=== PATIENT | female | born 1940 | race Caucasian/White ===

== ENCOUNTER 2024-03-30 14:34 | Outpatient (CLI) | payer MEDICARE, SELFPAY ==
--- NOTE | 2024-03-30 14:38 | CT_ITS ---
PROCEDURE INFORMATION: Exam: CT Maxillofacial Without Contrast, Sinus Exam date and time: 03/30/2024 2:43 PM Age: 84 years old Clinical indication: Sinusitis; Chronic; Prior surgery; Surgery date: 6+ months; Surgery type: Sinus surgery; Additional info: Chronic sinusitis TECHNIQUE: Imaging protocol: CT Maxillofacial without contrast. Focus on the sinuses. Radiation optimization: All CT scans at this facility use at least one of these dose optimization techniques: automated exposure control; mA and/or kV adjustment per patient size (includes targeted exams where dose is matched to clinical indication); or iterative reconstruction. COMPARISON: No relevant prior studies available. FINDINGS: Frontal sinuses: No air-fluid levels. Ethmoid sinuses: No air-fluid levels. Sphenoid sinuses: A small volume of fluid in both sphenoid sinuses. No significant mucosal thickening. The sphenoid ostia appear patent. Pneumatization of the left sphenoid sinus extends into the anterior clinoid. Maxillary sinuses: Trace fluid in the left maxillary sinus. The right maxillary sinus is clear. The ostiomeatal units are patent. Nasal cavity: No nasal cavity masses. Orbital cavities: There are glaucoma shunt reservoirs in the orbits. Prior left lens surgery. Bones: Degenerative changes of the temporomandibular joints. Soft tissues: Unremarkable. IMPRESSION: A small volume of fluid in the left maxillary and bilateral sphenoid sinuses, nonspecific, can be seen in the setting of acute sinusitis.
== END 2024-03-30 23:59 | disposition home or self-care (01) ==
LOC: RAD 14:35
PROVIDERS: PCP Family Medicine; Visit Provider Nurse Practitioner
DX: J01.91 Acute recurrent sinusitis, unspecified (principal); Z98.890 Other specified postprocedural states
CPT/HCPCS: 70486

== ENCOUNTER 2025-02-18 11:13 | Emergency (ER) | payer MEDICARE, SELFPAY ==
--- OUTSIDE RECORDS SUMMARY | 2025-01-03 10:45 | XMS_ITS | Encounter Summary ---
Author Organization Healthcare Address [address] 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 Hx of primary open angle glaucoma severe right eye, secondary open angle glaucoma left eye. Hx of multiple PKP OD and multiple DSAEK OS for Fuch's. Using Combigan BID OU, Prednisolone BID OU, Pilocarpine 1% BID OU, Pazeo PRN OU, Travatan QHS OU. Added Maxitrol ointment nightly prn after the procedure. try ARx OU, CH, pachy, dilate OU She reports: no interim changes or concerns, vision about the same. No problems after the laser Next appt with Andre is 02/06/25 At last visit: she has been having a lot of allergies and has had burning and itching and blurred vision. Patient is taking over the counter rewetting systane and allergy drops pataday. Patient states she occasionally sees pink and blue balloons and stain glass window above television and [employer] grocery carts pushed together on the floor. Patient states she has a lot of pressure in sinus. Using Combigan BID OU, Prednisolone BID OU, Pilocarpine 1% BID OU, and Lumigan OU. Also using Pataday. Last saw Dr. Powell May 2023. IOPs were 7 T 12. Glaucoma History Summary: Diagnosis: Fuch's dystrophy, PKP x 3 OD, PKP , DSAEK OS - secondary open angle / steroid induced glaucoma OU Maximum IOP OD: mid 30's OS: mid 30's. Goal IOP OD: 12 mmHg or less OS: 12 mmHg or less. Pachymetry OD: 419 (october 2014), 530- Feb 2021 OS: 615 (october 2014). 556- Feb 2021 Current Meds: Bimatoprost OU, Pataday, Pazeo, PF 1/2, jeannine 1% BID OD, Combigan BID OD Drop Failure: combigan irritating?, Latanoprost a therapeutic failure in the past Surgery/Procedures OD tube shunt with patch graft , PKP 11/26 OS: previous ExPress shunt, TSCPCmicropulse 09/26 SLT 07/27 and 11/25 - previous ExPress shunt. SLT 07/27 and 11/25 - previous ExPress shunt. previous ExPress shunt. OS:. 07/27, 11/25, 07/31. Last HVF: Mar 2024 OD: Diffuse suppression, no pattern changes (MD -33.04 dB), reliability good, no previous test for comparison OS: Superior>inferior changes, fovea 28, + split fixation. (MD -20.61 dB), reliability, no previous test for comparison. 10-2 OU Jul 2013 OD - central island remains, total loss of SN quad (-25.18) OS- Inf nasal step with generalized constriction (-14.36) Last RNFL: October 2024 OD: diffuse thinning, avg 27 um. Unable to compared to previous due to poor quality OS: diffuse thinning, avg 52 um. stable compared to previous. Image quality good OU. March OD: Unable OS: polar thinning, avg 59 um. stable compared to previous. Mild seg error temporal/inferotemporal artificial thinning January 28, 2022 OS: polar and temporal thinning, avg 47 um. stable compared to previous. Image quality fair. Jun 2020 58 um OD/ Jan 2022 47 um OS comparing to 07/28/2017 - severe diffuse thinning OS > OD, likely some artifact OU but appears similar to 2018 Family History: no known family history Steriod Use or Medications of Interest: likely a steroid responder Medical History of Significance: psoriasis - on MTX, sleep apnea. Sulfa allergy. Chronic severe sinus problems, several surgeries Comments: had sinus surgery Apr 29 2015 with some improvement history of tarsorrhaphy OD Assessment/Plan There are no diagnoses linked to this encounter. 1) OAG / Steroid induced advanced glaucoma OU s/p tube OD and old trab / ExPress OS. Had DSAEK OS Mar 2018. Had tube flush OD at time of her most recent PKP in 2015. - goal IOP is 12 or less. At goal OU today. 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 Current regimen is bimatoprost OU (switched last year), pilocarpine 1% BID OU, Combigan BID OU. Option of Rhopressa trial but hesitant to challenge the eye surfaces. Refills done today - warned against using either Fluticasone spray or Qvar inhaler for more than 2 weeks at a time, asprolonged use could significantly elevate her eye pressures. She has done remarkably well since weaning off steroids and using Pilocarpine. - today's RNFL stability (OS only) is reassuring, although likely with artifacts. Recommend cont this regimen. 09/10/22: IOP stable today at 8 OU, RLL trichiatic lash epilated at slit lamp. Minor allergy symptoms. CPM. 03/15/23 - RNFL today stable left eye (unable right eye ) - Currently on combigan, pilocarpine, travatan both eyes and pred forte BID both eyes - intraocular pressure today 03/25 on above regimen - CPM 09/13/23 IOP today stable at 6 T 14 on combigan, pilocarpine, Lumigan both eyes and pred forte BID both eyes. Epilated lashes from the right lower lid with forceps, at the slit lamp, well tolerated. IOP at goal. Will cont this regimen. 03/27/24: 10-2 today OD with diffuse loss (do not repeat OD). OS with sup>inf changes. IOP 12 T 15 on combigan, pilocarpine, lumigan OU as well as PF BID. Will continue this regimen. 10/2024: IOP today 12/27 on PF BID, now on timolol, pilocarpine, and lumigan due to combigan HS reaction. Saw Dr. Neal 09/25 with IOP 15/19, Saw DGK 07/2024 with IOP 14/17 at that time. Has had worsened blurred vision with worsened allergic symptoms as well (is on allergy shots). Having some early julius bonnet symptoms out of right eye. Will add back combigan in interim. Has had multiple steroid shots recently so may be contributing. 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 IOPs today are excellent 10 12 on tonopen and 20 12 on applanation (OD less accurate). Currently on Lumigan qhs, Timolol BID, Pilocarpine BID, Prednisolone BID OU. Vision OS fluctuating. Sees Andre again in January. Unable to Rx today. Will continue c urrent drops and reassess in 4 months. 2) Hx of Fuchs dystrophy s/p multiple PKP OD, and DSEAK OS - most recently had PKP #3 OD in November 2015 and DSAEK OS in March 2018. - chronic corneal defect OD Improved after tarsorrhaphy. Corneas stable OU again today. - doing well in these glasses - Follows with Dr. Powell who is considering regraft right eye if visual acuity worsens 3) chronic blepharitis, good recent stability - using Pataday and soaks as needed. No recent ointment use. Her symptoms are chronic and never completely resolve, but we seem to be in reasonable control today. 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 Epilated 2 lashes today. RTC IOP check 4 months Electronically Signed by: Candy Freedman MD - 01/03/2025 - 12:54 PM I saw and evaluated the patient with the resident/fellow. I discussed the case with the resident/fellow and agree with the findings and plan as documented. Nelda Butcher MD documented in this encounter Plan of Treatment Upcoming Encounters Date Type Department Care Team (Late st Contact Info) Description 05/07/2025 9:15 AM EST Office Visit [facility] [address] [place] [address] Nelda Butcher MD 110 [facility] [address] [place] [address] 08/12/2025 1:45 PM EST Office Visit [facility] [address], [address] [place] [address] Ramón Powell MD 110 [facility] [address] [place] [address] 01/21/2026 1:30 PM EDT Ovarian Cancer Screening [facility] [address] [facility] [place] [address] documented as of this encounter Visit Diagnoses Diagnosis Steroid-induced open-angle glaucoma, left, moderate stage- Primary 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, severe stage Corneal edema, secondary, bilateral Fuchs' corneal 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
--- OUTSIDE RECORDS SUMMARY | 2025-02-06 15:00 | XMS_ITS | Encounter Summary ---
Author Organization [facility] Address [address] [place] [address] Care Team Providers Care Market Intelligence Consultant Name Role Phone Camilla Rosado MD Primary Care Provider [phone] Encounter Details Date Type Department Care Team (Latest Contact Info) Description 02/06/2025 3:00 PM EDT Office Visit [facility] [place] [address], [address] [place] [address] Ramón Powell MD 110 [facility] [address] [place] [address] 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, severe stage (Primary Dx); Corneal edema, secondary, bilateral; Fuchs' corneal dystrophy of both eyes; 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; Steroid-induced open-angle glaucoma, left, moderate stage; Allergic conjunctivitis of both eyes; Trichiasis of right lower eyelid; History of glaucoma tube shunt procedure; History of Descemet's stripping endothelial keratoplasty (DSEK); Ophthalmic migraine; Subjective visual disturbance Social History Tobacco Use Types Packs/Day Years [...] as of this encounter Miscellaneous Notes * Assessment & Plan Note - Ramón Powell MD - 02/06/2025 3:00 PM EDT Associated Problem(s): 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, severe stage * Assessment & Plan Note - Ramón Powell MD - 02/06/2025 3:00 PM EDT Associated Problem(s): Corneal edema, secondary, bilateral * Assessment & Plan Note - Ramón Powell MD - 02/06/2025 3:00 PM EDT Associated Problem(s): Fuchs' corneal dystrophy of both eyes * Assessment & Plan Note - Ramón Powell MD - 02/06/2025 3:00 PM EDT Associated Problem(s): 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 * Assessment & Plan Note - Ramón Powell MD - 02/06/2025 3:00 PM EDT Associated Problem(s): Steroid-induced open-angle glaucoma, left, moderate stage * Assessment & Plan Note - Ramón Powell MD - 02/06/2025 3:00 PM EDT Associated Problem(s): Allergic conjunctivitis of both eyes * Assessment & Plan Note - Ramón Powell MD - 02/06/2025 3:00 PM EDT Associated Problem(s): Trichiasis of right lower eyelid Orders: Epilation of Lashes by Forceps - OD - Right Eye * Assessment & Plan Note - Ramón Powell MD - 02/06/2025 3:00 PM EDT Associated Problem(s): History of glaucoma tube shunt procedure * Assessment & Plan Note - Ramón Powell MD - 02/06/2025 3:00 PM EDT Associated Problem(s): History of Descemet's stripping endothelial keratoplasty (DSEK) * Progress Notes - Ramón Powell MD - 02/06/2025 3:00 PM EDT Subjective HPI 85 year old woman, former patient of Dr Hali Comer ([facility]), Status Post Descemet's Stripping Automated Endothelial Keratoplasty (DSAEK) #3 Left Eye (OS) 11/23/2017 Dr Hali Comer ([facility]) Status Post Descemet's Stripping Automated Endothelial Keratoplasty (DSAEK) #2 Left Eye (OS) 04/29/2010 Dr Hali Comer ([facility]) for failed graft 2 weeks after Descemet's Stripping Automated Endothelial Keratoplasty (DSAEK) #1 04/2010 Dr Hali Comer ([facility]). She is Status Post Cataract Extraction (CE)/Intraocular Lens (IOL) Left Eye (OS) 04/20/2010. She is Status Post Penetrating Keratoplasty (PK) #3 Right Eye (OD) 11/24/2015 Dr Hali Comer ([facility]) , Status Post Penetrating Keratoplasty (PK) #2 Right Eye (OD) 05/20/2014 Dr Hali Comer ([facility]) and Status Post Penetrating Keratoplasty (PK) #1/Extracapsular Cataract Extraction (ECCE)/Intraocular Lens (IOL) Right Eye (OD) 10/21/2003 Dr Hali Comer ([facility]) . She has primary open angle glaucoma (POAG) Status Post SLT Left Eye (OS) 08/06/2013 and tube shunt right eye (OD) 08/02/2012. Status Post Yag Capsulotomy Right Eye (OD) 12/27/2005. Status Post TS central posterior curve (SHEET ROCKER) Left Eye (OS) 12/03/2024 Dr. Nelda Butcher She reports she is using Pataday once per day (QD) and Systane balance as needed , Pilocarpine 2x/ day (BID) Both Eyes (OU) , Prednisolone Acetate (PF) 2x/ day (BID) both eyes (OU) and Bimatoprost (Lumigan) Both Eyes (OU) at bedtime (qhs). Timolol 2x/ day (BID) Both Eyes (OU) Saw optometry 12/29/2022 due to irritation, had 3 lashes epilated and increased Artificial Tears (AT) Saw Dr. Nelda Butcher 12/2024 for glaucoma management, TS SHEET ROCKER OS on 12/03/24. IOPs today are excellent 10 12 on tonopen and 20 12 on applanation (OD less accurate). Currently on Lumigan at bedtime (qhs) both eyes (OU), Timolol BID OU, Pilocarpine BID OU, Prednisolone BID OU. Saw Dr. Berry Quintana O.D. 10/2023 with ocular migraine Patient states that she has severe allergy and is doing shots for allergy. Has had issues with her facility giving her drops correctly Patient fell 01/09/2025 with broken nose and concussion. Last edited by Ramón Powell MD on 02/06/2025 4:18 PM. ROS Positive for: Gastrointestinal (acid reflux), Musculoskeletal (arthritis), Endocrine (thyroid disorder), Cardiovascular (HTN), Eyes Negative for: Constitutional, Neurological, Skin, Genitourinary, HENT, Respiratory, Psychiatric, Allergic/Imm, Heme/Lymph Last edited by Berenice Kwong on 02/06/2025 3:34 PM. Objective Base Eye Exam Visual Acuity (Snellen - Linear) Right Left Dist cc 20/125-1 20/100 Near cc J16-2 J6-2 Tonometry (Tonopen, 4:06 PM) Right Left Pressure 8 9 Target and Max Pressure Right Left Target 12 12 Max 30 (07/03/2020) 30 (07/03/2020) Pachymetry (02/06/2025) Right Left Thickness 351 553 Neuro/Psych Oriented x3: Yes Mood/Affect: Normal Slit Lamp and Fundus Exam External Exam Right Left External 30% permanent lateral tarsorrhaphy, trichiasis upper lid Normal Slit Lamp Exam Right Left Lids/Lashes 40% lateral permanent tarsorrhaphy, 3trichiasis lower lid laterally, lower plug in place, blepharitis insp gland Normal for Age, lower punctal plug in place, blepharitis Conjunctiva/Sclera Bleb superonasally, 1+ injection 1-2+ injection Cornea Penetrating keratoplasty graft stable, 2+ microcystic edema superonasally, 0.5 x 1 mm subepithelual scar paracentrally toward 8:00, few tiny filaments. Continuous and interrupted sutures OK, Wound OK. epithelium intact, no fluorescein staining. EK (DSAEK) thin and clear, 100% attached. Epithelium intact, few tiny filaments, extensive PEE Anterior Chamber deep and quiet, tube shunt at 11:00 deep and quiet Iris normal pupil, miotic pupil size and shape Superotemporal PI, 2 inferior PI small Lens PC IOL YAG PC IOL YAG Vitreous Normal Normal Fundus Exam Right Left Disc mild diffuse pallor, no heme trace diffuse pallor, no heme C/D Ratio 0.95 0.85 Refraction Wearing Rx Sphere Cylinder [place] Add Right -2.25 Sphere +2.50 Left -3.25 +1.75 055 +2.50 Manifest Refraction Sphere Cylinder [place] Dist [place] Add Right -2.25 Sphere 20/125-1 +3.00 Left -2.75 +1.75 065 20/100 +3.00 Assessment/Plan Assessment & Plan 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, severe stage Corneal edema, secondary, bilateral Fuchs' corneal dystrophy of both eyes 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 Steroid-induced open-angle glaucoma, left, moderate stage Allergic conjunctivitis of both eyes Trichiasis of right lower eyelid Orders: Epilation of Lashes by Forceps - OD - Right Eye History of glaucoma tube shunt procedure History of Descemet's stripping endothelial keratoplasty (DSEK) Ophthalmic migraine Subjective visual disturbance Status Post Descemet's Stripping Automated Endothelial Keratoplasty (DSAEK) #3 Left Eye (OS) 11/23/2017 Dr Hali Comer ([facility]) Pachymetry [phone]) Vision 20/40-60 for several years Stable Prednisolone Acetate (PF) 2x/ day (BID) Status Post Descemet's Stripping Automated Endothelial Keratoplasty (DSAEK) #2 Left Eye (OS) 04/29/2010 Dr Hali Comer ([facility]) for failed graft 2 weeks after #1 Status Post Descemet's Stripping Automated Endothelial Keratoplasty (DSAEK) #1 /Cataract Extraction(CE)/Intraocular Lens (IOL) Left Eye (OS) 04/20/2010 Dr Hali Comer ([facility]). Fuchs' Dystrophy Status Post Penetrating Keratoplasty (PK) #3 Right Eye (OD) 11/24/2015 Dr Hali Comer ([facility]) Pachymetry 351([phone]) Decreased vision Right Eye (OD) from end stage glaucoma. Tarsorrhaphy in place, some peripheral Band Keratopathy Prednisolone Acetate (PF) 2x/ day (BID) Status Post Penetrating Keratoplasty (PK) #2 Right Eye (OD) 05/20/2014 Dr Hali Comer ([facility]) Status Post Penetrating Keratoplasty (PK) #1/Extracapsular Cataract Extraction (ECCE)/Intraocular Lens (IOL) Right Eye (OD) 10/21/2003 Dr Hali Comer ([facility]) Fuchs' Dystrophy Status Post Yag Capsulotomy Both Eyes (OU) Glaucoma Both Eyes (OU) Chronic open angle glaucoma, right severe, left moderate. Status Post SLT left eye (OS) 08/06/2013 Status Post tube shunt Right Eye (OD) 08/02/2012. Status Post TS central posterior curve (SHEET ROCKER) Left Eye (OS) 12/03/2024 Dr. Nelda Butcher Intraocular Pressure 8/9 Follows with Glaucoma service [place] qhs both eyes Pilocarpine 2x/ day (BID) Both Eyes (OU) Combigan 2x/ day (BID) Both Eyes (OU) Dry Eye Syndrome Reviewed in depth. Recommend that patient use Artificial tears on a set schedule either Refresh, Systane, Genteal or Theratears or similar, generics not preferred. No get the red out drops (Visine/Clear eyes) or allergy drops (unless specifically recommended) Preservitive Free artificial tears should be used several times per day if tears are needed four or more times per day also on a set schedule, as well as Genteal Gel or Refresh PM or Systane ointment at bedtime if patient notices symptoms upon awakening or during the night. Severe dry eyes, both eyes. Allergic conjunctivitis. Lower punctal plugs in place, both eyes (OU) Trichiasis None today Has needed epilation almost every 2-3 months - discussed oculoplastics eval but patient prefers just removing in clinic when seen. MEIBOMIAN GLAND DYSFUNCTION The nature of blepharitis was discussed with the patient Warm compresses as well as lid hygeine wasdiscussed with the patient. [place] 3 fatty acid supplements were discussed. Artificial tears four times per day on a set schedule, such as Refresh Advance, Systane balance or Retaine to help replace the oily layer of tears. Use preservative free tears if severe or tears needed more than four times per day. Possible need for oral doxycycline or similar discussed. Can use Tea tree oil foam (Oust) orCliradex wipes as well. Continue Pred acetate both eyes (OU) 2x/ day (BID) Doxycycline 50 once per day (QD) not using No longer using Brimonidine/Timolol (Combigan) Switched to timolol 2x/ day (BID) Both Eyes (OU) Continue pilocarpine 1% drops both eyes twice a day. Continue lumigan drops both eyes daily at bedtime. Could consider trial of protopic ointment (dandy) See primary care regarding visual Hallucinations no ocular cause, going on for several months may be Parth Trujillo OTC drops for allergy Seeing Dr. Nelda Butcher in [address] Powell in 6 months refract distance and near as scheduled for Va, Ta pachymetry, dilate if not done with Dr. Nelda Butcher Watch pachymetry right eye (OD), she may need regraft then if worse. See sooner if problems or questions. Tobacco Use: Low Risk (02/06/2025) Patient History Smoking Tobacco Use: Never Smokeless Tobacco Use: Never Passive Exposure: Never The patient has been counseled on tobacco cessation: Not Applicable documented in this encounter Plan of Treatment Upcoming Encounters Date Type Department Care Team (Late st Contact Info) Description 05/07/2025 9:15 AM EST Office Visit [facility] [address] [place] [address] Nelda Butcher MD [address] [place] [address] 08/12/2025 1:45 PM EST Office Visit [facility] [address], [address] [place] [address] Ramón Powell MD [address] [place] [address] 01/21/2026 1:30 PM EDT Ovarian Cancer Screening [facility] [address] [place] [address] documented as of this encounter Procedures Procedure Name Priority Date/Time Associated Diagnosis Comments CORRECTION OF TRICHIASIS EPILATION BY FORCEPS ONLY - OD - RIGHT EYE Routine 02/06/2025 4:22 PM EDT Trichiasis of right lower eyelid documented in this encounter Results * Epilation of Lashes by Forceps - OD - Right Eye (02/06/2025 4:22 PM EDT) Anatomical Region Laterality Modality Head Other Narrative 02/06/2025 4:22 PM EDT Procedure note Pre and Post Diagnosis: Trichiasis lash(s )of right lower eyelid (RLL) Procedure: Epilation with forceps x3 RLL Details:Jewelers forceps were used to remove the lashes noted above Surgeon: Ramón Powell MD Complications: None Ramón Powell MD OPHTH CLINIC PROCEDURES Final Result documented in this encounter Visit Diagnoses Diagnosis 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, severe stage- Primary Corneal edema, secondary, bilateral Fuchs' corneal dystrophy of both eyes 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 Steroid-induced open-angle glaucoma, left, moderate stage Allergic conjunctivitis of both eyes Other chronic allergic conjunctivitis Trichiasis of right lower eyelid History of glaucoma tube shunt procedure History of Descemet's stripping endothelial keratoplasty (DSEK) Ophthalmic migraine Subjective visual disturbance Unspecified subjective visual disturbance documented in this encounter Additional Health Concerns Assessment Noted Time A fall risk assessment has been complete d for the patient 10/17/2024 10:18 AM EDT A Body Mass Index follow-up plan has been documented for the patient 02/06/2025 4:27 PM EDT documented as of this encounter Care Teams Market Intelligence Consultant Relationship Specialty Start Date End Date Camilla Rosado MD [address] [place] [address] [address] [place] [address] PCP - General 10/24/20 documented as of this encounter
[2025-02-18] VITALS (8 sets, daily range): BP systolic 123–142; BP diastolic 56–72; PULSE 67–78; RESP 18; TEMP 36.9–37.1; O2SAT 93–95; BMI 26.1
--- NOTE | 2025-02-18 11:07 | XR_ITS ---
FINAL REPORT CLINICAL HISTORY: SOB, hypoxia, body aches FINDINGS: A single view of the chest was obtained. There is no prior exam for comparison. The cardiac and mediastinal silhouettes are within normal limits. There is underlying emphysema. There is no focal infiltrate, pleural effusion, or pneumothorax. IMPRESSION: No acute process. Underlying emphysema. Reviewed, Interpreted and Dictated by Krista Gonzalez MD Transcribed by Cheryl Bone Authenticated and [facility]
--- NOTE | 2025-02-18 11:10 | HMH.EDGENADL ---
Discharge Plan Disposition Patient Disposition: Home, Self-Care Prescriptions Prescriptions: No Action famotidine 20 mg tablet 20 mg PO BID Patient Comments: Take 1 tablet(s) twice a day. amlodipine 5 mg tablet 5 mg PO DAILY Patient Comments: Take 1 tablet by mouth Daily. metoprolol succinate 25 mg tablet extended release 24 hr 25 mg PO DAILY Patient Comments: Take 1 tablet by mouth Daily. meclizine 12.5 mg tablet 12.5 mg PO .prn Patient Comments: Take 1 tablet by mouth twice a day as needed. pravastatin 80 mg tablet 80 mg PO HS Patient Comments: TAKE 1 TABLET EVERY EVENING. losartan 100 mg tablet 100 mg PO DAILY Patient Comments: TAKE 1 TABLET ONCE A DAY. allopurinol 100 mg tablet 100 mg PO DAILY Patient Comments: TAKE 1 TABLET ONCE A DAY. montelukast 10 mg tablet 10 mg PO DAILY Patient Comments: take 1 tablet once a day prednisolone acetate 1 % drops,suspension 1 drp Eye-Both BID Patient Comments: Administer 1 drop into both eyes 4 (four) times a day. pilocarpine HCl 1 % drops 1 drp Eye-Both BID Patient Comments: Administer 1 drop into both eyes 2 (two) times a day. brimonidine-timolol 0.2-0.5 % drops 1 drp Eye-Both BID Patient Comments: Administer 1 drop into both eyes 2 (two) times a day. azelastine 137 mcg (0.1 %) spray,non-aerosol intranasal Patient Comments: [place] 1 spray twice a day by intranasal route. Lumigan 0.01 % drops 1 drp Eye-Both HS Patient Comments: Administer 1 drop into both eyes every night. albuterol sulfate 90 mcg/actuation HFA aerosol inhaler 2 inh inhalation Patient Comments: INHALE 2 PUFFS BY MOUTH EVERY 4 HOURS NEEDED levothyroxine 100 MCG tablet 100 mg PO DAILY levocetirizine [24HR Allergy Relief] 5 MG tablet 5 mg PO DAILY Referrals Follow up/Referrals: Westley Whelan MD [Physician, Pulmonology] - See instructions Activity Restrictions/Add. Instructions Additional Instructions/Restrictions: You are found to have COVID-19, which is likely the source of your symptoms. If you develop any new or worsening symptoms, such as worsening shortness of breath, difficulty breathing, chest pain, or if you become concerned for your health for any reason you were found to have an pulmonary nodule in your left lower lobe and left upper lobe. You are being referred to our autographer, Dr. Whelan, for follow up. Clinical Impressions Clinical Impression: COVID-19, Incidental pulmonary nodule, FAUSTINO (acute kidney injury) Print Language Print Language: [place] Discharge ED Provider: Jake Kee General Adult HPI General Chief complaint: Weakness Stated complaint: GENERALIZED WEAKNESS Time Seen by Provider: 02/18/25 11:14 Mode of Arrival: EMS Source of Information: Patient and EMS Limitations: No Limitations History of Present Illness HPI narrative: Kristen Vela is an 85-year-old female with a history of hypertension, appendectomy who presents to the emergency department via EMS from senior living for complaints of full body aches, cough, nasal congestion over the past 3 days. Patient symptoms started at 3 AM on Tuesday. She does report some vomiting with these symptoms as well. Patient reportedly had a negative COVID test 2 days ago. Patient does not normally wear oxygen but had oxygen saturations in the upper 80s with EMS that improved on 2 L nasal cannula. Patient does report that occasionally she will get clear phlegm with her cough. She states that the aches that she feels are full body. She denies abdominal pain or chest pain. Related Data Home Medications ?Medication ?Instructions ?Recorded ?Confirmed levocetirizine 5 mg tablet (24HR 5 mg PO DAILY . 09/13/18 04/03/24 Allergy Relief) levothyroxine 100 mcg tablet 100 mg PO DAILY thyroid 09/13/18 04/03/24 albuterol sulfate 90 mcg/actuation 2 inh inhalation 02/29/24 04/03/24 aerosol inhaler allopurinol 100 mg tablet 100 mg PO DAILY 02/29/24 04/03/24 amlodipine 5 mg tablet 5 mg PO DAILY 02/29/24 04/03/24 azelastine 137 mcg (0.1 %) nasal intranasal 02/29/24 04/03/24 spray bimatoprost 0.01 % eye drops 1 drp Eye-Both HS 02/29/24 04/03/24 ([place]umigan) brimonidine 0.2 %-timolol 0.5 % 1 drp Eye-Both BID 02/29/24 04/03/24 eye drops famotidine 20 mg tablet 20 mg PO BID 02/29/24 04/03/24 losartan 100 mg tablet 100 mg PO DAILY 02/29/24 04/03/24 meclizine 12.5 mg tablet 12.5 mg PO .prn 02/29/24 04/03/24 metoprolol succinate 25 mg 25 mg PO DAILY 02/29/24 04/03/24 tablet,extended release 24 hr montelukast 10 mg tablet 10 mg PO DAILY 02/29/24 04/03/24 pilocarpine HCl 1 % eye drops 1 drp Eye-Both BID 02/29/24 04/03/24 pravastatin 80 mg tablet 80 mg PO HS 02/29/24 04/03/24 prednisolone acetate 1 % eye 1 drp Eye-Both BID 02/29/24 04/03/24 drops,suspension Allergies Allergy/AdvReac Type Severity Reaction Status Date / Time cefixime (From Suprax) Allergy Verified 04/03/24 10:15 clarithromycin (From Biaxin) Allergy Verified 04/03/24 10:15 Penicillins Allergy Verified 04/03/24 10:15 Sulfa (Sulfonamide Allergy Verified 04/03/24 10:15 Antibiotics) steriods Allergy Mild Uncoded 04/03/24 10:15 PFSH PFSH Disclaimer: The information contained in this section may have been updated after the patient was seen, as this information can be updated by other users. Medical History (Updated 02/18/25 @ 14:34 by Jake Kee MD) Acute sinusitis Glaucoma (increased eye pressure) Sinusitis Surgical History History of appendectomy H/O carpal tunnel repair H/O breast surgery H/O sinus surgery History of cornea transplant Social History Smoking Status: Never smoker alcohol intake: never current occupational status: retired Travel in the last 8 weeks?: None Have you lived/traveled outside US in past 30 days?: No Contact w/someone who lives/traveled outside US past 30 days?: No Exposure to someone with infectious disease in past 14 days?: No Do you have a fever (greater than 100.4 F or 38 C)?: No Have you tested positive for COVID-19?: No Exposed to someone with COVID-19 in past 14 days?: No Do you have a sore throat?: No Do you have a cough?: No Do you have any weakness?: Yes Do you have any diarrhea?: No Are you experiencing any unusual bleeding?: No Do you have any muscle aches/pain?: No Do you have any abdominal pain?: No Are you experiencing loss of taste or smell?: No Other Medical History Have you received the Pneumonia Vaccine: Yes ROS Obtained: Yes Systems reviewed as appropriate & no additional complaints except as documented Physical Exam General General appearance: alert and in no apparent distress Head Head exam: atraumatic Eye Eye exam: Present normal appearance ENT ENT exam: Present normal external ear exam Neck Neck exam: Present full ROM Chest Chest inspection: Present symmetric chest wall rise Respiratory Respiratory exam: Present normal lung sounds bilaterally and other (speaking in full sentences); Absent respiratory distress, wheezes or stridor Cardiovascular Cardiovascular exam: Present regular rate and normal rhythm Abdominal Exam Abdominal exam: Present soft; Absent tenderness or guarding Extremities Exam Extremities exam: Present normal inspection Back Exam Back exam: Present normal inspection Neurological Exam Neurological exam: Present alert and oriented X3 Psychiatric Psychiatric exam: Present normal affect Skin Skin exam: Present warm and dry Medical Decision Making Medical Records Screening: Per USPSTF and CDC recommendations, given the prevalence of disease in our region, it is our hospital?s policy to screen for HIV and viral Hepatitis for all patients aged 18 and over and those with ongoing risk factors. Sudheer Inquiry Pt receiving controlled substance: No Vital Signs: 02/18/25 11:15 02/18/25 11:30 02/18/25 12:00 Temperature 98.8 F Temperature Source Oral Pulse Rate 72 67 Pulse Rate [Radial] 76 Respiratory Rate 18 Blood Pressure 123/63 123/72 Blood Pressure [Right Arm] 129/67 Blood Pressure Mean [Right Arm] 87 Blood Pressure Source [Right Arm] Automatic Cuff Blood Pressure Position [Right Arm] Sitting 02 Sat by Pulse Oximetry 93 L 95 95 Oxygen Delivery Method Nasal Cannula Oxygen Flow Rate (LPM) 2 02/18/25 13:01 02/18/25 13:30 02/18/25 14:00 Temperature Temperature Source Pulse Rate 78 69 69 Pulse Rate [Radial] Respiratory Rate Blood Pressure 134/70 128/63 141/56 H Blood Pressure [Right Arm] Blood Pressure Mean [Right Arm] Blood Pressure Source [Right Arm] Blood Pressure Position [Right Arm] 02 Sat by Pulse Oximetry 95 95 93 L Oxygen Delivery Method Oxygen Flow Rate (LPM) Lab Data Lab Results 02/18/25 11:07: Chlamy pneumoniae PCR Not detected, Adenovirus (PCR) Not detected, B. pertussis DNA (PCR) Not detected, Coronavirus OC43 (PCR) Not detected, Coronavirus HKU1 (PCR) Not detected, Coronavirus 229E (PCR) Not detected, SARS-CoV-2 (PCR) Detected A, Coronavirus NL63 (PCR) Not detected, Human Metapneumovir PCR Not detected, Influenza A (H1) PCR Not detected, Influ A (H1N1/09) PCR Not detected, Influenza A (H3) PCR Not detected, Influenza Type A (PCR) Not detected, Influenza Type B (PCR) Not detected, M. pneumoniae (PCR) Not detected, Parainfluenza 1 (PCR) Not detected, Parainfluenza 2 (PCR) Not detected, Parainfluenza 3 (PCR) Not detected, Parainfluenza 4 (PCR) Not detected, RSV (PCR) Not detected, Entero/Rhino (PCR) Not detected 02/18/25 11:10: WBC 7.3, RBC 4.53, Hgb 13.5, Hct 39.7, MCV 87.6, MCH 29.8, MCHC 34.0, RDW 12.2, Plt Count 163, MPV 11.3 H, Neut % (Auto) 76.1, Lymph % (Auto) 9.8 L, [place] % (Auto) 12.3 H, Eos % (Auto) 1.1, Baso % (Auto) 0.3, Neut # (Auto) 5.5, Lymph # (Auto) 0.7, [place] # (Auto) 0.9, Eos # (Auto) 0.1, Baso # (Auto) 0.0, D-Dimer 1.64 H, Sodium 136, Potassium 3.8, Chloride 104, Carbon Dioxide 27, Anion Gap 8.8, BUN 22 H, Creatinine 1.10 H, Estimated Creat Clear 46, Estimated GFR 47 L, Est GFR ( Amer) 57 L, Glucose 114 H, Calcium 8.7, Total Bilirubin 0.7, AST 25, ALT 21, Alkaline Phosphatase 88, Troponin I < 0.01, C-Reactive Protein 38.1 H, NT-Pro-B Natriuret Pep 197, Total Protein 6.7, Albumin 3.7, Globulin 3.0, Albumin/Globulin Ratio 1.2, HCV Ab KYLAH w/Rflx PCR Qn Negative, HIV Ag/Ab Combo Qual Negative 02/18/25 11:10 02/18/25 11:10 Orders (Tests/Meds): ED MEDICATIONS Discontinued Medications Generic Name Dose Route Start Last Admin Trade Name Freq PRN Reason Stop Dose Admin Lactated Ringer's 1,000 mls @ 999 mls/hr 02/18/25 12:38 02/18/25 14:33 Lactated Ringer's 1000 Ml Bag IV 02/18/25 13:38 Infused .Q1H1M ONE Infusion Iopamidol 80 ml 02/18/25 12:37 02/18/25 12:39 Iopamidol-370 (76%);100ml Bottle IV 02/18/25 12:38 80 ml ONCE ONE Administration Ondansetron HCl 4 mg 02/18/25 11:11 02/18/25 11:23 Ondansetron 4mg/2ml Vial IV 02/18/25 11:12 4 mg ONCE ONE Administration Sodium Chloride 10 ml 02/18/25 12:37 02/18/25 12:39 Sodium Chloride 0.9% 10ml Syr (Rad Only) IV 02/18/25 12:38 10 ml ONCE ONE Administration Sodium Chloride 50 ml 02/18/25 12:37 02/18/25 12:39 0.9 % Sodium Chloride 50 Ml Vial IV 02/18/25 12:38 50 ml ONCE ONE Administration ORDERS Category Date Time Status CT angio chest PE protocol Stat Cat Scan 02/18/25 11:45 Completed CXR --portable [XR chest portable] Stat Exams 02/18/25 11:07 Completed BNP [NT Pro Brain Natriuretic Pep.] Stat Lab 02/18/25 11:10 Completed CBC w/Auto Diff [Complete Blood Count Auto Diff] Stat Lab 02/18/25 11:10 Completed CMP [Comprehensive Metabolic Panel] Stat Lab 02/18/25 11:10 Completed CRP [C-Reactive Protein] Stat Lab 02/18/25 11:10 Completed D-Dimer Stat Lab 02/18/25 11:10 Completed Full Resp Panel w/COVID ([facility]) Routine Lab 02/18/25 11:07 Completed HIV Combo Stat Lab 02/18/25 11:10 Completed Hepatitis C Ab Qual. W/ RFX Stat Lab 02/18/25 11:10 Completed Troponin I Q3H Lab 02/18/25 14:18 Received Troponin I Q3H Lab 02/18/25 17:15 Ordered Troponin I Stat Lab 02/18/25 11:10 Completed UA [Urinalysis and Microscopic] Stat Lab 02/18/25 11:09 Ordered Blood Culture Stat Micro 02/18/25 11:50 Received ECG Data Tracing #1: I reviewed this ECG and interpreted as documented below: Normal sinus rhythm. No ST elevation or depression. QTc normal at 395 Medical Decision Narrative: Kristen Vela is an 85-year-old female with a history of hypertension, appendectomy who presents to the emergency department via EMS from senior living for complaints of full body aches, cough, nasal congestion over the past 3 days. Patient symptoms started at 3 AM on Tuesday. She does report some vomiting with these symptoms as well. Patient reportedly had a negative COVID test 2 days ago. Patient does not normally wear oxygen but had oxygen saturations in the upper 80s with EMS that improved on 2 L nasal cannula. Patient does report that occasionally she will get clear phlegm with her cough. She states that the aches that she feels are full body. She denies abdominal pain or chest pain. On arrival, patient oxygen saturation around 94% on 2 L nasal cannula and dropped to 88% when not on 2 L O2. She does not appear to be in any respiratory distress, breathing comfortably, speaking in full sentences. Breath sounds are clear bilaterally. She is GCS 15. Abdomen is soft, nontender nondistended. Differential diagnosis includes, but is not limited to: Viral respiratory illness, pneumonia, ACS, pulmonary embolism, electrolyte derangement, metabolic derangement, among others. The most morbid conditions were considered and workup was based on these. Workup in the emergency department included: EKG, chest x-ray, full respiratory panel,, troponin, urinalysis, BNP, CBC with differential, CMP, CRP, D-dimer. Patient was treated initially with 4 mg of IV Zofran. EKG without evidence of ischemia. See interpretation above. No leukocytosis, CBC unremarkable nonactionable. D-dimer is elevated 1.64, will obtain CT pulmonary embolism to rule out PE. Patient has mild FAUSTINO with creatinine of 1.10 and BUN of 22, will give 1 L lactated Ringer's this is likely prerenal in nature. Initial troponin less than 0.01. CRP is elevated at 38.1. Chest x-ray interpreted by me personally. No focal consolidation, no pneumothorax, no widened mediastinum, no enlargement of the cardiac silhouette. Unremarkable chest x-ray. See radiology report for details. CT pulmonary embolism interpreted by me personally. There are 2 incidentally found pulmonary nodules in the left lung but no evidence of pulmonary embolism or focal consolidation to suggest pneumonia. See radiology report for details. Patient's viral panel came back positive for SARS-CoV-2. On reassessment, patient was able to be weaned off nasal cannula. She does state that she sleeps with the CPAP at night. She was noted to have desaturations of oxygen only when sleeping. It is felt that she does not need oxygen therapy to go home with given this fact. This for the she is appropriate for discharge at this time. Return precautions were given. All questions were answered. She was then discharged from the emergency department in stable condition. Critical Care Critical Care Time Critical Care Time: No
[2025-02-18 11:13] LABS: Adenovirus,PCR Not Detected (NotDetected); Chlamydophila Pneumoniae, PCR Not Detected (NotDetected); Coronovirus HKU1,PCR Not Detected (NotDetected); Influenza A, PCR Not Detected (NotDetected); Influenza AH1, 2009 Not Detected (NotDetected); Influenza AH1, PCR Not Detected (NotDetected); Influenza AH3,PCR Not Detected (NotDetected); Influenza B, PCR Not Detected (NotDetected); Mycoplasma Pneumoniae, PCR Not Detected (NotDetected); Parainfluenza 1, PCR Not Detected (NotDetected); Parainfluenza 2, PCR Not Detected (NotDetected); Parainfluenza 3, PCR Not Detected (NotDetected); Parainfluenza 4, PCR Not Detected (NotDetected)
--- NOTE | 2025-02-18 11:13 | ECG_ITS ---
APPROVED REPORT Exam: Resting ECG HR:73 bpm ECG Measurements Heart Rate 73 AXES MA 195 P 63 QRSd 92 QRS 62 QT 369 T 71 QTc 395 Conclusion SINUS RHYTHM MODERATE ST DEPRESSION [0.05+ mV ST DEPRESSION] ABNORMAL ECG UNCONFIRMED REPORT Normal sinus rhythm. No ST elevation or depression. Electronically signed by : FELICIA KNIGHT, 02/18/2025 13:45:05
[2025-02-18 11:18] LABS: Hematocrit 39.7 % (37.0-47.0); Hemoglobin 13.5 g/dL (12.2-16.2); Immature Granulocytes % 0.4 %; Mean Corpuscular HGB Conc 34.0 g/dL (31.8-35.4); Mean Corpuscular Hemoglobin 29.8 pg (27.0-31.2); Mean Corpuscular Volume 87.6 fl (81-99); Nucleated Red Blood Cells % 0 %; Platelet Count 163 K/mm3 (142-424); Red Blood Count 4.53 M/mm3 (4.20-5.40); Red Cell Distribution Width-SD 39.3 fL; White Blood Count 7.3 K/mm3 (4.8-10.8)
[2025-02-18] MEDS: ONDANSETRON 4MG/2ML VIAL 4 MG IV (11:23)
[2025-02-18 11:27] LABS: Albumin Level 3.7 g/dl (3.5-5.0); Albumin/Globulin Ratio 1.2 (1.1-1.8); Blood Urea Nitrogen 22 mg/dl (7-17); Calcium 8.7 mg/dl (8.4-10.2); Carbon Dioxide 27 mmol/L (22.0-30.0); Chloride 104 mmol/L (98-107); Creatinine Clearance Estimated 46 mL/min (50-200); Creatinine,Serum 1.10 mg/dl (0.52-1.04); Estimated Glomerular Filt Rate 47 ml/min (>60); GFR (African American) 57 ML/MIN (>60); Globulin 3.0 g/dL (1.3-3.2); Glucose 114 mg/dl (74-100); Potassium 3.8 mmoL/L (3.5-5.1); Total Protein,Serum 6.7 g/dl (6.3-8.2)
[2025-02-18 11:31] LABS: D-Dimer 1.64 ug/mL (0.0-0.5)
[2025-02-18 11:32] LABS: Alanine Aminotransferase 21 U/L (12-78); Alkaline Phosphatase 88 U/L (38-126); Anion Gap 8.8 mEq/L (5-15); Aspartate Amino Transferase 25 U/L (14-36); Bilirubin,Total 0.7 mg/dl (0.2-1.3); C-Reactive Protein 38.1 mg/L (0-4); Sodium 136 mmol/L (136-145)
--- OUTSIDE RECORDS SUMMARY | 2025-02-18 11:34 | XMS_ITS | Encounter Summary ---
Author Organization Healthcare Address [address] [place] [address] Care Team Providers Care Senior Service Technician Name Role Phone Camilla Rosado MD Primary Care Provider [phone] Encounter Details Date Type Department Care Team (Late Contact Info) Description 02/13/2025 Telephone [facility] [address] [place] [address] Ramón Powell MD [address] [address] Social History Tobacco Use Types Packs/Day Years [...] on file documented as of this encounter Plan of Treatment Upcoming Encounters Date Type Department Care Team (Late Contact Info) Description 05/07/2025 9:15 AM EST Office Visit [facility] [address] [place] [address] Nelda Butcher MD [address] [address] 08/12/2025 1:45 PM EST Office Visit [facility] [address] [place] [address], [address] [place] [address] Ramón Powell MD 110 [facility] [address] [place] [address] 01/21/2026 1:30 PM EDT Ovarian Cancer Screening [facility] Gynecology [address] [place] [address] documented as of this encounter Visit Diagnoses Not on filedocumented in this encounter Additional Health Concerns Assessment Noted Time A fall risk assessment has been complete d for the patient 10/17/2024 10:18 AM EDT A Body Mass Index follow-up plan has been documented for the patient 02/06/2025 4:27 PM EDT documented as of this encounter Care Teams Senior Service Technician Relationship Specialty Start Date End Date Camilla Rosado MD [address] [place] [address] [address] [place] [address] PCP - General 10/24/20 documented as of this encounter
--- OUTSIDE RECORDS SUMMARY | 2025-02-18 11:34 | XMS_ITS | Encounter Summary ---
Author Organization [facility] Address [address] [place] [address] Care Team Providers Care Pharmacist Manager Name Role Phone Camilla Rosado MD Primary Care Provider [phone] Encounter Details Date Type Department Care Team (Late Contact Info) Description 01/09/2025 Orders Only External Location [address] [place] [address] Provider, External Social History Tobacco Use Types Packs/Day Years [...] Description 05/07/2025 9:15 AM EST Office Visit [facility] [address] [place] [address] Nelda Butcher MD 110 [facility] [address] [place] [address] 08/12/2025 1:45 PM EST Office Visit [facility] [address] [place] [address], [address] [place] [address] Ramón Powell MD 110 [facility] [address] [place] [address] 01/21/2026 1:30 PM EDT Ovarian Cancer Screening [facility] Gynecology [address] [place] [address] documented as of this encounter Procedures Procedure Name Priority Date/Time Associated Diagnosis Comments XR MSK OUTSIDE IMAGES 01/09/2025 12:21 PM EDT documented in this encounter Results * XR MSK OUTSIDE IMAGES (01/09/2025 12:21 PM EDT) Anatomical Region Laterality Modality Radiographic Mirtha ging 01/09/2025 12:2 1 PM EDT us External Provider IMG XR PROCEDURES Final Result documented in this encounter Visit Diagnoses Not on filedocumented in this encounter Additional Health Concerns Assessment Noted Time A fall risk assessment has been complete d for the patient 10/17/2024 10:18 AM EDT A Body Mass Index follow-up plan has been documented for the patient 01/03/2025 1:18 PM EDT documented as of this encounter Care Teams Pharmacist Manager Relationship Specialty Start Date End Date Camilla Rosado MD [address] [place] [address] [address] [place] [id number] PCP - General 10/24/20 documented as of this encounter
--- OUTSIDE RECORDS SUMMARY | 2025-02-18 11:34 | XMS_ITS | Encounter Summary ---
Author Organization Healthcare Address [address] [place] [address] Care Team Providers Care Budget Engineer Name Role Phone Camilla Rosado MD Primary Care Provider [phone] Encounter Details Date Type Department Care Team (Latest Contact Info) Description 01/03/2025 Travel Social History Tobacco Use Types Packs/Day Years [...] Description 05/07/2025 9:15 AM EST Office Visit [facility] [address] [place] [address] Nelda Butcher MD [address] [address] 08/12/2025 1:45 PM EST Office Visit [facility] [address], [address] [place] [address] Ramón Powell MD [address] [address] 01/21/2026 1:30 PM EDT Ovarian Cancer Screening [facility] [address] [place] [address] documented as of this encounter Visit Diagnoses Not on filedocumented in this encounter Additional Health Concerns Assessment Noted Time A fall risk assessment has been complete d for the patient 10/17/2024 10:18 AM EDT A Body Mass Index follow-up plan has been documented for the patient 01/03/2025 1:18 PM EDT documented as of this encounter Care Teams Budget Engineer Relationship Specialty Start Date End Date Camilla Rosado MD [address] [place] [address] [address] [place] [address] PCP - General 10/24/20 documented as of this encounter
--- OUTSIDE RECORDS SUMMARY | 2025-02-18 11:34 | XMS_ITS | Encounter Summary ---
Author Organization Healthcare Address [address] [place] [address] Care Team Providers Care Branch Operation Evaluation Manager Name Role Phone Camilla Rosado MD Primary Care Provider [phone] Reason for Visit * Reason Onset Date Comments HCN Clinical Concern/Question 02/12/2025 Encounter Details Date Type Department Care Team (Late st Contact Info) Description 02/12/2025 Telephone [facility] [address] [place] [address] Ramón Powell MD [address] [address] HCN Clinical Concern/Question Social History Tobacco Use Types Packs/Day Years [...] as of this encounter Miscellaneous Notes * Telephone Encounter - Elizabeth Fuentes - 02/14/2025 1:56 PM EDT Status Update Call #1 1st call regarding the status of the initial request. Best contact number: [phone] Optimal time of day to reach caller: ANYTIME Additional comments/information from caller: [facility] called re: the Doxycycline Monohydrate is a less expensive form of the med ordered. Caller wants to know if that could be filled instead. A verbal would be fine or please send an order. Note: Please do not reply to this message. Follow-up communication and further actions as a result of this message need to be communicated with the patient directly, if the patient is not active onMyChart. If the patient is active on MyChart, they will receive notification of the communication/outcome via MyChart. * Telephone Encounter - Meche Foster - 02/13/2025 10:08 AM EDT Triage Note 02/13/2025 10:08 AM Faxed patient's Doxy orders to * Telephone Encounter - Astrid Lucero - 02/12/2025 2:52 PM EDT Clinical Concern/Question Reason for Call: Calling for clarification on patient's medication orders. Best contact number: Other: [phone] Optimal time of day to reach caller: ANYTIME Additional comments/information from caller: None Note: Please do not reply to this message. Follow-up communication and further actions as a result of this message need to be communicated with the patient directly, if the patient is not active onMyChart. If the patient is active on MyChart, they will receive notification of the communication/outcome via MyChart. documented in this encounter Plan of Treatment Upcoming Encounters Date Type Department Care Team (Late st Contact Info) Description 05/07/2025 9:15 AM EST Office Visit [facility] [address] [place] [address] Nelda Butcher MD [address] [address] 08/12/2025 1:45 PM EST Office Visit [facility] [address], [address] [place] [address] Ramón Powell MD 110 [facility] [address] [place] [address] 01/21/2026 1:30 PM EDT Ovarian Cancer Screening [facility] Gynecology [address] [place] [address] documented as of this encounter Visit Diagnoses Diagnosis Meibomian gland dysfunction (MGD) of both eyes, unspecified eyelid- Primary documented in this encounter Additional Health Concerns Assessment Noted Time A fall risk assessment has been complete d for the patient 10/17/2024 10:18 AM EDT A Body Mass Index follow-up plan has been documented for the patient 02/06/2025 4:27 PM EDT documented as of this encounter Care Teams Branch Operation Evaluation Manager Relationship Specialty Start Date End Date Camilla Rosado MD [address] [place] [address] [address] [place] [address] PCP - General 10/24/20 documented as of this encounter
--- OUTSIDE RECORDS SUMMARY | 2025-02-18 11:34 | XMS_ITS | Encounter Summary ---
Author Organization Healthcare Address [address] [place] [address] Care Team Providers Care Crane Helper Name Role Phone Camilla Rosado MD Primary Care Provider [phone] Encounter Details Date Type Department Care Team (Latest Contact Info) Description 02/06/2025 Travel Social History Tobacco Use Types Packs/Day [...] Description 05/07/2025 9:15 AM EST Office Visit [facility] [address] [place] [address] Nelda Butcher MD [address] [address] 08/12/2025 1:45 PM EST Office Visit [facility] [address], [address] [place] [address] Ramón Powell MD [address] [address] 01/21/2026 1:30 PM EDT Ovarian Cancer Screening [facility] [address] [place] [address] documented as of this encounter Visit Diagnoses Not on filedocumented in this encounter Additional Health Concerns Assessment Noted Time A fall risk assessment has been complete d for the patient 10/17/2024 10:18 AM EDT A Body Mass Index follow-up plan has been documented for the patient 02/06/2025 4:27 PM EDT documented as of this encounter Care Teams Crane Helper Relationship Specialty Start Date End Date Camilla Rosado MD [address] [place] [address] [address] [place] [address] PCP - General 10/24/20 documented as of this encounter
--- OUTSIDE RECORDS SUMMARY | 2025-02-18 11:34 | XMS_ITS | Encounter Summary ---
Author Organization Healthcare Address [address] [place] [address] Care Team Providers Care Stock Or Delivery Clerk Name Role Phone Camilla Rosado MD Primary Care Provider [phone] Reason for Visit * Reason Onset Date Comments Med Refill 12/21/2024 Encounter Details Date Type Department Care Team (Late st Contact Info) Description 12/21/2024 Telephone [facility] [address] [place] [address] Ramón Powell MD [address] [address] Med Refill Social History Tobacco Use Types Packs/Day Years [...] encounter Miscellaneous Notes * Telephone Encounter - Meche Foster - 12/21/2024 11:41 AM EDT Triage Note 12/21/2024 11:44 AM Refill sent to preferred pharmacy on file. documented in this encounter Plan of Treatment Upcoming Encounters Date Type Department Care Team (Late st Contact Info) Description 05/07/2025 9:15 AM EST Office Visit [facility] [address] [place] [address] Nelda Butcher MD 110 [facility] [address] [place] [address] 08/12/2025 1:45 PM EST Office Visit [facility] [address] [place] [address] Ramón Powell MD 110 [facility] [address] [place] [address] 01/21/2026 1:30 PM EDT Ovarian Cancer Screening [facility] Gynecology [address] [facility], [address]rd [place] [address] documented as of this encounter Visit Diagnoses Not on filedocumented in this encounter Additional Health Concerns Assessment Noted Time A fall risk assessment has been complete d for the patient 10/17/2024 10:18 AM EDT A Body Mass Index follow-up plan has been documented for the patient 10/17/2024 11:18 AM EDT documented as of this encounter Care Teams Stock Or Delivery Clerk Relationship Specialty Start Date End Date Camilla Rosado MD [address] [place] [address] [address] [place] [address] PCP - General 10/24/20 documented as of this encounter
--- OUTSIDE RECORDS SUMMARY | 2025-02-18 11:34 | XMS_ITS | Encounter Summary ---
Author Organization [facility] Address [address] [place] [address] Care Team Providers Care Inset Cutter Name Role Phone Camilla Rosado MD Primary Care Provider + Reason for Visit * Reason Onset Date Comments AIDA SERNA- LUCERO 01/17/2025 Encounter Details Date Type Department Care Team (Late st Contact Info) Description 01/17/[address] [facility] CARDI[facility] [address] [place] [address] Aida Tellez APRN [address] [place] [address] [place] [address] AIDA SERNA- LUCERO Social History Tobacco Use Types Packs/Day Years Used Date Smoking Tobacco: Never Passive Smoke Exposure: Never Smokeless Tobacco: Never Alcohol Use Standard Drinks/Week Comments Never 0 (1 standard drink = 0.6 oz pur e alcohol) Comments No Sex and Gender Information Value Date Recorded Sex Assigned at Not on file Legal Sex Female 12:11 PM EDT Gender Identity Not on file Sexual Orientation Not on file documented as of this encounter Miscellaneous Notes * Telephone Encounter - Mustapha Burnett CMA - 01/17/2025 3:04 PM EDT SPOKE WITH KARYNA AT [facility]. INFORMED HER OF MESSAGE. KARYNA VERBALIZED UNDERSTANDING. REMINDED KARYNA ABOUT PATIENT'S UPCOMING APPOINTMENT IN . * Telephone Encounter - Mustapha Burnett CMA - 01/17/2025 12:01 PM EDT ATTEMPTED TO CALL [facility]. MAITE CURRENTLY AT LUNCH. WILL TRY AGAIN LATER * Telephone Encounter - La Nena Irvin APRN - 01/17/2025 10:[address] reviewed and noted nasal septal fractures. In agreement with not restarting CPAP at this time. She has a scheduled follow-up with us in about 6 weeks and we will reevaluate starting her CPAP at that appointment. * Telephone Encounter - Mustapha Burnett CMA - 01/17/2025 10:21 AM EDT SPOKE WITH MAITE FROM [facility]. PATIENT WAS TAKEN TO THE ER FOR A FALL AND HAS BEEN DISCHARGEDTO [facility] IN [place] FOR REHAB. PATIENT IS NOT CURRENTLY USING HER PAP THERAPY DUE TO THE SWELLING AND BRUISING. MAITE STATED THAT SHE DOES NOT CURRENTLY HAVE ORDERS FOR PAP THERAPY, SO IF PATIENT NEEDS TO RESTART WHILE IN REHAB, THEY WILL NEED ORDERS STATING THAT PATIENT IS TO RESTART. CURRENTLY, THERE IS NO PLAN OF DISCHARGE FROM [facility]. INFORMED MAITE OF PATIENT'S UPCOMING APPT ON 02/28 OBTAINING MEDICAL RECORDS FROM [facility] ER VISIT. * Telephone Encounter - Yoav Recinos RegSched Rep - 01/17/2025 9:41 AM EDT Caller: Kristen Vela Relationship: Self Best call back number: [phone] What is the best time to reach you: [facility] Who are you requesting to speak with (clinical staff, provider, specific staff member): CLINICAL What was the call regarding: PATIENT HAD AN INJURY RECENTLY TO THEIR FACE, AND SO THEY WANTED TO INFORM THAT THEY ARE NOT USING THE CPAP MACHINE DUE TO SWELLING. Is it okay if the provider responds through MyChart: NO.?? documented in this encounter Plan of Treatment Upcoming Encounters Date Type Department Care Team (Late st Contact Info) Description 02/28/2025 2:00 PM EDT Office Visit [facility] C[facility] [address] [place] [address] Aida Tellez APRN [address] [place] [address] [place] [address] documented as of this encounter Visit Diagnoses Not on filedocumented in this encounter Care Teams Inset Cutter Relationship Specialty Start Date End Date Camilla Rosado MD [address] [place] [address] PCP - General Family Medicine 07/10/22 documented as of this encounter
--- OUTSIDE RECORDS SUMMARY | 2025-02-18 11:34 | XMS_ITS | Encounter Summary ---
Author Organization [facility] Address [address] [place] [address] Care Team Providers Care Hollow Ware Maker Name Role Phone Camilla Rosado MD Primary Care Provider [phone] Reason for Visit * Reason Comments Med Refill Encounter Details Date Type Department Care Team (Late st Contact Info) Description 10/24/2024 Refill [facility] [address] [place] [address] Nelda Butcher MD [address] [address] Social History Tobacco Use Types Packs/Day Years Used Date Smoking Tobacco: Never Passive Smoke Exposure: Never Smokeless Tobacco: Never Alcohol Use Standard Drinks/Week Comments No 0 (1 standard drink = 0.6 oz pur e alcohol) Comments Unknown Sex and Gender Information Value Date Recorded Sex Assigned at Female 06/14/2024 2:41 PM EST Legal Sex Female 7:36 PM EDT Gender Identity Not on file Sexual Orientation Not on file documented as of this encounter Miscellaneous Notes * Telephone Encounter - Nelda Butcher MD - 10/24/2024 12:06 PM EDT redundant documented in this encounter Plan of Treatment Upcoming Encounters Date Type Department Care Team (Late Contact Info) Description 05/07/2025 9:15 AM EST Office Visit [facility] [address] [place] [address] Nelda Butcher MD [address] [place] [address] 08/12/2025 1:45 PM EST Office Visit [facility] [address] [place] [address] Ramón Powell MD [address] [place] [address] 01/21/2026 1:30 PM EDT Ovarian Cancer Screening [facility] [address] [place] [address] documented as of this encounter Visit Diagnoses Not on filedocumented in this encounter Additional Health Concerns Assessment Noted Time A fall risk assessment has been complete d for the patient 10/17/2024 10:18 AM EDT A Body Mass Index follow-up plan has been documented for the patient 10/17/2024 11:18 AM EDT documented as of this encounter Care Teams Hollow Ware Maker Relationship Specialty Start Date End Date Camilla Rosado MD [address] [place] [address] [address] [place] [address] PCP - General 10/24/20 documented as of this encounter
--- OUTSIDE RECORDS SUMMARY | 2025-02-18 11:34 | XMS_ITS | Encounter Summary ---
Author Organization [facility] Address [address] [place] [address] Care Team Providers Care Automotive Refinisher Name Role Phone Camilla Rosado MD Primary Care Provider [phone] Encounter Details Date Type Department Care Team (Late Contact Info) Description 01/09/2025 Orders Only External Location [address] [place] [address] Provider, External Social History Tobacco Use Types [...] Description 05/07/2025 9:15 AM EST Office Visit [facility] [address] [place] [address] Nelda Butcher MD 110 [facility] [address] [place] [address] 08/12/2025 1:45 PM EST Office Visit [facility] [address] [place] [address], [address] [place] [address] Ramón Powell MD 110 [facility] [address] [place] [address] 01/21/2026 1:30 PM EDT Ovarian Cancer Screening [facility] [address] [place] [address] documented as of this encounter Procedures Procedure Name Priority Date/Time Associated Diagnosis Comments CT NEURO OUTSIDE IMAGES 01/09/2025 12:08 PM EDT documented in this encounter Results * CT NEURO OUTSIDE IMAGES (01/09/2025 12:08 PM EDT) Anatomical Region Laterality Modality Computed Tomogra phy 01/09/2025 12:0 8 PM EDT us External Provider IMG CT PROCEDURES Final Result documented in this encounter Visit Diagnoses Not on filedocumented in this encounter Additional Health Concerns Assessment Noted Time A fall risk assessment has been complete d for the patient 10/17/2024 10:18 AM EDT A Body Mass Index follow-up plan has been documented for the patient 01/03/2025 1:18 PM EDT documented as of this encounter Care Teams Automotive Refinisher Relationship Specialty Start Date End Date Camilla Rosado MD [address] [place] [address] [address] [place] [address] PCP - General 10/24/20 documented as of this encounter
--- OUTSIDE RECORDS SUMMARY | 2025-02-18 11:34 | XMS_ITS | Clinical Summary ---
Author Organization [facility] Address [address] [place] [address] Care Team Providers Care Drill Press Operator Name Role Phone Camilla Rosado MD Primary Care Provider + Allergies Active Allergy Reactions Criticality Noted Date Comments Atorvastatin Other (See Comments),Unknown (See Comments) Low 04/29/2015 Muscle cramping leg weakness Cefixime Unknown - Low Severity,Rash,Unknown (See Comments) Low 04/29/2015 Clarithromycin Unknown - Low Severity,Rash,Unknown (See Comments) Low 04/29/2015 Rosuvastatin Unknown - Low Severity Low 07/15/2022 Diltiazem Palpitations Low 07/15/2022 Lisinopril Cough Low 07/15/2022 Nitrofurantoin Unknown - Low Severity Low 3 Methylprednisolone Unknown - Low Severity Low 07/19 Penicillins Hives,Rash,Unknown ( See Comments) Low 04/29/2015 Sulfa Antibiotics Rash,Other (See Comments),Unknown (See Comments) Low 04/29/2015 Medications losartan (COZAAR) 100 MG tablet 06/24/19 23 Active levocetirizine (XYZAL) 5 MG tablet 06/21/19 23 Active allopurinol (ZYLOPRIM) 100 MG tablet 06/24/19 23 Active pilocarpine (PILOCAR) 1 % ophthalmic solution 07/12/19 23 Active pravastatin (PRAVACHOL) 80 MG tablet 06/24/19 23 Active Lumigan 0.01 % ophthalmic drops 07/10/19 23 Active famotidine (PEPCID) 20 MG tablet 06/10/20 22 Active levothyroxine (SYNTHROID, LEVOTHROID) 100 MCG tablet levothyroxine 100 mcg tablet TAKE 1 TABLET ONCE A DAY IN THE MORNING 30 MINUTES BEFORE YOUR FIRST MEAL Active vitamin D3 125 MCG (5000 UT) capsule capsule Take 2,000 Units by mouth Daily. Active aspirin 81 MG EC tablet Take 1 tablet by mouth Daily. Active meclizine (ANTIVERT) 12.5 MG tablet 11/25/19 Active albuterol sulfate HFA 108 (90 Base) MCG/ACT inhaler Inhale 2 puffs As Needed. Active Azelastine HCl 137 MCG/SPRAY solution 2 sprays 2 (Two) Times a Day. 01/26/20 Active prednisoLONE acetate (PRED FORTE) 1 % ophthalmic suspension Apply 1 drop to eye(s) as directed by provider. 03/31/20 Active montelukast (SINGULAIR) 10 MG tablet Take 1 tablet by mouth Every Night. 04/26/20 24 Active hydroCHLOROthiaz zaynab 12.5 MG tablet Take 1 tablet by mouth Daily. 08/28/19 Active timolol (TIMOPTIC) 0.5 % ophthalmic solution Administer 1 drop to both eyes 2 (Two) Times a Day. 07/16/19 25 Active Doxycycline Hyclate 50 MG tablet Take 1 tablet by mouth. 07/16/19 25 Active amLODIPine (NORVASC) 2.5 MG tablet Take 1 tablet by mouth Daily. 08/28/19 25 Active metoprolol succinate XL (TOPROL-XL) 25 MG 24 hr tabletIndication s:Primary hypertension Take 1 tablet by mouth Daily. 90 tablet 1 10/09/19 Active Active Problems Problem Noted Date Diagnosed Date Paroxysmal SVT (supraventricular tachycardia) Assessment & Plan (05/17/2024 6:33 PM EST): She reports that her symptoms are stable. She denies any episodes of tachycardia or palpitations. She is rate controlled on metoprolol succinate 25 mg daily. Plan: Continue metoprolol succinate 25 mg daily Assessment & Plan (12/01/2023 4:57 PM EDT): Symptoms are stable. No episodes of tachycardia and no reports of palpitations. She is rate controlled on metoprolol succinate 25 mg daily. Plan to continue current medication. Bilateral carotid artery stenosis 12/16/2022 LEX (obstructive sleep apnea) 12/16/2022 Assessment & Plan (08/30/2024 6:49 PM EDT): She has a history of mild sleep apnea. She is on new CPAP more than 1 month but less than 3 months. Download reviewed with good control and good compliance. She is benefiting from PAP therapy. We plan to continue PAP therapy. She has a current prescription to the DME of her choice for her PAP supplies Assessment & Plan (05/17/2024 6:35 PM EST): She has a history of mild sleep apnea. She has used CPAP therapy in the past. But unfortunately she became very dissatisfied with replacement DreamStation #2 from the [employer] recall. She reports that she is dozing while watching TV in the evenings She reports that she is having vivid dreams at night. She denies any nightmares. She reports that she wishes to restart her CPAP therapy. Plan: Prescription for new auto CPAP 6 to 16 cm and CPAP supplies Follow-up on new CPAP when she has had the device more than 1 month but less than 3 months we will plan to review a download for control and compliance Assessment & Plan (12/01/2023 4:59 PM EDT): Baseline AHI is 5. This is mild sleep apnea. She reports that she is dissatisfied with replacement DreamStation #2 from [employer] and she is not using it. We discussed today that she appears to be due for replacement per her insurance in December 2023. We discussed this again today. She reports that she is moving to an apartment next month. So she would prefer not to restart PAP therapy in the midst of moving. She was concerned that the device may get lost or damaged in the move. Plan: Patient will call when she is moved to her new apartment and ready to restart CPAP therapy. She is encouraged to sleep in lateral sleep position Head of bed elevated And continue working on her weight loss. Patient agrees with plan. Assessment & Plan (06/16/2023 5:23 PM EST): Baseline AHI is 5. This is mild sleep apnea. She reports she is dissatisfied with the replacement DreamStation #2 from [employer] and she is not using it. It appears that she should be due for a replacement per her insurance in December 2023. We discussed this again today and she would prefer to just wait. We will plan follow-up in about 6 months and at that time we will see if she wants to reorder a new PAP device. Assessment & Plan (12/16/2022 5:42 PM EDT): Baseline AHI is mild. She reports that she is very dissatisfied with the replacement DreamStation #2 from [employer]. She is not using her CPAP and does not plan to use the DreamStation #2. Per her DME she is not due for a insurance paid new CPAP until after December 2023. We discussed this and she prefers to just wait. She is advised of risk of sleep apnea and she verbalized understanding. Primary hypertension 12/16/2022 Assessment & Plan (05/17/2024 6:32 PM EST): Pressure today 132/68. This is well-controlled. She is currently on: -Amlodipine 5 mg -Losartan 100 mg -Metoprolol succinate 25 mg daily Plan to continue current medications Assessment & Plan (12/01/2023 4:56 PM EDT): Blood pressure 138/84. This is well-controlled. She is currently on: -Amlodipine 5 mg -Losartan 100 mg -Metoprolol succinate 25 mg daily Plan to continue current medications. Assessment & Plan (06/16/2023 5:24 PM EST): Blood pressure today 134/60. This is well-controlled. She is currently on: -Amlodipine 5 mg -Losartan 100 mg -Metoprolol succinate 25 mg Plan to continue current medications. Assessment & Plan (12/16/2022 5:40 PM EDT): Blood pressure today 132/74. This is well controlled. She is currently on amlodipine 5 mg, losartan 100 mg, metoprolol succinate XL 25 mg. We plan to continue medications. Near syncope 07/19/2022 Assessment & Plan (07/19/2022 3:46 PM EST): No further episodes. Work-up is complete. Sounds like palpitations. Doing well on beta-joe. We will continue. 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 Plan repeat echo at her next follow-up office visit in about 6 months. Assessment & Plan (07/19/2022 3:45 PM EST): Possible myxoma. Seen on echo in May 2022. Will repeat an echo in May. Sick sinus syndrome 07/19/2022 Assessment & Plan (06/16/2023 5:22 PM EST): She has a history of pauses seen on heart monitor. In the past she has had dizziness but she reports nothing new or increasing. Palpitations are described only occasionally and not worsening or increasing. Plan to continue beta-joe for now. Continue close monitoring but no indication for pacemaker at this time. Assessment & Plan (12/16/2022 5:43 PM EDT): She has a history of pauses seen on heart monitor. She has had episodes of dizziness since her last visit but that has now been resolved for a few weeks. Palpitations are described as only occasionally and no worse. We will continue her beta-joe for now. She has no indications for a pacemaker at this time and we will continue to follow closely. Assessment & Plan (07/19/2022 3:45 PM EST): No pacemaker indication at this time. Dizziness is chronic related to her eyes. 1 pause during daytime hours. We will watch. Palpitations are rare. Could stop beta-blockers if absolutely needed. Coronary artery disease invo lving [place]ct[place] coronary artery of choctaw heart without angina pectoris 12/27/2020 Assessment & Plan (05/17/2024 6:36 PM EST): Known history of mild LAD CAD on heart cath in 2014. Her symptoms are stable. She continues on medical management of: -Aspirin 81 mg daily -Metoprolol succinate 25 mg daily -Losartan 100 mg daily -Pravastatin 80 mg daily Plan: Continue medical management Assessment & Plan (12/01/2023 5:01 PM EDT): Known history of mild LAD CAD on heart cath in 2014. Symptoms are stable. She denies any chest pain or shortness of breath. She is on medical management of: -Aspirin 81 mg -Metoprolol succinate 25 mg daily -Losartan 100 mg daily -Pravastatin 80 mg daily Plan: Continue medical management Assessment & Plan (06/16/2023 5:21 PM EST): Known history of mild coronary artery disease. Symptoms are stable. She denies chest pain. She is on medical management. Plan to continue: -Aspirin -Beta-joe -ARB -Statin Assessment & Plan (12/16/2022 5:44 PM EDT): Known history of mild coronary artery disease. Her symptoms are stable. She is on medical management of aspirin, ARB, beta-joe, and statin. We plan to continue medical management of CAD. Assessment & Plan (07/19/2022 3:46 PM EST): Coronary artery disease is mild. Continue current treatment regimen. Cardiac status will be reassessed in 6 months. Encounters Date Type Department Care Team Description 01/17/2025 Telephone [facility] CARDIOLOG[facility] [address] [place], [place] [address] Geoff, Aida Monson, CHRIS SERNA- INFO from Last 3 Months Family History Medical History Relation Name Comments Aortic aneurysm Brother 1 Hypertension Brother 2 X2 Sleep apnea Brother 2 X2 Other Brother 3 CABG AND KIDNEY TRANSPLANT Stroke Brother 3 Suicide Attempts Father CAUSE OF DE ATH SUICIDE Leukemia Mother Relation Name Status Comments Brother 1 Alive Brother 2 X2 Alive Brother 3 (Age 56) Father (Age 54) Mother (Age 82) Social History Tobacco Use Types Packs/Day Years Used Date Smoking Tobacco: Never Passive Smoke Exposure: Never Smokeless Tobacco: Never Tobacco Cessation:Counseling Given: Not Answered Alcohol Use Standard Drinks/Week Comments Never 0 (1 standard drink = 0.6 oz pur e alcohol) Comments No Sex and Gender Information Value Date Recorded Sex Assigned at Not on file Legal Sex Female 12:11 PM EDT Gender Identity Not on file Sexual Orientation Not on file Last Filed Vital Signs Vital Sign Reading Time Taken Comments Blood Pressure 136/74 08/30/2024 3:00 PM EDT Pulse 74 08/30/2024 3:00 PM EDT Temperature - - Respiratory Rate - - Oxygen Saturation 97% 08/30/2024 3:00 PM EDT Inhaled Oxygen Concentration - - Weight 74.7 kg (164 lb 11.2 oz) 08/30/2024 3:00 PM EDT Height 170.2 cm (5' 7 ) 08/30/2024 3:00 PM EDT Body Mass Index 25.8 08/30/2024 3:00 PM EDT Plan of Treatment Upcoming Encounters Date Type Department Care Team (Late st Contact Info) Description 02/28/2025 2:00 PM EDT Office Visit [facility] C[facility] [address] [place] [address] Aida Tellez, CHRIS [address] [place] [address] Health Maintenance Due Date Last Done Comments DXA SCAN 1940 RSV Vaccine - Adults (1 - 1- dose 75+ series) 01/09/2015 ZOSTER VACCINE (2 of 3) 10/06/2015 08/11/2015 ANNUAL WELLNESS VISIT 07/14/2022 COVID-19 Vaccine (6 - 2023-2 5 season) 2025 03/30/2024, 04/01/2023, 05/26/2021, Additional history exists INFLUENZA VACCINE 03/13/2025 03/23/2024, , 03/29/2022, Additional history exists TDAP/TD VACCINES (3 - Td or Tdap) 01/29/2034 024, 12/19/2012 Pneumococcal Vaccine 50+ Completed 025, 04/20/2016, 07/11/2014 Insurance [facility] [employer] PPO Care Teams Drill Press Operator Relationship Specialty Start Date End Date Camilla Rosado MD [address] [place] [address] [address] [place] [address] PCP - General Family Medicine 07/10/22
--- OUTSIDE RECORDS SUMMARY | 2025-02-18 11:34 | XMS_ITS | Encounter Summary ---
Author Organization [facility] Address [address] [place] [address] Care Team Providers Care Restaurant Attendant Name Role Phone Camilla Rosado MD Primary Care Provider [phone] Encounter Details Date Type Department Care Team (Late Contact Info) Description 01/09/2025 Orders Only External Location [address] [place] [address] Provider, External Social History Tobacco Use Types [...] Description 05/07/2025 9:15 AM EST Office Visit [facility] [address] [place] [address] Nelda Butcher MD 110 [facility] [address] [place] [address] 08/12/2025 1:45 PM EST Office Visit [facility] [address] [place] [address], [address] [place] [address] Ramón Powell MD 110 [facility] [address] [place] [address] 01/21/2026 1:30 PM EDT Ovarian Cancer Screening [facility] [address] , [address] [place] [address] documented as of this encounter Procedures Procedure Name Priority Date/Time Associated Diagnosis Comments CT NEURO OUTSIDE IMAGES 01/09/2025 12:10 PM EDT documented in this encounter Results * CT NEURO OUTSIDE IMAGES (01/09/2025 12:10 PM EDT) Anatomical Region Laterality Modality Computed Tomogra phy 01/09/2025 12:1 0 PM EDT us External Provider IMG CT [...] documented as of this encounter Care Teams Restaurant Attendant Relationship Specialty Start Date End Date Camilla Rosado MD [address] [place] [address] [address] [place] [address] PCP - General 10/24/20 documented as of this encounter
--- OUTSIDE RECORDS SUMMARY | 2025-02-18 11:34 | XMS_ITS | Encounter Summary ---
Author Organization [facility] Address [address] [place] [address] Care Team Providers Care Top Distribution Executive Name Role Phone Camilla Rosado MD Primary Care Provider [phone] Reason for Visit * Reason Comments Med Refill Encounter Details Date Type Department Care Team (Late Contact Info) Description 02/24/2022 Refill [facility] [address] [place] [address] Nelda Butcher MD [address] [employer] [address] [place] [address] Social History Tobacco Use Types Packs/Day Years Used Date Smoking Tobacco: Never Alcohol Use Standard Drinks/Week Comments No 0 (1 standard drink = 0.6 oz pur e alcohol) Comments Unknown Sex and Gender Information Value Date Recorded Sex Assigned at Female 06/14/2024 2:41 PM EST Legal Sex Female 7:36 PM EDT Gender Identity Not on file Sexual Orientation Not on file COVID-19 Exposure Response Date Recorded In the last 10 days, have yo u been in contact with someone who was confirmed or suspected to have Coronavirus/COVID-19? No / Unsure 01/28/2022 9:32 AM EDT documented as of this encounter Plan of Treatment Upcoming Encounters Date Type Department Care Team (Late Contact Info) Description 05/07/2025 9:15 AM EST Office Visit [facility] [address] [place] [address] Nelda Butcher MD [address] [place] [address] 08/12/2025 1:45 PM EST Office Visit [facility] [place] [address], [address] [place] [address] Ramón Powell MD [address] [place] [address] 01/21/2026 1:30 PM EDT Ovarian Cancer Screening [facility] Gy[facility] [address] [facility], 3rd [place] [address] documented as of this encounter Visit Diagnoses Not on filedocumented in this encounter Additional Health Concerns Assessment Noted Time A fall risk assessment has been complete d for the patient 01/28/2022 10:16 AM EDT documented as of this encounter Care Teams Top Distribution Executive Relationship Specialty Start Date End Date Camilla Rosado MD [address] [place] [address] [address] [place] [address] PCP - General 10/24/20 documented as of this encounter
--- OUTSIDE RECORDS SUMMARY | 2025-02-18 11:34 | XMS_ITS | Encounter Summary ---
Author Organization [facility] Address [address] [place] [address] Care Team Providers Care Dock Pumper Name Role Phone Camilla Rosado MD Primary Care Provider [phone] Encounter Details Date Type Department Care Team (Late Contact Info) Description 01/09/2025 Orders Only External Location [address] [place] [address] Provider, External Social History Tobacco Use Types [...] Description 05/07/2025 9:15 AM EST Office Visit [facility] [address] [place] [address] Nelda Butcher MD 110 [facility] [address] [place] [address] 08/12/2025 1:45 PM EST Office Visit [facility] [address] [place] [address], [address] [place] [address] Ramón Powell MD 110 [facility] [address] [place] [address] 01/21/2026 1:30 PM EDT Ovarian Cancer Screening [facility] [address] [place] [address] documented as of this encounter Procedures Procedure Name Priority Date/Time Associated Diagnosis Comments XR MSK OUTSIDE IMAGES 01/09/2025 12:17 PM EDT documented in this encounter Results * XR MSK OUTSIDE IMAGES (01/09/2025 12:17 PM EDT) Anatomical Region Laterality Modality Radiographic Mirtha ging 01/09/2025 12:1 7 PM EDT us External Provider IMG XR [...] documented as of this encounter Care Teams Dock Pumper Relationship Specialty Start Date End Date Camilla Rosado MD [address] [place] [address] [address] [place] [phone] PCP - General 10/24/20 documented as of this encounter
--- OUTSIDE RECORDS SUMMARY | 2025-02-18 11:34 | XMS_ITS | Encounter Summary ---
Author Organization [facility] Address [address] [place] [address] Care Team Providers Care State Patrol Officer Name Role Phone Camilla Rosado MD Primary Care Provider [phone] Encounter Details Date Type Department Care Team (Latest Contact Info) Description 01/08/2025 Travel Social History Tobacco Use Types Packs/Day [...] Description 05/07/2025 9:15 AM EST Office Visit [facility] [address] [place] [address] Nelda Butcher MD [address] [address] 08/12/2025 1:45 PM EST Office Visit [facility] [address], [address] [place] [address] Ramón Powell MD [address] [address] 01/21/2026 1:30 PM EDT Ovarian Cancer Screening [facility] [address] [place] [address] documented as of this encounter Visit Diagnoses Not on filedocumented in this encounter Additional Health Concerns Assessment Noted Time A fall risk assessment has been complete d for the patient 10/17/2024 10:18 AM EDT A Body Mass Index follow-up plan has been documented for the patient 01/03/2025 1:18 PM EDT documented as of this encounter Care Teams State Patrol Officer Relationship Specialty Start Date End Date Camilla Rosado MD [address] [place] [address] [address] [place] [address] PCP - General 10/24/20 documented as of this encounter
--- OUTSIDE RECORDS SUMMARY | 2025-02-18 11:34 | XMS_ITS | Encounter Summary ---
Author Organization [facility] Address [address] [place] [address] Care Team Providers Care Metal Mold Dresser Name Role Phone Camilla Rosado MD Primary Care Provider [phone] Encounter Details Date Type Department Care Team (Late st Contact Info) Description 01/22/2025 Telephone [facility] [place] [address] [facility], [address] [place] [address] Ramón Powell MD [address] [place] [address] [address] [place] [address] Social History Tobacco Use Types [...] encounter Miscellaneous Notes * Telephone Encounter - Marianela Shine - 01/22/2025 9:43 AM EDT Patient lives at [facility] in [place], [place] and they are only administering her prednisolone acetate in her left eye twice daily. She should be using drops in both eyes. I called [facility] and explained the situation. I faxed most recent chart notes and requested that they begin administering drops to right eye today. Called patient back with an update per patient request. documented in this encounter Plan of Treatment Upcoming Encounters Date Type Department Care Team (Late st Contact Info) Description 05/07/2025 9:15 AM EST Office Visit [facility] [address] [place] [address] Nelda Butcher MD [address] [facility] [address] [place] [address] 08/12/2025 1:45 PM EST Office Visit [facility] [place] [address], [address] [place] [address] Ramnó Powell MD 110 [facility] [address] [place] [address] 01/21/2026 1:30 PM EDT Ovarian Cancer Screening [facility] Gy[facility] 800 [facility], [address]rd [place] [address] documented as of this encounter Visit Diagnoses Not on filedocumented in this encounter Additional Health Concerns Assessment Noted Time A fall risk assessment has been complete d for the patient 10/17/2024 10:18 AM EDT A Body Mass Index follow-up plan has been documented for the patient 01/03/2025 1:18 PM EDT documented as of this encounter Care Teams Metal Mold Dresser Relationship Specialty Start Date End Date Camilla Rosado MD [address] [place] [address] [address] [place] [address] PCP - General 10/24/20 documented as of this encounter
--- OUTSIDE RECORDS SUMMARY | 2025-02-18 11:34 | XMS_ITS | Clinical Summary ---
Author Organization [facility] Address [address] [place] [address] Care Team Providers Care Message Clerk Name Role Phone Camilla Rosado MD Primary Care Provider [phone] Allergies Active Allergy Reactions Criticality Noted Date Comments Atorvastatin Other - please docum ent in the comment field,Unknown - Patient states they do not know rxn details Low 04/29/2015 leg weakness Cefixime Rash,Unknown - Patie nt states they do not know rxn details Low 04/29/2015 Cephalosporins Unknown - Patient st ates they do not know rxn details Low 12/30/2015 Clarithromycin Rash,Unknown - Patie nt states they do not know rxn details Low 04/29/2015 Diltiazem Palpitations Low 07/15/2022 Latex Rash Low 04/29/2015 Lisinopril Cough Low 07/15/2022 Methylprednisolone Unknown - Patient st ates they do not know rxn details Low 12/30/2015 Nitrofurantoin Rash,Unknown - Patie nt states they do not know rxn details Low 04/29/2015 Other Other - please docum ent in the comment field,Unknown - Patient states they do not know rxn details Low 04/29/2015 tachy Penicillins Rash,Unknown - Patie nt states they do not know rxn details Low 04/29/2015 Prednisolone Other - please docum ent in the comment field Low 04/29/2015 shake Rosuvastatin Unknown - Patient st ates they do not know rxn details Low 07/15/2022 Sulfa Drugs Other - please docum ent in the comment field Low 09/13/2018 Sulfacetamide Rash,Unknown - Patie nt states they do not know rxn details Low 04/29/2015 Terfenadine Other - please docum ent in the comment field Low 02/16/2021 Medications allopurinol (Zyloprim) 100 MG tablet Take 1 tablet by mouth nightly. 8 Active amLODIPine (Norvasc) 5 MG tablet Take 0.5 tablets by mouth daily. 9 Active aspirin 81 MG EC tablet Take 1 tablet by mouth nightly. 6 Active famotidine (Pepcid) 20 MG tablet Take by mouth daily. 1 Active levocetirizine (Xyzal) 5 MG tablet Take by mouth every evening. 8 Active levothyroxine (Synthroid, Levoxyl) 100 MCG tablet Take 1 tablet by mouth daily before breakfast. 6 Active losartan (Cozaar) 100 MG tablet Take 1 tablet by mouth nightly. 6 Active metoprolol succinate XL (Toprol-XL) 25 MG 24 hr tablet Take 1 tablet by mouth daily. 1 Active montelukast (Singulair) 10 MG tablet Take 1 tablet by mouth nightly. 6 Active diclofenac (Voltaren) 75 MG EC tablet Active meclizine (Antivert) 12.5 MG tablet Take 1 tablet by mouth 3 times a day as needed. Active pravastatin (Pravachol) 40 MG tablet Take 2 tablets by mouth nightly. Active prednisoLONE acetate (Pred-Forte) 1 % ophthalmic suspension Administer 1 drop into both eyes 2 (two) times a day. 15 mL 3 4 Active pilocarpine (Pilocar) 1 % ophthalmic solution Administer 1 drop into both eyes 2 (two) times a day. 15 mL 4 5 Active Lumigan 0.01 % ophthalmic solution Administer 1 drop into both eyes every night. 7.5 mL 3 5 Active hydroCHLOROthiaz zaynab (HYDRODiuril) 25 MG tablet Take 0.5 tablets by mouth daily. Active timolol (Timoptic) 0.5 % ophthalmic solution Administer 1 drop into both eyes 2 times a day. 5 mL 3 5 Active Doxycycline Hyclate 50 MG tabletIndication s:Meibomian gland dysfunction (MGD) of both eyes, unspecified eyelid Take 50 mg by mouth daily. 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 12/05/2023 Headache 05/16/2023 05/16/2023 Meibomian gland dysfunction 10/08/2022 Fuchs' corneal dystrophy of both eyes 10/07/2022 Assessment & Plan (02/06/2025 4:25 PM EDT): Trichiasis of right lower eyelid 04/27/2022 Assessment & Plan (02/06/2025 4:25 PM EDT): Orders: Epilation of Lashes by Forceps - OD - Right Eye History of Descemet's stripp ing endothelial keratoplasty (DSEK) 06/29/2021 Assessment & Plan (02/06/2025 4:25 PM EDT): Pseudophakia, both eyes 02/24/2021 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 This is well controlled. She is currently on amlodipine 5 mg, losartan 100 mg, metoprolol succinate XL 25 mg. We plan to continue medications. Coronary arteriosclerosis 12/27/2020 Overview (05/16/2023): Last Assessment & Plan: Known history of mild coronary artery disease. Her symptoms are stable. She is on medical management of aspirin, ARB, beta-joe, and statin. We plan to continue medical management of CAD. 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 She reports that she is very dissatisfied with the replacement DreamStation #2 from [employer]. She is not using her CPAP and does not plan to use the DreamStation #2. Per her DME she is not due for a insurance paid new CPAP until after December 2023. We discussed this and she prefers to just wait. She is advised of risk of sleep apnea and she verbalized understanding. 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 08/04/19 17 Assessment & Plan (02/06/2025 4:25 PM EDT): History of glaucoma tube shunt procedure 017 Assessment & Plan (02/06/2025 4:25 PM EDT): Steroid-induced open-angle glaucoma, left, moder ate stage 06/30/2015 Assessment & Plan (02/06/2025 4:25 PM EDT): Corneal edema, secondary, bilateral 06/30/2015 Assessment & Plan (02/06/2025 4:25 PM EDT): Open-angle glaucoma of right eye 06/30/2015 Encounters Date Type Department Care Team Description 02/13/2025 Telephone [facility] [address] [place] [address] Ramón Powell MD 02/12/2025 Telephone [facility] [address] [place] [address] Ramón Powell MD [facility] Clinical Concern/Question 02/06/2025 3:00 PM EDT Office Visit [facility] [address] , [address] [place] [address] Ramón Powell MD 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, severe stage (Primary Dx); Corneal edema, secondary, bilateral; Fuchs' corneal dystrophy of both eyes; 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; Steroid-induced open-angle glaucoma, left, moderate stage; Allergic conjunctivitis of both eyes; Trichiasis of right lower eyelid; History of glaucoma tube shunt procedure; History of Descemet's stripping endothelial keratoplasty (DSEK); Ophthalmic migraine; Subjective visual disturbance 02/06/2025 Travel 01/22/2025 Telephone [facility] [address], [address] [place] [address] Ramón Powell MD 2025 Telephone [facility] [address] [place] [address] Nelda Butcher MD Blurred Vision 01/09/2025 Orders Only External Location [address] [place] [address] Provider, External 01/09/2025 Orders Only External Location [address] [place] [address] Provider, External 01/09/2025 Orders Only External Location [address] [place] [address] Provider, External 01/09/2025 Orders Only External Location [address] [place] [address] Provider, External 01/09/2025 Orders Only External Location [address] [place] [address] Provider, External 01/09/2025 Orders Only External Location [address] [place] [address] Provider, External 01/08/2025 Travel 01/03/2025 10:45 AM EDT Office Visit [facility] [address] [place] [address] Nelda Butcher MD Steroid-induced open-angle glaucoma, left, moderate stage (Primary Dx); 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, severe stage; Corneal edema, secondary, bilateral; Fuchs' corneal dystrophy of both eyes; 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 01/03/2025 Travel 12/21/2024 Telephone [facility] [address] [place] [address] Ramón Powell MD Med Refill 12/04/2024 Telephone [facility] [address] [place] [address] None, None [facility] Clinical Concern/Question 12/03/2024 3:28 PM EDT Anesthesia Event [facility] Surgery [address] [place] [address] Erika Field MD Myers, Rebecca C, MD 12/03/2024 3:11 PM EDT - 12/03/2024 3:36 PM EDT Surgery [address] [address] Nelda Butcher MD CYCLOPHOTOCOAGULATION , TRANSSCLERAL APPROACH [93966 (CPT )] 12/03/2024 11:59 AM EDT - 12/03/2024 4:35 PM EDT Hospital Encounter [address] [address] Nelda Butcher MD Steroid induced glaucoma, left eye (Primary Dx) Discharge Disposition: Home or Self Care 12/03/2024 Travel 11/26/2024 10:00 AM EDT Pre-[facility] Testing [facility] [address], [address] [place] [address] 11/26/2024 Travel from Last 3 Months Family History Medical History Relation Name Comments Cataracts Mother Other cancer Mother Stroke Other 1 Hypertension Other 2 Kidney disease Other 3 Heart Problem Other 4 Anesthesia problems Neg Hx Malig Hyperthermia Neg Hx Relation Name Status Comments Mother Other 1 Other 2 Other 3 Other 4 Social History Tobacco Use Types Packs/Day Years Used Date Smoking Tobacco: Never Passive Smoke Exposure: Never Smokeless Tobacco: Never Tobacco Cessation:Counseling Given: Not Answered Alcohol Use Standard Drinks/Week Comments No 0 (1 standard drink = 0.6 oz pur e alcohol) Comments No Sex and Gender Information Value Date Recorded Sex Assigned at Female 06/14/2024 2:41 PM EST Legal Sex Female 7:36 PM EDT Gender Identity Not on file Sexual Orientation Not on file Last Filed Vital Signs Vital Sign Reading Time Taken Comments Blood Pressure 148/75 12/03/2024 3:55 PM EDT Pulse 65 12/03/2024 3:53 PM EDT Temperature 36.2 C (97.2 F) 12/03/2024 3:48 PM EDT Respiratory Rate 16 12/03/2024 3:53 PM EDT Oxygen Saturation 96% 12/03/2024 3:55 PM EDT Inhaled Oxygen Concentration - - Weight 76.8 kg (169 lb 5 oz) 12/03/2024 1:03 PM EDT Height 172.7 cm (5' 8 ) 12/03/2024 1:03 PM EDT Body Mass Index 25.74 12/03/2024 1:03 PM EDT Plan of Treatment Upcoming Encounters Date Type Department Care Team (Late st Contact Info) Description 05/07/2025 9:15 AM EST Office Visit [facility] [address] [place] [address] Nelda Butcher MD [address] [address] 08/12/2025 1:45 PM EST Office Visit [facility] [address], [address] [place] [address] Ramón Powell MD 110 [facility] [address] [place] [address] 01/21/2026 1:30 PM EDT Ovarian Cancer Screening [facility] [address] [facility], 3rd [place] [address] Health Maintenance Due Date Last Done Comments [facility]-Depression Screening 1940 [facility]-Medicare Annual Wellness (AWV) 1940 [facility]-/Child/Adol SDOH Screenings 1940 [facility]- SDOH Screenings 01/09/1958 [facility]-Adult SDOH Screenings 01/09/1958 [facility]-Zoster Vaccines (2 of 3) 10/06/2015 08/11/2015 [facility]-Bone Density Scan 12/27/2024 12/27/2022 , 06/01/2019, 04/03/2017 [id number] Vaccine (6 - Moderna risk season) 2025 03/30/2024, 04/01/2023, 05/26/2021, Additional history exists [facility]-Influenza Vaccine (#1) 02/11/202503/23, 03/24/2023, 03/29/2022, Additional history exists [facility]-DTaP,Tdap,and Td Vaccines (2 - Td or Tdap) 01/29/2034 01/30/2024, 12/19/2012 [facility]-Hepatitis A Vaccines Aged Out 02/02/2019, 07/14 No longer eligible based on patient's age to complete this topic [facility]-RSV Vaccine: 60+ Years or Completed 06/27/2024 [facility]-Pneumococcal Vaccine: 50+ Years Completed 10/26/2024, 04/20/2016, 07/11/2014 [facility]-Obesity Intervention Completed 025, 01/03/2025, 10/17/2024, Additional history exists HPV Vaccines Aged Out No longer eligi ble based on patient's age to complete this topic [facility]-HIB Vaccines Aged Out No longer e ligible based on patient's age to complete this topic [facility]-IPV Vaccines Aged Out No longer e ligible based on patient's age to complete this topic [facility]-Rotavirus Vaccines Aged Out No lo nger eligible based on patient's age to complete this topic Procedures Procedure Name Priority Date/Time Associated Diagnosis Comments CORRECTION OF TRICHIASIS EPILATION BY FORCEPS ONLY - OD - RIGHT EYE Routine 02/06/2025 4:22 PM EDT Trichiasis of right lower eyelid XR MSK OUTSIDE IMAGES 01/09/2025 12:21 PM EDT XR MSK OUTSIDE IMAGES 01/09/2025 12:18 PM EDT XR MSK OUTSIDE IMAGES 01/09/2025 12:[address] NEURO OUTSIDE IMAGES 01/09/2025 12:[address] NEURO OUTSIDE IMAGES 01/09/2025 12:[address] NEURO OUTSIDE IMAGES 01/09/2025 12:08 PM EDT NM DESTRUC,CILIARY BODY,CYCLOPHOTOCOAG 12/03/2024 3:23 PM EDT Steroid induced glaucoma, left eye from Last 3 Months Results * Epilation of Lashes by Forceps [...] Powell MD OPHTH CLINIC PROCEDURES Final Result * XR MSK OUTSIDE IMAGES (01/09/2025 12:21 PM EDT) Only the most recent of3 resultswithin the time period is included. Anatomical Region Laterality Modality Radiographic Mirtha ging 01/09/2025 12:2 1 PM EDT us External Provider IMG XR PROCEDURES Final Result * CT NEURO OUTSIDE IMAGES (01/09/2025 12:12 PM EDT) Only the most recent of3 resultswithin the time period is included. Anatomical Region Laterality Modality Computed Tomogra phy 01/09/2025 12:1 2 PM EDT us External Provider IMG CT PROCEDURES Final Result from Last 3 Months Insurance Care Teams Message Clerk Relationship Specialty Start Date End Date Camilla Rosado MD [address] [place] [address] [address] [place] [phone] PCP - General 10/24/20
--- OUTSIDE RECORDS SUMMARY | 2025-02-18 11:34 | XMS_ITS | Encounter Summary ---
Author Organization Healthcare Address [address] [place] [address] Care Team Providers Care Parent Coach Name Role Phone Camilla Rosado MD Primary Care Provider [phone] Reason for Visit * Reason Onset Date Comments HCN Clinical Concern/Question 12/04/2024 Encounter Details Date Type Department Care Team (Late st Contact Info) Description 12/04/2024 Telephone [facility] [address] [place] [address] None, None [address] [place], [place] [id number] HCN Clinical Concern/Question Social History Tobacco Use [...] encounter Miscellaneous Notes * Telephone Encounter - Erick Dove MD - 12/05/2024 10:26 AM EDT Triage Note 12/05/2024 10:26 AM Shared recs with patient. * Telephone Encounter - Erick Dove MD - 12/05/2024 9:57 AM EDT Triage Note 12/05/2024 9:57 AM Patient inquiring about post-op drop regimen and shield use. No instructions documented in AVS from procedure. Advised that I will need to reach out to providers for further instructions. Pre-op regimen: Timolol BID OU Prednisolone BID OU Pilocarpine 1% BID OU Lumigan QHS OU * Telephone Encounter - Christa Ruvalcaba - 12/04/2024 11:05 AM EDT Clinical Concern/Question Reason for Call: Patient calling to see when she need to start using drops again in eye that was operated on. Best contact number: [phone] Optimal time of day to reach caller: ANYTIME Additional comments/information from caller: None Note: Please do not reply to this message. Follow-up communication and further actions as a result of this message need to be communicated with the patient directly, if the patient is not active onMyChart. If the patient is active on MyChart, they will receive notification of the communication/outcome via [employer]. documented in this encounter Plan of Treatment Upcoming Encounters Date Type Department Care Team ([facility] st Contact Info) Description 05/07/2025 9:15 AM EST Office Visit [facility] [address] [place] [address] Nelda Butcher MD [address] [address] 08/12/2025 1:45 PM EST Office Visit [facility] [address], [address] [place] [address] Ramón Powell MD [address] [address] 01/21/2026 1:30 PM EDT Ovarian Cancer Screening [facility] [address] [facility], [address]rd [place] [address] documented as of this encounter Visit Diagnoses Not on filedocumented in this encounter Additional Health Concerns Assessment Noted Time A fall risk assessment has been complete d for the patient 10/17/2024 10:18 AM EDT A Body Mass Index follow-up plan has been documented for the patient 10/17/2024 11:18 AM EDT documented as of this encounter Care Teams Parent Coach Relationship Specialty Start Date End Date Camilla Rosado MD [address] [place] [address] [address] [place] [id number] PCP - General 10/24/20 documented as of this encounter
--- OUTSIDE RECORDS SUMMARY | 2025-02-18 11:34 | XMS_ITS | Encounter Summary ---
Author Organization [facility] Address [address] [place] [address] Care Team Providers Care Towel Folder Name Role Phone Camilla Rosado MD Primary Care Provider [phone] Encounter Details Date Type Department Care Team (Late Contact Info) Description 01/09/2025 Orders Only External Location [address] [place] [address] Provider, External Social History Tobacco Use Types [...] Description 05/07/2025 9:15 AM EST Office Visit [facility] [address] [place] [address] Nelda Butcher MD 110 [facility] [address] [place] [address] 08/12/2025 1:45 PM EST Office Visit [facility] [address] [place] [address], [address] [place] [address] Ramón Powell MD 110 [facility] [address] [place] [address] 01/21/2026 1:30 PM EDT Ovarian Cancer Screening [facility] [address] [place] [address] documented as of this encounter Procedures Procedure Name Priority Date/Time Associated Diagnosis Comments XR MSK OUTSIDE IMAGES 01/09/2025 12:18 PM EDT documented in this encounter Results * XR MSK OUTSIDE IMAGES (01/09/2025 12:18 PM EDT) Anatomical Region Laterality Modality Radiographic Mirtha ging 01/09/2025 12:1 8 PM EDT us External Provider IMG XR [...] documented as of this encounter Care Teams Towel Folder Relationship Specialty Start Date End Date Camilla Rosado MD [address] [place] [address] [address] [place] [address] PCP - General 10/24/20 documented as of this encounter
--- OUTSIDE RECORDS SUMMARY | 2025-02-18 11:34 | XMS_ITS | Encounter Summary ---
Author Organization [facility] Address [address] [place] [address] Care Team Providers Care Personnel Officer Name Role Phone Camilla Rosado MD Primary Care Provider [phone] Encounter Details Date Type Department Care Team (Late Contact Info) Description 01/09/2025 Orders Only External Location [address] [place] [address] Provider, External Social History Tobacco Use Types [...] Description 05/07/2025 9:15 AM EST Office Visit [facility] [address] [place] [address] Nelda Butcher MD 110 [facility] [address] [place] [address] 08/12/2025 1:45 PM EST Office Visit [facility] [address] [place] [address], [address] [place] [address] Ramón Powell MD 110 [facility] [address] [place] [address] 01/21/2026 1:30 PM EDT Ovarian Cancer Screening [facility] [address] , [address] [place] [address] documented as of this encounter Procedures Procedure Name Priority Date/Time Associated Diagnosis Comments CT NEURO OUTSIDE IMAGES 01/09/2025 12:12 PM EDT documented in this encounter Results * CT NEURO OUTSIDE IMAGES (01/09/2025 12:12 PM EDT) Anatomical Region Laterality Modality Computed [...] documented as of this encounter Care Teams Personnel Officer Relationship Specialty Start Date End Date Camilla Rosado MD [address] [place] [address] [address] [place] [address] PCP - General 10/24/20 documented as of this encounter
--- OUTSIDE RECORDS SUMMARY | 2025-02-18 11:34 | XMS_ITS | Encounter Summary ---
Author Organization [facility] Address [address] [place] [address] Care Team Providers Care Chip Mixing Machine Operator Name Role Phone Camilla Rosado MD Primary Care Provider [phone] Reason for Visit * Reason Onset Date Comments Blurred Vision 2025 Encounter Details Date Type Department Care Team (Late st Contact Info) Description 2025 Telephone [facility] [address] [place] [address] Nelda Butcher MD [address] [address] Blurred Vision Social History Tobacco Use Types Packs/Day Years [...] * Telephone Encounter - Meche Foster - 01/16/2025 8:04 AM EDT Triage Note 01/16/2025 8:04 AM Called patient. No answer. Left voice mail requesting a call back. * Telephone Encounter - Meche Foster - 01/11/2025 9:46 AM EDT Triage Note 01/11/2025 9:46 AM Called patient. No answer. Left voice mail requesting a call back. * Telephone Encounter - Monie Mitchell - 2025 1:10 PM EDT Clinical Concern/Question Reason for Call: Blurry vision in both eyes since a fall Best contact number: [phone] Optimal time of day to reach caller: ANYTIME Additional comments/information from caller: Not Applicable Note: Please do not reply to this message. Follow-up communication and further actions as a result of this message need to be communicated with the patient directly, if the patient is not active onMyChart. If the patient is active on MyChart, they will receive notification of the communication/outcome via [employer]. documented in this encounter Plan of Treatment Upcoming Encounters Date Type Department Care Team (Late st Contact Info) Description 05/07/2025 9:15 AM EST Office Visit [facility] [address] [place] [address] Nelda Butcher MD [address] [address] 08/12/2025 1:45 PM EST Office Visit [facility] [address], [address] [place] [address] Ramón Pwoell MD [address] [address] 01/21/2026 1:30 PM EDT Ovarian Cancer Screening [facility] Gynecology [address] [facility], [address] [place] [address] documented as of this encounter Visit Diagnoses Not on filedocumented in this encounter Additional Health Concerns Assessment Noted Time A fall risk assessment has been complete d for the patient 10/17/2024 10:18 AM EDT A Body Mass Index follow-up plan has been documented for the patient 01/03/2025 1:18 PM EDT documented as of this encounter Care Teams Chip Mixing Machine Operator Relationship Specialty Start Date End Date Camilla Rosado MD [address] [place] [address] [address] [place] [address] PCP - General 10/24/20 documented as of this encounter
--- NOTE | 2025-02-18 11:45 | CT_ITS ---
FINAL REPORT TECHNIQUE: Axial imaging of the chest is obtained after the administration of contrast. 3-D MIP reformatted images were also obtained and reviewed per PE protocol. This study was performed with techniques to keep radiation doses as low as reasonably achievable (ALARA). Individualized dose reduction techniques using automated exposure control or adjustment of mA and/or kV according to the patient's size were employed. CLINICAL HISTORY: SOB, hypoxia, elevated d-dimer COMPARISON: None FINDINGS: The pulmonary arteries are well filled. There is no evidence of pulmonary embolus. There is no aortic dissection. The ascending aorta is ectatic, measuring 35 mm in diameter. Heart size is normal. There is no mediastinal, hilar, or axillary lymphadenopathy. There is a 5 mm subpleural nodule in the superior segment to the left lower lobe best seen on image #45 of series 5. There is a 3 mm subpleural nodule in the left upper lobe, best seen on image #47. The lungs are otherwise clear. There is a tiny right pleural effusion, without a left pleural effusion visualized. There is a hypodense lesion in the left kidney, which is incompletely evaluated on this examination but may represent a cyst.. No acute osseous abnormality. IMPRESSION: No evidence of pulmonary embolism or aortic dissection. Ectatic ascending aorta, 35 mm in diameter, without a definite aneurysm seen. Pulmonary nodules as described. Recommend 6-month follow-up chest CT to evaluate stability. Reviewed, Interpreted and Dictated by Krista Gonzalez MD Transcribed by Ingrid Stone Authenticated and . [facility]
[2025-02-18 12:20] LABS: NT Pro Brain Natriuretic Pep. 197 pg/mL (0-450); Troponin I < 0.01 ng/ml (0.00-0.034)
[2025-02-18] MEDS: SODIUM CHLORIDE 0.9% 10ML SYR (RAD ONLY) 10 ML IV (12:39)
[2025-02-18] MEDS: 0.9 % SODIUM CHLORIDE 50 ML VIAL IV (12:39)
[2025-02-18] MEDS: IOPAMIDOL-370 (76%);100ML BOTTLE 80 ML IV (12:39)
[2025-02-18 12:47] LABS: Hepatitis C Ab Qual. W/ RFX NEGATIVE (Negative)
[2025-02-18] MEDS: LACTATED RINGERS 1000ML 1,000 ML 999 ML IV (12:50)
[2025-02-18 14:14] LABS: Coronavirus 19, PCR Detected (NotDetected)
--- NOTE | 2025-02-18 14:45 | PC.NURSE ---
REPORT CALLED TO PEYMAN BHATIA.
--- NOTE | 2025-02-18 14:47 | PC.NURSE ---
[facility] NOTIFIED OF TRANSFER
[2025-02-18 15:23] LABS: Troponin I < 0.01 ng/ml (0.00-0.034)
== END 2025-02-18 15:13 | disposition home or self-care (01) ==
PROVIDERS: Emergency Provider Student in an Organized Health Care Education/Training Program
DX: R53.1 Weakness (principal); U07.1 COVID-19; R09.02 Hypoxemia; R79.1 Abnormal coagulation profile; N17.9 Acute kidney failure, unspecified; R91.1 Solitary pulmonary nodule
CPT/HCPCS: 0223U; 71045; 71275; 80053; 83880; 84484; 85025; 85378; 86140; 86803; 87040; 87389; 93005; 96361; 96374; 99285; J2405; J7120; Q9967

== ENCOUNTER 2025-02-27 03:37 | Emergency (ER) | payer MEDICARE, SELFPAY ==
--- OUTSIDE RECORDS SUMMARY | 2025-01-03 10:45 | XMS_ITS | Encounter Summary ---
Author Organization Healthcare Address [address] [place] [address] Care Team Providers Care Balance Bridge Assembler Name Role Phone Camilla Rosado MD Primary Care Provider [phone] Encounter Details Date Type Department Care Team (Late st Contact Info) Description 01/03/2025 10:45 AM EDT Office Visit 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 Hx of primary open angle glaucoma [...] and stain glass window above television and [email or web address] grocery carts pushed together on the floor. 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 Current regimen is bimatoprost OU (switched [...] contributing. 01/03/25: post low and slow TS FINAL INSPECTION SUPERVISOR OS on 12/03/24. IOPs today are excellent [...] Description 05/07/2025 9:15 AM EST Office Visit [facility] [address] [place] [address] Nelda Butcher MD 110 [facility] [address] [place] [address] 08/12/2025 1:45 PM EST Office Visit [facility] [address], [address] [place] [address] Ramón Powell MD 110 [facility] [address] [place] [address] 01/21/2026 1:30 PM EDT Ovarian Cancer Screening [facility] [address] [facility], [address] [place] [address] documented as of this encounter Visit Diagnoses [...] documented as of this encounter Care Teams Balance Bridge Assembler Relationship Specialty Start Date End Date Camilla Rosado MD [address] [place] [address] [address] [place] [address] PCP - General 10/24/20 documented as of this encounter
--- OUTSIDE RECORDS SUMMARY | 2025-02-06 15:00 | XMS_ITS | Encounter Summary ---
Author Organization [facility] Address [address] [place] [address] Care Team Providers Care Trackman Name Role Phone Camilla Rosado MD Primary Care Provider [phone] Encounter Details Date Type Department Care Team (Latest Contact Info) Description 02/06/2025 3:00 PM EDT Office Visit [facility] [address], [address] [place] [address] Ramón Powell MD 110 [facility] [address] [place] [address] Chronic open angle glaucoma of [...] woman, former patient of Dr Hali Comer ([facility]), Status Post Descemet's Stripping Automated Endothelial Keratoplasty (DSAEK) #3 Left Eye (OS) 11/23/2017 Dr Hali Comer ([facility]) Status Post Descemet's Stripping Automated Endothelial Keratoplasty (DSAEK) #2 Left Eye (OS) 04/29/2010 Dr Hali Comer ([facility]) for failed graft 2 weeks after Descemet's Stripping Automated Endothelial Keratoplasty (DSAEK) #1 04/2010 Dr Hali Comer ([facility]). She is Status Post Cataract Extraction (CE)/Intraocular Lens (IOL) Left Eye (OS) 04/20/2010. She is Status Post Penetrating Keratoplasty (PK) #3 Right Eye (OD) 11/24/2015 Dr Hali Comer ([facility]) , Status Post Penetrating Keratoplasty (PK) #2 Right Eye (OD) 05/20/2014 Dr Hali Comer ([facility]) and Status Post Penetrating Keratoplasty (PK) #1/Extracapsular Cataract Extraction (ECCE)/Intraocular Lens (IOL) Right Eye (OD) 10/21/2003 Dr Hali Comer ([facility]) . She has primary open angle glaucoma (POAG) Status Post SLT Left Eye (OS) 08/06/2013 and tube shunt right eye (OD) 08/02/2012. Status Post Yag Capsulotomy Right Eye (OD) 12/27/2005. Status Post TS central posterior curve (ROLLER MACHINE OPERATOR) Left Eye (OS) 12/03/2024 Dr. Nelda Butcher [...] Nelda Butcher 12/2024 for glaucoma management, TS ROLLER MACHINE OPERATOR OS on 12/03/24. IOPs today are excellent [...] 0.95 0.85 Refraction Wearing Rx Sphere Cylinder [place] Add Right -2.25 Sphere +2.50 Left -3.25 +1.75 055 +2.50 Manifest Refraction Sphere Cylinder [place] Dist [place] Add Right -2.25 Sphere 20/125-1 [...] Left Eye (OS) 11/23/2017 Dr Hali Comer ([facility]) Pachymetry 553([phone]) Vision 20/40-60 for several years Stable Prednisolone Acetate (PF) 2x/ day (BID) Status Post Descemet's Stripping Automated Endothelial Keratoplasty (DSAEK) #2 Left Eye (OS) 04/29/2010 Dr Hali Comer ([facility]) for failed graft 2 weeks after #1 Status Post Descemet's Stripping Automated Endothelial Keratoplasty (DSAEK) #1 /Cataract Extraction(CE)/Intraocular Lens (IOL) Left Eye (OS) 04/20/2010 Dr Hali Comer ([facility]). Fuchs' Dystrophy Status Post Penetrating Keratoplasty (PK) #3 Right Eye (OD) 11/24/2015 Dr Hali Comer ([facility]) Pachymetry [phone]) Decreased vision Right Eye (OD) from end stage glaucoma. Tarsorrhaphy in place, some peripheral Band Keratopathy Prednisolone Acetate (PF) 2x/ day (BID) Status Post Penetrating Keratoplasty (PK) #2 Right Eye (OD) 05/20/2014 Dr Hali Comer ([facility]) Status Post Penetrating Keratoplasty (PK) #1/Extracapsular Cataract Extraction (ECCE)/Intraocular Lens (IOL) Right Eye (OD) 10/21/2003 Dr Hali Comer ([facility]) Fuchs' Dystrophy Status Post Yag Capsulotomy Both Eyes (OU) Glaucoma Both Eyes (OU) Chronic open angle glaucoma, right severe, left moderate. Status Post SLT left eye (OS) 08/06/2013 Status Post tube shunt Right Eye (OD) 08/02/2012. Status Post TS central posterior curve (ROLLER MACHINE OPERATOR) Left Eye (OS) 12/03/2024 Dr. Nelda Butcher [...] as lid hygeine wasdiscussed with the patient. [place] 3 fatty acid supplements were discussed. Artificial [...] Description 05/07/2025 9:15 AM EST Office Visit [facility] [address] [place] [address] Nelda Butcher MD [address] [place] [address] 08/12/2025 1:45 PM EST Office Visit [facility] [address] [place] [address] Ramón Powell MD [address] [place] [address] 01/21/2026 1:30 PM EDT Ovarian Cancer Screening [facility] [address] [place] [address] documented as of this encounter Procedures Procedure [...] documented as of this encounter Care Teams Trackman Relationship Specialty Start Date End Date Camilla Rosado MD [address] [place] [address] [address] [place] [address] PCP - General 10/24/20 documented as of this encounter
--- NOTE | 2025-02-27 03:27 | CT_ITS ---
PROCEDURE INFORMATION: Exam: CT Abdomen And Pelvis With Contrast Exam date and time: 02/27/2025 4:16 AM Age: 85 years old Clinical indication: Abdominal pain; Additional info: Midline abd pain TECHNIQUE: Imaging protocol: Computed tomography of the abdomen and pelvis with contrast. Radiation optimization: All CT scans at this facility use at least one of these dose optimization techniques: automated exposure control; mA and/or kV adjustment per patient size (includes targeted exams where dose is matched to clinical indication); or iterative reconstruction. Contrast material: ISOVUE; Contrast volume: 75 ml; Contrast route: IV; COMPARISON: CT ANGIO CHEST PE PROTOCOL 02/18/2025 12:31 PM FINDINGS: Liver: Unremarkable. Gallbladder and biliary ducts: No calcified stones. No ductal dilation. Pancreas: Normal. No ductal dilation. Spleen: Unremarkable. Adrenal glands: Unremarkable. Kidneys and ureters: Bilateral upper and lower pole cortical renal scarring. Bilateral simple cortical renal cysts. No hydronephrosis. Stomach and bowel: Colonic diverticulosis without diverticulitis. Mucosal thickening of the pylorus may represent an acute gastritis. No mechanical bowel obstruction. Thickening of the sigmoid colon may be secondary to myochosis coli. Appendix: Appendix not definitely seen. No findings suggestive of appendicitis. Intraperitoneal space: No free air. No fluid collection. Vasculature: Mild-moderate atherosclerotic changes of the aorta and its major branches. Lymph nodes: No enlarged lymph nodes. Urinary bladder: Unremarkable as visualized. Reproductive: Unremarkable as visualized. Bones/joints: No acute fracture. Moderate multilevel spondylosis. Grade 1 anterolisthesis of L4 on L5. Moderate degenerative changes of the bilateral hips. Soft tissues: Nonspecific right perianal soft tissue nodularity measuring 2.2 x 1.8 cm with internal calcifications, likely benign. IMPRESSION: 1. Mucosal thickening of the pylorus may represent an acute gastritis. 2. Nonspecific right perianal soft tissue nodularity with internal calcifications, likely benign. COMMENTS: Consistent with the [employer]'s Incidental Findings Committee white paper (J Am Hayde Radiol 2018): Any incidental renal lesion less than 1 cm or classified as too small to characterize, or any incidental cystic renal lesion characterized as simple-appearing, is likely benign. No follow-up imaging is recommended for these lesions per consensus recommendations based on imaging criteria.
--- NOTE | 2025-02-27 03:30 | HMH.EDGENADL ---
Discharge Plan Disposition Patient Disposition: er [facility] Hospital Prescriptions Prescriptions: No Action famotidine 20 mg tablet 20 mg PO BID Patient Comments: Take 1 tablet(s) twice a day. amlodipine 5 mg tablet 5 mg PO DAILY Patient Comments: Take 1 tablet by mouth Daily. metoprolol succinate 25 mg tablet extended release 24 hr 25 mg PO DAILY Patient Comments: Take 1 tablet by mouth Daily. meclizine 12.5 mg tablet 12.5 mg PO .prn Patient Comments: Take 1 tablet by mouth twice a day as needed. pravastatin 80 mg tablet 80 mg PO HS Patient Comments: TAKE 1 TABLET EVERY EVENING. losartan 100 mg tablet 100 mg PO DAILY Patient Comments: TAKE 1 TABLET ONCE A DAY. allopurinol 100 mg tablet 100 mg PO DAILY Patient Comments: TAKE 1 TABLET ONCE A DAY. montelukast 10 mg tablet 10 mg PO DAILY Patient Comments: take 1 tablet once a day prednisolone acetate 1 % drops,suspension 1 drp Eye-Both BID Patient Comments: Administer 1 drop into both eyes 4 (four) times a day. pilocarpine HCl 1 % drops 1 drp Eye-Both BID Patient Comments: Administer 1 drop into both eyes 2 (two) times a day. brimonidine-timolol 0.2-0.5 % drops 1 drp Eye-Both BID Patient Comments: Administer 1 drop into both eyes 2 (two) times a day. azelastine 137 mcg (0.1 %) spray,non-aerosol intranasal Patient Comments: [place] 1 spray twice a day by intranasal route. [place] 0.01 % drops 1 drp Eye-Both HS Patient Comments: Administer 1 drop into both eyes every night. albuterol sulfate 90 mcg/actuation HFA aerosol inhaler 2 inh inhalation Patient Comments: INHALE 2 PUFFS BY MOUTH EVERY 4 HOURS NEEDED levothyroxine 100 MCG tablet 100 mg PO DAILY levocetirizine [24HR Allergy Relief] 5 MG tablet 5 mg PO DAILY Referrals Follow up/Referrals: Provider,Referral, MD [Primary Care Provider, Medical] - See instructions Activity Restrictions/Add. Instructions Additional Instructions/Restrictions: Please follow-up with your primary care provider. Please return to the emergency department if you develop any new or worsening symptoms or become concerned for your health. Clinical Impressions Clinical Impression: Abdominal pain Qualifiers: Abdominal location: epigastric Qualified Code(s): R10.13 - Epigastric pain Print Language Print Language: Faroese Discharge ED Provider: Loco Allison General Adult HPI General Chief complaint: Chest Pain Stated complaint: Chest Pain Time Seen by Provider: 02/27/25 03:38 History of Present Illness HPI narrative: 85-year-old female with history of glaucoma, GERD presents for abdominal pain. She reports epigastric/midline abdominal pain starting a couple of hours prior to arrival. She took some Maalox without improvement. Denies significant nausea or vomiting. Denies chest pain or shortness of breath. Related Data Home Medications ?Medication ?Instructions ?Recorded ?Confirmed levocetirizine 5 mg tablet (24HR 5 mg PO DAILY . 09/13/18 04/03/24 Allergy Relief) levothyroxine 100 mcg tablet 100 mg PO DAILY thyroid 09/13/18 04/03/24 albuterol sulfate 90 mcg/actuation 2 inh inhalation 02/29/24 04/03/24 aerosol inhaler allopurinol 100 mg tablet 100 mg PO DAILY 02/29/24 04/03/24 amlodipine 5 mg tablet 5 mg PO DAILY 02/29/24 04/03/24 azelastine 137 mcg (0.1 %) nasal intranasal 02/29/24 04/03/24 spray bimatoprost 0.01 % eye drops 1 drp Eye-Both HS 02/29/24 04/03/24 ([place]) brimonidine 0.2 %-timolol 0.5 % 1 drp Eye-Both BID 02/29/24 04/03/24 eye drops famotidine 20 mg tablet 20 mg PO BID 02/29/24 04/03/24 losartan 100 mg tablet 100 mg PO DAILY 02/29/24 04/03/24 meclizine 12.5 mg tablet 12.5 mg PO .prn 02/29/24 04/03/24 metoprolol succinate 25 mg 25 mg PO DAILY 02/29/24 04/03/24 tablet,extended release 24 hr montelukast 10 mg tablet 10 mg PO DAILY 02/29/24 04/03/24 pilocarpine HCl 1 % eye drops 1 drp Eye-Both BID 02/29/24 04/03/24 pravastatin 80 mg tablet 80 mg PO HS 02/29/24 04/03/24 prednisolone acetate 1 % eye 1 drp Eye-Both BID 02/29/24 04/03/24 drops,suspension Allergies Allergy/AdvReac Type Severity Reaction Status Date / Time cefixime (From Suprax) Allergy Verified 04/03/24 10:15 clarithromycin (From Biaxin) Allergy Verified 04/03/24 10:15 Penicillins Allergy Verified 04/03/24 10:15 Sulfa (Sulfonamide Allergy Verified 04/03/24 10:15 Antibiotics) steriods Allergy Mild Uncoded 04/03/24 10:15 PFSH PFS Disclaimer: The information contained in this section may have been updated after the patient was seen, as this information can be updated by other users. Medical History (Updated 02/27/25 @ 04:44 by Loco Allison MD) Acute sinusitis Glaucoma (increased eye pressure) Sinusitis Surgical History History of appendectomy H/O carpal tunnel repair H/O breast surgery H/O sinus surgery History of cornea transplant Social History Smoking Status: Unknown if ever smoked alcohol intake: never current occupational status: retired Travel in the last 8 weeks?: None Other Medical History Have you received the Pneumonia Vaccine: Yes ROS Obtained: Yes All systems reviewed & no additional complaints except as documented Physical Exam General General appearance: alert and in no apparent distress Head Head exam: atraumatic and normocephalic Eye Eye exam: Present normal appearance, PERRL and EOMI ENT ENT exam: Present normal oropharynx and normal external ear exam Neck Neck exam: Present normal inspection and full ROM Chest Chest inspection: Present normal inspection and symmetric chest wall rise; Absent tenderness Respiratory Respiratory exam: Present normal lung sounds bilaterally; Absent respiratory distress Cardiovascular Cardiovascular exam: Present regular rate and normal rhythm Abdominal Exam Abdominal exam: Present soft and tenderness (Mild diffuse tenderness); Absent distention or guarding Extremities Exam Extremities exam: Present normal inspection; Absent edema or joint swelling Back Exam Back exam: Present normal inspection; Absent tenderness Neurological Exam Neurological exam: Present alert and oriented X3; Absent motor sensory deficit Psychiatric Psychiatric exam: Present normal affect and normal mood Skin Skin exam: Present warm, dry and normal color Lymphatic Lymphatic Findings: no adenopathy Medical Decision Making Medical Records Medical records reviewed: Yes I reviewed the patient's medical records. Screening: Per USPSTF and CDC recommendations, given the prevalence of disease in our region, it is our hospital?s policy to screen for HIV and viral Hepatitis for all patients aged 18 and over and those with ongoing risk factors. Sudheer Inquiry Pt receiving controlled substance: No Sudheer was queried for this patient: No Vital Signs: 02/27/25 03:35 02/27/25 03:35 02/27/25 04:01 Temperature 97.9 F Temperature Source Oral Pulse Rate 61 63 Pulse Rate [Left] 61 Respiratory Rate 14 12 Blood Pressure 157/69 H Blood Pressure [Right Arm] 162/73 H Blood Pressure Mean [Right Arm] 102 02 Sat by Pulse Oximetry 94 L 97 Oxygen Delivery Method Room Air 02/27/25 04:31 02/27/25 07:25 Temperature 98.1 F Temperature Source Pulse Rate 60 69 Pulse Rate [Left] Respiratory Rate 13 16 Blood Pressure 136/54 L 111/63 Blood Pressure [Right Arm] Blood Pressure Mean [Right Arm] 02 Sat by Pulse Oximetry 92 L Oxygen Delivery Method Lab Data Lab results reviewed: Yes I reviewed the patient's lab results. Lab Results 02/27/25 03:35: WBC 9.5, RBC 4.91, Hgb 14.5, Hct 42.6, MCV 86.8, MCH 29.5, MCHC 34.0, RDW 11.9, Plt Count 264, MPV 11.5 H, Neut % (Auto) 79.0, Lymph % (Auto) 11.9, [place] % (Auto) 5.7, Eos % (Auto) 2.7, Baso % (Auto) 0.3, Neut # (Auto) 7.5, Lymph # (Auto) 1.1, [place] # (Auto) 0.5, Eos # (Auto) 0.3, Baso # (Auto) 0.0, Sodium 137, Potassium 4.1, Chloride 102, Carbon Dioxide 28, Anion Gap 11.1, BUN 25 H, Creatinine 0.90, Estimated Creat Clear 59, Estimated GFR 60, Est GFR ( Amer) 72, Glucose 131 H, Calcium 9.3, Total Bilirubin 0.6, AST 35, ALT 25, Alkaline Phosphatase 99, Troponin I < 0.01, Total Protein 7.3, Albumin 4.0, Globulin 3.3 H, Albumin/Globulin Ratio 1.2, Lipase 35 02/27/25 03:57: Urine Color Yellow, Urine Appearance Clear, Urine pH 6.0, Ur Specific [place] 1.020, Urine Protein Negative, Urine Glucose (UA) Negative, Urine Ketones Negative, Urine Blood Negative, Urine Nitrate Negative, Urine Bilirubin Negative, Urine Urobilinogen 0.2, Ur Leukocyte Esterase Negative, Urine RBC None, Urine WBC Occasional, Ur Squamous Epith Cells 3-5, Urine Bacteria Trace 02/27/25 03:35 02/27/25 03:35 Orders (Tests/Meds): ED MEDICATIONS Discontinued Medications Generic Name Dose Route Start Last Admin Trade Name Freq PRN Reason Stop Dose Admin Acetaminophen 1,000 mg 02/27/25 03:27 02/27/25 03:43 Acetaminophen 500mg Tab PO 02/27/25 03:28 1,000 mg ONCE ONE Administration Belladonna Alkaloids 60 ml 02/27/25 03:27 02/27/25 03:43 Belladonna Alkaloids 60 Ml Ml PO 02/27/25 03:28 60 ml ONCE ONE Administration Iopamidol 75 ml 02/27/25 04:23 02/27/25 04:24 Iopamidol-370 (76%);100ml Bottle IV 02/27/25 04:24 75 ml ONCE ONE Administration Morphine Sulfate 2 mg 02/27/25 03:45 02/27/25 03:43 Morphine 2mg/Ml Syringe IV 02/27/25 03:46 2 mg ONCE ONE Administration Sodium Chloride 10 ml 02/27/25 04:23 02/27/25 04:24 Sodium Chloride 0.9% 10ml Syr (Rad Only) IV 03/29/25 04:22 10 ml NEEDED PRN Administration Maintain IV Site ORDERS Category Date Time Status CT abdomen pelvis w con Stat Cat Scan 02/27/25 03:27 Completed CBC w/Auto Diff [Complete Blood Count Auto Diff] Stat Lab 02/27/25 03:35 Completed CMP [Comprehensive Metabolic Panel] Stat Lab 02/27/25 03:35 Completed Lipase Stat Lab 02/27/25 03:35 Completed Troponin I Q3H Lab 02/27/25 03:35 Completed UA [Urinalysis and Microscopic] Stat Lab 02/27/25 03:57 Completed ECG Data Tracing #1: I reviewed this ECG and interpreted as documented below: Sinus bradycardia with first-degree AV block, no ischemic changes noted ECG initial impression date: 02/27/25 ECG initial impression time: 03:31 HEART Score History (anamnesis): Slightly suspicious ECG: Normal Age: >65 years Risk factors: 1-2 risk factors Troponin: </= normal limit HEART Score: 3 Medical Decision Narrative: 85-year-old female with history of GERD presents for epigastric abdominal pain. History was obtained via interactive discussion with patient. On arrival, patient is [afebrile, hemodynamically stable, satting appropriately, alert, oriented x4, GCS 15], moving all extremities spontaneously. Full physical exam performed and significant for mild abdominal tenderness Differential includes but is not limited to GERD, cholecystitis, pancreatitis, colitis, bowel obstruction, ACS. Patient was given Tylenol, morphine, GI cocktail for symptomatic management and correction of underlying abnormalities. Workup initiated including CBC CMP lipase troponin EKG CT abdomen pelvis with IV contrast. On re-evaluation, patient reports symptomatic resolution. Laboratory workup independently interpreted by me and significant for negative lipase, negative troponin, normal renal function. Imaging independently interpreted by me and significant for diverticulosis without obvious diverticulitis, no evidence of pancreatic inflammation, gallbladder unremarkable. See radiology read for full review of final results. Repeat troponin was considered, but deemed unnecessary due to no chest pain, resolution in abdominal pain, no ischemic changes on EKG, negative initial troponin. Given patient history, exam and workup, patient's presentation most likely represents GERD/gastritis. Patient was discharged in stable condition. Return precautions given.. Procedures Risk/Benefits of Procedure(s) Were Explained: Yes Critical Care Critical Care Time Critical Care Time: No
--- NOTE | 2025-02-27 03:31 | ECG_ITS ---
APPROVED REPORT Exam: Resting ECG HR:59 bpm ECG Measurements Heart Rate 59 AXES MN 220 P 51 QRSd 94 QRS 54 QT 401 T 51 QTc 399 Conclusion SINUS BRADYCARDIA WITH FIRST DEGREE AV BLOCK ABNORMAL ECG UNCONFIRMED REPORT Electronically signed by : ALEX ARRINGTON, 02/27/2025 07:42:48
[2025-02-27 03:35] VITALS: BP 162/73; PULSE 61; RESP 14; TEMP 36.6; O2SAT 94; BMI 30.4
[2025-02-27] MEDS: MORPHINE 2MG/ML SYRINGE 2 MG IV (03:43)
[2025-02-27] MEDS: ACETAMINOPHEN 500MG TAB 1000 MG PO (03:43)
[2025-02-27] MEDS: BELLADONNA ALKALOIDS 60 ML ML PO (03:43)
[2025-02-27 03:53] LABS: Hematocrit 42.6 % (37.0-47.0); Hemoglobin 14.5 g/dL (12.2-16.2); Immature Granulocytes % 0.4 %; Mean Corpuscular HGB Conc 34.0 g/dL (31.8-35.4); Mean Corpuscular Hemoglobin 29.5 pg (27.0-31.2); Mean Corpuscular Volume 86.8 fl (81-99); Nucleated Red Blood Cells % 0 %; Platelet Count 264 K/mm3 (142-424); Red Blood Count 4.91 M/mm3 (4.20-5.40); Red Cell Distribution Width-SD 37.7 fL; White Blood Count 9.5 K/mm3 (4.8-10.8)
[2025-02-27 03:59] LABS: Albumin Level 4.0 g/dl (3.5-5.0); Chloride 102 mmol/L (98-107); Potassium 4.1 mmoL/L (3.5-5.1); Sodium 137 mmol/L (136-145)
[2025-02-27 04:01] VITALS: BP 157/69; PULSE 63; RESP 12; O2SAT 97
[2025-02-27 04:01] LABS: Microscopic, Urine URINE MICROSCOPIC (MICROSCOPIC)
[2025-02-27 04:02] LABS: Bilirubin,Urine Negative (Negative); Color,Urine YELLOW (Yellow); Glucose,Urine (UA) Negative (Negative); Ketones,Urine Negative (Negative); Leukocyte Esterase,Urine Negative (Negative); PH,Urine 6.0 (5.0-8.5); Protein,Urine Negative (Negative); Specific Gravity, Urine 1.020 (1.005-1.030); Urobilinogen,Urine 0.2 EU/dl (0.2)
[2025-02-27 04:02] LABS: Alanine Aminotransferase 25 U/L (12-78); Albumin/Globulin Ratio 1.2 (1.1-1.8); Alkaline Phosphatase 99 U/L (38-126); Anion Gap 11.1 mEq/L (5-15); Aspartate Amino Transferase 35 U/L (14-36); Bilirubin,Total 0.6 mg/dl (0.2-1.3); Blood Urea Nitrogen 25 mg/dl (7-17); Carbon Dioxide 28 mmol/L (22.0-30.0); Creatinine Clearance Estimated 59 mL/min (50-200); Creatinine,Serum 0.90 mg/dl (0.52-1.04); Estimated Glomerular Filt Rate 60 ml/min (>60); GFR (African American) 72 ML/MIN (>60); Globulin 3.3 g/dL (1.3-3.2); Lipase 35 U/L (23-300); Total Protein,Serum 7.3 g/dl (6.3-8.2)
[2025-02-27 04:03] LABS: Calcium 9.3 mg/dl (8.4-10.2); Glucose 131 mg/dl (74-100)
[2025-02-27 04:09] LABS: Bacteria,Urine Trace /lpf; WBC,Urine Occasional #/hpf (0-3)
[2025-02-27 04:15] LABS: Troponin I < 0.01 ng/ml (0.00-0.034)
--- OUTSIDE RECORDS SUMMARY | 2025-02-27 04:19 | XMS_ITS | Clinical Summary ---
Author Organization [facility] Address [address] [place] [address] Care Team Providers Care Quality Control Clerk Name Role Phone Camilla Rosado MD Primary Care Provider [phone] Allergies Active Allergy Reactions Criticality Noted Date [...] dissatisfied with the replacement DreamStation #2 from [employer]. She is not using her CPAP and [...] Encounters Date Type Department Care Team Description 02/26/2025 Telephone [facility] [address] [place] [address] Ramón Powell MD 02/26/2025 Telephone [facility] [address] [place] [address] Ramón Powell MD 02/13/2025 Telephone [facility] [address] [place] [address] Ramón Powell MD 02/12/2025 Telephone [facility] [address] [place] [address] Ramón Powell MD HCN Clinical Concern/Question 02/06/2025 3:00 PM EDT Office Visit [facility] [place] [address], [address] [place] [address] Ramón Powell MD Chronic open [...] Subjective visual disturbance 02/06/2025 Travel 01/22/2025 Telephone [facility] [place] [address], [address] [place] [address] Ramón Powell MD 2025 Telephone [facility] [address] [place] [address] Nelad Butcher MD Blurred Vision 01/09/2025 Orders Only External Location [address] [place] [address] Provider, External 01/09/2025 Orders Only External Location [address] [place] [address] Provider, External 01/09/2025 Orders Only External Location [address] [place] [address] Provider, External 01/09/2025 Orders Only External Location [address] [place] [address] Provider, External 01/09/2025 Orders Only External Location [address] [place] [id number] Provider, External 01/09/2025 Orders Only External Location [address] [place] [address] Provider, External 01/08/2025 Travel 01/03/2025 10:45 AM EDT Office Visit [facility] [address] [place] [address] Nelda Butcher MD Steroid-induced open-angle glaucoma, left, moderate stage (Primary Dx); 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, severe stage; Corneal edema, secondary, bilateral; Fuchs' corneal dystrophy of both eyes; 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 01/03/2025 Travel 12/21/2024 Telephone [facility] [address] [place] [address] Ramón Powell MD Med Refill 12/04/2024 Telephone [facility] [address] [place] [address] None, None HCN Clinical Concern/Question 12/03/2024 3:28 PM EDT Anesthesia Event [facility] [address] [place] [address] Erika Field MD Myers, Rebecca C, MD 12/03/2024 3:11 PM EDT - 12/03/2024 3:36 PM EDT Surgery [facility] [address] [place] [address] Nelda Butcher MD CYCLOPHOTOCOAGULATION , TRANSSCLERAL APPROACH [43975 (CPT )] 12/03/2024 11:59 AM EDT - 12/03/2024 4:35 PM EDT Hospital Encounter [facility] [address] [place] [address] Nelda Butcher MD Steroid induced glaucoma, left eye (Primary Dx) Discharge Disposition: Home or Self Care 12/03/2024 Travel from Last 3 Months Family History [...] Description 05/07/2025 9:15 AM EST Office Visit [facility] [address] [place] [address] Nelda Butcher MD [address] [address] 08/12/2025 1:45 PM EST Office Visit [facility] [address], [address] [place] [address] Ramón Powell MD 110 [facility] [address] [place] [address] 01/21/2026 1:30 PM EDT Ovarian Cancer Screening [facility] [address] [facility], 3rd [place] [address] Health Maintenance Due Date Last Done Comments [facility]-Depression Screening 1940 [facility]-Medicare Annual Wellness (AWV) 1940 [facility]-/Child/Adol SDOH Screenings 1940 [facility]- SDOH Screenings 01/09/1958 [facility]-Adult SDOH Screenings 01/09/1958 [facility]-Zoster Vaccines (2 of 3) 10/06/2015 08/11/2015 [facility]-Bone Density Scan 12/27/2024 12/27/2022 , 06/01/2019, 04/03/2017 UFS-[id number]-78 Vaccine (6 - Moderna risk 2023- season) 2025 03/30/2024, 04/01/2023, 05/26/2021, Additional history [...] NEURO OUTSIDE IMAGES 01/09/2025 12:08 PM EDT AR DESTRUC,CILIARY BODY,CYCLOPHOTOCOAG 12/03/2024 3:23 PM EDT Steroid [...] Final Result from Last 3 Months Insurance [facility] MEDICARE Care Teams Quality Control Clerk Relationship Specialty Start Date End Date Camilla Rosado MD [address] [place] [address] [address] [place] [address] PCP - General 10/24/20
--- OUTSIDE RECORDS SUMMARY | 2025-02-27 04:19 | XMS_ITS | Encounter Summary ---
Author Organization [facility] Address [address] [place] [address] Care Team Providers Care Customer Solutions Supervisor Name Role Phone Camilla Rosado MD Primary Care Provider [phone] Encounter Details Date Type Department Care Team (Late st Contact Info) Description 01/22/2025 Telephone [facility] [address] [facility], [address] [place] [address] Ramón Powell MD [address] [place] [address] [address] [place] [address] Social History Tobacco Use Types [...] 01/22/2025 9:43 AM EDT Patient lives at [facility] in [place], [place] and they are only administering her prednisolone acetate in her left eye twice daily. She should be using drops in both eyes. I called [facility] and explained the situation. I faxed most recent chart notes and requested that they begin administering drops to right eye today. Called patient back with an update per patient request. documented in this encounter Plan of Treatment Upcoming Encounters Date Type Department Care Team (Late st Contact Info) Description 05/07/2025 9:15 AM EST Office Visit [facility] [address] [place] [address] Nelda Butcher MD 110 [facility] [address] [place] [address] 08/12/2025 1:45 PM EST Office Visit [facility] [address], [address] [place] [address] Ramón Poewll MD 110 [facility] [address] [place] [address] 01/21/2026 1:30 PM EDT Ovarian Cancer Screening [facility] [address] [facility], [address]rd [place] [address] documented as of this encounter Visit Diagnoses Not on filedocumented in this encounter Additional Health Concerns Assessment Noted Time A fall risk assessment has been complete d for the patient 10/17/2024 10:18 AM EDT A Body Mass Index follow-up plan has been documented for the patient 01/03/2025 1:18 PM EDT documented as of this encounter Care Teams Customer Solutions Supervisor Relationship Specialty Start Date End Date Camilla Rosado MD [address] [place] [address] [address] [place] [address] PCP - General 10/24/20 documented as of this encounter
--- OUTSIDE RECORDS SUMMARY | 2025-02-27 04:19 | XMS_ITS | Encounter Summary ---
Author Organization Healthcare Address [address] [place] [address] Care Team Providers Care Draftsperson Name Role Phone Camilla Rosado MD Primary Care Provider [phone] Encounter Details Date Type Department Care Team [...] Description 05/07/2025 9:15 AM EST Office Visit [facility] [address] [place] [address] Nelda Butcher MD [address] [address] 08/12/2025 1:45 PM EST Office Visit [facility] [address] [place] [address] Ramón Powell MD [address] [address] 01/21/2026 1:30 PM EDT Ovarian Cancer Screening [facility] [address] [place] [address] documented as of this encounter Visit Diagnoses Not on filedocumented in this encounter Additional Health Concerns Assessment Noted Time A fall risk assessment has been complete d for the patient 10/17/2024 10:18 AM EDT A Body Mass Index follow-up plan has been documented for the patient 02/06/2025 4:27 PM EDT documented as of this encounter Care Teams Draftsperson Relationship Specialty Start Date End Date Camilla Rosado MD [address] [place] [address] [address] [place] [address] PCP - General 10/24/20 documented as of this encounter
--- OUTSIDE RECORDS SUMMARY | 2025-02-27 04:19 | XMS_ITS | Encounter Summary ---
Author Organization [facility] Address [address] [place] [address] Care Team Providers Care Material Handler Floorperson Name Role Phone Camilla Rosado MD Primary Care Provider [phone] Encounter Details Date Type Department Care Team [...] Description 05/07/2025 9:15 AM EST Office Visit [facility] [address] [place] [address] Nelda Butcher MD [address] [address] 08/12/2025 1:45 PM EST Office Visit [facility] [address], [address] [place] [address] Ramón Powell MD [address] [address] 01/21/2026 1:30 PM EDT Ovarian Cancer Screening [facility] [address] [place] [address] documented as of this encounter Visit Diagnoses Not on filedocumented in this encounter Additional Health Concerns Assessment Noted Time A fall risk assessment has been complete d for the patient 10/17/2024 10:18 AM EDT A Body Mass Index follow-up plan has been documented for the patient 01/03/2025 1:18 PM EDT documented as of this encounter Care Teams Material Handler Floorperson Relationship Specialty Start Date End Date Camilla Rosado MD [address] [place] [address] [address] [place] [address] PCP - General 10/24/20 documented as of this encounter
--- OUTSIDE RECORDS SUMMARY | 2025-02-27 04:19 | XMS_ITS | Encounter Summary ---
Author Organization [facility] Address [address] [place] [address] Care Team Providers Care Adult Nurse Practitioner Name Role Phone Camilla Rosado MD Primary Care Provider [phone] Encounter Details Date Type Department Care Team (Late Contact Info) Description 01/09/2025 Orders Only External Location [address] [place] [address] Provider, External Social History Tobacco Use Types [...] Description 05/07/2025 9:15 AM EST Office Visit [facility] [address] [place] [address] Nelda Butcher MD 110 [facility] [address] [place] [address] 08/12/2025 1:45 PM EST Office Visit [facility] [address] [place] [address], [address] [place] [address] Ramón Powell MD 110 [facility] [address] [place] [address] 01/21/2026 1:30 PM EDT Ovarian Cancer Screening [facility] [address] [place] [address] documented as of this encounter Procedures Procedure [...] documented as of this encounter Care Teams Adult Nurse Practitioner Relationship Specialty Start Date End Date Camilla Rosado MD [address] [place] [address] [address] [place] [id number] PCP - General 10/24/20 documented as of this encounter
--- OUTSIDE RECORDS SUMMARY | 2025-02-27 04:19 | XMS_ITS | Encounter Summary ---
Author Organization [facility] Address [address] [place] [address] Care Team Providers Care Filer Finish Name Role Phone Camilla Rosado MD Primary Care Provider + Reason for Visit * Reason Onset Date Comments AIDA SERNA- LUCERO 01/17/2025 Encounter Details Date Type Department Care Team (Late st Contact Info) Description 01/17/2025 Telephone [facility] CARDIOLOGY [address] [place] [address] Aida Tellez APRN [address] [place] [address] [place] [address] AIDA SERNA- LUCERO Social History [...] 3:04 PM EDT SPOKE WITH KARYNA AT [facility]. INFORMED HER OF MESSAGE. KARYNA VERBALIZED UNDERSTANDING. REMINDED KARYNA ABOUT PATIENT'S UPCOMING APPOINTMENT IN . * Telephone Encounter - Mustapha Burnett CMA - 01/17/2025 12:01 PM EDT ATTEMPTED TO CALL [facility]. MAITE CURRENTLY AT [place]UN[place]. WILL TRY AGAIN [...] 10:21 AM EDT SPOKE WITH MAITE FROM [facility]. PATIENT WAS TAKEN TO THE ER FOR A FALL AND HAS BEEN DISCHARGEDTO [facility] IN [place] FOR REHAB. PATIENT IS NOT CURRENTLY USING HER PAP THERAPY DUE TO THE SWELLING AND BRUISING. MAITE STATED THAT SHE DOES NOT CURRENTLY HAVE ORDERS FOR PAP THERAPY, SO IF PATIENT NEEDS TO RESTART WHILE IN REHAB, THEY WILL NEED ORDERS STATING THAT PATIENT IS TO RESTART. CURRENTLY, THERE IS NO PLAN OF DISCHARGE FROM [facility]. INFORMED MAITE OF PATIENT'S UPCOMING APPT ON 02/28 OBTAINING MEDICAL RECORDS FROM [facility] ER VISIT. * Telephone Encounter - Yoav Recinos RegSched Rep - 01/17/2025 9:41 AM EDT Caller: Kristen Vela Relationship: Self Best call back number: [phone] What is the best time to reach you: REACH OUT TO [facility] Who are you requesting to speak with [...] Care Team (Late st Contact Info) Description 04/01/2025 1:30 PM EDT Office Visit [facility] CARDIOLOGY [address] [place] [address] Denise May APRN [address] [place] [address] documented as of this encounter Visit Diagnoses Not on filedocumented in this encounter Care Teams Filer Finish Relationship Specialty Start Date End Date Camilla Rosado MD [address] [address] PCP - General Family Medicine 07/10/22 documented as of this encounter
--- OUTSIDE RECORDS SUMMARY | 2025-02-27 04:19 | XMS_ITS | Encounter Summary ---
Author Organization Healthcare Address [address] [place] [address] Care Team Providers Care Housekeeping Supervisor Name Role Phone Camilla Rosado MD Primary Care Provider [phone] Encounter Details Date Type Department Care Team (Late st Contact Info) Description 02/26/2025 Telephone [facility] [address] [place] [address] Ramón Powell MD [address] [address] Social History Tobacco Use Types [...] * Telephone Encounter - Elizabeth Fuentes - 02/26/2025 2:19 PM EDT Clinical Concern/Question Reason for Call: Pt said Dr Powell prescribed Doxycycline 50 mg capsules and pt wants to know why it was prescribed. Pt said she is now living at [facility] in [facility] they had asked her why she is taking the med, but she didn't know. Best contact number: [phone] (mobile) Optimal time of day to reach caller: [...] Description 05/07/2025 9:15 AM EST Office Visit [facility] [address] [place] [address] Nelda Butcher MD 110 [facility] [address] [place] [address] 08/12/2025 1:45 PM EST Office Visit [facility] [address], [address] [place] [address] Ramón Powell MD 110 [facility] [address] [place] [address] 01/21/2026 1:30 PM EDT Ovarian Cancer Screening [facility] Gynecology [address] [facility], 3rd [place] [address] documented as of this encounter Visit Diagnoses Not on filedocumented in this encounter Additional Health Concerns Assessment Noted Time A fall risk assessment has been complete d for the patient 10/17/2024 10:18 AM EDT A Body Mass Index follow-up plan has been documented for the patient 02/06/2025 4:27 PM EDT documented as of this encounter Care Teams Housekeeping Supervisor Relationship Specialty Start Date End Date Camilla Rosado MD [address] [place] [address] [address] [place] [address] PCP - General 10/24/20 documented as of this encounter
--- OUTSIDE RECORDS SUMMARY | 2025-02-27 04:19 | XMS_ITS | Encounter Summary ---
Author Organization [facility] Address [address] [place] [address] Care Team Providers Care Network Support Administrator Name Role Phone Camilla Rosado MD Primary Care Provider [phone] Encounter Details Date Type Department Care Team (Late Contact Info) Description 01/09/2025 Orders Only External Location [address] [place] [address] Provider, External Social History Tobacco Use Types [...] Description 05/07/2025 9:15 AM EST Office Visit [facility] 110 [place] [address] Nelda Butcher MD 110 [facility] 550 [place] [address] 08/12/2025 1:45 PM EST Office Visit [facility] [address] [place] [address], [address] [place] [address] Ramón Powell MD 110 [facility] 550 [place] [address] 01/21/2026 1:30 PM EDT Ovarian Cancer Screening [facility] Gynecology [address] , [address] [place] [address] documented as of this encounter Procedures Procedure [...] documented as of this encounter Care Teams Network Support Administrator Relationship Specialty Start Date End Date Camilla Rosado MD [address] [place] [address] [address] [place] [address] PCP - General 10/24/20 documented as of this encounter
--- OUTSIDE RECORDS SUMMARY | 2025-02-27 04:19 | XMS_ITS | Encounter Summary ---
Author Organization Healthcare Address [address] [place] [address] Care Team Providers Care Defect Cutter Name Role Phone Camilla Rosado MD Primary Care Provider [phone] Encounter Details Date Type Department Care Team (Late Contact Info) Description 02/26/2025 Telephone [facility] 110 [place] [address] Ramón Powell MD [address] [address] Social History Tobacco Use Types [...] Description 05/07/2025 9:15 AM EST Office Visit [facility] 110 [place] [address] Nelda Butcher MD [address] [address] 08/12/2025 1:45 PM EST Office Visit [facility] [address] [place] [address], [address] [place] [address] Ramón Powell MD 110 [facility] 550 [place] [address] 01/21/2026 1:30 PM EDT Ovarian Cancer Screening [facility] Gynecology 800 [facility], 3rd [place] [address] documented as of this encounter Visit Diagnoses Not on filedocumented in this encounter Additional Health Concerns Assessment Noted Time A fall risk assessment has been complete d for the patient 10/17/2024 10:18 AM EDT A Body Mass Index follow-up plan has been documented for the patient 02/06/2025 4:27 PM EDT documented as of this encounter Care Teams Defect Cutter Relationship Specialty Start Date End Date Camilla Rosado MD [address] [place] [address] [address] [place] [address] PCP - General 10/24/20 documented as of this encounter
--- OUTSIDE RECORDS SUMMARY | 2025-02-27 04:19 | XMS_ITS | Clinical Summary ---
Author Organization [facility] Address [address] [place] [address] Care Team Providers Care On Air Announcer Name Role Phone Camilla Rosado MD Primary [...] dissatisfied with replacement DreamStation #2 from the [employer] recall. She reports that she is dozing [...] is dissatisfied with replacement DreamStation #2 from [employer] and she is not using it. We [...] dissatisfied with the replacement DreamStation #2 from [employer] and she is not using it. It [...] absolutely needed. 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 CARDIOLOGY [address] [place], [place] [address] [...] Description 04/01/2025 1:30 PM EDT Office Visit [facility] CARDIOLOGY [address] [place] [address] Denise May APRN [address] [place] [address] Health Maintenance Due Date Last [...] Pneumococcal Vaccine 50+ Completed 025, 04/20/2016, 07/11/2014 Procedures Procedure Name Priority Date/Time Associated Diagnosis Comments SCANNED - LABS 01/09/2025 SCANNED - LABS 12/06/2024 from Last 3 Months Results * LABS SCANNED (01/09/2025) Only the most recent of2 resultswithin the time period is included. Silvia Gao MD LAB BLOOD ORDERABLES Final R esult from Last 3 Months Insurance [facility] [employer] PPO Care Teams On Air Announcer Relationship Specialty Start Date End Date Camilla Rosado MD [address] [address] PCP - General Family Medicine 07/10/22
--- OUTSIDE RECORDS SUMMARY | 2025-02-27 04:19 | XMS_ITS | Encounter Summary ---
Author Organization [facility] Address [address] [place] [address] Care Team Providers Care Cost Estimating Engineer Name Role Phone Camilla Rosado MD Primary Care Provider [phone] Encounter Details Date Type Department Care Team (Late Contact Info) Description 01/09/2025 Orders Only External Location 800 [place] [address] Provider, External Social History Tobacco Use Types [...] Description 05/07/2025 9:15 AM EST Office Visit [facility] 110 [place] [address] Nelda Butcher MD 110 [facility] 550 [place] [address] 08/12/2025 1:45 PM EST Office Visit [facility] Center [address] [place] [address], [address] [place] [address] Ramón Powell MD 110 [facility] 550 [place] [address] 01/21/2026 1:30 PM EDT Ovarian Cancer Screening [facility] [address] , [address] [place] [address] documented as of this encounter Procedures Procedure [...] documented as of this encounter Care Teams Cost Estimating Engineer Relationship Specialty Start Date End Date Camilla Rosado MD [address] [place] [address] [address] [place] [address] PCP - General 10/24/20 documented as of this encounter
--- OUTSIDE RECORDS SUMMARY | 2025-02-27 04:19 | XMS_ITS | Encounter Summary ---
Author Organization Healthcare Address [address] [place] [address] Care Team Providers Care Wardrobe Custodian Name Role Phone Camilla Rosado MD Primary Care Provider [phone] Encounter Details Date Type Department Care Team [...] Description 05/07/2025 9:15 AM EST Office Visit [facility] 110 [place] [address] Nelda Butcher MD [address] [address] 08/12/2025 1:45 PM EST Office Visit [facility] [address], [address] [place] [address] Ramón Powell MD [address] [address] 01/21/2026 1:30 PM EDT Ovarian Cancer Screening [facility] [address], 3[address] [place] [address] documented as of this encounter Visit Diagnoses Not on filedocumented in this encounter Additional Health Concerns Assessment Noted Time A fall risk assessment has been complete d for the patient 10/17/2024 10:18 AM EDT A Body Mass Index follow-up plan has been documented for the patient 01/03/2025 1:18 PM EDT documented as of this encounter Care Teams Wardrobe Custodian Relationship Specialty Start Date End Date Camilla Rosado MD [address] [place] [address] [address] [place] [address] PCP - General 10/24/20 documented as of this encounter
--- OUTSIDE RECORDS SUMMARY | 2025-02-27 04:19 | XMS_ITS | Encounter Summary ---
Author Organization Healthcare Address [address] [place] [address] Care Team Providers Care Railroad Hand Name Role Phone Camilla Rosado MD Primary Care Provider [phone] Reason for Visit * Reason Onset Date Comments HCN Clinical Concern/Question 02/12/2025 Encounter Details Date Type Department Care Team (Late st Contact Info) Description 02/12/2025 Telephone [facility] 110 [place] [address] Ramón Powell MD [address] [address] HCN Clinical Concern/Question Social History [...] of the initial request. Best contact number: [phone] Optimal time of day to reach caller: [...] patient's medication orders. Best contact number: Other: [phone] Optimal time of day to reach caller: [...] Description 05/07/2025 9:15 AM EST Office Visit [facility] [address] [place] [address] Nelda Butcher MD [address] [address] 08/12/2025 1:45 PM EST Office Visit [facility] [address], [address] [place] [address] Ramón Powell MD 110 [address] [employer] [facility] [address] [place] [address] 01/21/2026 1:30 PM EDT Ovarian Cancer Screening [facility] Gynecology [address] , [address] [place] [address] documented as of this encounter Visit Diagnoses [...] documented as of this encounter Care Teams Railroad Hand Relationship Specialty Start Date End Date Camilla Rosado MD [address] [place] [address] [address] [place] [address] PCP - General 10/24/20 documented as of this encounter
--- OUTSIDE RECORDS SUMMARY | 2025-02-27 04:19 | XMS_ITS | Encounter Summary ---
Author Organization [facility] Address [address] [place] [address] Care Team Providers Care Nutrition Helper Name Role Phone Camilla Rosado MD Primary Care Provider [phone] Encounter Details Date Type Department Care Team (Late Contact Info) Description 01/09/2025 Orders Only External Location 800 [place] [address] Provider, External Social History Tobacco Use Types [...] [facility] 110 [place] [address] Nelda Butcher MD 110 [facility] 550 [place] [address] 08/12/2025 1:45 PM EST Office Visit [facility] [address] [place] [address], [address] [place] [address] Ramón Powell MD 110 [facility] 550 [place] [address] 01/21/2026 1:30 PM EDT Ovarian Cancer Screening [facility] [address] , [address] [place] [address] documented as of this encounter Procedures Procedure [...] documented as of this encounter Care Teams Nutrition Helper Relationship Specialty Start Date End Date Camilla Rosado MD [address] [place] [address] [address] [place] [address] PCP - General 10/24/20 documented as of this encounter
--- OUTSIDE RECORDS SUMMARY | 2025-02-27 04:19 | XMS_ITS | Encounter Summary ---
Author Organization [facility] Address [address] [place] [address] Care Team Providers Care Tombstone Polisher Name Role Phone Camilla Rosado MD Primary Care Provider [phone] Encounter Details Date Type Department Care Team (Late Contact Info) Description 01/09/2025 Orders Only External Location 800 [place] [address] Provider, External Social History Tobacco Use Types [...] Description 05/07/2025 9:15 AM EST Office Visit [facility] 110 [place] [address] Nelda Butcher MD 110 [facility] 550 [place] [address] 08/12/2025 1:45 PM EST Office Visit [facility] [address] [place] [address], [address] [place] [address] Ramón Powell MD 110 [facility] 550 [place] [address] 01/21/2026 1:30 PM EDT Ovarian Cancer Screening [facility] [address] , [address] [place] [address] documented as of this encounter Procedures Procedure [...] documented as of this encounter Care Teams Tombstone Polisher Relationship Specialty Start Date End Date Camilla Rosado MD [address] [place] [address] [address] [place] [id number] PCP - General 10/24/20 documented as of this encounter
--- OUTSIDE RECORDS SUMMARY | 2025-02-27 04:19 | XMS_ITS | Encounter Summary ---
Author Organization [facility] Address [address] [place] [address] Care Team Providers Care Sewer Contractor Name Role Phone Camilla Rosado MD Primary Care Provider [phone] Reason for Visit * Reason Comments Med Refill Encounter Details Date Type Department Care Team (Late st Contact Info) Description 10/24/2024 Refill [facility] 110 [place] [address] Nelda Butcher MD [address] [address] Social History Tobacco Use Types [...] Description 05/07/2025 9:15 AM EST Office Visit [facility] 110 [place] [address] Nelda Butcher MD [address] [place] [address] 08/12/2025 1:45 PM EST Office [facility] [address], [address] [place] [address] Ramón Powell MD [address] [place] [address] 01/21/2026 1:30 PM EDT Ovarian Cancer Screening [facility] [address] , [address] [place] [address] documented as of this encounter Visit Diagnoses Not on filedocumented in this encounter Additional Health Concerns Assessment Noted Time A fall risk assessment has been complete d for the patient 10/17/2024 10:18 AM EDT A Body Mass Index follow-up plan has been documented for the patient 10/17/2024 11:18 AM EDT documented as of this encounter Care Teams Sewer Contractor Relationship Specialty Start Date End Date Camilla Rosado MD [address] [place] [address] [address] [place] [address] PCP - General 10/24/20 documented as of this encounter
--- OUTSIDE RECORDS SUMMARY | 2025-02-27 04:19 | XMS_ITS | Encounter Summary ---
Author Organization Healthcare Address [address] [place] [address] Care Team Providers Care A Operator Name Role Phone Camilla Rosado MD Primary Care Provider [phone] Reason for Visit * Reason Comments Med Refill Encounter Details Date Type Department Care Team (Late Contact Info) Description 02/24/2022 Refill [facility] 110 [place] [address] Nelda Butcher MD 110 [employer] [address] [place] [address] Social History Tobacco Use Types [...] Description 05/07/2025 9:15 AM EST Office Visit [facility] [address] [place] [address] Nelda Butcher MD [address] [place] [address] 08/12/2025 1:45 PM EST Office Visit [facility] [place] [address], [address] [place] [address] Ramón Powell MD [address] [place] [address] 01/21/2026 1:30 PM EDT Ovarian Cancer Screening [facility] 800 [facility], 3rd [place] [address] documented as of this encounter Visit Diagnoses Not on filedocumented in this encounter Additional Health Concerns Assessment Noted Time A fall risk assessment has been complete d for the patient 01/28/2022 10:16 AM EDT documented as of this encounter Care Teams A Operator Relationship Specialty Start Date End Date Camilla Rosado MD [address] [place] [address] [address] [place] [address] PCP - General 10/24/20 documented as of this encounter
--- OUTSIDE RECORDS SUMMARY | 2025-02-27 04:19 | XMS_ITS | Encounter Summary ---
Author Organization Healthcare Address [address] [place] [address] Care Team Providers Care Consular Officer Name Role Phone Camilla Rosado MD Primary Care Provider [phone] Reason for Visit * Reason Onset Date Comments HCN Clinical Concern/Question 12/04/2024 Encounter Details Date Type Department Care Team (Late st Contact Info) Description 12/04/2024 Telephone [facility] 110 [place] [address] None, None [address] [place], [place] [id number] HCN Clinical Concern/Question Social History Tobacco Use [...] that was operated on. Best contact number: [phone] Optimal time of day to reach caller: ANYTIME Additional comments/information from caller: None Note: Please do not reply to this message. Follow-up communication and further actions as a result of this message need to be communicated with the patient directly, if the patient is not active onMyChart. If the patient is active on MyChart, they will receive notification of the communication/outcome via Apttus. documented in this encounter Plan of Treatment Upcoming Encounters Date Type Department Care Team ([facility] st Contact Info) Description 05/07/2025 9:15 AM EST Office Visit [facility] 110 [place] [address] Nelda Butcher MD [address] [address] 08/12/2025 1:45 PM EST Office Visit [facility] [address], [address] [place] [address] Ramón Powell MD [address] [address] 01/21/2026 1:30 PM EDT Ovarian Cancer Screening [facility] 800 [facility], 3rd [place] [address] documented as of this encounter Visit Diagnoses Not on filedocumented in this encounter Additional Health Concerns Assessment Noted Time A fall risk assessment has been complete d for the patient 10/17/2024 10:18 AM EDT A Body Mass Index follow-up plan has been documented for the patient 10/17/2024 11:18 AM EDT documented as of this encounter Care Teams Consular Officer Relationship Specialty Start Date End Date Camilla Rosado MD [address] [place] [address] [address] [place] [id number] PCP - General 10/24/20 documented as of this encounter
--- OUTSIDE RECORDS SUMMARY | 2025-02-27 04:19 | XMS_ITS | Encounter Summary ---
Author Organization [facility] Address [address] [place] [address] Care Team Providers Care Group Controller Name Role Phone Camilla Rosado MD Primary Care Provider [phone] Reason for Visit * Reason Onset Date Comments Blurred Vision 2025 Encounter Details Date Type Department Care Team (Late st Contact Info) Description 2025 Telephone [facility] [address] [place] [address] Nelda Butcher MD [address] [address] Blurred Vision Social History Tobacco [...] eyes since a fall Best contact number: [phone] Optimal time of day to reach caller: ANYTIME Additional comments/information from caller: Not Applicable Note: Please do not reply to this message. Follow-up communication and further actions as a result of this message need to be communicated with the patient directly, if the patient is not active onMyChart. If the patient is active on MyChart, they will receive notification of the communication/outcome via AMS VariCodehart. documented in this encounter Plan of Treatment Upcoming Encounters Date Type Department Care Team (Late st Contact Info) Description 05/07/2025 9:15 AM EST Office Visit [facility] [address] [place] [address] Nelda Butcher MD [address] [address] 08/12/2025 1:45 PM EST Office Visit [facility] [address] [place] [address] Ramón Powell MD [address] [address] 01/21/2026 1:30 PM EDT Ovarian Cancer Screening [facility] Gynecology 800 [facility], 3rd [place] [address] documented as of this encounter Visit Diagnoses Not on filedocumented in this encounter Additional Health Concerns Assessment Noted Time A fall risk assessment has been complete d for the patient 10/17/2024 10:18 AM EDT A Body Mass Index follow-up plan has been documented for the patient 01/03/2025 1:18 PM EDT documented as of this encounter Care Teams Group Controller Relationship Specialty Start Date End Date Camilla Rosado MD [address] [place] [address] [address] [place] [address] PCP - General 10/24/20 documented as of this encounter
--- OUTSIDE RECORDS SUMMARY | 2025-02-27 04:19 | XMS_ITS | Encounter Summary ---
Author Organization [facility] Address [address] [place] [address] Care Team Providers Care Overhead Cleaner Maintainer Name Role Phone Camilla Rosado MD Primary Care Provider [phone] Encounter Details Date Type Department Care Team (Late Contact Info) Description 01/09/2025 Orders Only External Location [address] [place] [address] Provider, External Social History Tobacco Use Types [...] Description 05/07/2025 9:15 AM EST Office Visit [facility] [address] [place] [address] Nelda Butcher MD 110 [facility] [address] [place] [address] 08/12/2025 1:45 PM EST Office Visit [facility] [address] [place] [address], [address] [place] [address] Ramón Powell MD 110 [facility] [address] [place] [address] 01/21/2026 1:30 PM EDT Ovarian Cancer Screening [facility] [address] , [address] [place] [address] documented as of this encounter Procedures Procedure [...] documented as of this encounter Care Teams Overhead Cleaner Maintainer Relationship Specialty Start Date End Date Camilla Rosado MD [address] [place] [address] [address] [place] [address] PCP - General 10/24/20 documented as of this encounter
--- OUTSIDE RECORDS SUMMARY | 2025-02-27 04:19 | XMS_ITS | Encounter Summary ---
Author Organization Healthcare Address [address] [place] [address] Care Team Providers Care Coin Machine Assembler Name Role Phone Camilla Rosado MD Primary Care Provider [phone] Encounter Details Date Type Department Care Team (Late Contact Info) Description 02/13/2025 Telephone [facility] [address] [place] [address] Ramón Powell MD [address] [address] Social History Tobacco Use Types [...] Description 05/07/2025 9:15 AM EST Office Visit [facility] [address] [place] [address] Nelda Butcher MD [address] [address] 08/12/2025 1:45 PM EST Office Visit [facility] [address] [place] [address], [address] [place] [address] Ramón Powell MD 110 [facility] [address] [place] [address] 01/21/2026 1:30 PM EDT Ovarian Cancer Screening [facility] Gynecology [address] [facility], [address] [place] [address] documented as of this encounter Visit Diagnoses Not on filedocumented in this encounter Additional Health Concerns Assessment Noted Time A fall risk assessment has been complete d for the patient 10/17/2024 10:18 AM EDT A Body Mass Index follow-up plan has been documented for the patient 02/06/2025 4:27 PM EDT documented as of this encounter Care Teams Coin Machine Assembler Relationship Specialty Start Date End Date Camilla Rosado MD [address] [place] [address] [address] [place] [address] PCP - General 10/24/20 documented as of this encounter
[2025-02-27] MEDS: IOPAMIDOL-370 (76%);100ML BOTTLE 75 ML IV (04:24)
[2025-02-27] MEDS: SODIUM CHLORIDE 0.9% 10ML SYR (RAD ONLY) 10 ML IV (04:24)
[2025-02-27 04:31] VITALS: BP 136/54; PULSE 60; RESP 13; O2SAT 92
--- NOTE | 2025-02-27 06:13 | PC.NURSE ---
Brother will drive from [place] to pick pt up.
[2025-02-27 07:25] VITALS: BP 111/63; PULSE 69; RESP 16; TEMP 36.7; O2SAT 97
== END 2025-02-27 07:22 ==
PROVIDERS: Emergency Provider Emergency Medicine
DX: R10.13 Epigastric pain (principal); R00.1 Bradycardia, unspecified; I44.0 Atrioventricular block, first degree
CPT/HCPCS: 74177; 80053; 81001; 83690; 84484; 85025; 93005; 96374; 99285; J2270; Q9967

== ENCOUNTER 2025-04-13 10:30 | Observation (INO) | payer MEDICARE, SELFPAY ==
--- OUTSIDE RECORDS SUMMARY | 2025-04-01 15:15 | XMS_ITS | Encounter Summary ---
Author Organization [facility] Address [address] [place] [address] Care Team Providers Care Toy Assembly Supervisor Name Role Phone Camilla Rosado MD Primary Care Provider + Reason for Visit * Reason Comments Sleep Apnea Coronary Artery Disease Follow-up Encounter Details Date Type Department Care Team (Late st Contact Info) Description 04/01/2025 3:15 PM EDT Office Visit [facility] C[facility] [address] [place] [address] Denise May APRN [address] [place] [address] LEX (obstructive sleep apnea) (Primary Dx); Coronary artery disease involving levelock coronary artery of levelock heart without angina pectoris; Primary hypertension; Paroxysmal SVT (supraventricular tachycardia) Social History Tobacco Use Types Packs/Day Years [...] on file documented as of this encounter Last Filed Vital Signs Vital Sign Reading Time Taken Comments Blood Pressure 130/74 04/01/2025 3:08 PM EDT Pulse 87 04/01/2025 3:08 PM EDT Temperature - - Respiratory Rate - - Oxygen Saturation 98% 04/01/2025 3:08 PM EDT Inhaled Oxygen Concentration - - Weight 77.6 kg (171 lb) 04/01/2025 3:08 PM EDT Height 170.2 cm (5' 7 ) 04/01/2025 3:08 PM EDT Body Mass Index 26.78 04/01/2025 3:08 PM EDT documented in this encounter Progress Notes * Denise May APRN - 04/01/2025 3:15 PM EDTAssociated Problem(s): LEX (obstructive sleep apnea) * Denise May APRN - 04/01/2025 3:15 PM EDTAssociated Problem(s): Coronary artery disease involving levelock coronary artery of levelock heart with out angina pectoris {Coronary Artery Disease (OPTIONAL):12223} * Denise May APRN - 04/01/2025 3:15 PM EDTAssociated Problem(s): Primary hypertension {Hypertension is (optional):3447005699} Orders: amLODIPine (NORVASC) 5 MG tablet; Take 1 tablet by mouth Daily. * Denise May APRN - 04/01/2025 3:15 PM EDTAssociated Problem(s): Paroxysmal SVT (supraventricular tachycardia) 1. LEX - Pt has not been using PAP machine since she fell and broke nose on 01/08/2025. States nose is hydraulic press tender to touch and can't tolerate air blowing into nose - Sleep risks reviewed 2. Coronary Artery Disease - Denies any CP - Continue medical regimen (Aspirin, Metoprolol, and Pravastatin) 3. Hypertension - On review from [place] Bps have been running 132-173 systolic -Restart Amlodipine 5mg daily - RTC in 4 weeks to recheck blood pressure 4. SVT - Denies any palpitations. - Continue Metoprolol * Denise May APRN - 04/01/2025 3:15 PM EDT Images from the original note were not included. [facility] Provider Note Date: 04/01/2025 Name: Kristen Vela : 1940 PCP: Camilla Rosado MD Chief Complaint Patient presents with Sleep Apnea Coronary Artery Disease Follow-up Subjective History of Present Illness Kristen Vela is a 85 y.o. female who presents today for 6 month f/u of LEX, CAD, HTN, andSVT. Pt fell on 01/08/2025 and broke her nose. Since then she states she has been unable to wear PAP machine. States nose is very tender to touch and can not tolerate air blowing into nose. Denies any chest pain. States has occasional shortness of breath and dizziness, has not worsened since previous. Has some lower extremity edema, nursing staff wraps legs daily. Pt is currently at [place]. Denies any palpitations. States Bps having been running a little higher. On review BP have been running from 132 to 173 systolic. Since last visit, Amlodipine has been discontinued, she is unsure of why. Sleep and cardiac history: 1. Hypertension 2. EP: Paroxysmal tachycardia on beta-joe -Sick sinus syndrome-no indication for PM -Sinus rhythm with first-degree AV block 3. LEX mild AHI 5 - Titration 12/19/2018 Tit to CPAP 10 to 12 cm - Current LEX therapy 6-12cm 4. Carotid stenosis: mild 12/27/2021; plaque at the bifurcation. Less than 50% stenosis 5. CAD: 09/02/14 LHC - 20-30% ostial lesion LAD - 10/11/2018 stress echo low risk Echocardiogram 06/16/2022: Interpretation Summary ?? Left ventricular systolic function is normal. Left ventricular ejection fraction appears to be 61 - 65%. ?? Left ventricular wall thickness is consistent with mild basal asymmetric hypertrophy. ?? Left ventricular diastolic function was indeterminate. ?? The intra atrial septum has a dumbell shape. This most likely repesents a prominent lexi terminalis ridge. A myxoma cannot be excluded. ?? There is calcification of the aortic valve mainly affecting the non-coronary and left coronary cusp(s). Estimated right ventricular systolic pressure from tricuspid regurgitation is normal (<35 mmHg). Allergies[1] Current Medications[2] Past Medical History: Diagnosis Date Atrioventricular block, first degree CAD (coronary artery disease) HEART CATH- 08/2014; 20-30 % LAD, 20-30 % RCA; EF 60% Family history of aneurysm Fuchs' corneal dystrophy Glaucoma LEFT EYE - 09-22-2015 Gout Hypercholesterolemia Hypertension Hypothyroidism Lipoma ATRIAL SEPTAL LIPOMA Mitral regurgitation MVP (mitral valve prolapse) Occlusion and stenosis of bilateral carotid arteries LEX (obstructive sleep apnea) BASELINE AH5; AUTOCPAP Pneumonia due to COVID-19 virus 10/25/2021 Pulmonary hypertension Past Surgical History: Procedure Laterality Date APPENDECTOMY 04/17/2009 BREAST LUMPECTOMY BENIGN CARPAL TUNNEL RELEASE Bilateral CATARACT EXTRACTION 04/17/2009 CORNEAL TRANSPLANT Bilateral X4 CORNEAL TRANSPLANT Left DILATATION AND CURETTAGE SINUS SURGERY Family History Problem Relation Age of Onset Leukemia Mother Suicide Attempts Father CAUSE OF SUICIDE Aortic aneurysm Brother Hypertension Brother Sleep apnea Brother Stroke Brother Other Brother CABG AND KIDNEY TRANSPLANT Social History[3] Objective Vital Signs: BP 130/74 Pulse 87 Ht 170.2 cm (67 ) Wt 77.6 kg (171 lb) SpO2 98% BMI 26.78 kg/m?? Estimated body mass index is 26.78 kg/m?? as calculated from the following: Height as of this encounter: 170.2 cm (67 ). Weight as of this encounter: 77.6 kg (171 lb). Physical Exam Constitutional: Appearance: Normal appearance. She is well-developed. HENT: Head: Normocephalic and atraumatic. Cardiovascular: Rate and Rhythm: Normal rate and regular rhythm. Heart sounds: Normal heart sounds. No murmur heard. Pulmonary: Breath sounds: Normal breath sounds. No wheezing or rhonchi. Musculoskeletal: Right lower leg: No edema. Left lower leg: No edema. Comments: Walks with Walker Skin: Capillary Refill: Capillary refill takes less than 2 seconds. Coloration: Skin is not cyanotic. Nails: There is no clubbing. Neurological: Mental Status: She is alert and oriented to person, place, and time. Motor: No weakness. Gait: Gait normal. Psychiatric: Mood and Affect: Mood normal. Behavior: Behavior is cooperative. Thought Content: Thought content normal. Assessment and Plan Assessment & Plan LEX (obstructive sleep apnea) Coronary artery disease involving levelock coronary artery of levelock heart without angina pectoris Primary hypertension Orders: amLODIPine (NORVASC) 5 MG tablet; Take 1 tablet by mouth Daily. Paroxysmal SVT (supraventricular tachycardia) 1. LEX - Pt has not been using PAP machine since she fell and broke nose on 01/08/2025. States nose is hydraulic press tender to touch and can't tolerate air blowing into nose - Sleep risks reviewed 2. Coronary Artery Disease - Denies any CP - Continue medical regimen (Aspirin, Metoprolol, and Pravastatin) 3. Hypertension - On review from [place] Bps have been running 132-173 systolic -Restart Amlodipine 5mg daily - RTC in 4 weeks to recheck blood pressure 4. SVT - Denies any palpitations. - Continue Metoprolol Recommendations: Report if any new/changing symptoms immediately, Limit salt, Sleep risks reviewed (driving, medical, sleep , sedating agents), Sleep hygiene discussed, and Increase pap therapy usage Follow Up Return in about 4 weeks (around 04/29/2025) for Recheck blood pressure. Denise May APRN Cardiology [facility] 04/01/2025 Please note that this explicitly excludes time spent on other separate billable services such as performing procedures or test interpretation, when applicable. [1] Allergies Allergen Reactions Atorvastatin Other (See Comments) and Unknown (See Comments) Muscle cramping leg weakness Cefixime Unknown - Low Severity, Rash and Unknown (See Comments) Clarithromycin Unknown - Low Severity, Rash and Unknown (See Comments) Crestor [Rosuvastatin] Unknown - Low Severity Diltiazem Palpitations Lisinopril Cough Macrobid [Nitrofurantoin] Unknown - Low Severity Methylprednisolone Unknown - Low Severity Penicillins Hives, Rash and Unknown (See Comments) Sulfa Antibiotics Rash, Other (See Comments) and Unknown (See Comments) [2] Current Outpatient Medications: albuterol sulfate HFA 108 (90 Base) MCG/ACT inhaler, Inhale 2 puffs As Needed., Disp: , Rfl: allopurinol (ZYLOPRIM) 100 MG tablet, , Disp: , Rfl: aspirin 81 MG EC tablet, Take 1 tablet by mouth Daily., Disp: , Rfl: Azelastine HCl 137 MCG/SPRAY solution, 2 sprays 2 (Two) Times a Day., Disp: , Rfl: Doxycycline Hyclate 50 MG tablet, Take 1 tablet by mouth., Disp: , Rfl: famotidine (PEPCID) 20 MG tablet, , Disp: , Rfl: hydroCHLOROthiazide 25 MG tablet, Take 0.5 tablets by mouth Daily., Disp: , Rfl: ibuprofen (ADVIL,MOTRIN) 400 MG tablet, Take 1 tablet by mouth Every 6 (Six) Hours As Needed., Disp: , Rfl: levocetirizine (XYZAL) 5 MG tablet, , Disp: , Rfl: levothyroxine (SYNTHROID, LEVOTHROID) 100 MCG tablet, levothyroxine 100 mcg tablet TAKE 1 TABLET ONCE A DAY IN THE MORNING 30 MINUTES BEFORE YOUR FIRST MEAL, Disp: , Rfl: losartan (COZAAR) 100 MG tablet, , Disp: , Rfl: Lumigan 0.01 % ophthalmic drops, , Disp: , Rfl: metoprolol succinate XL (TOPROL-XL) 25 MG 24 hr tablet, Take 1 tablet by mouth Daily., Disp: 90 tablet, Rfl: 1 montelukast (SINGULAIR) 10 MG tablet, Take 1 tablet by mouth Every Night., Disp: , Rfl: omeprazole (priLOSEC) 20 MG capsule, Take 1 capsule by mouth Daily., Disp: , Rfl: oxyCODONE-acetaminophen (PERCOCET) 5-325 MG per tablet, Take 1 tablet by mouth Every 6 (Six) Hours As Needed., Disp: , Rfl: pilocarpine (PILOCAR) 1 % ophthalmic solution, , Disp: , Rfl: pravastatin (PRAVACHOL) 80 MG tablet, , Disp: , Rfl: prednisoLONE acetate (PRED FORTE) 1 % ophthalmic suspension, Apply 1 drop to eye(s) as directed by provider., Disp: , Rfl: timolol (TIMOPTIC) 0.5 % ophthalmic solution, Administer 1 drop to both eyes 2 (Two) Times a Day., Disp: , Rfl: vitamin D3 125 MCG (5000 UT) capsule capsule, Take 2,000 Units by mouth Daily., Disp: , Rfl: amLODIPine (NORVASC) 5 MG tablet, Take 1 tablet by mouth Daily., Disp: 30 tablet, Rfl: 11 [3] Social History Socioeconomic History Marital status: Single Tobacco Use Smoking status: Never Passive exposure: Never Smokeless tobacco: Never Vaping Use Vaping status: Never Used Substance and Sexual Activity Alcohol use: Never Drug use: Not Currently Sexual activity: Defer documented in this encounter Plan of Treatment Upcoming Encounters Date Type Department Care Team (Late st Contact Info) Description 04/30/2025 2:30 PM EST Office Visit [facility] [address] [place] [address] Denise May APRN [address] [place] [address] documented as of this encounter Visit Diagnoses Diagnosis LEX (obstructive sleep apnea)- Primary Obstructive sleep apnea (adult) (pediatric) Coronary artery disease involving levelock coronary artery of levelock heart without angina pectoris Primary hypertension Unspecified essential hypertension Paroxysmal SVT (supraventricular tachycardia) documented in this encounter Care Teams Toy Assembly Supervisor Relationship Specialty Start Date End Date Camilla Rosado MD [address] [place] [address] PCP - General Family Medicine 07/10/22 documented as of this encounter
[2025-04-13] VITALS (13 sets, daily range): BP systolic 143–188; BP diastolic 65–88; PULSE 65–87; RESP 14–26; TEMP 36.5–36.7; O2SAT 94–97; BMI 29.2; BMI 25.8
--- NOTE | 2025-04-13 10:36 | ECG_ITS ---
APPROVED REPORT Exam: Resting ECG HR:69 bpm ECG Measurements Heart Rate 69 AXES ND 170 P 24 QRSd 89 QRS 71 QT 366 T 74 QTc 385 Conclusion SINUS RHYTHM NORMAL ECG UNCONFIRMED REPORT Electronically signed by : Bull Villareal, 04/13/2025 15:24:19
--- OUTSIDE RECORDS SUMMARY | 2025-04-13 10:51 | XMS_ITS | Data Portability ---
Author Organization [place] - [place] - [facility] EMERY Maria ADMIN Address [address] [place] [id number] Assessment Encounter Date Assessment Date Assessment LastModified by Organization Details LastModified Time 04/11/2024 04/11/2024 Evaluation and examination. Discussed podiatric pathology including treatment options with the patient. Not available 04/11/2024 10:47:50 08/29/2024 08/29/2024 Evaluation and examination. Discussed podiatric pathology including treatment options with the patient. Not available 08/29/2024 10:55:40 11/12/2024 11/12/2024 Evaluation and examination. Discussed podiatric pathology including treatment options with the patient. Not available 11/12/2024 11:02:31 03/12/2025 03/12/2025 Evaluation and examination. Discussed podiatric pathology including treatment options with the patient. Not available 03/12/2025 10:20:29 Plan of Treatment Reminders Order Date Submit Date Provider Last Modified By Organization Details Last Modified Time Details Appointments OV PROC 30 2025 02:45P M Denise Marino DPM Not available Not available Not available Lab None recorded. Referral None recorded. Procedures None recorded. Surgeries None recorded. Imaging None recorded. Medication Orders mupirocin 2 % topical ointment 2024 025 [email or web address] Not available 03/12/2025 16:22:16 Patient TargetsNo targets recorded. Patient Instructions Encounter Date Encounter Id Patient Instructions Last Modified By Organization Details Last Modified Time 04/11/2024 [id number] Follow up 10 weeks Not availa ble 04/11/2024 10:47:53 Some of the information in this note was entered by the [facility] under the direction and training of the attending physician. I have reviewed the documentation of the encounter entered by the [employer] INST[employer]ER and attest that it is accurate. M*Modal accountant manager software was utilized to enter some information in this note and therefore may contain voice recognition errors. Intake and other documentation entered by Lilliana Griggs CMA. Not available 04/11/2024 10:48:45 08/29/2024 [id number] Follow up 10 weeks [email or web address] Not availa ble 08/29/2024 10:55:40 Some of the information in this note was entered by the [facility] under the direction and training of the attending physician. I have reviewed the documentation of the encounter entered by the SPRAY FO[employer] INSTALLER and attest that it is accurate. M*Modal accountant manager software was utilized to enter some information in this note and therefore may contain voice recognition errors. Intake and other documentation entered by Deborah Drake CMA. [email or web address] Not available 08/29/2024 10:56:18 11/12/2024 [id number] Follow up 10 weeks [email or web address] Not availa ble 11/12/2024 11:02:31 Some of the information in this note was entered by the [facility] under the direction and training of the attending physician. I have reviewed the documentation of the encounter entered by the [employer] INST[employer]ER and attest that it is accurate. M*Modal accountant manager software was utilized to enter some information in this note and therefore may contain voice recognition errors. Intake and other documentation entered by Gino Villareal CMA. [email or web address] Not available 11/12/2024 11:17:36 03/12/2025 [id number] Follow up as scheduled for [facility] Not available 03/12/2025 10:40:44 Some of the information in this note was entered by the [facility] under the direction and training of the attending physician. I have reviewed the documentation of the encounter entered by the [facility] and attest that it is accurate. M*Modal accountant manager software was utilized to enter some information in this note and therefore may contain voice recognition errors. Intake and other documentation entered by Lilliana Griggs CMA. Not available 03/12/2025 10:40:25 Reason for Referral None Reported. Results Created Date Observation Date Name Description Value Unit Range Abnormal Flag Note LastModifiedBy Organization Detail LastModifiedTime 01/18/20 25 01/09/2025 XR, chest , 2 view No observ ation record ed. [email or web address] Not Available 2024 09:36:05 01/18/2001/09/2025 CT, brain , w/o contr ast No observ ation record ed. [email or web address] Not Available 2024 09:37:19 01/18/20 25 01/09/2025 CT, face, w/wo contr ast No observ ation record ed. [email or web address] Not Available 2024 09:38:33 01/18/20 25 01/09/2025 CT, face, w/o contr ast No observ ation record ed. [email or web address] Not Available 2024 09:39:30 Result Notes None recorded. Procedures Surgical History Date Name Laterality Status Provider Name and Address Organization Details Recorded Time 11/13/19 25 Nail debridement (6-10) completed Tray Villareal [place] [facility] [place] & [place] 11/12/2024 11:02:31 08/30/19 25 Nail debridement (6-10) completed Deborah Drake [place] [facility] [place] 08/29/2024 10:55:40 04/11/20 24 Nail debridement (6-10) completed Ada Griggs [place] [facility] [place] 04/11/2024 10:48:03 01/30/20 24 Nail debridement (6-10) completed Mila Anthony [place] [facility] [place] 01/30/2024 10:13:50 11/21/19 24 Nail debridement (6-10) completed Deborah Drake [place] [facility] [place] 11/21/2023 10:52:40 08/31/19 24 Fiberoptic Laryngoscopy completed Wayne Lou [place] [facility] [place] 08/31/2023 15:11:11 08/29/19 24 Nail debridement (6-10) completed Ada VE[place] - [facility] - [place] 08/29/2023 11:07:05 06/20/19 24 Nail debridement (6-10) completed Deborah Drake [place] [facility] [place] 06/20/2023 11:01:47 04/04/20 23 Nail debridement (6-10) completed Ada Griggs [place] [facility] [place] 04/04/2023 09:29:59 01/27/20 23 Nail debridement (6-10) [place] [facility] Drake [place] [facility] [place] 01/26/2023 10:37:49 10/19/19 23 Nail debridement (6-10) completed Mila Anthony [place] [facility] [place] 10/18/2022 10:12:11 07/19/19 23 Nail debridement (6-10) completed Deborah Drake [place] [facility] [place] 07/19/2022 08:49:59 04/14/20 22 Nail debridement (6-10) completed Denise Marino DPM [address] [place] [address], [address], [place], [address] [place] [facility] [place] 04/15/2022 07:48:24 Imaging Results None recorded. Procedure Notes None recorded. Medical Equipment None Reported. Allergies Allergen ID Allergen Name Allergen Category Reaction Reaction Severity Criticality Documentation Date Start Date Code Code System Note Provider Name and Address Organization Details Recorded Time 83506 Substance with sulfonami de structure and antibacte rial mechanism of action (substanc e) medicatio n Not available Not available low 04/14/2022 32646 8003 SNOMED Ysabel Obrien null, [place] - [facility] & [place] 2 09:44:53 55230 Product containin g penicilli n (product) medicatio n Not available Not available low 04/14/2022 12887 8001 SNOMED Ysabel Obrien null, [place] - [facility] - [place] & [place] 2 09:45:04 98306 Biaxin medicatio n Not available Not available low 04/14/2022 80749 9 RxNorm Ysabel Obrien null, [place] [facility] [place] & [place] 2 09:45:13 95340 Lipitor medicatio n Not available Not available low 04/14/2022 69621 5 RxNorm Ysabel Baileyey null, [place] - [facility] [place] & [place] 2 09:45:20 72910 Macrobid medicatio n Not available Not available low 04/14/2022 62122 1 RxNorm SILVIA [place] - [place] & [place] 2 09:45:29 18870 methylpre dnisolone medicatio n Not available Not available low 04/14/2022 6902 RxNorm SILVIA [place] - [place] & [place] 2 09:45:42 23310 Seldane medicatio n Not available Not available low 04/14/2022 06615 0 RxNorm SILVIA [place] - [place] & [place] 2 09:45:50 13463 Suprax medicatio n Not available Not available low 04/14/2022 68174 9 RxNorm SILVIA [place] - [place] & [place] 2 09:46:00 Medications Name Sig Start Date Stop Date Status Note LastModified by Organization Details LastModified Time doxycycline hyclate 100 mg capsule 01/22 completed Not Available Not Available Not Available pilocarpine 1 % eye drops 01/22 completed Not Available Not Available Not Available ofloxacin 0.3 % eye drops 04/14 completed Not Available Not Available Not Available prednisone 20 mg tablet 01/22 completed Not Available Not Available Not Available doxycycline hyclate 50 mg capsule 01/22 completed Not Available Not Available Not Available travoprost 0.004 % eye drops 01/22 completed Not Available Not Available Not Available meclizine 12.5 mg tablet 01/22 completed Not Available Not Available Not Available amlodipine 2.5 mg tablet active Not Available Not Available Not Available ciprofloxac in 250 mg tablet 08/30 completed Not Available Not Available Not Available amlodipine 5 mg tablet 01/22 completed Not Available Not Available Not Available allopurinol 100 mg tablet active Not Available Not Available Not Available aspirin 81 mg tablet,joe yed release Take 1 tablet every day by oral route. active Not Available Not Available No t Available levothyroxi ne 100 mcg tablet 01/22 completed Not Available Not Available Not Available famotidine 20 mg tablet active Not Available Not Available Not Available pravastatin 80 mg tablet active Not Available Not Available Not Available prednisolon e acetate 1 % eye drops,suspe nsion 01/22 completed Not Available Not Available Not Available meclizine 25 mg tablet 12/01 completed Not Available Not Available Not Available doxycycline monohydrate 100 mg capsule 01/22 completed Not Available Not Available Not Available cephalexin 500 mg capsule 01/22 completed Not Available Not Available Not Available erythromyci n 5 mg/gram (0.5 %) eye ointment 04/14 completed Not Available Not Available Not Available olopatadine 0.1 % eye drops 04/14 completed Not Available Not Available Not Available hydrocortis one 2.5 % topical cream 12/01 completed Not Available Not Available Not Available montelukast 10 mg tablet active Not Available Not Available Not Available mupirocin 2 % topical ointment apply to wound site daily until healed 2024 active Not Available Not Available Not Avai lable metoprolol succinate ER 25 mg tablet,exte nded release 24 hr active Not Available Not Available Not Available azelastine 137 mcg (0.1 %) nasal spray [place] 2 sprays twice a day by intranasa l route. active Not Available Not Available No t Available ibuprofen 600 mg tablet 04/14 completed Not Available Not Available Not Available levofloxaci n 750 mg tablet 01/22 completed Not Available Not Available Not Available methylpredn isolone 4 mg tablets in a dose pack TAKE 6 TABLETS ON DAY 1 DIRECTED ON PACKAGE AND DECREASE BY 1 TAB EACH DAY FOR A TOTAL OF 6 DAYS 07/19 completed Not Available Not Available Not Available albuterol sulfate HFA 90 mcg/actuati on aerosol inhaler INHALE 2 PUFFS BY MOUTH EVERY 4 HOURS NEEDED active Not Available Not Available No t Available timolol maleate 0.5 % eye drops active Not Available Not Available Not Available celecoxib 100 mg capsule 12/01 completed Not Available Not Available Not Available cefdinir 300 mg capsule TAKE 1 CAPSULE BY MOUTH TWICE DAILY FOR 10 DAYS 01/22 completed Not Available Not Available Not Available losartan 100 mg tablet active Not Available Not Available Not Available doxycycline hyclate 100 mg tablet 01/22 completed Not Available Not Available Not Available Flovent HFA 110 mcg/actuati on aerosol inhaler 04/14 completed Not Available Not Available Not Available chlorhexidi ne gluconate 0.12 % mouthwash 12/01 completed Not Available Not Available Not Available hydrochloro thiazide 12.5 mg tablet 01/22 completed Not Available Not Available Not Available levocetiriz ine 5 mg tablet active Not Available Not Available Not Available brimonidine 0.2 %-timolol 0.5 % eye drops 01/22 completed Not Available Not Available Not Available Lumigan 0.01 % eye drops 01/22 completed Not Available Not Available Not Available Paxlovid 300 mg (150 mg x 2)-100 mg tablets in a dose pack 04/14 completed Not Available Not Available Not Available Vitals Date Recorded Body height Provider Name an d Address Organization Details Last Updated DateTime 08/29/2024 172.72 cm Deborah Drake [facility] & [place] 08/29/2024 10:55:19 Date Recorded Body height Body mass index (BMI) Body weight Provider Name and Address Organization Details Last Updated DateTime 01/23/2025 172.72 cm 26.3 kg/m2 45388.48 g Zoraida Castellon [facility] & [place] 01/23/2025 14:05:29 Social History None recorded. Functional Status None recorded. Mental Status None recorded. Family History Nothing Reported Notes:Mother- , HTN, Stroke, Cancer Father- , HTN Medical History Condition Response Allergies/Hayfever Y Hypertension Y Gynecological HistoryNo gynecological history recorded. 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 Foot pain 74137017 M79.6 71 M79.672 pain associated with toenails improved post debridemen t Ingrowing nail 683995678 L60.0 debrided to tolerance and without incident [id number] Denise Marino DPM [facility] [address] [place] [address] [address] [place] [address] 07/19/2022 08:44:54 07/19/2022 09:44:12 Hereditary sensory neuropathy 23310584 G60.8 Performed/ updated lower extremity neurovascu lar exams today. Discussed importance of at-risk foot care including routine monitoring of feet, applying moisturize r to feet but not between toes, appropriat e shoe gear, drying well between the toes after bath and risks associated with soaking feet. Onychogryphosis 92666860 L60.2 Debrided toenails in thickness and length. Foot pain 15524981 M79.6 71 M79.672 pain associated with toenails improved post debridemen t Ingrowing nail 220203283 L60.0 debrided to tolerance and without incident Bite of insect 868643168 W57.XXXA Unsure of etiology of small red area medial left ankle. Discussed potential etiologies . Monitor for worsening. Applied bacitracin . Sent Rx for mupirocin with instructio ns for use daily until resolved. Callosity 983244049 L84 Filed with pritesh augustin, monitor for worsening. Counseled regarding routine maintenanc e. Stressed importance of appropriat e shoe gear with ambulation , even in the home. [id number] Denise Marino DPM [facility] [address] [place] [address],[facility] [address] [place] [address] 10/18/2022 09:52:13 10/18/2022 11:21:14 Hereditary sensory neuropathy 15094282 G60.8 Counseled regarding at risk foot care. Onychogryphosis 51556321 L60.2 Debrided toenails in thickness and length. Foot pain 74800240 M79.6 71 M79.672 pain associated with toenails improved post debridemen t Ingrowing nail 967841397 L60.0 debrided to tolerance and without incident Callosity 228529151 L84 Filed with pritesh augustin, monitor for worsening. Counseled regarding routine maintenanc e. Stressed importance of appropriat e shoe gear with ambulation , even in the home. 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 Discussed importance of at-risk foot care including routine monitoring of feet, applying moisturize r to feet but not between toes, appropriat e shoe gear, drying well between the toes after bath and risks associated with soaking feet. Onychogryphosis 00248373 L60.2 Debrided toenails in thickness and length. Foot pain 05509234 M79.6 71 M79.672 pain associated with toenails improved post debridemen t Ingrowing nail 986329971 L60.0 Applied topical lidocaine to both great toenails. Debrided to tolerance and without incident Callosity 882034382 L84 Filed with pritesh board, monitor for worsening. Counseled regarding routine maintenanc e. Stressed importance of appropriat e shoe gear with ambulation , even in the home. Abnormal gait 91546477 R 26.89 using a cane [id number] Kaitlin Acuna MD [facility] 8 [facility] [place] [address] 02/22/2023 13:49:17 02/22/2023 14:26:25 Allergic rhinitis 70326970 J30.9 Continue with currently management on her allergy injections and Atrovent. Impairment of balance 38 8647160 R26.89 Symptoms do not appear consistent with BPPV and I have also instructed her that I would like for her to be off Meclizine as much as possible. Will ask her current PTs, Lynda and Jamel, at [facility] to initiate some vestibular rehab excerizes. [id number] Kaitlin Acuna MD [facility] [address]40 8 [facility], [place] [address] 03/30/2023 13:47:08 03/30/2023 14:35:34 Benign paroxysmal positional vertigo 407616236 H81.11 Dizziness 739738087 R42 [id number] Denise Marino DPM [facility] [address] [place] [address],[place] [address] [place] [address] 04/04/2023 08:56:14 04/04/2023 09:50:57 Hereditary sensory neuropathy 04222952 G60.8 Counseled regarding at risk foot care. Onychogryphosis 80260820 L60.2 Debrided toenails in thickness and length. Foot pain 48116006 M79.6 71 M79.672 pain associated with toenails improved post debridemen t Ingrowing nail 345999556 L60.0 Debrided to tolerance and without incident Callosity 918920190 L84 Filed with pritesh augustin, monitor for worsening. Counseled regarding routine maintenanc e. Stressed importance of appropriat e shoe gear with ambulation , even in the home. Abnormal gait 16782384 R 26.89 using a cane [id number] [facility],[place] [address] [place] [address] 05/13/2023 08:18:43 05/13/2023 09:28:01 Pain in left foot 7912259598 61442 M79.672 Evaluation and examinatio n. Discussed podiatric pathology including treatment options with the patient. Paronychia of toe of left foot 7898013118 2042467 L03.032 Counseled regarding local care. Monitor for worsening. Ingrowing nail 760811680 L60.0 Debrided bilateral borders of L1. Pt reports immediate reduction in symptoms. [id number] Denise Marino DPM [facility] [address] [place] [address],[place] [address] [place] [address] 06/20/2023 10:30:03 06/20/2023 11:26:21 Hereditary sensory neuropathy 32192729 G60.8 Counseled regarding at risk foot care. Onychogryphosis 24203724 L60.2 Debrided toenails in thickness and length. Foot pain 94219520 M79.6 71 M79.672 pain associated with toenails improved post debridemen t Ingrowing nail 819255607 L60.0 Applied topical lidocaine B1. Debrided to tolerance and without incident Callosity 089232130 L84 Filed with pritesh augustin, monitor for worsening. Counseled regarding routine maintenanc e. Stressed importance of appropriat e shoe gear with ambulation , even in the home. Abnormal gait 92523554 R 26.89 using a cane [id number] Kaitlin Acuna MD [facility] [facility] [place] [address] 08/31/2023 14:19:27 08/31/2023 15:11:12 Benign paroxysmal positional vertigo 340738663 H81.11 Pleased with patient's improvemen t. Should she notice an increase in the dizziness, she should start back with therapy. I will otherwise see her back as needed. Dizziness 453669307 R42 Change in voice 50176725 5 R49.9 Explained to the patient I saw nothing concerning on laryngosco py exam today. No mass/lesio n/polyp/pa ralysis seen. Explained as we age, our vocal cord tissue thins. Will see her back as needed. [id number] Denise Marino DPM [facility] [address] [place] [address],[facility] [address] [place] [address] 08/29/2023 10:37:23 08/29/2023 11:38:02 Hereditary sensory neuropathy 64610333 G60.8 Counseled regarding at risk foot care. Onychogryphosis 45557714 L60.2 Debrided toenails in thickness and length. Foot pain 08350941 M79.6 71 M79.672 pain associated with toenails improved post debridemen t Ingrowing nail 218994325 L60.0 debrided to tolerance and without incident, monitor for recurrence Callosity 073044408 L84 Filed with pritesh augustin, monitor for worsening. Counseled regarding routine maintenanc e. Stressed importance of appropriat e shoe gear with ambulation , even in the home. Abnormal gait 03528797 R 26.89 using a cane [id number] Denise Marino DPM [facility] [address] [place] [address] [address] [place] [address] 11/21/2023 10:16:28 11/21/2023 11:15:33 Hereditary sensory neuropathy 62771426 G60.8 Counseled regarding at risk foot care. Onychogryphosis 79286871 L60.2 Debrided toenails in thickness and length. Foot pain 43596099 M79.6 71 M79.672 pain associated with toenails improved post debridemen t Ingrowing nail 874599202 L60.0 Applied topical lidocaine to B1 prior to debridemen t. Debrided to tolerance and without incident, monitor for recurrence Callosity L84 Filed with pritesh augustin, monitor for worsening. Counseled regarding routine maintenanc e. Stressed importance of appropriat e shoe gear with ambulation , even in the home. Abnormal gait 25695147 R 26.89 using a cane [id number] Denise Marino DPM [facility] [address] [place] [address] [place] [address] 01/30/2024 09:59:38 01/30/2024 10:49:04 Hereditary sensory neuropathy 91869403 G60.8 Performed/ updated lower extremity neurovascu lar exams today. Discussed importance of at-risk foot care including routine monitoring of feet, applying moisturize r to feet but not between toes, appropriat e shoe gear, drying well between the toes after bath and risks associated with soaking feet. Onychogryphosis 80751617 L60.2 Debrided toenails in thickness and length. Foot pain 40505235 M79.6 71 M79.672 pain associated with toenails improved post debridemen t Ingrowing nail 352304280 L60.0 Applied topical lidocaine before debridemen t. Debrided without incident. Monitor for recurrence . Callosity 906204119 L84 Filed with pritesh augustin, monitor for worsening. Counseled regarding routine maintenanc e. Stressed importance of appropriat e shoe gear with ambulation , even in the home. Abnormal gait 00761029 R 26.89 using a cane [id number] Denise Marino DPM [facility] [address] [place] [address] [address] [place] [address] 04/11/2024 10:04:53 04/11/2024 11:23:15 Hereditary sensory neuropathy 32281588 G60.8 Counseled regarding at risk foot care. Onychogryphosis 55282450 L60.2 Debrided toenails in thickness and length. Foot pain 62504443 M79.6 71 M79.672 pain associated with toenails improved post debridemen t Ingrowing nail 178152634 L60.0 Debrided without incident. Monitor for recurrence . Callosity L Filed with pritesh augustin, monitor for worsening. Counseled regarding routine maintenanc e. Stressed importance of appropriat e shoe gear with ambulation , even in the home. Abnormal gait 91099246 R 26.89 using a cane [id number] GEORGE Schreiber [facility] [address] [place] [address] [address] [place] [address] 08/29/2024 10:20:55 08/29/2024 11:28:40 Hereditary sensory neuropathy 05513693 G60.8 Performed/ updated lower extremity neurovascu lar exams today. Discussed importance of at-risk foot care including routine monitoring of feet, applying moisturize r to feet but not between toes, appropriat e shoe gear, drying well between the toes after bath and risks associated with soaking feet. Onychogryphosis [id number] L60.2 Debrided toenails in thickness and length. Foot pain 24068469 M79.6 71 M79.672 pain associated with toenails improved post debridemen t Ingrowing nail [id number] L60.0 Debrided without incident. Monitor for recurrence . Callosity L84 Filed with pritesh augustin, monitor for worsening. Counseled regarding routine maintenanc e. Stressed importance of appropriat e shoe gear with ambulation , even in the home. Abnormal gait 79370644 R 26.89 using a cane [id number] Denise Marino DPM [facility] [address] [place] [address] [address] [facility] [place] [id number] 11/12/2024 10:26:11 11/13/2024 08:52:11 Hereditary sensory neuropathy [id number] G60.8 Counseled regarding at risk foot care. Onychogryphosis 57848191 L60.2 Debrided toenails in thickness and length. Foot pain 85593408 M79.6 71 M79.672 pain associated with toenails improved post debridemen t Ingrowing nail 455671857 L60.0 Debrided without incident. Monitor for recurrence . Callosity 986356392 L84 Filed with pritesh augustin, monitor for worsening. Counseled regarding routine maintenanc e. Stressed importance of appropriat e shoe gear with ambulation , even in the home. Abnormal gait 12026135 R 26.89 using a tall cane/ walking stick [id number] Kaitlin Acuna MD [facility] [id number] [facility] [place] [address] 01/23/2025 13:53:50 01/23/2025 14:34:58 Injury of face 608661212 S09.93XA [id number] Closed fra cture of nasal bones 26655873 S02.2XXA 7746561 Discussed possible closed reduction if she desires for cosmesis, which she does not. Seroma due to trauma 259 [id number] 31475 T79.2XXA 899805 Discussed that these can take weeks and sometimes even months to resolve. No evidence of infection. 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 Monitor for recurrence . Abnormal gait 18188334 R 26.89 using a walker Health Concerns Section Related Observation LastModified by Organization Detai ls LastModified Time None Recorded Concern Status LastModified by Organization Details LastModified Time None Recorded Advance Directives Directive None Recorded Payers Insurance Date Sequence Insurance Name Policy Number Policy Jade Covered Member ID Jade Member ID Guarantor Name 03/12/[address] [facility] (MEDICARE REPLACEMENT/ADVA NTAGE - PPO) [id number] [facility] [id number] [place] [facility] 03/12/[address] [facility] (PPO) [id number] [facility] [id number] [address]en A [facility] 03/12/2025 2 [place] Kristen A [facility] [id number] [address] [facility] 03/12/2025 2 [employer] [place] [employer] (MEDICARE SUPPLEMENT) Kristen A [facility] [id number] [place] [facility] 03/12/2025 [employer] - DMEPOS ASSIGNED (MEDICARE DME REGION B) Kristen A [facility] [id number] Kristen A [facility] 03/12/2025 [facility] (MEDICARE REPLACEMENT/ADVA NTAGE - PPO) [id number] [facility] [id number] [place] [facility] Notes Date Note Type Note Provider Name and Address Organization Details Recorded Time 04/11/2024 text/html Patient presents for at-risk foot care. She reports her toenails are long and in need of a trim. She requests assistance with this. Patient admits several of her nails grow in and cause pain.PCP: Camilla Hernandez PCP visit: 03/06 Denise Marino DPM [address] [place] [address], [address], [place], [address], [facility] [place] & [place] 04/11/2024 11:23:24 08/29/2024 text/html ROS as noted in the HPI Patient presents for at-risk foot care. She reports her toenails are long and in need of a trim. She requests assistance with this. Patient admits several of her nails grow in and cause pain.PCP: Camilla Hernandez PCP visit: 08/2024 Denise Marino DPM [address], [address], [place], [address], [facility] & [place] 08/29/2024 12:25:14 11/12/2024 text/html ROS as noted in the HPI Patient presents for at-risk foot care. She reports her toenails are long and in need of a trim. She requests assistance with this. Patient admits both her great toenails ingrow and cause pain.PCP: Camilla Hernandez PCP visit: 10/2024 Denise Marino DPM [address], [address], [place], [address], [facility] & [place] 11/12/2024 11:55:07 01/23/2025 text/html Ms. Vela is here for follow-up from a recent fall onto her face at her home. She was seen in the emergency department at [facility] and admitted for observation. She is currently in a rehab facility and [place]. She is making progress and improving daily. She had significant facial trauma with a CT performed. Her bruising is improving. Date of injury 01/09/25. CT scan of the face available for my review. Kaitlin Acuna MD [address] [facility], [place], [address], [facility] & [place] 01/23/2025 19:44:30 03/12/2025 text/html ROS as noted in the HPI Patient presents as a work in for a painful ingrowing left great toenail. She states she missed her last appointment due to a fall resulting in a broken nose and concussion. She is now at an assisted living facility in [place].PCP: Camilla Hernandez PCP visit: 12/17/24 Denise Marino DPM [address], [address], [place], [address], [facility] & [place] 03/12/2025 10:45:54 OBGyn Episode No OBEpisode recorded.
--- OUTSIDE RECORDS SUMMARY | 2025-04-13 10:51 | XMS_ITS | Data Portability ---
Author Organization [facility],, Main Office Address [address] [place] [address] Assessment Encounter Date Assessment Date Assessment LastModified by Organization Details LastModified Time 12/09/2022 12/09/2022 Annual gynecological exam performed. Patient will come back in a year unless there are new symptoms. [email or web address] Not available 12/09/2022 14:25:12 12/12/2023 12/12/2023 Annual gynecological exam performed. Patient will come back in a year unless there are new symptoms. [email or web address] Not available 12/12/2023 14:22:12 Plan of Treatment Reminders Order Date Submit Date Provider Last Modified By Organization Details Last Modified Time Details Appointments None recorded. Lab urinalysis , dipstick 2023 024 damari Main Office, [address], [place], [address], 4 12:39:24 urinalysis , dipstick 2022 023 damari Main Office, [address], [place], [address], 3 16:41:24 urinalysis , dipstick 2022 023 damari Main Office, [address], [place], [address], 3 16:20:27 Referral None recorded. Procedures None recorded. Surgeries None recorded. Imaging None recorded. Medication Orders None recorded. Patient TargetsNo targets recorded. Patient Instructions Encounter Date Encounter Id Patient Instructions Last Modified By Organization Details Last Modified Time 07/06/2021 [id number] frequent urination: care instructions [email or web address] Not available 08/07/2021 11:33:07 12/09/2022 [id number] Stress Incontinence: Care Instructions [email or web address] Not available 01/01/2023 17:56:54 frequent urination: care instructions [email or web address] Not available 01/01/2023 17:56:54 Urge Incontinence: Care Instructions [email or web address] Not available 12/09/2022 16:20:27 uroflow, discussed medication Distinct and separate issues addressed beyond annual gynecology exam. Added 35-45 minutes on to visit. Patient's questions answered, concerns addressed. [email or web address] Not available 01/01/2023 17:56:35 12/22/2022 [id number] frequent urination: care instructions [email or web address] Not available 01/11/2023 16:31:09 Stress Incontinence: Care Instructions [email or web address] Not available 01/11/2023 16:31:09 trial vaginal estrogen, pt of pelvic discussed [email or web address] Not available 01/11/2023 16:27:15 Reason for Referral None Reported. 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 Date Taken : 12/09 Speci men Type: ThinP rep Vial Date Repor letty: 023 Clini casimiro Data: Last Pap: wnl (118 2020) Cytot ech: Deo Esteves tt, CT( CP) Date Repor letty: 023 Revie wed By: Nishant Agee ison, CT( CP) Speci men Adequ acy: Unsat isfac tory for evalu ation Speci men is proce ssed and exami josé luis but unsat isfac tory for evalu ation of epith elial abnor malit y becau se of: Too few cells prese nt for adequ ate evalu ation Backg round conta minan t noted on slide Gener al Categ oriza tion: UNSAT ISFAC TORY FOR EVALU ATION The use of lubri cant durin g Pap colle ction may contr ibute to unsat isfac tory Pap resul ts. This speci men has been jeremias zed by the ThinP rep Imagi ng Syste m, an inter activ e compu ter syste m which cristian ts the lab in the scree catrachita of ThinP rep Pap Test slide s. Follo wing imagi ng, the slide was revie wed by a Cytot echno logis t and/o r Patho logis t. End of t Techn ical servi matthew provi ded by [facility] [employer] Patho logis [employer], [employer], d/[employer] Path rou, [facility] [place] [address] Ronaldo Soliman MD, Labor atory Direc tor. Case revie wed and diagn osis rende red at [facility] [employer] Patho logis [employer], d/b/a PathG rou, [address] [place] [address] Ronaldo Soliman MD, Labor atory Dire tor. CONFI DENTI AL Not Available [facility] ([facility]) [address], [place], [address], 12/13/2022 16:55:19 12/10/19 23 12/09/2022 urina lysis , dipst ick Leukocytes - Not Available Main Of fice [address], [place], [address], 12/09/2022 14:27:14 12/10/19 23 12/09/2022 urina lysis , dipst ick Nitrite negati ve Not Available Main Office [address], [place], [address], 12/09/2022 14:27:14 12/10/19 23 12/09/2022 urina lysis , dipst ick Urobilinogen - Not Available Main Office [address], [place], [address], 12/09/2022 14:27:14 12/10/19 23 12/09/2022 urina lysis , dipst ick Protein 0.3 Not Available Main Offic e [address], [place], [address], 12/09/2022 14:27:14 12/10/19 23 12/09/2022 urina lysis , dipst ick pH 6.0 Not Available Main Offic e [address], [place], [address], 12/09/2022 14:27:14 12/10/1912/09/2022 urina lysis , dipst ick Blood - Not Available Main Offic e [address], [place], [address], 12/09/2022 14:27:14 12/10/19 23 12/09/2022 urina lysis , dipst ick Specific [place] 1.010 Not Available Main O ffice [address], [place], [address], 12/09/2022 14:27:14 12/10/1912/09/2022 urina lysis , dipst ick Ketone - Not Available Main Offic e [address], [place], [address], 12/09/2022 14:27:14 12/10/1912/09/2022 urina lysis , dipst ick Bilirubin - Not Available Main Off ice [address], [place], [address], 12/09/2022 14:27:14 12/10/1912/09/2022 urina lysis , dipst ick Glucose - Not Available Main Offic e [address], [place], [address], 12/09/2022 14:27:14 03/23/2003/25/2023 PAP TEST THIN PREP Pap test thin prep Negati ve for Intrae pithel ial Lesion or Malign verónica normal ACCES TRE #: [id number] Sour e: Cervi casimiro/E ndoce 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 Follo wing imagi ng, the slide was revie wed by a Cytot echno logis t and/o r Patho logis t. End of Repor t Techn ical servi matthew [facility] [employer], d/b/a Path[facility] rou, [address] [place] [address] Ronaldo Soliman MD, Labor atory Direc tor. Case revie wed and diagn osis rende red at [employer] Patho logis [employer], [employer] PathG rou, [address] [place] [address] Ronaldo Soliman MD, Labor atory Dire tor. CONFI DENTI AL Not Available [facility] ([facility]) [address], [place], [address], 03/25/2023 10:24:48 03/23/2003/23/2023 urina lysis , dipst ick Leukocytes - Not Available Main Of fice [address], [place], [address], 03/23/2023 14:57:14 03/23/2003/23/2023 urina lysis , dipst ick Nitrite negati ve Not Available Main Office [address], [place], [address], 03/23/2023 14:57:14 03/23/2003/23/2023 urina lysis , dipst ick Urobilinogen -- Not Available Main Office [address], [place], [address], 03/23/2023 14:57:14 03/23/2003/23/2023 urina lysis , dipst ick pH 6.0 Not Available Main Offic e [address], [place], [address], 03/23/2023 14:57:14 03/23/2003/23/2023 urina lysis , dipst ick Blood - Not Available Main Offic e [address], [place], [address], 03/23/2023 14:57:14 03/23/2003/23/2023 urina lysis , dipst ick Specific [place] 1.010 Not Available Main O ffice [address], [place], [address], 03/23/2023 14:57:14 03/23/2003/23/2023 urina lysis , dipst ick Ketone - Not Available Main Offic e [address], [place], [address], 03/23/2023 14:57:14 03/23/2003/23/2023 urina lysis , dipst ick Bilirubin - Not Available Main Off ice [address], [place], [address], 03/23/2023 14:57:14 03/23/20 23 03/23/2023 urina lysis , dipst ick Glucose - Not Available Main Offic e [address], [place], [address], 03/23/2023 14:57:14 12/12/19 24 12/13/2023 CBC WITH PLATE LET AND DIFFE RENTI AL WBC 6.8 K/uL 3.8-11 .5 Not Available [facility] ([facility]) [address] [place] [address] [address], [place], [address], 12/13/2023 04:22:21 12/12/19 24 12/13/2023 CBC WITH PLATE LET AND DIFFE RENTI AL red blood cell count (RBC) 4.73 M/mm3 3.60-5 .30 Not Available [facility] ([facility]) [address] [place] [address] [address], [place], [address], 12/13/2023 04:22:21 12/12/19 24 12/13/2023 CBC WITH PLATE LET AND DIFFE RENTI AL hemoglobin (HGB) 14.5 gm/dL 11.5-1 5.5 Not Available [facility] ([facility]) [address] [place] [address] [address], [place], [address], 12/13/2023 04:22:21 12/12/19 24 12/13/2023 CBC WITH PLATE LET AND DIFFE RENTI AL hematocrit (HCT) 44.9 % 35.2-4 6.4 Not Available [facility] ([facility]) [address] [place] [address] [address], [place], [address], 12/13/2023 04:22:21 12/12/19 24 12/13/2023 CBC WITH PLATE LET AND DIFFE RENTI AL MCV 94.9 fL 79.0-9 9.0 Not Available [facility] ([facility]) [address] [place] [address] [address], [place], [address], 12/13/2023 04:22:21 12/12/19 24 12/13/2023 CBC WITH PLATE LET AND DIFFE RENTI AL MCH 30.7 pg 26.9-3 5.0 Not Available [facility] ([facility]) [address] [place] [address] [address], [place], [address], 12/13/2023 04:22:21 12/12/19 24 12/13/2023 CBC WITH PLATE LET AND DIFFE RENTI AL MCHC 32.3 g/dL 30.4-3 4.8 Not Available [facility] ([facility]) [address] [place] [address] [address], [place], [address], 12/13/2023 04:22:21 12/12/19 24 12/13/2023 CBC WITH PLATE LET AND DIFFE RENTI AL RDW 41.3 fL 38.6-5 3.8 Not Available [facility] ([facility]) [address] [place] [address] [address], [place], [address], 12/13/2023 04:22:21 12/12/19 24 12/13/2023 CBC WITH PLATE LET AND DIFFE RENTI AL platelet count 232 K/cum m 137-39 7 Not Available [facility] ([facility]) [address] [place] [address] [address], [place], [address], 12/13/2023 04:22:21 12/12/19 24 12/13/2023 CBC WITH PLATE LET AND DIFFE RENTI AL neutrophils automated 72.0 % 41.0-7 7.0 Not Available [facility] ([facility]) [address] [place] [address] [address], [place], [address], 12/13/2023 04:22:21 12/12/19 24 12/13/2023 CBC WITH PLATE LET AND DIFFE RENTI AL lymphocytes automated 16.1 % 14.0-4 8.0 Not Available [facility] ([facility]) [address] [place] [address] [address], [place], [address], 12/13/2023 04:22:21 12/12/19 24 12/13/2023 CBC WITH PLATE LET AND DIFFE RENTI AL monocytes automated 8.6 % 4.0-13 .0 Not Available [facility] ([facility]) [address] [place] [address] [address], [place], [address], 12/13/2023 04:22:21 12/12/19 24 12/13/2023 CBC WITH PLATE LET AND DIFFE RENTI AL eosinophils automated 2.6 % 0.0-8. 0 Not Available [facility] [address] [place] [address] [address], [place], [address], 12/13/2023 04:22:21 12/12/19 24 12/13/2023 CBC WITH PLATE LET AND DIFFE RENTI AL basophils automated 0.4 % 0.0-1. 5 Not Available [facility]) [address] [place] [address] [address], [place], [address], 12/13/2023 04:22:21 12/12/19 24 12/13/2023 CBC WITH PLATE LET AND DIFFE RENTI AL immature granulocyte automated 0.3 % 0.0-1. 0 Not Available [facility] [address] [place] [address] [address], [place], [address], 12/13/2023 04:22:21 12/12/19 24 12/12/2023 urina lysis , dipst ick Leukocytes - Not Available Main Of ficfe [address], [place], [address], 12/12/2023 14:24:21 12/12/19 24 12/12/2023 urina lysis , dipst ick Nitrite negati ve Not Available Main Office [address], [place], [address], 12/12/2023 14:24:21 12/12/19 24 12/12/2023 urina lysis , dipst ick Urobilinogen - Not Available Main Office [address], [place], [address], 12/12/2023 14:24:21 12/12/19 24 12/12/2023 urina lysis , dipst ick Protein 0.3 Not Available Main Offic e [address], [place], [address], 12/12/2023 14:24:21 12/12/19 24 12/12/2023 urina lysis , dipst ick pH 6.0 Not Available Main Offic e [address], [place], [address], 12/12/2023 14:24:21 12/12/19 24 12/12/2023 urina lysis , dipst ick Blood - Not Available Main Offic e [address], [place], [address], 12/12/2023 14:24:21 12/12/19 24 12/12/2023 urina lysis , dipst ick Specific [place] 1.005 Not Available Main O ffice [address], [place], [address], 12/12/2023 14:24:21 12/12/19 24 12/12/2023 urina lysis , dipst ick Ketone - Not Available Main Offic e [address], [place], [address], 12/12/2023 14:24:21 12/12/19 24 12/12/2023 urina lysis , dipst ick Bilirubin - Not Available Main Off ice [address], [place], [address], 12/12/2023 14:24:21 12/12/19 24 12/12/2023 urina lysis , dipst ick Glucose - Not Available Main Offic e [address], [place], [address], 12/12/2023 14:24:21 12/07/19 23 11/26/2022 imagi ng/di agnos tic resul t No observ ation record ed. [facility] (Radiology) [address] , [place], [address], 12/25/2022 16:12:26 12/28/19 23 12/27/2022 imagi ng/di agnos tic resul t No observ ation record ed. [facility] (Radiology) [address] , [place], [address], 01/01/2023 17:56:08 Result Notes None recorded. 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 Procedures Surgical History Date Name Laterality Status Provider Name and Address Organization Details Recorded Time 03/23/20 23 Date of Last Pap Smear completed KAYLI Lanza [address], [place], [address], [facility], 03/24/2023 16:40:01 12/23/19 23 Urodynamic Studies completed DO [address], [place], [address], [facility], 01/11/2023 16:26:19 11/27/19 23 Date of Last Mammogram completed KAYLI [address], [place], [address], [facility], 12/09/2022 14:50:56 11/27/19 23 Most Recent Mammogram completed KAYLI [address], [place], [address], [facility], 12/09/2022 14:50:44 06/01/20 19 Most Recent Bone Density completed Nisha Bass [facility], 07/03/2020 08:47:42 Corneal transplant completed Rocio [facility], 03/23/2017 14:42:01 Cataract Surgery completed Rocio [facility], 03/23/2017 14:42:06 Breast Surgery completed Rocio [facility], 03/23/2017 14:42:22 Appendectomy completed Rocio [facility], 03/23/2017 14:42:27 D&c of cervical stump completed Rocio [facility], 03/23/2017 14:42:40 Carpal tunnel surgery completed Rocio [facility], 03/23/2017 14:42:46 Imaging Results None recorded. Procedure Notes None recorded. Medical Equipment None Reported. Allergies Allergen ID Allergen Name Allergen Category Reaction Reaction Severity Criticality Documentation Date Start Date Code Code System Note Provider Name and Address Organization Details Recorded Time 500 Product containin g penicilli n (product) medicatio n Not available Not available Not available 03/23/2017 66182 8000 SNOMED Rocio Gilliland [facility], 7 14:30:38 501 Substance with sulfonami de structure and antibacte rial mechanism of action (substanc e) medicatio n Not available Not available Not available 03/23/2017 79755 8003 SNOMED Rocio Talat cuevas, [place] [facility] [place] [facility], 7 14:30:48 Medications Name Sig Start Date Stop Date Status Note LastModified by Organization Details LastModified Time allopurinol 100 mg tabs 07/01 completed Not Available Not Available Not Available pravastatin sodium 80 mg tabs 07/01 completed Not Available Not Available Not Available durezol 0.05 % emul 12/09 completed Not Available Not Available Not Available levofloxaci n 750 mg tabs 07/01 completed Not Available Not Available Not Available ciprofloxac in hydrochlori de 250 mgtabs 05/23 completed Not Available Not Available Not Available levocetiriz ine dihydrochlo ride 5 mg tabs 07/01 completed Not Available Not Available Not Available combigan 0.2-0.5 % soln active Not Available Not Available Not Available cartia xt 180 mg cp24 07/01 completed Not Available Not Available Not Available levofloxaci n 500 mg tabs 03/23 completed Not Available Not Available Not Available methylpredn isolone dose pack 4 mg tbpk 03/23 completed Not Available Not Available Not Available ranitidine hcl 150 mg tabs 12/11 completed Not Available Not Available Not Available pazeo 0.7 % soln 12/09 completed Not Available Not Available Not Available zetia 10 mg tabs 12/11 completed Not Available Not Available Not Available erythromyci n 5 mg/gm oint 12/09 completed Not Available Not Available Not Available levothyroxi ne sodium 100 mcg tabs 07/01 completed Not Available Not Available Not Available triamcinolo ne acetonide 0.1 % crea 12/09 completed Not Available Not Available Not Available amlodipine besylate 5 mg tabs active Not Available Not Available Not Available ventolin hfa 108 (90 base) mcg/actaers 12/09 completed Not Available Not Available Not Available azelastine hcl 0.15 % soln 07/01 completed Not Available Not Available Not Available travatan z 0.004 % soln 12/09 completed Not Available Not Available Not Available clotrimazol e/betametha sone dipropionat e 1-0.05 % crea 07/01 completed Not Available Not Available Not Available pilocarpine hcl 1 % soln 12/11 completed Not Available Not Available Not Available prednisolon e acetate 1 % susp 07/01 completed Not Available Not Available Not Available hydrochloro thiazide 25 mg tabs 05/23 completed Not Available Not Available Not Available diltiazem hydrochlori de er 240 mg cp24 05/23 completed Not Available Not Available Not Available atenolol 25 mg tabs 03/23 completed Not Available Not Available Not Available baclofen 5 mg tabs 05/23 completed Not Available Not Available Not Available clindamycin hcl 150 mg caps 05/23 completed Not Available Not Available Not Available vigamox 0.5 % soln 12/09 completed Not Available Not Available Not Available losartan potassium 100 mg tabs active Not Available Not Available Not Available ofloxacin 0.3 % soln 12/09 completed Not Available Not Available Not Available prednisone 20 mg tabs 12/11 completed Not Available Not Available Not Available flovent hfa 110 mcg/act aero 12/09 completed Not Available Not Available Not Available montelukast sodium 10 mg tabs 07/01 completed Not Available Not Available Not Available doxycycline hyclate 100 mg caps 05/23 completed Not Available Not Available Not Available amlodipine besylate 2.5 mg tabs 03/23 completed Not Available Not Available Not Available ranitidine hydrochlori de 150 mg tabs 12/11 completed Not Available Not Available Not Available ciprofloxac in hcl 250 mg tabs 03/23 completed Not Available Not Available Not Available azasite 1 % soln 07/01 completed Not Available Not Available Not Available sucralfate 1 gm tabs 03/23 completed Not Available Not Available Not Available meclizine hcl 12.5 mg tabs 12/09 completed Not Available Not Available Not Available ezetimibe 10 mg tabs 12/09 completed Not Available Not Available Not Available fluticasone propionate 50 mcg/act susp 07/01 completed Not Available Not Available Not Available proair hfa 108 (90 base) mcg/act aers 12/09 completed Not Available Not Available Not Available clindamycin hydrochlori de 150 mg caps 05/23 completed Not Available Not Available Not Available doxycycline hyclate 100 mg capsule active Not Available Not Available N ot Available pilocarpine 1 % eye drops active Not Available Not Available Not Available ofloxacin 0.3 % eye drops 12/09 completed Not Available Not Available Not Available diclofenac ER 100 mg tablet,exte nded release 24 hr 12/09 completed Not Available Not Available Not Available diltiazem CD 240 mg capsule,ext ended release 24 hr 07/01 completed Not Available Not Available Not Available famotidine 40 mg tablet 07/01 completed Not Available Not Available Not Available doxycycline hyclate 50 mg capsule 12/11 completed Not Available Not Available Not Available clindamycin HCl 150 mg capsule 12/09 completed Not Available Not Available Not Available travoprost 0.004 % eye drops 12/09 completed Not Available Not Available Not Available meclizine 12.5 mg tablet active Not Available Not Available Not Available acetaminoph en 300 mg-codeine 30 mg tablet 12/09 completed Not Available Not Available Not Available ciprofloxac in 250 mg tablet 12/11 completed Not Available Not Available Not Available amlodipine 5 mg tablet active Not Available Not Available Not Available allopurinol 100 mg tablet active Not Available Not Available Not Available ciprofloxac in 500 mg tablet 12/09 completed Not Available Not Available Not Available triamcinolo ne acetonide 0.1 % topical cream 12/09 completed Not Available Not Available Not Available levothyroxi ne 100 mcg tablet 12/11 completed Not Available Not Available Not Available famotidine 20 mg tablet TAKE 1 TABLET BY MOUTH TWICE DAILY active Not Available Not Available No t Available pravastatin 80 mg tablet active Not Available Not Available Not Available prednisolon e acetate 1 % eye drops,suspe nsion active Not Available Not Available Not Available meclizine 25 mg tablet 12/09 completed Not Available Not Available Not Available doxycycline monohydrate 100 mg capsule 12/09 completed Not Available Not Available Not Available cephalexin 500 mg capsule 12/11 completed Not Available Not Available Not Available erythromyci n 5 mg/gram (0.5 %) eye ointment 12/09 completed Not Available Not Available Not Available ranitidine 150 mg tablet active Not Available Not Available Not Available olopatadine 0.1 % eye drops 12/09 completed Not Available Not Available Not Available diclofenac sodium 75 mg tablet,joe yed release 12/09 completed Not Available Not Available Not Available hydrocortis one 2.5 % topical cream 12/09 completed Not Available Not Available Not Available montelukast 10 mg tablet 12/11 completed Not Available Not Available Not Available mupirocin 2 % topical ointment 12/09 completed Not Available Not Available Not Available metoprolol succinate ER 25 mg tablet,exte nded release 24 hr active Not Available Not Available Not Available azelastine 137 mcg (0.1 %) nasal spray active Not Available Not Available Not Available levofloxaci n 500 mg tablet 12/09 completed Not Available Not Available Not Available methylpredn isolone 4 mg tablets in a dose pack TAKE 6 TABLETS ON DAY 1 DIRECTED ON PACKAGE AND DECREASE BY 1 TAB EACH DAY FOR A TOTAL OF 6 DAYS 12/09 completed Not Available Not Available Not Available albuterol sulfate HFA 90 mcg/actuati on aerosol inhaler INHALE 2 PUFFS INTO THE LUNGS EVERY 4 HOURS NEEDED 12/09 completed Not Available Not Available Not Available losartan 100 mg tablet active Not Available Not Available Not Available fluticasone propionate 50 mcg/actuati on nasal spray,suspe nsion 07/01 completed Not Available Not Available Not Available doxycycline hyclate 100 mg tablet 12/11 completed Not Available Not Available Not Available Flovent HFA 110 mcg/actuati on aerosol inhaler 07/01 completed Not Available Not Available Not Available chlorhexidi ne gluconate 0.12 % mouthwash 12/09 completed Not Available Not Available Not Available levocetiriz ine 5 mg tablet active Not Available Not Available Not Available brimonidine 0.2 %-timolol 0.5 % eye drops 12/11 completed Not Available Not Available Not Available Durezol 0.05 % eye drops 12/09 completed Not Available Not Available Not Available azelastine 205.5 mcg (0.15 %) nasal spray 07/01 completed Not Available Not Available Not Available Lumigan 0.01 % eye drops active Not Available Not Available Not Available Pazeo 0.7 % eye drops 12/09 completed Not Available Not Available Not Available baclofen 5 mg tablet 05/23 completed Not Available Not Available Not Available Vitals Date Recorded Body weight Heart rate Body temperature Systolic And Diastolic Provider Name and Address Organization Details Last Updated DateTime 07/06/2021 43850.44 g 61 /min 97.4 [degF] 145/72 mm[Hg] Inocencia Gay [facility], 07/06/2021 13:24:04 Date Recorded Body weight Heart rate Body temperature Systolic And Diastolic Provider Name and Address Organization Details Last Updated DateTime 12/09/2022 21421.74 g 69 /min 96.9 [degF] 148/71 mm[Hg] [facility] 12/09/2022 14:25:37 Date Recorded Systolic And Diastolic Provider Name and Address Organization Details Last Updated DateTime 12/12/2023 138/66 mm[Hg] Pierre Lanza [address] [address], [place], [address], [facility], 12/21/2023 12:35:43 Date Recorded Body height Body mass index (BMI) Body weight Heart rate Body temperature Provider Name and Address Organization Details Last Updated DateTime 12/12/2023 172.72 cm 23.4 kg/m2 42479.22 g 83 /min 96.9 [degF] [facility], 14:23:05 Date Recorded Body weight Heart rate Body temperature Systolic And Diastolic Provider Name and Address Organization Details Last Updated DateTime 12/22/2022 80841.33 g 64 /min 97.6 [degF] 141/68 mm[Hg] [facility], 12/22/2022 14:16:41 Date Recorded Body weight Heart rate Body temperature Systolic And Diastolic Provider Name and Address Organization Details Last Updated DateTime 03/23/2023 06233.18 g 67 /min 94.3 [degF] 145/67 mm[Hg] Ysabel Elliott [facility], 03/23/2023 14:56:55 Social History Question Answer Notes LastModified by Organizat ion Details LastModified Time Tobacco Smoking Status Never Smoker Not Available [employer] 04/08/2020 03:20:23 Able To Swim? Yes [email or web address] Informatio n not available 03/23/2017 Do You Have An Advance Directive? No [id number] Information not available 04/08/2020 Animal Exposure? Yes [email or web address] Informa tion not available 03/23/2017 Are You Currently Sexually Active With Anyone Who Has Traveled (within The Last 12 Weeks) To A Zika-affected Area? No [id number] Information not available 04/08/2020 Do You Wear A Helmet When Biking? No [id number] Information not available 04/08/2020 Are You Blind Or Do You Have Difficulty Seeing? No [id number] Information not available 04/08/2020 What Is Your Level Of Caffeine Consumption? Moderate [id number] Information not available 04/08/2020 Concerns About Meeting Basic Needs (food, Housing, Heat, Etc)? No [email or web address] Information not available 03/23/2017 Are You Deaf Or Do You Have Serious Difficulty Hearing? No [id number] Information not available 04/08/2020 What Type Of Diet Are You Following? REGULAR [id number] Information not available 04/08/2020 Education 12 [email or web address] Information n ot available 03/23/2017 Family History Of Heart Disease? Yes [email or web address] Information not available 03/23/2017 Have There Been Any Changes To Your Family Or Social Situation? No [id number] Information not available 04/08/2020 Are There Any Guns Present In Your Home? No [id number] Information not available 04/08/2020 Hard Of Hearing Or Deaf In One Or Both Ears? No Information not available 03/23/2017 Legally Blind In One Or Both Eyes? No [email or web address] Information not available 03/23/2017 Live Alone Or With Others? Alone Information not available 03/23/2017 Do You Have A Medical Power Of Stores Assistant? No [id number] Information not available 04/08/2020 What Was The Date Of Your Most Recent Tobacco Screening? 05/18/2018 [id number] Information not available 04/08/2020 How Many Children Do You Have? 0 [id number] Information not available 04/08/2020 Performs Monthly Self-breast Exam? Yes Information not available 03/23/2017 Do You Have Any Pets? Yes [id number] Information not available 04/08/2020 Difficulty Reading? No [email or web address] Information not available 03/23/2017 Seat Belts Used Routinely Yes [email or web address] Information not available 03/23/2017 Smoke Alarm In Home Yes Information not available 03/23/2017 Do You Have Smoke And Carbon Monoxide Detectors In Your Home? No [id number] Information not available 04/08/2020 Are There Any Smokers In Your House? No [email or web address] Information not available 03/23/2017 General Stress Level Low [email or web address] Information not available 03/23/2017 Do You Use Sunscreen Routinely? Yes [id number] Information not available 04/08/2020 TB Risk Low [email or web address] Information n ot available 03/23/2017 Has Tobacco Cessation Counseling Been Provided? No [id number] Information not available 04/08/2020 Difficulty Watching TV? No [email or web address] Information not available 03/23/2017 Do You Have Difficulty Walking Or Climbing Stairs? No [id number] Information not available 04/08/2020 Sex: Unknown Functional Status Question Answer Note LastModified by Organizat ion Details LastModified Time What is your level of alcohol consumption? None [id number] Information not available 04/08/2020 Are you currently employed? No [id number] Information not available 04/08/2020 Do you have transportation difficulties? No [id number] Information not available 04/08/2020 Are you able to walk independently without assistance or assistive devices? YESWOREST [id number] Information not available 04/08/2020 Do you have difficulty doing errands alone? No [id number] Information not available 04/08/2020 Are you able to care for yourself independently? 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 No [id number] Information not available 04/08/2020 What is your exercise level? Occasional [id number] Information not available 04/08/2020 Mental Status Question Answer Note LastModified by Organization D etails LastModified Time Do you have difficulty concentrating, remembering or making decisions? No [id number] Information no t available 04/08/2020 Family History Relationship Description Onset Age of this Age Resolved Age Notes LastModified by Organization Details LastModified Time Mother Leukemia [email or web address] Not availa ble 03/23/2017 14:36:30 Father Depressive disorder Not available 03/13 14:36:40 Brother Cerebrovascu lar accident [email or web address] Not available 1 14:36:49 Brother Aneurysm [email or web address] Not avail able 03/23/2017 14:37:01 Brother Pulmonary embolism Not available 03/13 14:37:11 Brother Hypertensive disorder [email or web address] Not available 03/13 14:37:21 Medical History Condition Response Coronary Artery Disease N Other N Gout N Blood Diseases N Kidney Stones N Hyperthyroidism Y Enlarged Prostate N Blood Transfusion N COPD N Depression N Dermatologic Disorders N Gestational Diabetes N Anxiety Disorder N Muscle, Joint, or Bone Problems N Autoimmune disease N Obesity N Vision or Eye Problems N Arthritis N Polyps N Infertility N Mental Disorder N Cancer N Stroke N Varicosities N Neurologic/Epilepsy N Fibromyalgia N Headaches N Kidney Disease N Heart Problems N Ear or Hearing Problems N Hospitalizations N Acne N Eating Disorder N Skin Problems N MRSA exposure N Constipation N Heartburn N Art (IVF or FET) N Bladder Problems N Bleeding Disorder N Tuberculosis N AIDS/HIV N G.E.R.D N Asthma N Trauma/Violence N Hepatitis N Pulmonary Embolism N Chronic Ear Infections N Chicken Pox N Autism Spectrum Disorder (ASD) N Thrombophilias N Allergies (Food, seasonal, environmental ) N Colon Cancer N Drug/Latex Allergies/Reactions N Breast Cancer N Lung Disease N Hypothyroidism N Defects or Inherited Disease N Developmental or Behavioral Disorders N Breast Problem Y Difficulty Swallowing N Hematologic disorders N Anesthesia Complications N History of STI N Deep Vein Thrombosis N Polycystic ovary syndrome N Meniere's disease N History of abnormal pap N Endometriosis N High Cholesterol N Liver Disease N Allergies/Hayfever N Kidney Problems N Thyroid Problems N GI Problems N ADD/ADHD N Anemia N Mental Illness N Psychiatric Illness N Diabetes N Ovarian Cancer N Pulmonary (TB, Asthma) N Seizures/Epilepsy N Congestive Heart Failure (CHF) N Hyperlipidemia Y Eczema N Diverticulitis N Abuse/Domestic Violence N Depression/ depression N Heart Disease Y Hypertension Y Pre-Eclampsia N Osteoporosis N Gynecological History Statement/Question Response Abnormal Pap N Date of Last Mammogram 11/26/2022 STIs/STDs N HPV Vaccine N Current Control Method None Most Recent Mammogram 11/26/2022 Age at Menarche 13 If Post Menopausal, Age at Menopause 54 Most Recent Bone Density 06/01/2019 Sexually Active? N Menses Monthly N Date of Last Pap Smear 03/23/2023 Sexual Problems? N Obstetrics History GPAL:G 0 P 0 0 0 0 Past Encounters Encounter ID Performer Location Encounter Start Date Encounter Closed Date Diagnosis/Indication Diagnosis SNOMED-CT Code Diagnosis ICD10 Code Diagnosis IMO Codes Diagnosis Note [id number] Milan Ryan DO Main Office [address] [place] [address] 03/23/2017 13:50:07 03/23/2017 15:14:21 Urinary incontinence 837333420 R32 Cystocele 149479633 N81. 10 Screening for mental disorders 193596256 Z13.89 Menopausal syndrome 1237 78596 N95.9 Gynecologi c examination 33099551 Z01.411 Screening for malignant neoplasm of colon 036050593 Z12.11 [id number] Milan Ryan DO Main Office [address] [place] [address] 05/18/2018 14:01:31 05/18/2018 15:42:59 Gynecologic examination 10528007 Z01.411 Urinary incontinence 165 612515 R32 Menopausal syndrome 1237 62986 N95.9 Screening for malignant neoplasm of colon 552727422 Z12.11 [id number] Mlian Ryan DO Main Office [address] [place] [address] 05/23/2019 14:09:46 05/23/2019 15:23:40 Menopausal syndrome 313489665 N95.9 Gynecologi c examination 21468703 Z01.411 Urinary incontinence 165 814193 N39.3 Essential hypertension 91081787 I10 [id number] Milan Ryan DO Main Office [address] [place] [address] 07/01/2020 13:38:01 07/01/2020 14:58:37 Increased frequency of urination 980267640 R35.0 discussed Myrbetiq and botox injections Gynecologi c examination 11650035 Z01.411 History of glaucoma 1614 68648 Z86.69 Menopausal syndrome 1237 85615 N95.8 [id number] Milan Ryan DO Main Office [address] [place] [address] 07/06/2021 13:11:44 07/06/2021 13:53:02 Menopausal syndrome 591694320 N95.8 Increased frequency of urination 961173655 R35.0 Screening for mental disorders 239937256 Z13.89 History of glaucoma 1614 73250 Z86.69 Gynecologi c examination 72951450 Z01.411 [id number] Milan Ryan DO Main Office [address] [place] [address] 12/09/2022 14:02:17 12/09/2022 15:14:47 Gynecologic examination 34709315 Z01.411 Urge incon tinence of urine 24520540 N39.41 discussed PT vs procedure vs meds. will schedule uroflow Nocturia 550239714 R35.1 discussed PT vs procedure vs meds. will schedule uroflow Screening for mental disorders 312311058 Z13.89 Increased frequency of urination 596264659 R35.0 She has to wear pads and sometimes spills over, discussed PT vs procedure vs meds. will schedule uroflow Leukocytes in urine 2757 05103 R82.79 [id number] Milan Ryan DO Main Office [address] [place] [address] 12/22/2022 14:06:34 12/22/2022 15:29:11 Urinary incontinence 690894925 N39.3 Increased frequency of urination 780574289 R35.0 [id number] Milan Ryan DO Main Office [address] [place] [address] 03/23/2023 14:46:55 03/23/2023 15:17:35 Cervicovaginal cytology specimen unsatisfactory 224390875 R87.615 redo pap today Menopausal syndrome 1237 53202 N95.9 [id number] Milan Ryan DO Main Office [address] [place] [address] 12/12/2023 14:00:15 12/12/2023 15:27:56 Gynecologic examination 28945361 Z01.411 no pap today Screening for mental disorders 004562138 Z13.89 Easy bruising 467771919 Z78.9 cbc checked Health Concerns Section Related Observation LastModified by Organization Detai ls LastModified Time None Recorded Concern Status LastModified by Organization Details LastModified Time None Recorded Advance Directives Directive N: Payers Insurance Date Sequence Insurance Name Policy Number Policy Jade Covered Member ID Jade Member ID Guarantor Name 01/11/[address] [facility] (MEDICARE REPLACEMENT/AD VANTAGE - PPO) [id number] Kristen Escalante [facility] [id number] [facility] 12/12/2023 1 [place] Kristen Escalante [facility] [id number] Kristen Escalante [facility] 12/12/2023 2 [facility] [employer] [facility] (MEDICARE SUPPLEMENT) Kristne Escalante [facility] [id number] Kristen Ava [facility] 10/17/2023 2 [facility] (MEDICARE SUPPLEMENT) Kristen Escalante [facility] [id number] [facility] Notes Date Note Type Note Provider Name and Address Organization Details Recorded Time 2 text/html MenopauseReported by PatientMenopauseFor onset/timing, patient reports>10 years. For severity, patient reportsmild. For duration, patient reportsintermittent. For alleviating factors, patient reportsnone. For aggravating factors, patient reportspoor sleep. For associated symptoms, patient reportsno abdominal pain,no pelvic pain,no abnormal bleeding,no vaginal discharge,no dysuria,no dispareunia,no changes in bowel function,no fever,no vaginal dryness,no irritability,no depression,no anxiety,no skin changes,no loss of libido, andno changes in urination. DO [address], [place], [address], [facility], 08/07/2021 11:33:11 3 text/html Annual [employer] Post-MenopausalReported by PatientGenitourinary symptomsFor urinary symptoms, patient reportsincontinence,stres s incontinence,urge incontinence, andnocturiabut reportsno hematuriaandno urinary frequency. For menopausal symptoms, patient reportsno menopausal symptomsandnormal vaginal lubrication. For vaginal bleeding, patient reportshistory of menopause having occurredandno history of post menopausal bleeding. For vulva, patient reportsno genital lesionandno vulvar atrophy. For vagina, patient reportsnormal vaginal dischargeandno vaginal atrophy.Breast symptomsFor breast, patient reportsno breast lump,no nipple discharge, andno breast pain.Psychological symptomsFor sexual complaints, patient reportsno sexual complaints. For psychological symptoms, patient reportsno depressionandno anxiety.ROS as noted in the HPI DO [address], [place], [address], 01/01/2023 17:56:58 3 text/html MenopauseReported by PatientMenopauseFor onset/timing, patient reports>10 years. For severity, patient reportsmild. For duration, patient reportsintermittent. For context, patient reportsno menses for over 1 year. For alleviating factors, patient reportsnone. For associated symptoms, patient reportsno abdominal painandno pelvic pain. DO [address], [place], [address], 01/11/2023 16:31:13 3 text/html ROS as noted in the HPI redo pap, due to unsatisfactory collection. DO [address], [place], [address], [facility], 05/07/2023 08:23:27 4 text/html Annual [employer] Post-MenopausalReported by PatientGenitourinary symptomsFor menopausal symptoms, patient reportsno menopausal symptomsandnormal vaginal lubrication. For vaginal bleeding, patient reportshistory of menopause having occurredandno history of post menopausal bleeding. For urinary symptoms, patient reportsno hematuria,no incontinence,no nocturia, andno urinary frequency. For vulva, patient reportsno genital lesionandno vulvar atrophy. For vagina, patient reportsnormal vaginal dischargeandno vaginal atrophy.Breast symptomsFor breast, patient reportsno breast lump,no nipple discharge, andno breast pain.Psychological symptomsFor sexual complaints, patient reportsno sexual complaints. For psychological symptoms, patient reportsno depressionandno anxiety.Preventative measuresFor preventive measures, patient reportsneeds to schedule mammogramandneeds to schedule colonoscopy. c/o easy bruising, 2 bruises on left forearm Milan Ryan, DO [address], [place], [address], [facility], 01/11/2024 07:46:55 OBGyn Episode No OBEpisode recorded.
--- OUTSIDE RECORDS SUMMARY | 2025-04-13 10:51 | XMS_ITS | Clinical Summary ---
Author Organization [facility] Address [address] [place] [address] Care Team Providers Care Project Reservoir Engineer Name Role Phone Camilla Rosado MD [...] Take 1 tablet by mouth Daily. Active albuterol sulfate HFA 108 (90 Base) MCG/ACT inhaler Inhale 2 puffs As Needed. Active Azelastine HCl 137 MCG/SPRAY solution 2 sprays 2 (Two) Times a Day. 01/26/20 24 Active prednisoLONE acetate (PRED FORTE) 1 % ophthalmic suspension Apply 1 drop to eye(s) as directed by provider. 03/31/20 24 Active montelukast (SINGULAIR) 10 MG tablet Take 1 tablet by mouth Every Night. 04/26/20 24 Active timolol (TIMOPTIC) 0.5 % ophthalmic solution Administer 1 drop to both eyes 2 (Two) Times a Day. 07/16/19 25 Active Doxycycline Hyclate 50 MG tablet Take 1 tablet by mouth. 07/16/19 25 Active metoprolol succinate XL (TOPROL-XL) 25 MG 24 hr tabletIndication s:Primary hypertension Take 1 tablet by mouth Daily. 90 tablet 1 10/09/19 25 Active hydroCHLOROthiaz zaynab 25 MG tablet Take 0.5 tablets by mouth Daily. Active oxyCODONE-acetam inophen (PERCOCET) 5-325 MG per tablet Take 1 tablet by mouth Every 6 (Six) Hours As Needed. 01/28/20 25 Active omeprazole (priLOSEC) 20 MG capsule Take 1 capsule by mouth Daily. 03/04/20 25 Active ibuprofen (ADVIL,MOTRIN) 400 MG tablet Take 1 tablet by mouth Every 6 (Six) Hours As Needed. 03/17/20 25 Active amLODIPine (NORVASC) 5 MG tabletIndication s:Primary hypertension Take 1 tablet by mouth Daily. 30 tablet 11 04/01/20 25 026 Active meclizine (ANTIVERT) 12.5 MG tablet 11/25/19 24 025 Discontin ued(*Ther apy completed ) hydroCHLOROthiaz zaynab 12.5 MG tablet Take 1 tablet by mouth Daily. 08/28/19 25 025 Discontin ued(*Ther apy completed ) amLODIPine (NORVASC) 2.5 MG tablet Take 1 tablet by mouth Daily. 03/ 025 Discontin ued(*Ther apy completed ) Active Problems Problem Noted Date Diagnosed Date Paroxysmal SVT (supraventricular tachycardia) Assessment & Plan (04/01/2025 3:50 PM EDT): 1. LEX - Pt has not been using PAP machine since she fell and broke nose on 01/08/2025. States nose is vat tender to touch and can't tolerate air blowing into nose - Sleep risks reviewed 2. Coronary Artery Disease - Denies any CP - Continue medical regimen (Aspirin, Metoprolol, and Pravastatin) 3. Hypertension - On review from [facility] have been running 132-173 systolic -Restart Amlodipine 5mg daily - RTC in 4 weeks to recheck blood pressure 4. SVT - Denies any palpitations. - Continue Metoprolol Assessment & Plan (05/17/2024 6:33 PM EST): [...] (obstructive sleep apnea) 12/16/2022 Assessment & Plan (04/01/2025 3:50 PM EDT): Assessment & Plan (08/30/2024 6:49 PM EDT): [...] dissatisfied with replacement DreamStation #2 from the [employer] recall. She reports that she is dozing [...] is dissatisfied with replacement DreamStation #2 from [employer] and she is not using it. We [...] dissatisfied with the replacement DreamStation #2 from [employer] and she is not using it. It [...] understanding. Primary hypertension 12/16/2022 Assessment & Plan (04/01/2025 3:50 PM EDT): {Hypertension is (optional):5933222713} Orders: amLODIPine (NORVASC) 5 MG tablet; Take 1 tablet by mouth Daily. Assessment & Plan (05/17/2024 6:32 PM EST): [...] absolutely needed. Coronary artery disease invo lving [place] coronary artery of [place] heart without angina pectoris 12/27/2020 Assessment & Plan (04/01/2025 3:50 PM EDT): {Coronary Artery Disease (OPTIONAL):57179} Assessment & Plan (05/17/2024 6:36 PM EST): [...] Encounters Date Type Department Care Team Description 04/01/2025 3:15 PM EDT Office Visit [facility] [address] [phone] Denise May APRN LEX (obstructive sleep apnea) (Primary Dx); Coronary artery disease involving [place] coronary artery of [place] heart without angina pectoris; Primary hypertension; Paroxysmal SVT (supraventricular tachycardia) 04/01/2025 Travel 01/17/2025 Telephone [facility] [address] [phone] Aida Tellez APRN LORI SEIVER- INFO from Last 3 Months Family History [...] Mass Index 26.78 04/01/2025 3:08 PM EDT Plan of Treatment Upcoming Encounters Date Type Department Care Team (Late st Contact Info) Description 04/30/2025 2:30 PM EST Office Visit [facility] [address] [place] [address] Denise May APRN [address] [place] [address] Health Maintenance Due Date Last Done Comments DXA SCAN 1940 RSV Vaccine - Adults (1 - 1- dose 75+ series) 01/09/2015 ZOSTER VACCINE (2 of 3) 10/06/2015 08/11/2015 ANNUAL WELLNESS VISIT 07/14/2022 COVID-19 Vaccine (5 - Mixed Product risk season) 2025 03/30/2024, 04/01/2023, 05/26/2021, Additional history exists TDAP/TD VACCINES (3 - Td or Tdap) 01/29/2034 024, 12/19/2012 Pneumococcal Vaccine 50+ Completed 025, 04/20/2016, 07/11/2014 INFLUENZA VACCINE Completed 03/29/2025, , 03/24/2023, Additional history exists Insurance [facility] [employer] PPO Care Teams Project Reservoir Engineer Relationship Specialty Start Date End Date Camilla Rosado MD [address] [address] PCP - General Family Medicine 07/10/22
--- OUTSIDE RECORDS SUMMARY | 2025-04-13 10:51 | XMS_ITS | Encounter Summary ---
Author Organization [facility] Address [address] [place] [address] Care Team Providers Care Special Education Supervisor Name Role Phone Camilla Rosado MD Primary Care Provider + Encounter Details Date Type Department Care Team (Latest Contact Info) Description 04/01/2025 Travel Social History Tobacco Use Types Packs/Day [...] Description 04/30/2025 2:30 PM EST Office Visit [facility] [address] [phone] Denise May APRN [address] [place] [address] documented as of this encounter Visit Diagnoses Not on filedocumented in this encounter Care Teams Special Education Supervisor Relationship Specialty Start Date End Date Camilla Rosado MD [address] [address] PCP - General Family Medicine 07/10/22 documented as of this encounter
--- OUTSIDE RECORDS SUMMARY | 2025-04-13 10:52 | XMS_ITS | Encounter Summary ---
Author Organization [facility] Address [address] [place] [address] Care Team Providers Care Emblem Drawer In Name Role Phone Camilla Rosado MD Primary Care Provider + Reason for Visit * Reason Onset Date Comments AIDA SERNA- INFO 01/17/2025 Encounter Details Date Type Department Care Team (Late st Contact Info) Description 01/17/2025 Telephone [facility] [address] [place] [address] Aida Tellez, CHIRS [address] [place] [address] [place] [address] AIDA PALMAIVER- INFO Social History Tobacco Use Types Packs/Day Years [...] 3:04 PM EDT SPOKE WITH KARYNA AT [facility]. INFORMED HER OF MESSAGE. KARYNA VERBALIZED UNDERSTANDING. REMINDED KARYNA ABOUT PATIENT'S UPCOMING APPOINTMENT IN . * Telephone Encounter - Mustapha Burnett CMA - 01/17/2025 12:01 PM EDT ATTEMPTED TO CALL [facility]. MAITE CURRENTLY AT LUNCH. WILL TRY AGAIN [...] 10:21 AM EDT SPOKE WITH MAITE FROM [facility]. PATIENT WAS TAKEN TO THE ER FOR A FALL AND HAS BEEN DISCHARGEDTO [facility] IN [place] FOR REHAB. PATIENT IS NOT CURRENTLY USING HER PAP THERAPY DUE TO THE SWELLING AND BRUISING. MAITE STATED THAT SHE DOES NOT CURRENTLY HAVE ORDERS FOR PAP THERAPY, SO IF PATIENT NEEDS TO RESTART WHILE IN REHAB, THEY WILL NEED ORDERS STATING THAT PATIENT IS TO RESTART. CURRENTLY, THERE IS NO PLAN OF DISCHARGE FROM [facility]. INFORMED MAITE OF PATIENT'S UPCOMING APPT ON 02/28 OBTAINING MEDICAL RECORDS FROM [facility] ER VISIT. * Telephone Encounter - Yoav Recinos RegSched Rep - 01/17/2025 9:41 AM EDT Caller: Kristen Vela Relationship: Self Best call back number: [phone] What is the best time to reach you: RE[facility] OUT TO [facility] Who are you requesting to speak with (clinical staff, provider, specific staff member): CLINICAL What was the call regarding: PATIENT HAD AN INJURY RECENTLY TO THEIR FACE, AND SO THEY WANTED TO INFORM THAT THEY ARE NOT USING THE CPAP MACHINE DUE TO SWELLING. Is it okay if the provider responds through [employer]: NO.?? documented in this encounter Plan of Treatment Upcoming Encounters Date Type Department Care Team (Late st Contact Info) Description 04/30/2025 2:30 PM EST Office Visit [facility] [address] [place] [address] Denise May APRN [address] [place] [address] documented as of this encounter Visit Diagnoses Not on filedocumented in this encounter Care Teams Emblem Drawer In Relationship Specialty Start Date End Date Camilla Rosado MD [address] [place] [address] PCP - General Family Medicine 07/10/22 documented as of this encounter
--- OUTSIDE RECORDS SUMMARY | 2025-04-13 10:52 | XMS_ITS | Encounter Summary ---
Author Organization Healthcare Address [address] [place] [address] Care Team Providers Care Clinical Programmer Name Role Phone Camilla Rosado MD Primary Care Provider [phone] Reason for Visit * Reason Comments Med Refill Encounter Details Date Type Department Care Team (Late Contact Info) Description 02/24/2022 Refill [facility] [address] [place] [address] Nelda Butcher MD [address] [place] [address] Social History Tobacco Use Types [...] Description 05/07/2025 9:15 AM EST Office Visit [facility] [address] [place] [address] Nelda Butcher MD [address] [place] [address] 08/12/2025 1:45 PM EST Office Visit [facility] [place] [address] [place] [address] Ramón Powell MD [address] [place] [address] 01/21/2026 1:30 PM EDT Ovarian Cancer Screening [facility] [address] [facility] [place] [phone] documented as of this encounter Visit Diagnoses Not on filedocumented in this encounter Additional Health Concerns Assessment Noted Time A fall risk assessment has been complete d for the patient 01/28/2022 10:16 AM EDT documented as of this encounter Care Teams Clinical Programmer Relationship Specialty Start Date End Date Camilla Rosado MD [address] [place] [address] [address] [place] [address] PCP - General 10/24/20 documented as of this encounter
--- OUTSIDE RECORDS SUMMARY | 2025-04-13 10:52 | XMS_ITS | Data Portability ---
Author Organization [facility] Address [address] [place] [address] Care Team Providers Care Forensic Locksmith Name Role Phone MICKEY POOL Referring Provider [phone] RENE ARCHIBALD Referring Provider MEIR CARPENTER Referring Provider CAYLA BERNAL Referring Provider [phone] ALONDRA GUILLAUME Referring Provider ROSALINDA BAUMANN Referring Provider [phone] MARCELLUS BUI II Referring Provider [phone] CHRISTA SWARTZ Referring Provider Assessment Encounter Date Assessment Date Assessment LastModified by Organization Details LastModified Time 09/27/2024 09/27/2024 Mel has an a cute sinus infection to which she is prone. She will be treated accordingly. Not available 09/27/2024 16:45:17 10/12/2024 10/12/2024 Mel has an ongoing sinus infection that was partially treated and now has a left serous otitis media. She will need a longer course of antibiotics. She is limited with all of her allergies. Her last immunotherapy injection was on and will be due again the middle of this month. Not available 10/12/2024 16:44:49 10/26/2024 10/26/2024 Mel has recovered from her recent sinus and ear infection but has some cerumen in the left ear canal that is cleared. Yesterday she bumped the left arm on a car door and suffered a skin tear. We recommend dressing with Adaptic, gauze and Coban over the weekend to allow healing and we will recheck it Tuesday. She receives the Prevnar 20 vaccine today. Not available 10/26/2024 13:22:05 12/17/2024 12/17/2024 Mel has adriana re allergies and is already taking an antihistamine nasal spray twice a day and is not supposed to use steroid sprays. We recommend she try adding the Ipratropium nasal spray at least once a day...She has recently finished another antibiotic for her UTI that was diagnosed in the ER two weeks ago. We do not see that she needs any further antibiotics today. We recommend she be cautious against being outdoors with the seasonal allergies now. She is encouraged to use her air conditioning. Blood pressure is not at goal since decreasing the amlodipine to 2.5 mg. She had experienced some transient edema and that is why it had been reduced. She is having no swelling now so we recommend trying to increase it back to the 5 mg dose. Not available 12/18/2024 06:57:54 03/29/2025 03/29/2025 Mel presents for a check-up. She has moved from her smaller duplex apartment to an assisted living situation at the [facility]. She has had multiple falls and simply could not continue to take care of herself at home. Her last fall caused significant facial contusions the end of December and she required hospitalization followed by rehabilitation. She subsequently had a course of [facility] and was miserably quarantined for about ten days. Her sister in law has helped her and now drives her to appointments. Her sister in law has been very helpful to her. She has had medication changes that are reviewed. She has not had any gout flares. She is followed by cardiology who also manages her CPAP for sleep apnea. She started allergy injections over 5 years ago and they may be starting to help. She is followed for LEX and is compliant with CPAP. She has mild MR and a history of an atrial septal lipoma. She has mild CAD from a cardiac cath in 2014 and is asymptomatic. Colonoscopy was last in 2012 and she had one hyperplastic polyp. She was advised to repeat in 5 years but has seen her spinning frame fixer for upper endoscopy in 2016 and he has not contacted her for a follow up. With her multiple comorbidities and age of 80, we will not recommend a follow up colonoscopy unless she has significant GI symptoms. Vaccines are reviewed and are updated with the annual flu vaccine. We have given her a complete list of all of [facility]. Medications are reconciled. She follows regularly with her facilities operator for her cornea problems and she is s/p multiple corneal transplants. She is also treated for glaucoma and ocular allergies. Her brothers will be POA when the time comes and they already help her. We continue to encourage healthy lifestyle choices and caution against falls. She uses a walker or a cane and she is very happy in her new living situation as she actually has a social life starting again. Encounter time was 31 minutes. Not available 03/31/2025 15:41:55 Plan of Treatment Reminders Order Date Submit Date Provider Last Modified By Organization Details Last Modified Time Details Appointments None recorded. Lab None recorded. Referral None recorded. Procedures None recorded. Surgeries None recorded. Imaging None recorded. Medication Orders ipratropium bromide 42 mcg (0.06 %) nasal spray 2024 025 [facility], [address] [place] [address], [id number], 5 17:13:23 amlodipine 5 mg tablet 2024 025 [facility], [address] [place] [address], [id number], 5 11:22:45 dexamethaso ne sodium phosphate 4 mg/mL injection solution 2024 025 Not available 5 16:23:19 doxycycline monohydrate 100 mg capsule 2024 025 [facility], [address] [place] [address], [id number], 5 16:43:09 dexamethaso ne sodium phosphate 4 mg/mL injection solution 2024 025 [facility], [address] [place] [address], [id number], 5 16:23:19 doxycycline monohydrate 100 mg capsule 2024 025 [facility], [address] [facility] [place], [place], [id number], 16:26:52 Patient TargetsNo targets recorded. Patient Instructions Encounter Date Encounter Id Patient Instructions Last Modified By Organization Details Last Modified Time 03/29/[id number] dash diet: care instructions brandon Not available 03/31/2025 15:42:18 Reason for Referral None Reported. Results Created Date Observation Date Name Description Value Unit Range Abnormal Flag Note LastModifiedBy Organization Detail LastModifiedTime 08/31/1908/31/2024 LIPID PANEL , STAND ANAND cholesterol, total 208 mg/dL <200 high Not Available [facility] [place] [facility] [address] [facility] [place], [address], 08/31/2024 11:14:36 08/31/19 25 08/31/2024 LIPID PANEL , STAND ANAND HDL cholesterol 72 mg/dL > or = 50 normal Not Available [facility] [address] [facility] [address] [facility], [place], [address], 08/31/2024 11:14:36 08/31/19 25 08/31/2024 LIPID PANEL , STAND ANAND triglyceride s 111 mg/dL <150 normal Not Available [facility] [address] [facility] [place], [address], 08/31/2024 11:14:36 08/31/19 25 08/31/2024 LIPID PANEL , STAND ANAND LDL-choleste rol 114 mg/dL _(casimiro c) high Refer ence range : <100 Kadie able range <100 mg/dL for prima ry preve ntion ; <70 mg/dL for patie nts with CHD or diabe tic patie nts with > or = 2 CHD risk facto rs. LDL-C is now calcu lated using the Obdulia n-Hop kins calcu saige n, which is a valid ated novel eldao lei gray r accur acy than the Fried hugo equat ion in the estim ation of LDL-C . Obdulia payne SS et al. RAMYA. 2013; 310(1 9): 2061- 2068 (http ://ed mistyati on.Ever baADS[employer]. com/f aq/FA Q164) Not Available [facility] [place] [facility] [address] [facility] [place], [address], 08/31/2024 11:14:36 08/31/19 25 08/31/2024 LIPID PANEL , STAND ANAND chol/HDLC ratio 2.9 (calc ) <5.0 normal Not Available [facility] [address] [facility] [place], [address], 08/31/2024 11:14:36 08/31/19 25 08/31/2024 LIPID PANEL , STAND ANAND non HDL cholesterol 136 mg/dL _(casimiro c) <130 high For patie nts with diabe marjorie plus 1 major ASCVD risk facto r, treat ing to a non-H DL-C goal of <100 mg/dL (LDL- C of <70 mg/dL ) is consi dered a thera pesonia c audieo n. Not Available [facility] [address] [facility] [place], [address], 08/31/2024 11:14:36 08/31/19 25 08/31/2024 COMPR EHENS LOW METAB OLIC PANEL glucose 91 mg/dL 65-99 normal Fasti ng refer ence inter amber Not Available [facility] [address], [place], [address], 08/31/2024 11:14:37 08/31/19 25 08/31/2024 COMPR EHENS LOW METAB OLIC PANEL urea nitrogen (BUN) 18 mg/dL 7-25 normal Not Available [facility] [address] [facility] [place], [address], 08/31/2024 11:14:37 08/31/19 25 08/31/2024 COMPR EHENS LOW METAB OLIC PANEL creatinine 0.66 mg/dL 0.60-0 .95 normal Not Available [facility] [place] [facility] [address] [place], [address], 08/31/2024 11:14:37 08/31/19 25 08/31/2024 COMPR EHENS LOW METAB OLIC PANEL eGFR 86 mL/mi n/1.7 3m2 > or = 60 normal Not Available [facility] [address] [place], [address], 08/31/2024 11:14:37 08/31/19 25 08/31/2024 COMPR EHENS LOW METAB OLIC PANEL BUN/creatini ne ratio SEE NOTE: (calc ) 6-22 Not Repor letty: BUN and Creat inine are withi n refer ence range . Not Available [employer] [facility] [address] [place], [address], 08/31/2024 11:14:37 08/31/19 25 08/31/2024 COMPR EHENS LOW METAB OLIC PANEL sodium 140 mmol/ L 135-14 6 normal Not Available [facility] [address] [place], [address], 08/31/2024 11:14:37 08/31/19 25 08/31/2024 COMPR EHENS LOW METAB OLIC PANEL potassium 4.3 mmol/ L 3.5-5. 3 normal Not Available [facility] [address] [place], [address], 08/31/2024 11:14:37 08/31/19 25 08/31/2024 COMPR EHENS LOW METAB OLIC PANEL chloride 105 mmol/ L 98-110 normal Not Available [facility] [address] [place], [address], 08/31/2024 11:14:37 08/31/19 25 08/31/2024 COMPR EHENS LOW METAB OLIC PANEL carbon dioxide 29 mmol/ L 20-32 normal Not Available [facility] [address] [place], [address], 08/31/2024 11:14:37 08/31/19 25 08/31/2024 COMPR EHENS LOW METAB OLIC PANEL calcium 9.3 mg/dL 8.6-10 .4 normal Not Available [facility] [address] [place], [address], 08/31/2024 11:14:37 08/31/19 25 08/31/2024 COMPR EHENS LOW METAB OLIC PANEL protein, total 6.6 g/dL 6.1-8. 1 normal Not Available [facility] [address] [place], [address], 08/31/2024 11:14:37 08/31/19 25 08/31/2024 COMPR EHENS LOW METAB OLIC PANEL albumin 3.9 g/dL 3.6-5. 1 normal Not Available [facility] [place], [address], 08/31/2024 11:14:37 08/31/19 25 08/31/2024 COMPR EHENS LOW METAB OLIC PANEL globulin 2.7 g/dL_ (calc ) 1.9-3. 7 normal Not Available [facility] [address] [place], [address], 08/31/2024 11:14:37 08/31/19 25 08/31/2024 COMPR EHENS LOW METAB OLIC PANEL albumin/glob ulin ratio 1.4 (calc ) 1.0-2. 5 normal Not Available [facility] [address] [place], [address], 08/31/2024 11:14:37 08/31/19 25 08/31/2024 COMPR EHENS LOW METAB OLIC PANEL bilirubin, total 1.1 mg/dL 0.2-1. 2 normal Not Available [facility] [address] [facility], [place], [address], 08/31/2024 11:14:37 08/31/19 25 08/31/2024 COMPR EHENS LOW METAB OLIC PANEL alkaline phosphatase 80 U/L 37-153 normal Not Available [facility] [place] [facility] [address], [place], [address], 08/31/2024 11:14:37 08/31/19 25 08/31/2024 COMPR EHENS LOW METAB OLIC PANEL AST 22 U/L 10-35 normal Not Available [facility] [address] [facility], [place], [address], 08/31/2024 11:14:37 08/31/19 25 08/31/2024 COMPR EHENS LOW METAB OLIC PANEL ALT 23 U/L 6-29 normal Not Available [facility] [address] [facility] [place], [address], 08/31/2024 11:14:37 08/31/19 25 08/31/2024 HEMOG LOBIN A1C hemoglobin A1C 5.6 %_of_ total _HGB <5.7 normal For the purpo se of andreea domínguez for the prese nce of diabe marjorie: <5.7% Consi stent with the absen ce of diabe marjorie 5.7-6 .4% Consi stent with incre ased risk for diabe marjorie (pred iabet es) > or =6.5% Consi stent with diabe marjorie This assay resul t is consi stent with a decre ased risk of diabe marjorie. Curre ntly, no conse nsus exist s stacey gerard use of hemog lobin A1c for diagn osis of diabe marjorie in child daryl. Accor moustapha to Ameri can Diabe marjorie Assoc iatio n (ADA) guide lines , hemog lobin A1c <7.0% repre sents optim al contr ol in non-p regna nt diabe tic patie nts. Diffe darylt irish cs may apply to speci fic patie nt popul atkalpesh s. Stand ards of Medic al Care in Diabe marjorie(A DA). Not Available [facility] [address], [place], [address], 08/31/2024 11:14:38 08/31/19 25 08/31/2024 TSH TSH 1.89 mIU/L 0.40-4 .50 normal Not Available [facility] [address], [place], [address], 08/31/2024 11:14:38 08/31/19 25 08/31/2024 CBC (INCL UDES DIFF/ PLT) white blood cell count 8.3 thous and/u L 3.8-10 .8 normal Not Available [facility] [address], [place], [address], 08/31/2024 11:14:39 08/31/19 25 08/31/2024 CBC (INCL UDES DIFF/ PLT) red blood cell count 4.80 rose on/uL 3.80-5 .10 normal Not Available [facility] [address], [place], [address], 08/31/2024 11:14:39 08/31/19 25 08/31/2024 CBC (INCL UDES DIFF/ PLT) hemoglobin 14.7 g/dL 11.7-1 5.5 normal Not Available [facility] [address], [place], [address], 08/31/2024 11:14:39 08/31/19 25 08/31/2024 CBC (INCL UDES DIFF/ PLT) hematocrit 44.1 % 35.0-4 5.0 normal Not Available [facility] [address], [place], [address], 08/31/2024 11:14:39 08/31/19 25 08/31/2024 CBC (INCL UDES DIFF/ PLT) MCV 91.9 fL 80.0-1 00.0 normal Not Available [facility] [address] [place], [address], 08/31/2024 11:14:39 08/31/19 25 08/31/2024 CBC (INCL UDES DIFF/ PLT) MCH 30.6 pg 27.0-3 3.0 normal Not Available [facility] [address] [facility] [place], [address], 08/31/2024 11:14:39 08/31/19 25 08/31/2024 CBC (INCL UDES DIFF/ PLT) MCHC 33.3 g/dL 32.0-3 6.0 normal For adult s, a sligh t decre ase in the calcu lated MCHC value (in the range of 30 to 32 g/dL) is most likel y not clini ayse signi fican t; [facility], it shoul d be inter prete d with cauti on in [facility] n with other red cell george eters and the patie nt's clini casimiro condi tion. Not Available [facility] [address] [facility], [place], [address], 08/31/2024 11:14:39 08/31/19 25 08/31/2024 CBC (INCL UDES DIFF/ PLT) RDW 12.0 % 11.0-1 5.0 normal Not Available [facility] [address] [place], [address], 08/31/2024 11:14:39 08/31/19 25 08/31/2024 CBC (INCL UDES DIFF/ PLT) platelet count 191 thous and/u L 140-40 0 normal Not Available [facility] [address] [facility] [place], [address], 08/31/2024 11:14:39 08/31/19 25 08/31/2024 CBC (INCL UDES DIFF/ PLT) MPV 11.5 fL 7.5-12 .5 normal Not Available [facility] [address], [place], [address], 08/31/2024 11:14:39 08/31/19 25 08/31/2024 CBC (INCL UDES DIFF/ PLT) absolute neutrophils 6358 cells /uL 1500-7 800 normal Not Available [facility] [address] [facility], [place], [address], 08/31/2024 11:14:39 08/31/19 25 08/31/2024 CBC (INCL UDES DIFF/ PLT) absolute lymphocytes 1079 cells /uL 850-39 00 normal Not Available [facility] [address] [place], [place] [address]tel [facility], [place], [address], 08/31/2024 11:14:39 08/31/19 25 08/31/2024 CBC (INCL UDES DIFF/ PLT) absolute monocytes 540 cells /uL 200-95 0 normal Not Available [facility] [facility], [place], [address], 08/31/2024 11:14:39 08/31/19 25 08/31/2024 CBC (INCL UDES DIFF/ PLT) absolute eosinophils 291 cells /uL 15-500 normal Not Available [facility] [address], [place], [address], 08/31/2024 11:14:39 08/31/19 25 08/31/2024 CBC (INCL UDES DIFF/ PLT) absolute basophils 33 cells /uL 0-200 normal Not Available [facility] [address] [facility], [place], [address], 08/31/2024 11:14:39 08/31/19 25 08/31/2024 CBC (INCL UDES DIFF/ PLT) neutrophils 76.6 % normal Not Available [facility] [address] [facility], [place], [address], 08/31/2024 11:14:39 08/31/19 25 08/31/2024 CBC (INCL UDES DIFF/ PLT) lymphocytes 13.0 % normal Not Available [facility] [address] [facility], [place], [address], 08/31/2024 11:14:39 08/31/19 25 08/31/2024 CBC (INCL UDES DIFF/ PLT) monocytes 6.5 % normal Not Available [facility] [address] [facility], [place], [address], 08/31/2024 11:14:39 08/31/19 25 08/31/2024 CBC (INCL UDES DIFF/ PLT) eosinophils 3.5 % normal Not Available [facility] [address] [facility], [place], [address], 08/31/2024 11:14:39 08/31/19 25 08/31/2024 CBC (INCL UDES DIFF/ PLT) basophils 0.4 % normal Not Available [facility] [address] [facility] [place], [address], 08/31/2024 11:14:39 12/03/19 25 12/02/2024 CBC AUTO W DIFF WBC 6.2 10 4.5-11 .5 Not Available [facility] (Lab Registration) [address] [place], [address], 12/02/2024 10:35:32 12/03/19 25 12/02/2024 CBC AUTO W DIFF RBC 4.75 10 4.25-5 .57 Not Available [facility] (Lab Registration) [address] [place], [address], 12/02/2024 10:35:32 12/03/19 25 12/02/2024 CBC AUTO W DIFF HGB 14.4 g/dL 12.0-1 5.7 Not Available [facility] (Lab Registration) [address] [place], [address], 12/02/2024 10:35:32 12/03/19 25 12/02/2024 CBC AUTO W DIFF HCT 42.0 % 36.0-4 7.0 Not Available [facility] (Lab Registration) [address] [place], [address], 12/02/2024 10:35:32 12/03/19 25 12/02/2024 CBC AUTO W DIFF MCV 88.4 fL 80-95 Not Available [facility] (Lab Registration) [address] [place], [address], 12/02/2024 10:35:32 12/03/19 25 12/02/2024 CBC AUTO W DIFF MCH 30.3 pg 27.0-3 4.0 Not Available [facility] (Lab Registration) [address] [place], [address], 12/02/2024 10:35:32 12/03/19 25 12/02/2024 CBC AUTO W DIFF MCHC 34.3 g/dL 32.0-3 6.0 Not Available [facility] (Lab Registration) [address] [place], [address], 12/02/2024 10:35:32 12/03/19 25 12/02/2024 CBC AUTO W DIFF platelet count 211 10 150-45 0 Not Available [facility] (Lab Registration) [address] [place], [address], 12/02/2024 10:35:32 12/03/19 25 12/02/2024 CBC AUTO W DIFF RDW 11.9 % 12.3-1 5.1 low Not Available [facility] (Lab Registration) [address] [place], [address], 12/02/2024 10:35:32 12/03/19 25 12/02/2024 CBC AUTO W DIFF MPV 11.0 fL 7.4-10 .4 high Not Available [facility] (Lab Registration) [address] [place], [address], 12/02/2024 10:35:32 12/03/19 25 12/02/2024 CBC AUTO W DIFF granulocyte% 66.0 % 40-75 Not Available [facility] [address] [place], [address], 12/02/2024 10:35:32 12/03/19 25 12/02/2024 CBC AUTO W DIFF lymphocyte% 19.1 % 15-57 Not Available [facility] (Lab Registration) [address] [place], [address], 12/02/2024 10:35:32 12/03/19 25 12/02/2024 CBC AUTO W DIFF monocyte% 10.8 % 4.0-12 .0 Not Available [facility] (Lab Registration) [address] [place], [address], 12/02/2024 10:35:32 12/03/19 25 12/02/2024 CBC AUTO W DIFF eosinophil% 3.2 % 0.0-4. 0 Not Available [facility] (Lab Registration) [address] [place], [address], 12/02/2024 10:35:32 12/03/19 25 12/02/2024 CBC AUTO W DIFF basophil% 0.6 % 0.0-1. 0 Not Available [facility] (Lab Registration) [address] [place], [address], 12/02/2024 10:35:32 12/03/19 25 12/02/2024 CBC AUTO W DIFF immature granulocytes % 0.3 % 0.0-0. 8 Not Available [facility] (Lab Registration) [address] [place], [address], 12/02/2024 10:35:32 12/03/19 25 12/02/2024 CBC AUTO W DIFF granulocyte# 4.11 10 Not Available [facility] ([facility]) [address] [place], [address], 12/02/2024 10:35:32 12/03/19 25 12/02/2024 CBC AUTO W DIFF lymphocyte# 1.19 10 Not Available [facility] (Lab Registration) [address] [place], [address], 12/02/2024 10:35:32 12/03/19 25 12/02/2024 CBC AUTO W DIFF monocyte# 0.67 10 Not Available [facility] (Lab Registration) [address] [place], [address], 12/02/2024 10:35:32 12/03/19 25 12/02/2024 CBC AUTO W DIFF eosinophil# 0.20 10 Not Available [facility] (Lab Registration) [address] [place], [address], 12/02/2024 10:35:32 12/03/19 25 12/02/2024 CBC AUTO W DIFF basophil# 0.04 10 Not Available [facility] (Lab Registration) [address] [place], [address], 12/02/2024 10:35:32 12/03/19 25 12/02/2024 CBC AUTO W DIFF immature granulocytes # 0.02 10 Not Available [facility] (Lab Registration) [address] [place], [address], 12/02/2024 10:35:32 12/03/19 25 12/02/2024 CBC AUTO W DIFF manual differential NO Not Available [facility] (Lab Registration) [address] [place], [address], 12/02/2024 10:35:32 12/03/19 25 12/02/2024 CBC AUTO W DIFF note Unles s other baumann noted testi ng perfo rmed at: [facility] [address] [place] [address] [phone] Abiodun renee MD CLIA: [id number] Not Available [facility] (Lab Registration) [address] [place], [address], 12/02/2024 10:35:32 12/03/19 25 12/02/2024 UA AND MICRO /CULT IF INDIC ATED color YELLOW yellow Not Available [facility] (Lab Registration) [address] [place], [address], 12/02/2024 10:41:43 12/03/19 25 12/02/2024 UA AND MICRO /CULT IF INDIC ATED appearance CLEAR clear Not Available [facility] (Lab Registration) [address] [place], [address], 12/02/2024 10:41:43 12/03/19 25 12/02/2024 UA AND MICRO /CULT IF INDIC ATED glucose NORM normal Not Available [facility] (Lab Registration) [address] [place], [address], 12/02/2024 10:41:43 12/03/19 25 12/02/2024 UA AND MICRO /CULT IF INDIC ATED bilirubin NEGATI VE negati ve Not Available [facility] (Lab Registration) [address] [place], [address], 12/02/2024 10:41:43 12/03/19 25 12/02/2024 UA AND MICRO /CULT IF INDIC ATED ketone NEGATI VE mg/dL negati ve Not Available [facility] (Lab Registration) [address] [place], [address], 12/02/2024 10:41:43 12/03/19 25 12/02/2024 UA AND MICRO /CULT IF INDIC ATED specific gravity 1.015 1.005- 1.035 Not Available [facility] (Lab Registration) [address] [place], [address], 12/02/2024 10:41:43 12/03/19 25 12/02/2024 UA AND MICRO /CULT IF INDIC ATED blood 10 (TRACE ) /mcL negati ve Not Available [facility] (Lab Registration) [address] [place], [address], 12/02/2024 10:41:43 12/03/19 25 12/02/2024 UA AND MICRO /CULT IF INDIC ATED pH 6.00 5.0-7. 5 Not Available [facility] (Lab Registration) [address] [place], [address], 12/02/2024 10:41:43 12/03/19 25 12/02/2024 UA AND MICRO /CULT IF INDIC ATED protein 30 (1+) mg/dL negati ve Not Available [facility] (Lab Registration) [address] [place], [address], 12/02/2024 10:41:43 12/03/19 25 12/02/2024 UA AND MICRO /CULT IF INDIC ATED urobilnogen NORM mg/dL normal Not Available [facility] (Lab Registration) [address] [place], [address], 12/02/2024 10:41:43 12/03/19 25 12/02/2024 UA AND MICRO /CULT IF INDIC ATED nitrite NEGATI VE negati ve Not Available [facility] (Lab Registration) [address] [place], [address], 12/02/2024 10:41:43 12/03/19 25 12/02/2024 UA AND MICRO /CULT IF INDIC ATED leukocyte esterase 100 (1+) /mcL negati ve Not Available [facility] (Lab Registration) [address] [place], [address], 12/02/2024 10:41:43 12/03/19 25 12/02/2024 UA AND MICRO /CULT IF INDIC ATED culture? YES Not Available [facility] (Lab Registration) [address] [place], [address], 12/02/2024 10:41:43 12/03/19 25 12/02/2024 UA AND MICRO /CULT IF INDIC ATED urine microscopic NO Not Available [facility] (Lab Registration) [address] [place], [address], 12/02/2024 10:41:43 12/03/19 25 12/02/2024 UA AND MICRO /CULT IF INDIC ATED RBC 0-3 0-3 Not Available [facility] (Lab Registration) [address] [place], [address], 12/02/2024 10:41:43 12/03/19 25 12/02/2024 UA AND MICRO /CULT IF INDIC ATED WBC 10-20 none seen delta Not Available [facility] (Lab Registration) [address] [place], [address], 12/02/2024 10:41:43 12/03/19 25 12/02/2024 UA AND MICRO /CULT IF INDIC ATED epithelial cell 5-10 none seen Not Available [facility] (Lab Registration) [address] [place], [address], 12/02/2024 10:41:43 12/03/19 25 12/02/2024 UA AND MICRO /CULT IF INDIC ATED bacteria TRACE none seen Not Available [facility] (Lab Registration) [address] [place], [address], 12/02/2024 10:41:43 12/03/19 25 12/02/2024 UA AND MICRO /CULT IF INDIC ATED note Unles s other baumann noted testi ng perfo rmed at: [facility] [address] [place] [address] [phone] Abiodun renee MD CLIA: [id number] Not Available [facility] (Lab Registration) [address] [place], [address], 12/02/2024 10:41:43 12/03/19 25 12/02/2024 COMP METAB OLIC PANEL sodium 142 mmol/ L 136-14 5 Not Available [facility] (Lab Registration) [address] [place], [address], 12/02/2024 10:52:04 12/03/19 25 12/02/2024 COMP METAB OLIC PANEL potassium 4.6 mmol/ L 3.5-5. 1 Not Available [facility] (Lab Registration) [address] [place], [address], 12/02/2024 10:52:04 12/03/19 25 12/02/2024 COMP METAB OLIC PANEL chloride 106 mmol/ L 98-107 Not Available [facility] (Lab Registration) [address] [place], [address], 12/02/2024 10:52:04 12/03/19 25 12/02/2024 COMP METAB OLIC PANEL carbon dioxide 28 mmol/ L 21-32 Not Available [facility] (Lab Registration) [address] [place], [address], 12/02/2024 10:52:04 12/03/19 25 12/02/2024 COMP METAB OLIC PANEL anion gap 8.0 Not Available [facility] (Lab Registration) [address] [place], [address], 12/02/2024 10:52:04 12/03/19 25 12/02/2024 COMP METAB OLIC PANEL glucose 101 mg/dL 70-110 Not Available [facility] (Lab Registration) [address] [place], [address], 12/02/2024 10:52:04 12/03/19 25 12/02/2024 COMP METAB OLIC PANEL blood urea nitrogen 19 mg/dL 7-18 high Not Available [facility] (Lab Registration) [address], [place], [address], 12/02/2024 10:52:04 12/03/19 25 12/02/2024 COMP METAB OLIC PANEL creatinine 0.9 mg/dL 0.6-1. 0 Not Available [facility] (Lab Registration) [address] [place], [address], 12/02/2024 10:52:04 12/03/19 25 12/02/2024 COMP METAB OLIC PANEL BUN/creatini ne ratio 21.1 9-21 high Not Available [facility] (Lab Registration) [address], [place], [address], 12/02/2024 10:52:04 12/03/19 25 12/02/2024 COMP METAB OLIC PANEL estimated glom filtration rate 63 mL/mi n >60- GFR LIMIT ATION : The eGFR equat ion CKD-E PI 2020 is not appli cable for pedia tric patie nts or great er than 90 years of age. The follo wing condi tions may alter the GFR resul t: extre mes in body size, malnu triti on or obesi ty, skele jarred muscl e disea se, parap legia or quadr ipleg ia, veget anmol diet or rapid ly waters ing kiney funct ion. Not Available [facility] (Lab Registration) [address], [place], [address], 12/02/2024 10:52:04 12/03/19 25 12/02/2024 COMP METAB OLIC PANEL osmolality (calculated) 298 mOsm/ kg 275-30 1 OSMOL ALITY IS A CALCU LATIO N UTILI ZING THE SERUM /PLAS MA SODIU M, GLUCO SE AND UREA NITRO GEN (BUN) LEVEL S. FOR THE MOST ACCUR ATE RESUL T A MEASU RED SERUM OSMOL ALITY IS SUGGE STED. Not Available [facility] (Lab Registration) [address] [place], [address], 12/02/2024 10:52:04 12/03/19 25 12/02/2024 COMP METAB OLIC PANEL total protein 7.0 g/dL 6.4-8. 2 Not Available [facility] (Lab Registration) [address] [place], [address], 12/02/2024 10:52:04 12/03/19 25 12/02/2024 COMP METAB OLIC PANEL albumin 3.2 g/dL 3.4-5. 0 low Not Available [facility] (Lab Registration) [address] [place], [address], 12/02/2024 10:52:04 12/03/19 25 12/02/2024 COMP METAB OLIC PANEL calcium 9.8 mg/dL 8.5-10 .1 Not Available [facility] (Lab Registration) [address] [place], [address], 12/02/2024 10:52:04 12/03/19 25 12/02/2024 COMP METAB OLIC PANEL corrected calcium 10.4 mg/dL 8.5-10 .1 high Not Available [facility] (Lab Registration) [address] [place], [address], 12/02/2024 10:52:04 12/03/19 25 12/02/2024 COMP METAB OLIC PANEL bilirubin total 0.8 mg/dL 0.4-1. 5 Not Available [facility] (Lab Registration) [address] [place], [address], 12/02/2024 10:52:04 12/03/19 25 12/02/2024 COMP METAB OLIC PANEL AST (SGOT) 18 U/L 15-37 Not Available [facility] (Lab Registration) [address] [place], [address], 12/02/2024 10:52:04 12/03/19 25 12/02/2024 COMP METAB OLIC PANEL ALT (SGPT) 22 U/L 12-78 Not Available [facility] (Lab Registration) [address] [place], [address], 12/02/2024 10:52:04 12/03/19 25 12/02/2024 COMP METAB OLIC PANEL alk phosphatase 91 U/L 53-141 Not Available [facility] (Lab Registration) [address] [place], [address], 12/02/2024 10:52:04 12/03/19 25 12/02/2024 COMP METAB OLIC PANEL note Unles s other baumann noted testi ng perfo rmed at: [facility] [address] [place] [address] [phone] Abiodun renee MD CLIA: [id number] Not Available [facility] (Lab Registration) [address] [place], [address], 12/02/2024 10:52:04 12/03/19 25 12/02/2024 LIPAS E lipase 16 U/L 16-77 Not Available [facility] (Lab Registration) [address] [place], [address], 12/02/2024 10:52:06 12/03/19 25 12/02/2024 LIPAS E note Unles s other baumann noted testi ng perfo rmed at: [facility] [address] [place] [address] [phone] Abiodun renee MD CLIA: [id number] Not Available [facility] (Lab Registration) [address] [place], [address], 12/02/2024 10:52:06 12/03/19 25 12/02/2024 MAGNE SIUM magnesium 1.9 mg/dL 1.8-2. 4 Not Available [facility] (Lab Registration) [address] [place], [address], 12/02/2024 10:52:06 12/03/19 25 12/02/2024 MAGNE SIUM note Unles s other baumann noted testi ng perfo rmed at: [facility] [address] [place] [phone] Abiodun renee MD CLIA: [id number] Not Available [facility] (Lab Registration) [address], [place], [address], 12/02/2024 10:52:06 12/03/19 25 12/02/2024 TROPO MONICO QUANT troponin 9 NG/L 0-51 The refer ence range for male and femal e were estab lishe d using the 99th perce ntile upper refer ence limit for the Sieme ns Dimen eyal EXL LOCI High- Sensi tivit y Tropo monico I (TNIH ) assay . BIO TIN AND OTHER SUPPL EMENT S HAVE BEEN KNOWN TO FALSE LY DEPRE SS TROPO MONICO VALUE S IN SANCHEZ L INDIV IDUAL S Not Available [facility] (Lab Registration) [address], [place], [address], 12/02/2024 11:17:44 12/03/19 25 12/02/2024 TROPO MONICO QUANT note Unles s other baumann noted testi ng perfo rmed at: [facility] [address] [place] [address] [phone] Abiodun renee MD CLIA: [id number] Not Available [facility] (Lab Registration) [address], [place], [address], 12/02/2024 11:17:44 12/03/19 25 12/02/2024 CULTU RE URINE culccur ===== ===== ===== ===== ===== ===== ===== ===== ===== ===== ===== ===== ===== ===== ===== ===== ===== ===== ===== ===== ===== ===== ===== ===== Speci men NO.: [id number] Exam Statu s: Final Proce dure: CULTU RE URINE ===== ===== ===== ===== ===== ===== ===== ===== ===== ===== ===== ===== ===== ===== ===== ===== ===== ===== ===== ===== ===== ===== ===== ===== Iso/R esult : 01 Klebs iella oxyto ca Iso/R esult : 02 Esche phil a coli Antim icrob ic/Do se ASTON Syste aston Urine Antim icrob ic/Do se ASTON Syste aston Urine __ ___ ___ __ ___ ___ ESBL NEG N Aztre onam <=2 S Levof loxac in <=0.5 S ESBL NEG N Merop enem <=0.5 S Levof loxac in <=0.5 S Amika tom <=8 S Merop enem <=0.5 S Ampic illin 8 R Amika tom <=8 S Amp/S ulbac little 4/2 S Ampic illin <=4 S Aztre onam <=2 S Amp/S ulbac little 4/2 S Cefep esme <= 1 S Cefep seme <=1 S Cefta zidim e <=2 S Cefta zidim e <=2 S Ceftr iaxon e <=1 S Ceftr iaxon e <=1 S Cipro floxa tom <=0.2 5 S Cipro floxa tom <=0.2 5 S Ertap enem <=0.2 5 S Ertap enem <=0.2 5 S Genta micin <=2 S Genta micin <=2 S Nitro furan toin <=16 S Nitro furan toin 32 S Piper acill in/Ta zo <=2/4 S Piper acill in/Ta zo 4/4 S Tetra cycli ne <=2 S Tetra cycli ne <=2 S Tobra mycin <= 2 S Tobra mycin <=2 S Trime th/Villalobos lfa <=0.5 /9.5 S Trime th/Villalobos lfa <=0.5 /9.5 S [facility] 12-03 454 >100, 000 COL/M L Gram Negat low Rods [facility] 12-03 455 IDENT IFICA TION AND SUSCE PTIBI LITY TESTI NG PERFO RMED AT [facility] [address] [place] [address] 12-04 710 >100, 000 COL/M L Gram Negat low Rods 12-04 711 IDENT IFICA TION AND SUSCE PTIBI LITY TESTI NG PERFO RMED AT [facility] [address] [place] [address] Not Available [facility] (Lab Registration) [address] , [place], [address], 12/06/2024 08:27:40 12/03/1912/02/2024 CULTU RE URINE note Unles s other baumann noted testi ng perfo rmed at: [facility] [address] [place] [address] [phone] Abiodun renee MD CLIA: [id number] Not Available [facility] (Lab Registration) [address], [place], [address], 12/06/2024 08:27:40 01/10/20 25 01/09/2025 CBC AUTO W DIFF WBC 5.1 10 4.5-11 .5 Not Available [facility] (Lab Registration) [address] [place], [address], 01/09/2025 12:13:27 01/10/20 25 01/09/2025 CBC AUTO W DIFF RBC 4.89 10 4.25-5 .57 Not Available [facility] (Lab Registration) [address] [place], [address], 01/09/2025 12:13:27 01/10/20 25 01/09/2025 CBC AUTO W DIFF HGB 14.6 g/dL 12.0-1 5.7 Not Available [facility] (Lab Registration) [address] [place], [address], 01/09/2025 12:13:27 01/10/20 25 01/09/2025 CBC AUTO W DIFF HCT 42.5 % 36.0-4 7.0 Not Available [facility] (Lab Registration) [address] [place], [address], 01/09/2025 12:13:27 01/10/20 25 01/09/2025 CBC AUTO W DIFF MCV 86.9 fL 80-95 Not Available [facility] (Lab Registration) [address] [place], [address], 01/09/2025 12:13:27 01/10/20 25 01/09/2025 CBC AUTO W DIFF MCH 29.9 pg 27.0-3 4.0 Not Available [facility] (Lab Registration) [address] [place], [address], 01/09/2025 12:13:27 01/10/20 25 01/09/2025 CBC AUTO W DIFF MCHC 34.4 g/dL 32.0-3 6.0 Not Available [facility] (Lab Registration) [address] [place], [address], 01/09/2025 12:13:27 01/10/20 25 01/09/2025 CBC AUTO W DIFF platelet count 205 10 150-45 0 Not Available [facility] (Lab Registration) [address] [place], [address], 01/09/2025 12:13:27 01/10/20 25 01/09/2025 CBC AUTO W DIFF RDW 12.0 % 12.3-1 5.1 low Not Available [facility] (Lab Registration) [address] [place], [address], 01/09/2025 12:13:27 01/10/20 25 01/09/2025 CBC AUTO W DIFF MPV 11.2 fL 7.4-10 .4 high Not Available [facility] (Lab Registration) [address] [place], [address], 01/09/2025 12:13:27 01/10/20 25 01/09/2025 CBC AUTO W DIFF granulocyte% 68.6 % 40-75 Not Available [facility] [address] [place], [address], 01/09/2025 12:13:27 01/10/20 25 01/09/2025 CBC AUTO W DIFF lymphocyte% 17.4 % 15-57 Not Available [facility] (Lab Registration) [address] [place], [address], 01/09/2025 12:13:27 01/10/20 25 01/09/2025 CBC AUTO W DIFF monocyte% 9.1 % 4.0-12 .0 Not Available [facility] (Lab Registration) [address] [place], [address], 01/09/2025 12:13:27 01/10/20 25 01/09/2025 CBC AUTO W DIFF eosinophil% 4.1 % 0.0-4. 0 high Not Available [facility] (Lab Registration) [address] [place], [address], 01/09/2025 12:13:27 01/10/20 25 01/09/2025 CBC AUTO W DIFF basophil% 0.6 % 0.0-1. 0 Not Available [facility] (Lab Registration) [address] [place], [address], 01/09/2025 12:13:27 01/10/20 25 01/09/2025 CBC AUTO W DIFF immature granulocytes % 0.2 % 0.0-0. 8 Not Available [facility] (Lab Registration) [address] [place], [address], 01/09/2025 12:13:27 01/10/20 25 01/09/2025 CBC AUTO W DIFF granulocyte# 3.48 10 Not Available [facility] ([facility]) [address] [place], [address], 01/09/2025 12:13:27 01/10/20 25 01/09/2025 CBC AUTO W DIFF lymphocyte# 0.88 10 Not Available [facility] (Lab Registration) [address] [place], [address], 01/09/2025 12:13:27 01/10/20 25 01/09/2025 CBC AUTO W DIFF monocyte# 0.46 10 Not Available [facility] (Lab Registration) [address] [place], [address], 01/09/2025 12:13:27 01/10/20 25 01/09/2025 CBC AUTO W DIFF eosinophil# 0.21 10 Not Available [facility] (Lab Registration) [address] [place], [address], 01/09/2025 12:13:27 01/10/20 25 01/09/2025 CBC AUTO W DIFF basophil# 0.03 10 Not Available [facility] (Lab Registration) [address] [place], [address], 01/09/2025 12:13:27 01/10/20 25 01/09/2025 CBC AUTO W DIFF immature granulocytes # 0.01 10 Not Available [facility] (Lab Registration) [address] [place], [address], 01/09/2025 12:13:27 01/10/20 25 01/09/2025 CBC AUTO W DIFF manual differential NO Not Available [facility] (Lab Registration) [address], [place], [address], 01/09/2025 12:13:27 01/10/20 25 01/09/2025 CBC AUTO W DIFF note Unles s other baumann noted testi ng perfo rmed at: [facility] [address] [address] [phone] Abiodun renee MD CLIA: [id number] Not Available [facility] (Lab Registration) [address], [place], [address], 01/09/2025 12:13:27 01/10/20 25 01/09/2025 PT (PROT HROMB IN TIME) W INR PT (prothrombin time) 11.2 secon ds 9.1-12 .0 Not Available [facility] (Lab Registration) [address], [place], [address], 01/09/2025 12:26:46 01/10/20 25 01/09/2025 PT (PROT HROMB IN TIME) W INR INR 1.03 0.9-1. 1 INR is inten ded to be used only for patie nts on stabl e oral anti- coagu lant thera py. *Ther apeut ic Range s 2.0 - 3.0 Usual Thera peuti c Range 2.5 - 3.5 For patie nts with a histo ry of multi ple deep vein throm bus or mecha nical heart valve s. Not Available [facility] (Lab Registration) [address], [place], [address], 01/09/2025 12:26:46 01/10/20 25 01/09/2025 PT (PROT HROMB IN TIME) W INR note Unles s other baumann noted testi ng perfo rmed at: [facility] [address] [place] [phone] Abiodun renee MD CLIA: [id number] Not Available [facility] (Lab Registration) [address] [place], [address], 01/09/2025 12:26:46 01/10/20 25 01/09/2025 PTT (PART IAL THROM B TIME) PTT (partial thromb time) 23.2 secon ds 24.5-3 2.8 low Not Available [facility] (Lab Registration) [address] [place], [address], 01/09/2025 12:26:47 01/10/20 25 01/09/2025 PTT (PART IAL THROM B TIME) note Unllor s other baumann noted testi ng perfo rmed at: [facility] [address] [place] [address] [phone] Abiodun renee MD CLIA: [id number] Not Available [facility] (Lab Registration) [address] [place], [address], 01/09/2025 12:26:47 01/10/20 25 01/09/2025 TROPO MONICO QUANT troponin 7 NG/L 0-51 The refer ence range for male and femal e were estab lishe d using the 99th perce ntile upper refer ence limit for the Sieme ns Dimen eyal EXL LOCI High- Sensi tivit y Tropo monico I (TNIH ) assay . BIO TIN AND OTHER SUPPL EMENT S HAVE BEEN KNOWN TO FALSE LY DEPRE SS TROPO MONICO VALUE S IN SANCHEZ L INDIV IDUAL S Not Available [facility] (Lab Registration) [address] [place], [address], 01/09/2025 12:32:17 01/10/20 25 01/09/2025 TROPO MONICO QUANT note Unles s other baumann noted testi ng perfo rmed at: [facility] [address] [place] [address] [phone] Abiodun renee MD CLIA: [id number] Not Available [facility] (Lab Registration) [address] [place], [address], 01/09/2025 12:32:17 01/10/20 25 01/09/2025 COMP METAB OLIC PANEL sodium 141 mmol/ L 136-14 5 Not Available [facility] (Lab Registration) [address] [place], [address], 01/09/2025 12:33:23 01/10/20 25 01/09/2025 COMP METAB OLIC PANEL potassium 3.9 mmol/ L 3.5-5. 1 Not Available [facility] (Lab Registration) [address] [place], [address], 01/09/2025 12:33:23 01/10/20 25 01/09/2025 COMP METAB OLIC PANEL chloride 107 mmol/ L 98-107 Not Available [facility] (Lab Registration) [address] [place], [address], 01/09/2025 12:33:23 01/10/20 25 01/09/2025 COMP METAB OLIC PANEL carbon dioxide 28 mmol/ L 21-32 Not Available [facility] (Lab Registration) [address] [place], [address], 01/09/2025 12:33:23 01/10/20 25 01/09/2025 COMP METAB OLIC PANEL anion gap 6.0 Not Available [facility] (Lab Registration) [address] [place], [address], 01/09/2025 12:33:23 01/10/20 25 01/09/2025 COMP METAB OLIC PANEL glucose 113 mg/dL 70-110 high Not Available [facility] (Lab Registration) [address] [place], [address], 01/09/2025 12:33:23 01/10/20 25 01/09/2025 COMP METAB OLIC PANEL blood urea nitrogen 12 mg/dL 7-18 Not Available [facility] (Lab Registration) [address] [place], [address], 01/09/2025 12:33:23 01/10/20 25 01/09/2025 COMP METAB OLIC PANEL creatinine 0.8 mg/dL 0.6-1. 0 Not Available [facility] (Lab Registration) [address] [place], [address], 01/09/2025 12:33:23 01/10/20 25 01/09/2025 COMP METAB OLIC PANEL BUN/creatini ne ratio 15.0 9-21 Not Available [facility] (Lab Registration) [address] [place], [address], 01/09/2025 12:33:23 01/10/20 25 01/09/2025 COMP METAB OLIC PANEL estimated glom filtration rate 72 mL/mi n >60- GFR LIMIT ATION : The eGFR equat ion CKD-E PI 2020 is not appli cable for pedia tric patie nts or great er than 90 years of age. The follo wing condi tions may alter the GFR resul t: extre mes in body size, malnu triti on or obesi ty, skele jarred muscl e disea se, parap legia or quadr ipleg ia, veget anmol diet or rapid ly waters ing kiney funct ion. Not Available [facility] (Lab Registration) [address] [place], [address], 01/09/2025 12:33:23 01/10/20 25 01/09/2025 COMP METAB OLIC PANEL osmolality (calculated) 294 mOsm/ kg 275-30 1 OSMOL ALITY IS A CALCU LATIO N UTILI ZING THE SERUM /PLAS MA SODIU M, GLUCO SE AND UREA NITRO GEN (BUN) LEVEL S. FOR THE MOST ACCUR ATE RESUL T A MEASU RED SERUM OSMOL ALITY IS DANTE BLOCK. Not Available [facility] (Lab Registration) [address] [place], [address], 01/09/2025 12:33:23 01/10/20 25 01/09/2025 COMP METAB OLIC PANEL total protein 7.2 g/dL 6.4-8. 2 Not Available [facility] (Lab Registration) [address] [place], [address], 01/09/2025 12:33:23 01/10/20 25 01/09/2025 COMP METAB OLIC PANEL albumin 3.4 g/dL 3.4-5. 0 Not Available [facility] (Lab Registration) [address] [place], [address], 01/09/2025 12:33:23 01/10/20 25 01/09/2025 COMP METAB OLIC PANEL calcium 9.5 mg/dL 8.5-10 .1 Not Available [facility] (Lab Registration) [address] [place], [address], 01/09/2025 12:33:23 01/10/20 25 01/09/2025 COMP METAB OLIC PANEL corrected calcium 10.0 mg/dL 8.5-10 .1 Not Available [facility] (Lab Registration) [address] [place], [address], 01/09/2025 12:33:23 01/10/20 25 01/09/2025 COMP METAB OLIC PANEL bilirubin total 1.0 mg/dL 0.4-1. 5 Not Available [facility] (Lab Registration) [address] [place], [address], 01/09/2025 12:33:23 01/10/20 25 01/09/2025 COMP METAB OLIC PANEL AST (SGOT) 18 U/L 15-37 Not Available [facility] (Lab Registration) [address] [place], [address], 01/09/2025 12:33:23 01/10/20 25 01/09/2025 COMP METAB OLIC PANEL ALT (SGPT) 26 U/L 12-78 Not Available [facility] (Lab Registration) [address], [place], [address], 01/09/2025 12:33:23 01/10/20 25 01/09/2025 COMP METAB OLIC PANEL alk phosphatase 96 U/L 53-141 Not Available [facility] (Lab Registration) [address], [place], [address], 01/09/2025 12:33:23 01/10/20 25 01/09/2025 COMP METAB OLIC PANEL note Unles s other baumann noted testi ng perfo rmed at: [facility] [address] [place] [address] [phone] Abiodun renee MD CLIA: [id number] Not Available [facility] (Lab Registration) [address], [place], [address], 01/09/2025 12:33:23 01/11/20 25 2025 UA AND MICRO /CULT IF INDIC ATED color yellow yellow Not Available [facility] (Lab Registration) [address], [place], [address], 2025 12:31:39 01/11/20 25 2025 UA AND MICRO /CULT IF INDIC ATED appearance sl. hazy clear Not Available [facility] (Lab Registration) [address], [place], [address], 2025 12:31:39 01/11/20 25 2025 UA AND MICRO /CULT IF INDIC ATED glucose NORM normal Not Available [facility] (Lab Registration) [address], [place], [address], 2025 12:31:39 01/11/20 25 2025 UA AND MICRO /CULT IF INDIC ATED bilirubin NEGATI VE negati ve Not Available [facility] (Lab Registration) [address] [place], [address], 2025 12:31:39 01/11/20 25 2025 UA AND MICRO /CULT IF INDIC ATED ketone NEGATI VE mg/dL negati ve Not Available [facility] (Lab Registration) [address] [place], [address], 2025 12:31:39 01/11/20 25 2025 UA AND MICRO /CULT IF INDIC ATED specific gravity 1.010 1.005- 1.035 Not Available [facility] (Lab Registration) [address] [place], [address], 2025 12:31:39 01/11/20 25 2025 UA AND MICRO /CULT IF INDIC ATED blood 10 (TRACE ) /mcL negati ve Not Available [facility] (Lab Registration) [address] [place], [address], 2025 12:31:39 01/11/20 25 2025 UA AND MICRO /CULT IF INDIC ATED pH 6.00 5.0-7. 5 Not Available [facility] (Lab Registration) [address] [place], [address], 2025 12:31:39 01/11/20 25 2025 UA AND MICRO /CULT IF INDIC ATED protein 15 (TRACE ) mg/dL negati ve Not Available [facility] (Lab Registration) [address] [place], [address], 2025 12:31:39 01/11/20 25 2025 UA AND MICRO /CULT IF INDIC ATED urobilnogen NORM mg/dL normal Not Available [facility] (Lab Registration) [address] [place], [address], 2025 12:31:39 01/11/20 25 2025 UA AND MICRO /CULT IF INDIC ATED nitrite NEGATI VE negati ve Not Available [facility] (Lab Registration) [address] [place], [address], 2025 12:31:39 01/11/20 25 2025 UA AND MICRO /CULT IF INDIC ATED leukocyte esterase TRACE (25) /mcL negati ve Not Available [facility] (Lab Registration) [address] [place], [address], 2025 12:31:39 01/11/20 25 2025 UA AND MICRO /CULT IF INDIC ATED culture? NOT REQUIR ED Not Available [facility] (Lab Registration) [address] [place], [address], 2025 12:31:39 01/11/20 25 2025 UA AND MICRO /CULT IF INDIC ATED urine microscopic NO Not Available [facility] (Lab Registration) [address] [place], [address], 2025 12:31:39 01/11/20 25 2025 UA AND MICRO /CULT IF INDIC ATED note Unles s other baumann noted testi ng perfo rmed at: [facility] [address] [place], [place] [id number] [phone] Abiodun renee MD CLIA: [id number] Not Available [facility] (Lab Registration) [address] [place], [address], 2025 12:31:39 12/03/19 25 12/02/2024 CT, face, w/o contr ast [facility] [address] [place] [address] Phone: Fax: Name: BELLA BENZ ETH Exam Date: : 940 Age 84 years Gender : F Access ion: [id number] Physic hemanth: GABY AKERS Facili ty: [place] Facili ty HSV: Outpat ient Exam: CT FACIAL BONES W/O CT MAXILL OFACIA L WITHOU T IV CONTRA ST, 025 9:54 AM CDT CLINIC AL INDICA TION: Female , 84 years old. Facial Pain w/o Trauma /Injur y CT was perfor med, withou t IV contra st, as per depart ment protoc ol. Axial, sagitt al and garnica l recons tructi ons were obtain ed. One or more of the follow ing dose reduct ion techni ques were used: Automa letty exposu re contro l, adjust ment of the mA and/or kV accord ing to the patien t size, and/or iterat low recons tructi on. * Minima l fluid/ mucosa l thicke catrachita within the spheno id sinus. * Minima l mucosa l thicke catrachita left maxill adam sinus. * Mastoi d air cells and middle ears are unrema rkable . * No acute fractu re or disloc ation. * Curvil inear hyperd ense object within the right orbit, adjace nt to the superi or medial aspect of the globe, suspec t surgic ally placed object , clinic al assess ment as per prior interv ention requir ed for exclus ion of foreig n body. * Degene rative diseas e involv ing the upper aspect of the spine, anteri or osteop hytes at C4-C5. * Degene rative diseas e involv ing both tempor omandi bular joints . * IMPRES EYAL: * Minima l sinus diseas e. * High densit y curvil inear object adjace nt to the right globe, clinic al assess ment with prior surgic al interv ention requir ed. Electr onical ly signed by: Vlad liz MD 2024 11:31 AM EDT RP Workst ation: [id number] Dictat ed By: Vlad Teague Transc ribed By: Transc ribed On: 10:54 AM Electr onical ly signed by: Vlad Teague Thank you for referr maximino JONESJovani BELLA DUENAS to [facility]. Legall y authen ticate d by FADUMO OLIVARES MD 12-02 10:54: 50 CC'ed Logic: Orderi ng Provid er: LOEFFL ER GABY CC Provid er: ALLISO N BRIANNA A Attend ing Provid er: LOEFFL ER GABY Referr ing Provid er: LOEFFL ER GABY Admitt ing Provid er: LOEFIN ER GABY taylor [facility] (Radiology) [address] [place], [address], 12/03/2024 08:18:49 12/03/19 25 12/02/2024 XR, chest , 1 view [place] [address] [place] [address] Phone: Fax: Name: BELLA BENZ RICH Exam Date: : 940 Age 84 years Gender : F Access ion: [id number] Physic hemanth: GABY AKERS Facili ty: [facility] Facili ty HSV: Outpat ient Exam: CHEST SINGLE VIEW/P ORTABL E XR CHEST 1 VIEW PORTAB LE INDICA TION: Cough COMPAR HERMANN: Single view chest on 02/12/20 24 FINDIN GS: Heart size enlarg ed withou t overt failur e. Mild peribr onchia l thicke catrachita. There are mild athero sclero tic calcif icatio ns of the aortic knob. There is no focal infilt rate or lobar consol idatio n. There is no pneumo thorax or pleura l effusi on. IMPRES EYAL: 1. Mild peribr onchia l thicke catrachita. 2. Cardio megaly withou t overt failur e. Electr onical ly signed by: Juanita Lucero MD 2024 01:09 PM EDT RP Workst ation: [id number] Dictat ed By: JUANITA LUCERO Transc ribed By: Transc ribed On: 11:24 AM Electr onical ly signed by: JUANITA LUCERO Thank you for referr ing BELLA BENZ to [facility]. Legall y authen ticate d by LEONILA GRANT MD 12-02 11:24: 50 CC'ed Logic: Orderi ng Provid er: LOEFFL ER GABY CC Provid er: ALLISO N BRIANNA A Attend ing Provid er: LOEFFL ER GABY Referr ing Provid er: LOEFFL ER GABY Admitt ing Provid er: LOEFFL ER GABY barry1 [facility] (Radiology) [address] [place], [address], 12/03/2024 08:18:49 01/10/20 25 01/09/2025 CT cervi cl wo [facility] [address] [facility] [place] [address] Phone: Fax: Name: YASMANI DUENAS BELLA VILLANUEVA Exam Date: : 940 Age 85 years Gender : F Access ion: [id number] Physic hemanth: MERI BALL Facili ty: [place] Facili ty HSV: Outpat ient Exam: CT CERVIC L WO EXAM DESCRI PTION: CT FACIAL BONES W/O (acces eyal [id number] [id number] ), CT CERVIC L WO (acces eyal [id number] [id number] ) Date: 11:39 AM CDT CLINIC AL HISTOR Y: 85 years Female , Facial Pain with Trauma /Injur y COMPAR HERMANN: None availa ble. TECHNI QUE: Helica l CT of the facial bones withou t contra st. Helica l CT of the cervic al spine withou t contra st. One or more of the follow ing dose-o ptimiz ing techni ques was utiliz ed for this exam: automa letty exposu re contro l, adjust ment of the mA and/or kV accord ing to patien t size, and/or use of iterat low recons tructi on techni que. FINDIN GS: Facial bone CT: Mildly depres sed commin uted nasal bone fractu re is presen t. Timo ng of the dermatology physician assistant ior nasal septum is also consis tent with fractu re. There is a tiny volume of fluid in both depend ent maxill adam sinuse s and within the depend ent spheno id sinus. The parana david sinuse s are otherw ise well aerate d. Tempor omandi bular joint alignm ent is grossl y normal . There is bilate ral TMJ osteoa rthrit is. Anteri or fronta l scalp hemato ma is presen t. There are postop erativ e change s in the right orbit. Cervic al spine CT: Left C7-T1 facet ankylo sis is presen t. There is develo ping autofu eyal at additi onal facet articu lation s. There is autofu eyal of the C5-6 verteb ral bodies . Anteri or spondy lotic osteop hytes are presen t, larges t at C4-5, C6-C7, and T1-2. No cervic al spine fractu re is identi fied. Facet arthro gaetano and uncove rtebra l joint hypert rophy contri bute to bilate ral C2-C3 forami nal stenos is, bilate ral C3-4 forami nal stenos is, bilate ral C4-5 forami nal stenos is, bilate ral C5-6 forami nal stenos is, and left C6/7 forami nal stenos is. A right thyroi d nodule is too small to recomm end charac teriza tion with ultras ound. IMPRES EYAL: 1. Nasal bone and nasal septal fractu res. 2. Noneme rgent abnorm alitie s are includ ed above. Electr onical ly signed by: Su Villareal MD 2024 12:57 PM EDT RP Workst ation: [id number] Dictat ed By: Su Villareal as Transc ribed By: Transc ribed On: 12:39 PM Electr onical ly signed by: Su Villareal as Thank you for referr ing KARENJovani BELLA DUENAS to [facility]. Legall y authen ticate d by ARMANI LUGO MD 01-09 12:39: 26 CC'ed Logic: Orderi ng Provid er: QUINN Krishna CC Provid er: ALLISO N BRIANNA A Attend ing Provid er: QUINN Krishna Referr ing Provid er: QUINN Krishna Admitt ing Provid er: QUINN taylor [facility] (Radiology) [address] [place], [address], 01/28/2025 08:40:55 01/10/20 25 01/09/2025 CT[facility] [place] [address] Phone: Fax: Name: YASMANI DUENAS BELLA VILLANUEVA Exam Date: : 940 Age 85 years Gender : F Access ion: [id number] Physic hemanth: MERI BALL Facili ty: [place] Facili ty HSV: Outpat ient Exam: CT FACIAL BONES W/O EXAM DESCRI PTION: CT FACIAL BONES W/O (acces eyal [id number] [id number] ), CT CERVIC L WO (acces eyal [id number] [id number] ) Date: 11:39 AM CDT CLINIC AL HISTOR Y: 85 years Female , Facial Pain with Trauma /Injur y COMPAR HERMANN: None availa ble. TECHNI QUE: Helica l CT of the facial bones withou t contra st. Helica l CT of the cervic al spine withou t contra st. One or more of the follow ing dose-o ptimiz ing techni ques was utiliz ed for this exam: automa letty exposu re contro l, adjust ment of the mA and/or kV accord ing to patien t size, and/or use of iterat low recons tructi on techni que. FINDIN GS: Facial bone CT: Mildly depres sed commin uted nasal bone fractu re is presen t. Buckli ng of the dermatology physician assistant ior nasal septum is also consis tent with fractu re. There is a tiny volume of fluid in both depend ent maxill adam sinuse s and within the depend ent spheno id sinus. The parana david sinuse s are otherw ise well aerate d. Tempor omandi bular joint alignm ent is grossl y normal . There is bilate ral TMJ osteoa rthrit is. Anteri or fronta l scalp hemato ma is presen t. There are postop erativ e change s in the right orbit. Cervic al spine CT: Left C7-T1 facet ankylo sis is presen t. There is develo ping autofu eyal at additi onal facet articu lation s. There is autofu eyal of the C5-6 verteb ral bodies . Anteri or spondy lotic osteop hytes are presen t, larges t at C4-5, C6-C7, and T1-2. No cervic al spine fractu re is identi fied. Facet arthro gaetano and uncove rtebra l joint hypert rophy contri bute to bilate ral C2-C3 forami nal stenos is, bilate ral C3-4 forami nal stenos is, bilate ral C4-5 forami nal stenos is, bilate ral C5-6 forami nal stenos is, and left C6/7 forami nal stenos is. A right thyroi d nodule is too small to recomm end charac teriza tion with ultras ound. IMPRES EYAL: 1. Nasal bone and nasal septal fractu res. 2. Noneme rgent abnorm alitie s are includ ed above. Electr onical ly signed by: Su Villareal MD 2024 12:57 PM EDT RP Workst ation: [id number] Dictat ed By: Su Villareal Transc ribed By: Transc ribed On: 7/30/2 025 12:39 PM Electr onical ly signed by: Su Villareal Thank you for referr ing YASMANI DUENAS BELLA VILLANUEVA to [facility]. Legall y authen ticate d by ARMANI LUGO MD 2024-0 01-09 12:39: 19 CC'ed Logic: Orderi ng Provid er: QUINN Krishna CC Provid er: ALLISO N BRIANNA A Attend ing Provid er: QUINN Krishna Referr ing Provid er: QUINN Krishna Admitt ing Provid er: QUINN reddy1 [facility] (Radiology) [address] [place], [address], 01/28/2025 08:40:56 01/10/20 25 01/09/2025 XR, pelvi s, 1 or 2 view [facility] [address] [facility] [place] [address] Phone: Fax: Name: YASMANI DUENAS BELLA VILLANUEVA Exam Date: : 940 Age 85 years Gender : F Access ion: [id number] Physic hemanth: MERI BALL Facili ty: [facility] Facili ty HSV: Outpat ient Exam: PELVIS 1 TO 2V EXAM DESCRI PTION: PELVIS 1 TO 2V Date: 11:39 AM CDT CLINIC AL HISTOR Y: 85 years Female , Pelvic Pain COMPAR HERMANN: None availa ble. TECHNI QUE: Fronta l view FINDIN GS: There are degene rative change s in the lumbar spine and sacroi liac joints . Mild hip osteoa rthrit is is presen t with medial joint space narrow ing and minima l osteop hytosi s. No fractu re is identi fied. IMPRES EYAL: Degene rative change s withou t acute osseou s abnorm ality identi fied. Electr onical ly signed by: Su Villareal MD 2024 12:58 PM EDT RP Workst ation: [id number] Dictat ed By: Su Villareal as Transc ribed By: Transc ribed On: 12:39 PM Electr onical ly signed by: Su Villareal as Thank you for referr ing [facility] Legall y authen ticate d by ARMANI LUGO MD 01-09 12:39: 54 CC'ed Logic: Orderi ng Provid er: QUINN Krishna CC Provid er: ALLISO N BRIANNA A Attend ing Provid er: QUINN Krishna Referr ing Provid er: QUINN Krishna Admitt ing Provid er: QUINN taylor [facility] (Radiology) [address] [place], [address], 01/28/2025 08:40:56 01/10/20 25 01/09/2025 CT, brain , w/o contr ast [facility] [place] [address] Phone: Fax: Name: YASMANI DUENAS BELLA VILLANUEVA Exam Date: : 940 Age 85 years Gender : F Access ion: [id number] Physic hemanth: MERI BALL Facili ty: [facility] Facili ty HSV: Outpat ient Exam: CT BRAIN HEAD WO EXAM: CT BRAIN WITHOU T CONTRA ST INDICA TION: Head Trauma with pain TECHNI QUE: CT of the head was perfor med withou t IV contra st. This examin ation was perfor med using one or more of the follow ing dose reduct ion techni ques; automa letty exposu re contro l; adjust ment of the Ma and Kv accord ing to patien t size; iterat low recons tructi on techni que. COMPAR HERMANN: CT of the face perfor med the same date and CT of the brain perfor med on 10/18/19 20. FINDIN GS: There is no hydroc ephalu s or midlin e shift. The lorenz-w cindy matter juncti on is unrema rkable and does not demons trate any eviden ce of acute infarc t. There is mild cortic al atroph y. There is no intrac ranial hemorr ritika, midlin e shift, or mass effect . The supras ellar and basila r cister ns are unrema rkable . There is promin ent soft tissue swelli ng overly ing the left fronta l scalp and glabel la. There are bilate ral nasal bone fractu res. There is a nasal septal fractu re involv ing the dermatology physician assistant ior aspect . There is bilate ral ethmoi d, maxill adam, and spheno id sinus mucosa l thicke catrachita. There is a prosth esis overly ing the right globe along the medial aspect . . IMPRES EYAL: 1. No eviden ce of acute infarc t or intrac ranial hemorr ritika. 2. Multip le nasal bone fractu res as descri bed above. Correl ate with CT of the face perfor med on the same date. Electr onical ly signed by: John velez MD 2024 01:10 PM EDT RP Workst ation: [id number] Dictat ed By: John Lopez Transc ribed By: Transc ribed On: 025 12:38 PM Electr onical ly signed by: John Lopez 025 Thank you for referr ing YASMANI DUENAS, BELLA ETH to [facility]. Legall y authen ticate d by SATYA YOUSSEF MD 2024-01-09 12:38: 29 CC'ed Logic: Orderi ng Provid er: QUINN Krishna CC Provid er: CORY Escalante Attend ing Provid er: QUINN Krishna Referr ing Provid er: QUINN Krishna Admitt ing Provid er: QUINN taylor [facility] (Radiology) [address] [place], [address], 01/28/2025 08:40:56 01/10/20 25 01/09/2025 XR, ankle , 3 [facility] [address] [place], [place] [address] Phone: Fax: Name: BELLA BENZ Exam Date: : 940 Age 85 years Gender : F Access ion: [id number] Physic hemanth: MERI BALL Facili ty: [facility] Facili ty HSV: Outpat ient Exam: ANKL 3V RT EXAM: XR ANKLE 3 OR MORE VIEWS RIGHT INDICA TION: Pain with Trauma /Injur y. . TECHNI QUE: 3 views of the right ankle. COMPAR HERMANN:N o prior study was submit letty for compar hermann. FINDIN GS: Right ankle soft tissue swelli ng. Planta r calcan eal enthes ophyte . No obviou s acute fractu re or sublux ation. Osteop enia. IMPRES EYAL: 1. Right ankle soft tissue injury . No obviou s fractu re. 2. Planta r calcan eal spurri ng. 3. Osteop enia. Osteop enia limits sensit ivity for nondis placed fractu res. RECOMM ENDATI ON: Clinic al follow -up. Furthe r evalua tion with CT or MRI if sympto ms jordi velez. Electr onical ly signed by: Wei Foster DO 2024 01:27 PM EDT RP Workst ation: [id number] Dictat ed By: WEI FOSTER Transc ribed By: Transc ribed On: 12:39 PM Electr onical ly signed by: WEI FOSTER Thank you for referr ing YASMANI CHÁVEZSHERIF DEVANGSherrie VILLANUEVA to [facility] Hospit [facility]. Legall y authen ticate d by SONIA CARVAJAL DO 01-09 12:39: 32 CC'ed Logic: Orderi ng Provid er: QUINN Krishna CC Provid er: CORY Escalante Attend ing Provid er: QUINN Krishna Referr ing Provid er: QUINN Krishna Admitt ing Provid er: QUINN taylor [facility] (Radiology) [address] [place], [address], 02/16/2025 10:21:09 01/10/20 25 01/09/2025 XR, knee, 3 view [facility] [address] [place] [address] Phone: Fax: Name: DEVANG BENZSherrie VILLANUEVA Exam Date: : 940 Age 85 years Gender : F Access ion: [id number] Physic hemanth: MERI BALL Facili ty: [facility] Facili ty HSV: Outpat ient Exam: KNEE 3V LT EXAM: XR KNEE 3 VIEWS LEFT INDICA TION: Pain with Trauma /Injur y. TECHNI QUE: 3 views of the left knee(s ). COMPAR HERMANN: No prior study was submit letty for compar hermann. FINDIN GS: Normal bone densit y. No lytic, blasti c or expans ile osseou s lesion . Joint spaces are preser omid. No obviou s intra- articu lar loose body or osteoc hondra l lesion . No sizeab le joint effusi on. No obviou s fractu re or acute sublux ation. No obviou s soft tissue abnorm ality about the knee. IMPRES EYAL: NO ACUTE OSSEOU S ABNORM ALITY. RECOMM ENDATI ON: CLINIC AL FOLLOW -UP. FURTHE R EVALUA TION WITH CT OR MRI IF SYMPTO MS PERSIQRA T. Electr onical ly signed by: Wei Foster DO 2024 01:28 PM EDT RP Workst ation: [id number] Dictat ed By: WEI FOSTER Transc ribed By: Transc ribed On: 12:39 PM Electr onical ly signed by: WEI FOSTER Thank you for referr ing BELLA BENZ to [facility]. Legall y authen ticate d by SONIA CARVAJAL DO 01-09 12:39: 40 CC'ed Logic: Orderi ng Provid er: QUINN Krishna CC Provid er: CORY REED A Attend ing Provid er: QUINN Krishna Referr ing Provid er: QUINN Krishna Admitt ing Provid er: QUINN reddy1 [facility] (Radiology) [address] [place], [address], 01/28/2025 08:40:56 01/10/20 25 01/09/2025 XR, chest , 1 view [facility] [address] [facility] [place] [place] [address] Phone: Fax: Name: BELLA BENZ RICH Exam Date: 025 : 9[birth year] Age 85 years Gender : F Access ion: [id number] Physic hemanth: MERI BALL Facili ty: [facility] Facili ty HSV: Outpat ient Exam: CHEST SINGLE VIEW/P ORTABL E EXAM: XR CHEST 1 VIEW PORTAB LE INDICA TION: . Trauma .. TECHNI QUE: Portab le AP or PA view of the chest dated January 09, 2025 12:23 PM COMPAR HERMANN:[facility] 2024 11:20 AM FINDIN GS: Thorac ic aortic athero sclero sis. Mild cardio megaly . No pulmon adam venous conges tion. No pneumo medias tinum or medias tinal wideni ng. No pulmon adam airspa ce consol idatio n, obviou s pulmon adam nodule or abnorm al pulmon adam inters titial patter n. No eviden ce for pneumo thorax or sizabl e pleura l fluid collec tion. No obviou s acute osseou s abnorm ality. No obviou s acute upper abdomi nal abnorm ality. IMPRES EYAL: 1. No obviou s acute trauma tic abnorm ality or radiog raphic eviden ce for an acute cardio pulmon adam proces s. 2. Mild cardio megaly . Electr onical ly signed by: Wei Foster DO 2024 01:29 PM EDT RP Workst ation: [id number] Dictat ed By: WEI FOSTER Transc ribed By: Transc ribed On: 12:39 PM Electr onical ly signed by: WEI FOSTER Thank you for referr ing BELLA BENZ to [facility]. Legall y authen ticate d by SONIA CARVAJAL DO 01-09 12:39: 47 CC'ed Logic: Orderi ng Provid er: QUNIN Krishna CC Provid er: ALLISO N BRIANNA A Attend ing Provid er: QUINN Krishna Referr ing Provid er: QUINN Krishna Admitt ing Provid er: QUINN byrdson[address] [place] [address] (Radiology) [address] [place] [address] [place], [address], 01/28/2025 08:40:57 Result Notes Documentation Provider Name and Address Organization Details Recorded Time Xr, Chest, 1 View : [address] [place] [address] Name: KRISTEN VELA Exam Date: 12/02/2024 : 1940 Age 84 years Gender: F Physician: GABY DELGADO Facility: [facility] Facility HSV: Outpatient Exam: CHEST SINGLE VIEW/PORTABLE XR CHEST 1 VIEW PORTABLE INDICATION: Cough COMPARISON: Single view chest on 02/12/2024 FINDINGS: Heart size enlarged without overt failure. Mild peribronchial thickening. There are mild atherosclerotic calcifications of the aortic knob. There is no focal infiltrate or lobar consolidation. There is no pneumothorax or pleural effusion. IMPRESSION: 1. Mild peribronchial thickening. 2. Cardiomegaly without overt failure. Electronically signed by: Juanita Lucero MD 12/02/2024 01:09 PM EDT RP Dictated By: JUANITA LUCERO Transcribed By: Transcribed On: 12/02/2024 11:24 AM Electronically signed by: JUANITA LUCERO 12/02/2024 Thank you for referring KRISTEN VELA to [facility]. Legally authenticated by LEONILA GRANT MD 2024-12-02 11:24:50 CC'ed Logic: Ordering Provider: DANNY GRIFFIN CC Provider: ASHLEE DAY Attending Provider: DANNY GRIFFIN Referring Provider: DANNY GRIFFIN Admitting Provider: DANNY Rosado MD [address] [facility], [address], [place], [address] [place] [employer] 12/03/2024 08:18:49 Ct, Face, W/o Contrast : [address] [place] [address] Name: KRISTEN VELA Exam Date: 12/02/2024 : 1940 Age 84 years Gender: F Physician: GABY DELGADO Facility: [facility] Facility HSV: Outpatient Exam: CT FACIAL BONES W/O CT MAXILLOFACIAL WITHOUT IV CONTRAST, 12/02/2024 9:54 AM CDT CLINICAL INDICATION: Female, 84 years old. Facial Pain w/o Trauma/Injury CT was performed, without IV contrast, as per department protocol. Axial, sagittal and coronal reconstructions were obtained. One or more of the following dose reduction techniques were used: Automated exposure control, adjustment of the mA and/or kV according to the patient size, and/or iterative reconstruction. * Minimal fluid/mucosal thickening within the sphenoid sinus. * Minimal mucosal thickening left maxillary sinus. * Mastoid air cells and middle ears are unremarkable. * No acute fracture or dislocation. * Curvilinear hyperdense object within the right orbit, adjacent to the superior medial aspect of the globe, suspect surgically placed object, clinical assessment as per prior intervention required for exclusion of foreign body. * Degenerative disease involving the upper aspect of the spine, anterior osteophytes at C4-C5. * Degenerative disease involving both temporomandibular joints. * IMPRESSION: * Minimal sinus disease. * High density curvilinear object adjacent to the right globe, clinical assessment with prior surgical intervention required. Electronically signed by: Tray Altamirano MD 12/02/2024 11:31 AM EDT Dictated By: Tray Altamirano Transcribed By: Transcribed On: 12/02/2024 10:54 AM Electronically signed by: Tray Altamirano 12/02/2024 Thank you for referring KRISTEN VELA to [facility]. Legally authenticated by STEWART DANIELS MD 2024-12-02 10:54:50 CC'ed Logic: Ordering Provider: DANNY GRIFFIN CC Provider: ASHLEE DAY Attending Provider: DANNY GRIFFIN Referring Provider: DANNY GRIFFIN Admitting Provider: DANNY Rosado MD [address] [place] [address], [address], [place], [address] 12/03/2024 08:18:49 Ct, Face, W/o Contrast : [address] [place] [address] Name: KRISTEN VELA Exam Date: 01/09/2025 : 1940 Age 85 years Gender: F Physician: ROSA M BALL Facility: [facility] Facility HSV: Outpatient Exam: CT FACIAL BONES W/O EXAM DESCRIPTION: CT FACIAL BONES W/O (accession [id number]), CT CERVICL WO (accession [id number]) Date: 01/09/2025 11:39 AM CDT CLINICAL HISTORY: 85 years Female, Facial Pain with Trauma/Injury COMPARISON: None available. TECHNIQUE: Helical CT of the facial bones without contrast. Helical CT of the cervical spine without contrast. One or more of the following dose-optimizing techniques was utilized for this exam: automated exposure control, adjustment of the mA and/or kV according to patient size, and/or use of iterative reconstruction technique. FINDINGS: Facial bone CT: Mildly depressed comminuted nasal bone fracture is present. Buckling of the posterior nasal septum is also consistent with fracture. There is a tiny volume of fluid in both dependent maxillary sinuses and within the dependent sphenoid sinus. The paranasal sinuses are otherwise well aerated. Temporomandibular joint alignment is grossly normal. 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 Anterior frontal scalp hematoma is present. There are postoperative changes in the right orbit. Cervical spine CT: Left C7-T1 facet ankylosis is present. There is developing autofusion at additional facet articulations. There is autofusion of the C5-6 vertebral bodies. Anterior spondylotic osteophytes are present, largest at C4-5, C6-C7, and T1-2. No cervical spine fracture is identified. Facet arthropathy and uncovertebral joint hypertrophy contribute to bilateral C2-C3 foraminal stenosis, bilateral C3-4 foraminal stenosis, bilateral C4-5 foraminal stenosis, bilateral C5-6 foraminal stenosis, and left C6/7 foraminal stenosis. A right thyroid nodule is too small to recommend characterization with ultrasound. IMPRESSION: 1. Nasal bone and nasal septal fractures. 2. Nonemergent abnormalities are included above. Electronically signed by: Willis Villareal MD 01/09/2025 12:57 PM EDT RP Dictated By: Willis Villareal Transcribed By: Transcribed On: 01/09/2025 12:39 PM Electronically signed by: Willis Villareal 01/09/2025 Thank you for referring KRISTEN VELA to [facility]. Legally authenticated by ARMANI VILLAR MD 2025-01-09 12:39:19 CC'ed Logic: Ordering Provider: QUINN MEDEROS CC Provider: ASHLEE DAY Attending Provider: QUINN MEDEROS Referring Provider: QUINN MEDEROS Admitting Provider: QUINN Rosado MD [address] [facility], [address], [place], [address], [facility] 01/28/2025 08:40:56 Xr, Pelvis, 1 Or 2 View : [address] [place] [address] Name: KRISTEN VELA Exam Date: 01/09/2025 : 1940 Age 85 years Gender: F Physician: ROSA M BALL Facility: [facility] Facility HSV: Outpatient Exam: PELVIS 1 TO 2V EXAM DESCRIPTION: PELVIS 1 TO 2V Date: 01/09/2025 11:39 AM CDT CLINICAL HISTORY: 85 years Female, Pelvic Pain COMPARISON: None available. TECHNIQUE: Frontal view FINDINGS: There are degenerative changes in the lumbar spine and sacroiliac joints. Mild hip osteoarthritis is present with medial joint space narrowing and minimal osteophytosis. No fracture is identified. IMPRESSION: Degenerative changes without acute osseous abnormality identified. Electronically signed by: Willis Villareal MD 01/09/2025 12:58 PM EDT RP Dictated By: Willis Villareal Transcribed By: Transcribed On: 01/09/2025 12:39 PM Electronically signed by: Willis Villareal 01/09/2025 Thank you for referring KRISTEN VELA to [facility]. Legally authenticated by ARMANI VILLAR MD 2025-01-09 12:39:54 CC'ed Logic: Ordering Provider: QUINN MEDEROS CC Provider: ASHLEE DAY Attending Provider: QUINN MEDEROS Referring Provider: QUINN MEDEROS Admitting Provider: QUINN Rosado MD [address] [place] [address], [facility] [address], [place], [address] 01/28/2025 08:40:56 Ct, Brain, W/o Contrast : [address] [place] [address] Name: KRISTEN VELA Exam Date: 01/09/2025 : 1940 Age 85 years Gender: F Physician: ROSA M BALL Facility: [facility] Facility HSV: Outpatient Exam: CT BRAIN HEAD WO EXAM: CT BRAIN WITHOUT CONTRAST INDICATION: Head Trauma with pain TECHNIQUE: CT of the head was performed without IV contrast. This examination was performed using one or more of the following dose reduction techniques; automated exposure control; adjustment of the Ma and Kv according to patient size; iterative reconstruction technique. COMPARISON: CT of the face performed the same date and CT of the brain performed on 10/18/2019. FINDINGS: There is no hydrocephalus or midline shift. The lorenz-white matter junction is unremarkable and does not demonstrate any evidence of acute infarct. There is mild cortical atrophy. There is no intracranial hemorrhage, midline shift, or mass effect. The suprasellar and basilar cisterns are unremarkable. There is prominent soft tissue swelling overlying the left frontal scalp and glabella. There are bilateral nasal bone fractures. There is a nasal septal fracture involving the posterior aspect. There is bilateral ethmoid, maxillary, and sphenoid sinus mucosal thickening. There is a prosthesis overlying the right globe along the medial aspect. . IMPRESSION: 1. No evidence of acute infarct or intracranial hemorrhage. 2. Multiple nasal bone fractures as described above. Correlate with CT of the face performed on the same date. Electronically signed by: John Walker MD 01/09/2025 01:10 PM EDT RP Dictated By: John Walker Transcribed By: Transcribed On: 01/09/2025 12:38 PM Electronically signed by: John Walker 01/09/2025 Thank you for referring KRISTEN VELA to [facility]. Legally authenticated by AIDAN YOUSSEF MD 2025-01-09 12:38:29 CC'ed Logic: Ordering Provider: QUINN OLSON Provider: ASHLEE DAY Attending Provider: QUINN MEDEROS Referring Provider: QUINN MEDEROS Admitting Provider: QUINN Rosado MD [address] [place] [address], [address], [place], [address] 01/28/2025 08:40:56 Xr, Ankle, 3 Or More View : [address] [place] [address] Name: KRISTEN VELA Exam Date: 01/09/2025 : 1940 Age 85 years Gender: F Physician: ROSA M BALL Facility: [facility] Facility HSV: Outpatient Exam: ANKL 3V RT EXAM: XR ANKLE 3 OR MORE VIEWS RIGHT INDICATION: Pain with Trauma/Injury. . TECHNIQUE: 3 views of the right ankle. COMPARISON:No prior study was submitted for comparison. FINDINGS: Right ankle soft tissue swelling. Plantar calcaneal enthesophyte. No obvious acute fracture or subluxation. Osteopenia. IMPRESSION: 1. Right ankle soft tissue injury. No obvious fracture. 2. Plantar calcaneal spurring. 3. Osteopenia. Osteopenia limits sensitivity for nondisplaced fractures. RECOMMENDATION: Clinical follow-up. Further evaluation with CT or MRI if symptoms persist. Electronically signed by: Wei Foster DO 01/09/2025 01:27 PM EDT RP Dictated By: WEI FOSTER Transcribed By: Transcribed On: 01/09/2025 12:39 PM Electronically signed by: WEI FOSTER 01/09/2025 Thank you for referring KRISTEN VELA to [facility]. Legally authenticated by SONIA CARVAJAL DO 2025-01-09 12:39:32 CC'ed Logic: Ordering Provider: QUINN MEDEROS CC Provider: ASHLEE DAY Attending Provider: QUINN MEDEROS Referring Provider: QUINN MEDEROS Admitting Provider: QUINN Rosado MD [address] [place] [address], [facility] [address], [place], [address] 02/16/2025 10:21:09 Xr, Knee, 3 View : [address] [place] [address] Name: KRISTEN VELA Exam Date: 01/09/2025 : 1940 Age 85 years Gender: F Physician: ROSA M BALL Facility: [facility] Facility HSV: Outpatient Exam: KNEE 3V LT EXAM: XR KNEE 3 VIEWS LEFT INDICATION: Pain with Trauma/Injury. TECHNIQUE: 3 views of the left knee(s). COMPARISON: No prior study was submitted for comparison. FINDINGS: Normal bone density. No lytic, blastic or expansile osseous lesion. Joint spaces are preserved. No obvious intra-articular loose body or osteochondral lesion. No sizeable joint effusion. No obvious fracture or acute subluxation. No obvious soft tissue abnormality about the knee. IMPRESSION: NO ACUTE OSSEOUS ABNORMALITY. RECOMMENDATION: CLINICAL FOLLOW-UP. FURTHER EVALUATION WITH CT OR MRI IF SYMPTOMS PERSIST. Electronically signed by: Wei Foster DO 01/09/2025 01:28 PM EDT RP Dictated By: WEI FOSTER Transcribed By: Transcribed On: 01/09/2025 12:39 PM Electronically signed by: WEI FOSTER 01/09/2025 Thank you for referring KRISTEN VELA to [facility]. Legally authenticated by SONIA CARVAJAL DO 2025-01-09 12:39:40 CC'ed Logic: Ordering Provider: QUINN MEDEROS Provider: ASHLEE DAY Attending Provider: QUINN MEDEROS Referring Provider: QUINN MEDEROS Admitting Provider: QUINN Rosado MD [address] [place] [address], [address], [place], [address] 01/28/2025 08:40:57 Xr, Chest, 1 View : [address] [place] [address] Name: KRISTEN VELA Exam Date: 01/09/2025 : 1940 Age 85 years Gender: F Physician: ROSA M BALL Facility: [facility] Facility HSV: Outpatient Exam: CHEST SINGLE VIEW/PORTABLE EXAM: XR CHEST 1 VIEW PORTABLE INDICATION: . Trauma.. TECHNIQUE: Portable AP or PA view of the chest dated January 09, 2025 12:23 PM COMPARISON:December 02, 2024 11:20 AM FINDINGS: Thoracic aortic atherosclerosis. Mild cardiomegaly. No pulmonary venous congestion. No pneumomediastinum or mediastinal widening. No pulmonary airspace consolidation, obvious pulmonary nodule or abnormal pulmonary interstitial pattern. No evidence for pneumothorax or sizable pleural fluid collection. No obvious acute osseous abnormality. No obvious acute upper abdominal abnormality. IMPRESSION: 1. No obvious acute traumatic abnormality or radiographic evidence for an acute cardiopulmonary process. 2. Mild cardiomegaly. Electronically signed by: Wei Foster DO 01/09/2025 01:29 PM EDT RP Dictated By: WEI FOSTER Transcribed By: Transcribed On: 01/09/2025 12:39 PM Electronically signed by: WEI FOSTER 01/09/2025 Thank you for referring KRISTEN VELA to [facility]. Legally authenticated by SOINA CARVAJAL DO 2025-01-09 12:39:47 CC'ed Logic: Ordering Provider: QUINN MEDEROS CC Provider: ASHLEE DAY Attending Provider: QUINN MEDEROS Referring Provider: QUINN MEDEROS Admitting Provider: QUINN Rosado MD [address] [place] [address], [address], [place], [address] - [facility] 01/28/2025 08:40:57 Problems Name Problem SNOMED Code Status Onset Date Resolution Date Notes Provider Name and Address Organization Details Recorded Time Abrasion and/or friction burn 680282276 Active Not Available [facility] 23:35:47 Upper respirator y infection 12571242 Active Not Available [facility] 23:35:46 Cough 66522338 Active Not Available [facility] 23:35:47 Backache 762334829 Active Not Available [facility] 23:35:46 Chronic recurrent sinusitis 173517984 Active Not Available [facility] 23:35:46 Wheezing 07446690 Active Not Available [facility] 23:35:47 Bronchitis 10214270 Active [facility] Available [facility]:35:[facility] Urinary tract infectious disease 56684681 Active Not Available [facility]:35:46 Contusion of foot 48818007 Active Not Available [facility] 23:35:46 Disorder of cornea 42990623 Active Not Available [facility] 23:35:47 Paronychia of toe 182888677 Active Not Available [facility] 08/26/202 1 23:35:47 Vertigo 175631208 Active Not Available [facility] 23:35:46 Acute sciatica 066742182 Active Not Available [facility] 23:35:47 Strain of back muscle 071481909 Active Not Available [facility] 23:35:46 Nausea present 434781054 Active Not Available [facility] 23:35:47 Fatigue 68032769 Active Not Available [facility] 23:35:47 Muscle pain 78963768 Active Not Available [facility] 23:35:46 Mechanical low back pain 249771359 Active Not Available [facility] 23:35:47 Impairment of balance 464242637 Active Not Available [facility] 23:35:46 Heat exhaustion 64052946 Active Not Available [facility] 23:35:46 Near syncope 256983639 Active Not Available [facility] 23:35:47 Mitral valve regurgitat ion 04085509 Active Not Available [facility] 23:35:46 History of lipoma 393676512911 62827 Active atrial septum Not Available [facility] 23:35:46 Obstructiv e sleep apnea syndrome 34892992 Active Not Available [facility] 23:35:47 Coronary arterioscl erosis 79929937 Active 20- 30 %LAD; 20-30% RCA; EF 60% cath 08/2014 Not Available [facility] 23:35:46 Headache 40965455 Active Not Available [facility] 23:35:46 Gastroesop hageal reflux disease 478352202 Active Not Available [facility] 23:35:47 Closed fracture of carpal bone 0521544 Active Not Available [facility] 23:35:47 Benign essential hypertensi on 8114288 Active Not Available [facility] 23:35:46 Fibromyosi tis 15744019 Active Not Available [facility] 23:35:46 Sprain of wrist and/or hand 775169957 Active Not Available [facility] 23:35:46 Allergic rhinitis 35140811 Active Not Available [facility] 23:35:47 Disorder of urinary tract 24744391 Active Not Available [facility] 23:35:46 Acute sinusitis 49309833 Active Not Available [facility] 23:35:47 Superficia l injury of elbow and/or forearm and/or wrist Active Not Available [facility] 23:35:47 Uric acid urolithias is 297212481 Active Not Available [facility] 23:35:46 Disorder of cardiovasc ular system 93602605 Active Not Available [facility] 23:35:46 Tinea manus 22140146 Active Not Available [facility] 23:35:47 Gouty arthropath y 546030583 Active Not Available [facility] 23:35:47 Psoriasis 1848775 Active Not Available [facility] 23:35:46 Hyperlipid emia 72341983 Active Not Available [facility] 23:35:47 Hypothyroi dism 42462023 Active Not Available [facility] 23:35:47 Malaise and fatigue 928814619 Active Not Available [facility] 23:35:46 Cellulitis and abscess of finger 577364432 Active Not Available [facility] 23:35:46 Notes:Some problems listed i n Document: #[id number] could not be added to this patient's chart. Please review this document and add these problems to the patient's chart manually as needed. Problem Notes None recorded. Procedures Surgical History Date Name Laterality Status Provider Name and Address Organization Details Recorded Time 11/18/19 16 Corneal transplant completed [facility] 01/19/2016 15:15:38 09/16/19 16 Eye Surgery completed [facility] 01/19/2016 15:15:10 04/23/20 15 Nsl/sins ndsc frnt tiss rmvl completed [facility] 01/19/2016 15:14:17 02/29/20 15 Other completed Camilla Rosado MD [address] [place] [address], [address] [place] [address] [facility] 04/08/2015 14:29:07 09/03/19 15 Cardiac Surgery completed Camilla Rosado MD [address], [address] [place] [address] [facility] 09/24/2014 10:08:57 09/19/19 14 Nebulizer tx completed Camilla Rosado MD [address], [address] [place] [address] [facility] 09/18/2013 10:29:15 06/13/19 14 Eye Surgery completed Camilla Rosado MD [address], [address] [place] [address] [facility] 04/08/2015 14:16:06 03/09/20 13 Colonoscopy completed Camilla Rosado MD [address], [address] [place] [address] [facility] 04/21/2015 12:11:53 06/13/19 10 Cataract Surgery completed Camilla Rosado MD [address], [address] [place] [address] [facility] 04/08/2015 14:16:06 04/02/20 04 Colonoscopy completed Bar[facility] 07/19/2013 09:48:00 06/13/19 04 Eye Surgery completed Camilla Rosado MD [address], [address] [place] [address] [facility] 04/08/2015 14:16:06 06/13/18 91 Appendectomy completed Not Available [facility] 011 04:58:32 06/13/18 79 Orthopaedic Surgery completed Camilla Rosado MD [address] [facility], [address], [place], [address], [facility] 04/08/2015 14:22:19 06/13/18 78 Orthopaedic Surgery completed Not Available [facility] 04/27/2011 04:58:32 06/13/18 68 Other completed Not Available [facility] 04:58:32 Other completed Camilla Rosado MD [address] [facility], [address], [place], [address], [facility] 04/08/2015 14:16:06 Other completed Not Available [facility] 04:58:32 Lumpectomy completed Not Available [facility] 04/27/2011 04:58:32 Imaging Results None recorded. Procedure Notes None recorded. Medical Equipment None Reported. Allergies Allergen ID Allergen Name Allergen Category Reaction Reaction Severity Criticality Documentation Date Start Date Code Code System Note Provider Name and Address Organization Details Recorded Time 721 Suprax medicatio n Not available Not available Not available 03/04/2011 71260 9 RxNorm Not Available [facility] 04:58:31 722 Seldane-D medicatio n Not available Not available Not available 03/04/2011 65005 2 RxNorm Not Available [facility] 04:58:31 723 Biaxin medicatio n Not available Not available Not available 03/04/201176741 9 RxNorm Not Available [facility] 1 04:58:31 724 Product containin g penicilli n (product) medicatio n Not available Not available Not available 03/04/2011 48431 8001 SNOMED Not Available [facility] 04:58:31 725 Macrobid medicatio n Not available Not available Not available 03/04/2011 90045 1 RxNorm Not Available [facility] 04:58:31 726 Substance with sulfonami de structure and antibacte rial mechanism of action (substanc e) medicatio n Not available Not available Not available 03/04/2011 24827 8003 SNOMED Not Available [facility] 1 04:58:31 727 methylpre dnisolone medicatio n Not available Not available Not available 03/04/2011 6902 RxNorm Not Available [facility] 1 04:58:31 7902 Lipitor medicatio n Not available Not available Not available 07/08/2011 17514 5 RxNorm [facility] 2 15:44:46 Medications Name Sig Start Date Stop Date Status Note LastModified by Organization Details LastModified Time atenolol 50 mg tabs active Not Available Not Available Not Available durezol 0.05 % emul 10/31 completed Not Available Not Available Not Available levofloxa tom 750 mg tabs 11/10 completed Not Available Not Available Not Available diltiazem hcl er 240 mg cp24 09/19 completed Not Available Not Available Not Available ciproflox acin hydrochlo ride 250 mgtabs 11/27 completed Not Available Not Available Not Available combigan 0.2-0.5 % soln as direeted OU 06/26 completed duplicat e Not Available Not Available Not Available pantopraz ole sodium 40 mg tbec active Not Available Not Available Not Available triamcino lone acetonide 0.1 % crea 05/28 completed Not Available Not Available Not Available travatan z 0.004 % soln 1 drop each eye q hs 05/28 completed Not Available Not Available Not Available hydrochlo rothiazid e 25 mg tabs 1 tablet PO daily 04/21 completed Not Available Not Available Not Available baclofen 5 mg tabs 11/30 completed duplicat e Not Available Not Available Not Available losartan potassium 100 mg tabs 1 tablet PO daily 04/06 completed Not Available Not Available Not Available ofloxacin 0.3 % soln 03/27 completed Not Available Not Available Not Available flovent hfa 110 mcg/act aero 11/30 completed duplicat e Not Available Not Available Not Available monteluka st sodium 10 mg tabs 1 tablet PO daily 05/28 completed Not Available Not Available Not Available naproxen 250 mg tabs active Not Available Not Available Not Available clobetaso l propionat e 0.05 % oint active Not Available Not Available Not Available ranitidin e hydrochlo ride 150 mg tabs 05/28 completed Not Available Not Available Not Available zostavax 45672 unt/0.65m l solr active Not Available Not Available Not Available ciproflox acin hcl 250 mg tabs 02/20 completed Not Available Not Available Not Available sucralfat e 1 gm tabs takes tid 01/18 completed duplicat e Not Available Not Available Not Available ezetimibe 10 mg tabs 12/01 completed duplicat e Not Available Not Available Not Available allopurin ol 100 mg tabs 1 tablet PO daily 05/28 completed Not Available Not Available Not Available pravastat in sodium 80 mg tabs 04/06 completed Not Available Not Available Not Available levocetir izine dihydroch loride 5 mg tabs 1 po daily 05/28 completed Not Available Not Available Not Available acetamino phen/code ine #3 300-30 mgtabs active Not Available Not Available Not Available bacitraci n/polymyx in b 500-74042 unit/gm oint 12/10 completed Not Available Not Available Not Available cartia xt 180 mg cp24 05/20 completed Not Available Not Available Not Available levofloxa tom 500 mg tabs 04/06 completed Not Available Not Available Not Available methylpre dnisolone dose pack 4 mg tbpk 03/27 completed Not Available Not Available Not Available ranitidin e hcl 150 mg tabs 1 po bid 04/06 completed Not Available Not Available Not Available pazeo 0.7 % soln as directed OU 04/06 completed Not Available Not Available Not Available zetia 10 mg tabs 1 tablet PO daily 01/18 completed duplicat e Not Available Not Available Not Available pataday 0.2 % soln active Not Available Not Available Not Available erythromy tom 5 mg/gm oint 04/06 completed Not Available Not Available Not Available levothyro xine sodium 100 mcg tabs 1 tablet PO daily 04/06 completed Not Available Not Available Not Available amlodipin e besylate 5 mg tabs 1 po daily 10/28 completed Not Available Not Available Not Available ventolin hfa 108 (90 base) mcg/actae rs 04/06 completed Not Available Not Available Not Available azelastin e hcl 0.15 % soln 1 spray each nostril bid 06/26 completed duplicat e Not Available Not Available Not Available clotrimaz ole/betam ethasone dipropion ate 1-0.05 % crea 02/26 completed Not Available Not Available Not Available pilocarpi ne hcl 1 % soln bid OD 04/06 completed Not Available Not Available Not Available prednisol one acetate 1 % susp as directed per ophthalm ologist 4x daily OU and 2 x OD 06/10 completed Not Available Not Available Not Available diltiazem hydrochlo ride er 240 mg cp24 1 po bid 08/10 completed duplicat e Not Available Not Available Not Available atenolol 25 mg tabs 1 tablet PO daily 01/18 completed duplicat e Not Available Not Available Not Available methylpre dnisolone dose pack 4 mg tabs active Not Available Not Available No t Available clindamyc in hcl 150 mg caps 06/22 completed Not Available Not Available Not Available vigamox 0.5 % soln 03/12 completed Not Available Not Available Not Available cephalexi n 500 mg caps active Not Available Not Available Not Available prednison e 20 mg tabs 05/20 completed Not Available Not Available Not Available doxycycli ne hyclate 100 mg caps 05/28 completed Not Available Not Available Not Available amlodipin e besylate 2.5 mg tabs 1 tablet PO daily 02/15 completed Not Available Not Available Not Available latanopro st 0.005 % soln active Not Available Not Available Not Available azasite 1 % soln 12/01 completed Not Available Not Available Not Available meclizine hcl 12.5 mg tabs 08/06 completed Not Available Not Available Not Available fluticaso ne propionat e 50 mcg/act susp 12/01 completed duplicat e Not Available Not Available Not Available proair hfa 108 (90 base) mcg/act aers 06/22 completed Not Available Not Available Not Available clindamyc in hydrochlo ride 150 mg caps 04/06 completed Not Available Not Available Not Available ketorolac 15 mg/mL injection solution 2014 active Not Available Not Available Not Avai lable latanopro st 0.005 % eye drops INSTILL 1 DROP INTO THE LEFT EYE AT BEDTIME active Not Available Not Available No t Available promethaz ine-DM 6.25 mg-15 mg/5 mL oral syrup Take 5 mL by mouth every 6 hours as needed for 5 days. 2023 active Not Available Not Available Not Avai lable doxycycli ne hyclate 100 mg capsule Take 1 capsule twice a day by oral route with meals for 10 days. 08/27 completed Not Available Not Available Not Available pilocarpi ne 1 % eye drops 1 drop OU bid active Not Available Not Available No t Available Depo-Medr ol 40 mg/mL suspensio n for injection 2014 active Not Available Not Available Not Avai lable cetirizin e 10 mg tablet TAKE 1 TABLET BY MOUTH EVERY MORNING active Not Available Not Available No t Available azithromy tom 250 mg tablet active Not Available Not Available No t Available pravastat in 40 mg tablet TAKE 1 TABLET EVERY EVENING 2012 active Not Available Not Available Not Avai lable ofloxacin 0.3 % eye drops INSTILL1 DROP INTO THE RIGHT EYE 4 TIMES A DAY active Not Available Not Available No t Available benzonata te 200 mg capsule Take 1 capsule 3 times a day by oral route as needed for 10 days. 12/17 completed Not Available Not Available Not Available diclofena c ER 100 mg tablet,ex tended release 24 hr 06/01 completed Not Available Not Available Not Available hydrocodo ne 5 mg-acetam inophen 325 mg tablet active Not Available Not Available Not Available urea 40 % topical cream APPLY TO HANDS TWICE A DAY active Not Available Not Available No t Available Avelox 400 mg tablet active Not Available Not Available Not Available diltiazem CD 240 mg capsule,e xtended release 24 hr Take 240mg twice a day. 09/19 completed Not Available Not Available Not Available sucralfat e 1 gram tablet Take 1 tablet 3 times a day by oral route for 30 days. 10/31 completed only if needed Not Available Not Available Not Available promethaz ine 12.5 mg tablet active Not Available Not Available No t Available famotidin e 40 mg tablet 10/28 completed Not Available Not Available Not Available prednison e 20 mg tablet 09/11 completed Not Available Not Available Not Available doxycycli ne hyclate 50 mg capsule Take 1 capsule every day by oral route. 09/11 completed Not Available Not Available Not Available atenolol 25 mg tablet TAKE 1 TABLET DAILY IN THE EVENING. 02/15 completed Not Available Not Available Not Available clobetaso l 0.05 % topical cream active Not Available Not Available Not Available clindamyc in HCl 150 mg capsule Take 1 capsule every 6 hours by oral route with meals for 5 days. 04/22 completed Not Available Not Available Not Available travopros t 0.004 % eye drops each eye at bedtime 06/10 completed Not Available Not Available Not Available meclizine 12.5 mg tablet Take 1 tablet twice a day by oral route as needed. 03/29 completed Not Available Not Available Not Available amlodipin e 2.5 mg tablet Take 1 tablet every day by oral route for 30 days. 03/29 completed Not Available Not Available Not Available acetamino phen 300 mg-codein e 30 mg tablet 06/01 completed Not Available Not Available Not Available ciproflox acin 250 mg tablet Take 1 tablet every 12 hours by oral route for 5 days. 08/17 completed Not Available Not Available Not Available amlodipin e 5 mg tablet Take 1 tablet every day by oral route for 30 days. 03/29 completed Not Available Not Available Not Available allopurin ol 100 mg tablet TAKE 1 TABLET ONCE A DAY. active Not Available Not Available No t Available valacyclo vir 500 mg tablet active Not Available Not Available No t Available ciproflox acin 500 mg tablet TAKE ONE TABLET BY MOUTH EVERY 12 HOURS FOR 10 DAYS 03/10 completed Not Available Not Available Not Available folic acid 400 mcg tablet Take 1 tablet every day by oral route. 06/01 completed Not Available Not Available Not Available aspirin 81 mg tablet,de layed release Take 1 tablet every day by oral route. 2013 active Not Available Not Available Not Avai lable triamcino lone acetonide 0.1 % topical cream APPLY TO AFFECTED AREA TWICE A DAY NEEDED 09/04 completed Not Available Not Available Not Available TobraDex 0.3 %-0.1 % eye ointment APPLY INTO RIGHT EYE 4 TIMES A DAY active Not Available Not Available No t Available simvastat in 40 mg tablet active Not Available Not Available Not Available triflurid ine 1 % eye drops active Not Available Not Available No t Available levothyro xine 100 mcg tablet TAKE 1 TABLET ONCE A DAY IN THE MORNING 30 MINUTES BEFORE YOUR FIRST MEAL 2024 active Not Available Not Available Not Avai lable Tessalon Perles 100 mg capsule Take 1 capsule 3 times a day by oral route for 10 days. 2014 active Not Available Not Available Not Avai lable Azopt 1 % eye drops,christiane pension active Not Available Not Available Not Available ceftriaxo ne 1 gram solution for injection Take 0.5 g by injectio n route. 09/11 completed Not Available Not Available Not Available famotidin e 20 mg tablet Take 1 tablet(s ) twice a day. 2024 active Not Available Not Available Not Avai lable pravastat in 80 mg tablet TAKE 1 TABLET EVERY EVENING. active Not Available Not Available No t Available prednisol one acetate 1 % eye drops,christiane pension PLACE 1 DROP IN RIGHT EYE 4 TIMES A DAY AND PLACE 1 DROP IN LEFT EYE TWICE A DAY DIRECTED 03/29 completed Not Available Not Available Not Available Vitamin C 1,000 mg tablet 1 PO daily 05/30 completed Not Available Not Available Not Available lorazepam 0.5 mg tablet active Not Available Not Available Not Available methotrex ate sodium 2.5 mg tablet TAKE 5 TABLETS EVERY WEEK DIRECTED 02/25 completed Not Available Not Available Not Available meclizine 25 mg tablet active Not Available Not Available Not Available doxycycli ne monohydra te 100 mg capsule Take 1 capsule twice a day by oral route with meals for 10 days. 12/17 completed Not Available Not Available Not Available cephalexi n 500 mg capsule Take 1 capsule 4 times a day by oral route for 10 days. 03/23 completed Not Available Not Available Not Available pantopraz ole 40 mg tablet,de layed release Take 1 tablet every day by oral route. 2014 active Not Available Not Available Not Avai lable erythromy tom 5 mg/gram (0.5 %) eye ointment 06/10 completed Not Available Not Available Not Available nystatin 100,000 unit/gram topical cream active Not Available Not Available Not Available calcipotr iene 0.005 % topical cream Apply by topical route a thin layer to affected skin twice a day active Not Available Not Available No t Available ranitidin e 150 mg tablet TAKE 1 TABLET TWICE A DAY. 09/12 completed Not Available Not Available Not Available clotrimaz ole-betam ethasone 1 %-0.05 % topical cream APPLY TO THE AFFECTED AND SURROUND ING AREAS OF SKIN BY TOPICAL ROUTE 2 TIMES PER DAY IN THE MORNING AND EVENING FOR 2 WEEKS 02/26 completed Not Available Not Available Not Available diphenhyd ramine 25 mg tablet 1 or 2 tablets every 4 hours prn allergic reaction 06/01 completed Not Available Not Available Not Available olopatadi ne 0.1 % eye drops INSTILL 1 DROP INTO AFFECTED EYE(S) BY OPHTHALM IC ROUTE 2 TIMES PER DAY AT AN INTERVAL OF 6 TO 8 HOURS 06/10 completed Not Available Not Available Not Available lisinopri l 10 mg tablet active Not Available Not Available Not Available TheraTear s 0.25 % eye drops as needed active Not Available Not Available No t Available promethaz ine 25 mg tablet active Not Available Not Available Not Available omeprazol e 20 mg capsule,d elayed release active Not Available Not Available Not Available diclofena c sodium 75 mg tablet,de layed release Take 1 tablet every day by oral route with meals for 10 days. 06/01 completed Not Available Not Available Not Available folic acid 1 mg tablet TAKE 1 TABLET BY MOUTH EVERY DAY EXCEPT ON FRIDAYS WHEN YOU TAKE METHOTRE XATE 2014 active Not Available Not Available Not Avai lable hydrocort isone 2.5 % topical cream 03/29 completed Not Available Not Available Not Available monteluka st 10 mg tablet TAKE ONE TABLET EVERY DAY active Not Available Not Available No t Available hydroxyzi ne HCl 25 mg tablet active Not Available Not Available No t Available halobetas ol propionat e 0.05 % topical cream active Not Available Not Available Not Available hydrochlo rothiazid e 25 mg tablet TAKE 1 TABLET EVERY DAY 07/14 completed duplicat e Not Available Not Available Not Available mupirocin 2 % topical ointment APPLY TO AFFECTED AREA DIRECTED 3 TIMES A DAY 09/11 completed Not Available Not Available Not Available digoxin 125 mcg (0.125 mg) tablet TAKE 1 TABLET EVERY DAY 07/15 completed Not Available Not Available Not Available furosemid e 20 mg tablet active Not Available Not Available Not Available metoprolo l succinate ER 25 mg tablet,ex tended release 24 hr Take 1 tablet every day by oral route. active Not Available Not Available No t Available clobetaso l 0.05 % topical ointment Apply 2 g twice a day by topical route as needed for 30 days. active Not Available Not Available No t Available dexametha sone sodium phosphate 4 mg/mL injection solution Inject 0.5 mL by intramus cular route. 12/17 completed Not Available Not Available Not Available azelastin e 137 mcg (0.1 %) nasal spray 12/17 completed Not Available Not Available Not Available Cheratuss in AC 10 mg-100 mg/5 mL oral liquid active Not Available Not Available Not Available Nasonex 50 mcg/actua tion [place] active Not Available Not Available Not Available Lumigan 0.03 % eye drops active Not Available Not Available No t Available ibuprofen 600 mg tablet 06/10 completed Not Available Not Available Not Available levofloxa tom 500 mg tablet Take 1 tablet every 24 hours by oral route. 06/01 completed Not Available Not Available Not Available gentamici n 40 mg/mL injection solution Take 2 mL by injectio n route. 03/23 completed Not Available Not Available Not Available levofloxa tom 750 mg tablet 08/27 completed Not Available Not Available Not Available methylpre dnisolone 4 mg tablets in a dose pack take as directed 07/26 completed Not Available Not Available Not Available albuterol sulfate HFA 90 mcg/actua tion aerosol inhaler INHALE 2 PUFFS BY MOUTH EVERY 4 HOURS NEEDED active Not Available Not Available No t Available Vitamin D2 1,250 mcg (50,000 unit) capsule active Not Available Not Available Not Available timolol maleate 0.5 % eye drops active Not Available Not Available Not Available ipratropi um bromide 42 mcg (0.06 %) nasal spray [place] 2 sprays 3 times a day by intranas al route as needed for 30 days. 2024 active Not Available Not Available Not Avai lable celecoxib 100 mg capsule 1 po daily 06/10 completed Not Available Not Available Not Available ketoconaz ole 2 % topical cream Apply by topical route to hands an feet bid active Not Available Not Available No t Available fluocinon zaynab 0.05 % topical cream active Not Available Not Available Not Available hydroxyzi ne HCl 10 mg tablet active Not Available Not Available No t Available cefdinir 300 mg capsule TAKE 1 CAPSULE BY MOUTH TWICE DAILY FOR 10 DAYS 12/17 completed Not Available Not Available Not Available Zofran 2 mg/mL intraveno us solution 2014 active odansetr on for nausea & vomiting , IM Not Available Not Available Not Available losartan 100 mg tablet TAKE 1 TABLET ONCE A DAY. active Not Available Not Available No t Available fluticaso ne propionat e 50 mcg/actua tion nasal spray,christiane pension [place] 1 spray every day by intranas al route as needed. 06/10 completed Not Available Not Available Not Available doxycycli ne hyclate 100 mg tablet TAKE 1 TABLET TWICE A DAY FOR 10 DAYS 12/08 completed Not Available Not Available Not Available atenolol 50 mg tablet TAKE 1 TABLET EVERY DAY (IN THE EVENING) 10/19 completed dosage reduced Not Available Not Available Not Available Guaifenes in-DM 10 mg-100 mg/5 mL oral liquid Take 10 mL every 4 hours by oral route as needed. 2014 active Not Available Not Available Not Avai lable loratadin e 10 mg tablet Take 1 tablet(s ) every day by oral route in the evening for 30 days. 01/30 completed Not Available Not Available Not Available naproxen 500 mg tablet active Not Available Not Available Not Available mometason e 0.1 % topical cream active Not Available Not Available Not Available Cartia XT 180 mg capsule,e xtended release TAKE ONE CAPSULE BY MOUTH TWICE DAILY 10/18 completed Not Available Not Available Not Available calcipotr iene 0.005 % topical ointment active Not Available Not Available Not Available valsartan 160 mg tablet Take 1 tablet every day by oral route. 06/26 completed Not Available Not Available Not Available ezetimibe 10 mg tablet TAKE ONE TABLET DAILY 10/31 completed Not Available Not Available Not Available Vitamin D3 25 mcg (1,000 unit) capsule 2 PO daily 2012 active Not Available Not Available Not Avai lable Restasis 0.05 % eye drops in a dropperet te active Not Available Not Available Not Available Vigamox 0.5 % eye drops active Not Available Not Available Not Available Flovent HFA 110 mcg/actua tion aerosol inhaler once daily if needed 09/04 completed Not Available Not Available Not Available Nevanac 0.1 % eye drops,christiane pension active Not Available Not Available Not Available chlorhexi dine gluconate 0.12 % mouthwash 09/04 completed Not Available Not Available Not Available aspirin 81 mg po daily 12/17 completed Not Available Not Available Not Available coenzyme Q10 06/01 completed takes 200 mg daily Not Available Not Available Not Available Centrum Silver 1 tablet PO daily 06/01 completed Not Available Not Available Not Available Claritin- D 12 Hour daily as needed 03/13 completed Not Available Not Available Not Available CeraVe lotion active moisturi zer Not Available Not Available Not Available MoviPrep 100 gram-7.5 gram-2.69 1 gram oral powder packet active Not Available Not Available Not Available Pataday 0.2 % eye drops INSTILL 1 DROP INTO AFFECTED EYE(S) BY OPHTHALM IC ROUTE ONCE DAILY active Not Available Not Available No t Available hydrochlo rothiazid e 12.5 mg tablet Take 1 tablet every day by oral route in the morning. 2024 active Not Available Not Available Not Avai lable AzaSite 1 % eye drops INSTILL 1 DROP INTO BOTH EYES AT BEDTIME 11/20 completed Not Available Not Available Not Available levocetir izine 5 mg tablet 1 po daily active Not Available Not Available No t Available brimonidi ne 0.2 %-timolol 0.5 % eye drops INSTILL 1 DROP INTO AFFECTED EYE(S) BY OPHTHALM IC ROUTE EVERY 12 HOURS active Not Available Not Available No t Available Durezol 0.05 % eye drops INSTILL 1 DROP 4 TIMES A DAY INTO RIGHT EYE STARTING THE DAY AFTER SURGERY 07/05 completed Not Available Not Available Not Available Besivance 0.6 % eye drops,christiane pension active Not Available Not Available Not Available Colcrys 0.6 mg tablet Take 1 tablet every day by oral route for 30 days. active Not Available Not Available No t Available azelastin e 205.5 mcg (0.15 %) nasal spray [place] 1 spray twice a day by intranas al route. 2023 active Not Available Not Available Not Avai lable Lumigan 0.01 % eye drops 1 OU q HS 03/29 completed Not Available Not Available Not Available Systane Balance 0.6 % eye drops as needed active Not Available Not Available No t Available Atelvia 35 mg tablet,de layed release active Not Available Not Available Not Available krill oil 500 mg capsule 01/30 completed 1 daily Not Available Not Available Not Available red yeast rice 600 mg tablet Take 1 tablet every day by oral route. 05/30 completed Not Available Not Available Not Available Vaniply 1 % topical ointment active for sensitiv e skin Not Available Not Available Not Available CertaVite Senior 1 po daily active Not Available Not Available No t Available Pazeo 0.7 % eye drops used prn 06/10 completed Not Available Not Available Not Available Emergen-C Immune Plus 3 po daily 06/10 completed Not Available Not Available Not Available baclofen 5 mg tablet Take 1 tablet every day by oral route at bedtime. 10/11 completed Not Available Not Available Not Available Voltaren Arthritis Pain 1 % topical gel APPLY 2 GRAMS TO THE AFFECTED AREA(S) BY TOPICAL ROUTE 4 TIMES PER DAY active Not Available Not Available No t Available Pataday Once Daily Relief as needed 09/11 completed Not Available Not Available Not Available Paxlovid 300 mg (150 mg x 2)-100 mg tablets in a dose pack 06/10 completed Not Available Not Available Not Available Vitals Date Recorded Body height Body mass index (BMI) Body weight Heart rate Oxygen saturation Oxygen saturation in Arterial blood by Pulse oximetry Body temperature Systolic And Diastolic Provider Name and Address Organization Details Last Updated DateTime 5 172.72 cm 25.5 kg/m2 71633.5 2 g 86 /min 98 % 98 % 97.8 [degF] 140/72 mm[Hg] [facility] 16:06:27 Date Recorded Body height Body mass index (BMI) Body weight Heart rate Oxygen saturation Oxygen saturation in Arterial blood by Pulse oximetry Body temperature Systolic And Diastolic Provider Name and Address Organization Details Last Updated DateTime 5 172.72 cm 25.2 kg/m2 38635.3 3 g 71 /min 94 % 94 % 97.7 [degF] 140/80 mm[Hg] [facility] 16:37:11 Date Recorded Body height Body mass index (BMI) Body weight Heart rate Oxygen saturation Oxygen saturation in Arterial blood by Pulse oximetry Body temperature Systolic And Diastolic Provider Name and Address Organization Details Last Updated DateTime 5 172.72 cm 25.2 kg/m2 10885.3 3 g 70 /min 97 % 97 % 97.2 [degF] 153/86 mm[Hg] [facility] 5 10:52:56 Date Recorded Systolic And Diastolic Provider Name and Address Organization Details Last Updated DateTime 12/17/2024 163/83 mm[Hg] Camilla Rosado MD [address] [facility], [facility] [address], [place], [address], [facility] 12/17/2024 16:47:11 Date Recorded Body height Body mass index (BMI) Body weight Heart rate Oxygen saturation Oxygen saturation in Arterial blood by Pulse oximetry Body temperature Systolic And Diastolic Provider Name and Address Organization Details Last Updated DateTime 5 172.72 cm 25.8 kg/m2 64522.7 g 71 /min 97 % 97 % 97.7 [degF] 156/97 mm[Hg] [facility] 5 15:27:00 Date Recorded Body height Body mass index (BMI) Body weight Heart rate Oxygen saturation Oxygen saturation in Arterial blood by Pulse oximetry Body temperature Systolic And Diastolic Provider Name and Address Organization Details Last Updated DateTime 5 172.72 cm 25.9 kg/m2 60775.5 g 83 /min 96 % 96 % 98.2 [degF] 139/85 mm[Hg] [facility] 5 10:27:34 Social History Question Answer Notes LastModified by Organizat ion Details LastModified Time Tobacco Smoking Status Never Smoker Not Available [facility] 04/08/2020 03:11:18 Do You Have An Advance Directive? No Information not available 09/06/2023 Animal Exposure? Yes [email or web address] [id number] Information not available 04/27/2011 Auto Related Injury? No Information not available 04/27/2011 Is Blood Transfusion Acceptable In An Emergency? Yes [id number] Information not available 04/08/2020 What Is Your Level Of Caffeine Consumption? Heavy [id number] Information not available 04/08/2020 How Much Tobacco Do You Chew? None [id number] Information not available 04/08/2020 Diabetes No [id number] [id number] 5 Information not available 04/27/2011 What Type Of Diet Are You Following? REGULAR [id number] Information not available 04/08/2020 Which Illicit Or Recreational Drugs Have You Used? None [id number] Information not available 04/08/2020 Education 12 [email or web address] [id number] 5 Information not available 04/27/2011 What Is The Highest Grade Or Level Of School You Have Completed Or The Highest Degree You Have Received? [id number] Information not available 03/05/2021 Family History Of Heart Disease? No 5 Information not available 04/27/2011 Which Of Your Hands Is Dominant? Right [id number] Information not available 04/08/2020 High Blood Pressure Yes Information not available 04/27/2011 High Cholesterol Yes Information not available 04/27/2011 Live Alone Or With Others? Alone Information not available 04/27/2011 Marital Status Single Information not available 04/27/2011 What Was The Date Of Your Most Recent Tobacco Screening? 09/11/2024 Information not available 09/11/2024 How Many Children Do You Have? 0 Information not available 06/10/2022 What Is Your Relationship Status? Single Information not available 03/05/2021 Seat Belts Used Routinely Yes 5 Information not available 04/27/2011 Are You Sexually Active? No Information not available 03/05/2021 Smoke Alarm In Home Yes 5 Information not available 04/27/2011 General Stress Level Low 5 Information not available 04/27/2011 Do You Use Sunscreen Routinely? Yes [id number] Information not available 04/08/2020 Sex: Unknown Functional Status Question Answer Note LastModified by Organizat ion Details LastModified Time What is your level of alcohol consumption? None [id number] Information not available 04/08/2020 Are you currently employed? No [id number] Information not available 04/08/2020 Are you able to care for yourself independently? 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 Moderate [id number] Information not available 04/08/2020 Mental Status Question Answer Note LastModified by Organization D etails LastModified Time Do you feel stressed (tense, restless, nervous, or anxious, or unable to sleep at night)? [id number] Information not available 03/05/2021 Family History Relationship Description Onset Age of this Age Resolved Age Notes LastModified by Organization Details LastModified Time Father Problem 54 sucide Not available 11/28/2015 10:49:42 Mother Problem 82 cancer Not available 11/28/2015 10:49:42 Brother Problem 56 stroke Not availabl e 11/28/2015 10:49:42 Medical History Condition Response Coronary Artery Disease N Gout N Kidney Stones N Blood Diseases N Hyperthyroidism N Hypothyroidism Y COPD N Depression N Developmental or Behavioral Disorders N Eczema, Hives or other skin conditions N Anxiety Disorder N Muscle, Joint, or Bone Problems N Vision or Eye Problems Y Arthritis N Serious Illness or Injuries N Congenital Anomalies N Cancer N Stroke N Bladder or Kidney Problems N Hospital Admission other than N High Cholesterol Y Liver Disease N Fibromyalgia N Kidney Disease N Heart Problems N Ear or Hearing Problems N ADD or ADHD N Thyroid Problems Y Skin Problems Y Anemia N Constipation N Diabetes N Bedwetting N Seizures/Epilepsy N Tuberculosis N Diverticulitis N Asthma N Allergies N GERD/Reflux Y Heart Disease N Pulmonary Embolism N Hypertension Y Chicken Pox N Osteoporosis N Gynecological History Statement/Question Response Menses Monthly N If Post Menopausal, Age at Menopause 54 Age at Menarche 17 Obstetrics History GPAL:G 0 P 0 0 0 0 Immunizations Vaccine Type Date Status Note Provider Nam e and Address Organization Details Recorded Time Td (adult), 5 Lf tetanus toxoid, preservative free, adsorbed 3 completed Not Available [facility] 06/30/2019 02:12:07 Influenza, high-dose, trivalent, PF 7 completed Not Available [facility] 06/30/2019 02:12:14 Influenza, high-dose, trivalent, PF 8 completed Not Available [facility] 06/30/2019 02:12:13 Influenza, high-dose, trivalent, PF 9 completed Not Available [facility] 06/30/2019 02:12:11 Influenza, high-dose, trivalent, PF 4 completed Not Available [facility] 02/05/2021 23:35:47 Influenza, high-dose, quadrivalent, PF 0 completed Not Available [facility] 03/25/2020 14:52:50 Influenza, high-dose, quadrivalent, PF 1 completed Not Available [facility] 03/05/2021 14:15:39 Pneumococcal conjugate PCV 13 5 completed Not Available [facility] 02/05/2021 23:35:48 Influenza, high-dose, quadrivalent, PF 2 completed Camilla Rosado MD [address] [facility], [place], [address], [facility] 03/29/2022 22:17:19 Influenza, high-dose, trivalent, PF 5 completed Not Available [facility] 02/05/2021 23:35:47 Influenza, high-dose, quadrivalent, PF 3 completed Not Available [facility] 03/24/2023 16:04:59 COVID-19, mRNA, LNP-S, bivalent, PF, 30 mcg/0.3 mL dose 3 completed [facility] 04/01/2023 15:53:08 zoster live 6 completed Not Available [facility] 02/05/2021 23:35:47 Influenza, high-dose, trivalent, PF 6 completed Not Available [facility] 02/05/2021 23:35:48 Influenza, high-dose, trivalent, PF 4 completed Camilla Rosado MD [address] [facility], [facility], [place], [address], [facility] 03/23/2024 14:11:30 COVID-19, mRNA, LNP-S, PF, trista-sucrose, 30 mcg/0.3 mL 4 completed Not Available [facility] 03/30/2024 14:23:51 pneumococcal polysaccharide PPV23 6 completed Not Available [facility] 02/05/2021 23:35:48 Pneumococcal conjugate PCV20, polysaccharide [id number] conjugate, adjuvant, PF 5 completed [facility] 10/26/2024 11:48:53 Influenza, high-dose, trivalent, PF 5 completed Not Available [facility] 03/29/2025 10:29:24 Hep A, adult 9 completed Not Available [facility] 02/05/2021 23:35:47 Hep A, adult 9 completed Not Available [facility] 02/05/2021 23:35:47 COVID-19, mRNA, LNP-S, PF, 100 mcg/0.5mL dose or 50 mcg/0.25mL dose 1 completed Not Available [facility] 02/05/2021 23:35:47 COVID-19, mRNA, LNP-S, PF, 100 mcg/0.5mL dose or 50 mcg/0.25mL dose 1 completed Not Available [facility] 02/05/2021 23:35:47 COVID-19, mRNA, LNP-S, PF, 100 mcg/0.5mL dose or 50 mcg/0.25mL dose 1 completed Camilla Rosado MD [address] [facility], [place] [address], [place], [address], [facility] 06/01/2021 15:40:35 Influenza, high-dose, quadrivalent, PF 2 completed [facility] 06/10/2022 16:30:49 Tdap 4 completed Cmailla Rosado MD [address] [address], [place], [address], [facility] 02/06/2024 16:12:29 RSV, recombinant, protein subunit RSVpreF, adjuvant reconstituted, 0.5 mL, PF 5 completed Camilla Rosado MD [address] [facility], [place] [address], [place], [address], [facility] 06/28/2024 14:43:02 Influenza, split virus, trivalent, preservative 2 completed Not Available [facility] 06/30/2019 02:12:11 Pneumococcal Conjugate, unspecified formulation 6 completed Not Available [facility] 02/05/2021 23:35:47 Pneumococcal Conjugate, unspecified formulation 7 completed Not Available [facility] 02/05/2021 23:35:47 Pneumococcal Conjugate, unspecified formulation 1 completed Not Available [facility] 02/05/2021 23:35:47 Influenza, high-dose, trivalent, PF 3 completed Not Available [facility] 02/05/2021 23:35:47 Past Encounters Encounter ID Performer Location Encounter Start Date Encounter Closed Date Diagnosis/Indication Diagnosis SNOMED-CT Code Diagnosis ICD10 Code Diagnosis IMO Codes Diagnosis Note [id number] Bull Morrow MD [facility] [address] [address] 7 03/04/2011 12:44:57 03/04/2011 17:15:45 [id number] NURSE [facility] [address] [address] 7 03/08/2011 13:51:32 03/08/2011 15:19:20 [id number] Bull Morrow MD [address] [address] 7 03/16/2011 10:49:17 03/17/2011 03:49:25 [id number] Bull Morrow MD [address] [address] 7 04/01/2011 10:47:13 04/01/2011 12:29:43 [id number] Bull Morrow MD [address] [address] 7 04/15/2011 08:59:24 04/15/2011 16:39:27 [id number] Bull Morrow MD [address] [address] 7 07/08/2011 14:32:23 07/08/2011 16:35:23 [id number] Camilla Rosado MD [address] [address] 7 12/03/2011 11:33:01 12/03/2011 15:59:59 [id number] Camilla Rosado MD [address] [address] 7 12/10/2011 10:37:37 12/10/2011 16:49:49 [id number] Camilla Rosado MD [address] [place] [address] 12/14/2011 09:01:55 12/14/2011 14:12:53 [id number] Camilla Rosado MD [facility] [address] [address] 7 12/16/2011 13:43:11 12/17/2011 06:37:36 [id number] Camilla Rosado MD [address] [address] 7 12/21/2011 14:25:43 12/22/2011 08:33:35 [id number] Camilla Rosado MD [address] [address] 7 12/24/2011 10:24:35 12/27/2011 07:58:53 [id number] Camilla Rosado MD [address] [address] 7 12/27/2011 10:22:30 12/28/2011 13:48:18 [id number] Bull Morrow MD [address] [address] 7 02/18/2012 10:23:00 02/18/2012 11:24:05 [id number] Bull Morrow MD [address] [address] 7 03/06/2012 09:28:05 03/06/2012 16:31:53 [id number] Bull Morrow MD [address] [address] 7 04/07/2012 10:48:30 04/07/2012 16:43:51 [id number] Bull Morrow MD [address] [address] 7 05/01/2012 10:54:00 05/02/2012 06:50:06 [id number] Bull Morrow MD [facility] [address] [address] 7 05/03/2012 10:14:19 05/06/2012 19:18:15 [id number] uBll Morrow MD [address] [address] 7 05/17/2012 08:11:17 05/17/2012 08:57:48 [id number] Bull Morrow MD [address] [address] 7 05/30/2012 08:53:46 05/30/2012 18:00:02 [id number] Camilla Rosado MD [address] [address] 7 07/11/2012 14:04:35 07/11/2012 16:54:57 [id number] [place] [address] 07/21/2012 08:44:38 07/21/2012 17:36:00 [id number] Camilla Rosado MD [address] [address] 7 10/30/2012 14:53:23 10/30/2012 18:26:24 [id number] Camilla Rosado MD [address] [address] 7 12/11/2012 10:56:21 12/13/2012 08:29:10 [id number] Camilla Rosado MD [address] [address] 7 12/19/2012 14:05:12 12/19/2012 15:55:25 [id number] Camilla Rosado MD [address] [address] 7 01/30/2013 14:03:29 01/30/2013 16:24:04 [id number] Camilla Rosado MD [address] [address] 7 03/30/2013 14:12:18 03/30/2013 16:09:21 Benign essential hypertension 5310901 Disorder o f cardiovascular system 69262968 Hyperlipidemia 32365466 Hypothyroidism 65269795 Gastroesop hageal reflux disease 356174417 [id number] Camilla Rosado MD [facility] [place] [address] 7 05/08/2013 15:00:36 05/08/2013 16:43:07 Upper respiratory infection 94940738 Benign ess ential hypertension 8292045 Gastroesop hageal reflux disease 727579390 Malaise and fatigue 137001267 [id number] Camilla Rosado MD [facility] [address] [address] 7 07/19/2013 09:58:18 07/19/2013 11:24:04 Acute sinusitis 02112582 Hyperlipidemia 15588645 Gouty arthropathy 503407851 Psoriasis 6712426 Hypothyroidism 33285225 Benign ess ential hypertension 0215499 Disorder o f cardiovascular system 61868599 [id number] Camilla Rosado MD [facility] [place] [address] 7 08/27/2013 09:47:54 08/27/2013 11:28:17 Chronic recurrent sinusitis 161196539 Allergic rhinitis 68274484 Benign ess ential hypertension 1372788 Psoriasis 1677908 [id number] Camilla Rosado MD [facility] [address] [address] 7 09/14/2013 10:52:56 09/14/2013 15:15:41 Acute sinusitis 72947898 Allergic rhinitis 86842651 Cough 41130655 Bronchitis 35334577 Psoriasis 6877334 [id number] Camilla Rosado MD [facility] [address] [address] 7 09/18/2013 09:38:13 09/18/2013 11:55:57 Acute sinusitis 07410946 Bronchitis 23688483 Benign ess ential hypertension 9475205 Wheezing 64070229 Psoriasis 1193786 [id number] Camilla Rosado MD [facility] [address] [address] 7 10/05/2013 10:47:28 10/15/2013 17:17:00 Psoriasis 6974356 Benign ess ential hypertension 2206199 Allergic rhinitis 84878539 [id number] Camilla Rosado MD [facility] [address] [address] 7 11/20/2013 10:56:57 11/22/2013 08:15:11 Adult health examination 798789785 [id number] Camilla Rosado MD [address] [address] 7 02/25/2014 09:57:02 02/25/2014 12:08:24 Allergic rhinitis 59155748 Benign ess ential hypertension 0795817 Psoriasis 9870965 [id number] Camilla Rosado MD [address] [address] 7 04/15/2014 14:39:26 04/15/2014 15:58:57 Contusion of foot 06441216 Benign ess ential hypertension 4090227 Psoriasis 4556546 [id number] Camilla Rosado MD [place] [address] 7 05/03/2014 10:01:27 05/03/2014 16:28:17 Acute sinusitis 51232164 Benign ess ential hypertension 1803102 Disorder of cornea 64702728 [id number] Camilla Rosado MD [place] [address]861-116 7 07/11/2014 10:10:01 07/12/2014 18:19:18 Paronychia of toe 926827039 Benign ess ential hypertension 5459391 Psoriasis 6998641 [id number] Camilla Rosado MD [place] [address]861-116 7 07/18/2014 10:48:24 07/18/2014 16:37:26 Vertigo 704384880 Allergic rhinitis 31517205 [id number] Camilla Rosado MD [address] [address] 7 09/24/2014 08:29:19 09/24/2014 13:33:17 Gastroesophageal reflux disease 770553786 Allergic rhinitis 43183491 Benign ess ential hypertension 2397369 Disorder o f cardiovascular system 57711307 Gouty arthropathy 909195097 Hyperlipidemia 02407338 Hypothyroidism 55114000 [id number] Camilla Rosado MD [address] [address] 7 10/04/2014 09:48:39 10/04/2014 13:44:32 Acute sciatica 033490857 Hypothyroidism 92835656 [id number] Camilla Rosado MD [address] [address] 7 12/26/2014 14:41:48 12/26/2014 17:09:12 Chronic recurrent sinusitis 796730709 Allergic rhinitis 62740268 [id number] Camilla Rosado MD [address] [address]368 7 01/24/2015 10:24:43 01/28/2015 08:01:29 Acute sinusitis 90291370 Allergic rhinitis 69149161 [id number] Camilla Rosado MD [address] [address]550 7 03/11/2015 15:31:09 03/12/2015 08:15:34 Backache 871573842 Strain of back muscle 696871161 Allergic rhinitis 04998437 [id number] Camilla Rosado MD [address] [address] 7 03/31/2015 14:29:52 03/31/2015 17:24:01 Bronchitis 14996043 J40 Wheezing 01825773 R06.2 Nausea present 859395912 R11.0 [id number] Camilla Rosado MD [address] [address] 7 04/08/2015 13:25:55 04/09/2015 08:51:00 Adult health examination 087258634 Z00.01 [id number] Camilla Rosado MD [address] [address] 7 04/21/2015 10:49:47 04/30/2015 08:12:44 Acute sinusitis 98214177 J01.90 Allergic rhinitis 252178 04 J30.9 [id number] Camilla Rosado MD [address] [address] 7 06/17/2015 15:21:59 06/18/2015 09:03:09 Acute sinusitis 26649218 J01.90 Backache 034505155 M54.9 [id number] Camilla Rosado MD [address] [address] 7 08/25/2015 15:20:08 08/25/2015 17:25:25 Benign essential hypertension 1031779 I10 Hyperlipidemia 99621340 E78.5 Muscle pain 02412871 M79 .1 Mechanical low back pain 155622695 M54.5 [id number] Camilla Rosado MD [facility] [place] [address] 7 11/18/2015 10:57:28 11/23/2015 12:12:53 Pre-surgery evaluation 490743227 Z01.818 Benign ess ential hypertension 0398842 I10 Allergic rhinitis 066105 04 J30.9 Hyperlipidemia 70877386 E78.5 Hypothyroidism 36903278 E03.9 Mechanical low back pain 027794201 M54.5 [id number] Camilla Rosado MD [facility] [place] [address] 7 11/28/2015 10:04:32 11/30/2015 16:35:52 Urinary tract infectious disease 75112947 N39.0 Heat exhaustion 99800452 T67.5XXD Near syncope 518848600 R 55 Allergic rhinitis 652421 04 J30.9 [id number] Camilla Rosado MD [facility] [place] [address] 7 01/19/2016 14:44:03 01/19/2016 16:58:35 Acute sinusitis 42662299 J01.90 Allergic rhinitis 950803 04 J30.9 [id number] Camilla Rosado MD [facility] [place] [address] 7 02/17/2016 11:36:58 02/17/2016 16:32:47 Recurrent sinusitis 375008961 J32.9 Allergic rhinitis 791888 04 J30.9 Low back pain 143705527 M54.5 [id number] Camilla Rosado MD [facility] [place] [address] 7 03/12/2016 14:11:17 03/12/2016 17:09:57 Acute pharyngitis 517929339 J02.9 Acute bronchitis 6224708 2 J20.9 [id number] Camilla Rosado MD [facility] [address] [place] [address] 7 03/16/2016 15:59:14 03/18/2016 07:56:27 Acute sinusitis 47971271 J01.90 Allergic rhinitis 440455 04 J30.9 Cough 26238947 R05 [id number] Camilla Rosado MD [facility] [place] [address] 7 03/30/2016 15:27:46 03/30/2016 17:22:07 Acute sinusitis 06215840 J01.90 Standard c hest X-ray abnormal 741930651 R93.8 Acute bronchopneumonia 045042150 J18.0 Low back pain 753011112 M54.5 [id number] Camilla Rosado MD [place] [address] 7 04/20/2016 10:21:48 04/20/2016 15:48:40 Adult health examination 150769356 Z00.01 Glucose le mahnaz outside reference range 843758216 R73.09 Active or passive immunization 746291622 Z23 Essential hypertension 16224326 I10 Hypothyroidism 66428889 E03.9 Hyperlipidemia 17518521 E78.5 History of gout 41701079 4 Z87.39 Gastroesop hageal reflux disease 983106768 K21.9 Chronic rhinitis 5057259 6 J31.0 Body mass index 25-29 - overweight 931647068 Z68.27 Mechanical low back pain 198500068 M54.5 [id number] Camilla Rosado MD [place] [address]861-[address] 7 05/28/2016 14:24:32 05/28/2016 15:58:04 Acute sinusitis 21496136 J01.90 Allergic rhinitis 948187 04 J30.9 Paronychia of toe 508045 002 L03.039 Low back pain 787550880 M54.5 Computed t omography result abnormal 277724693 R93.8 Benign ess ential hypertension 7729705 I10 [id number] Camilla Rosado MD [facility] [place] 799[address]61[address]116 7 06/15/2016 09:18:42 06/15/2016 15:45:14 Recurrent sinusitis 870583733 J32.9 Allergic rhinitis 219146 04 J30.9 [id number] Camilla Rosado MD [address] [address] 7 06/22/2016 14:27:16 06/22/2016 17:13:05 Chronic rhinitis 39796180 J31.0 Pain in toe 739243523 M7 9.675 [id number] Camilla Rosado MD [place] [address] 7 08/06/2016 14:00:36 08/06/2016 16:19:50 Low back pain 644465008 M54.5 Impairment of balance 38 5864628 R42 Pain of hip region 79041 002 M25.559 [id number] Camilla Rosado MD [place] [address] 7 09/09/2016 14:18:04 09/09/2016 15:50:06 Acute sinusitis 56931992 J01.90 [id number] Camilla Rosado MD [place] [address] 7 11/15/2016 10:48:47 11/15/2016 14:19:18 Acute sinusitis 53785275 J01.90 Allergic rhinitis 410365 04 J30.9 Shoulder j oint painful on movement 399556222 M25.519 [id number] Camilla Rosado MD [address] [address] 7 01/18/2017 16:07:40 01/19/2017 08:54:11 Seasonal allergic rhinitis 044210640 J30.2 [id number] Camilla Rosado MD [facility] [address] [address] 7 02/15/2017 15:55:27 02/15/2017 17:48:11 Urinary tract infectious disease 92221565 N39.0 Essential hypertension 51385497 I10 Allergic rhinitis 829453 04 J30.9 History of multiple allergies 324585939 Z88.9 [id number] Camilla Rosado MD [address] [address] 7 02/18/2017 14:17:35 02/18/2017 17:19:38 Essential hypertension 17841754 I10 [id number] Camilla Rosado MD [facility] [address] [address] 7 02/25/2017 13:59:29 02/28/2017 08:17:09 Essential hypertension 37297494 I10 Active or passive immunization 098292364 Z23 Allergic rhinitis 905160 04 J30.9 [id number] Camilla Rosado MD [address] [address] 7 04/18/2017 14:53:49 04/18/2017 16:25:09 Upper respiratory infection 20233662 J06.9 [id number] Camilla Rosado MD [place] [address] 7 04/28/2017 10:05:50 04/28/2017 11:31:31 Asthmatic bronchitis 824111698 J45.909 Allergic rhinitis 605645 04 J30.9 [id number] Camilla Rosado MD [address] [address] 7 05/20/2017 13:29:54 05/23/2017 17:21:22 Adult health examination 634972727 Z00.01 Essential hypertension 52902708 I10 Hypothyroidism 31724334 E03.9 At low risk for fall 439 137323 Z91.81 Simple renal cyst 584733 09 N28.1 Body mass index 25-29 - overweight 120025614 Z68.27 Hyperlipidemia 36649756 E78.5 Allergic rhinitis 065577 04 J30.9 Gastroesop hageal reflux disease 513913926 K21.9 History of gout 82166907 4 Z87.39 Glucose le mahnaz outside reference range 815124597 R73.09 Active or passive immunization 412797527 Z23 Chronic rhinitis 5915134 6 J31.0 Taking mul tiple medications for chronic disease 9224111654 66373 Z79.899 [id number] Camilla Rosado MD [facility] [address] [address] 7 06/14/2017 15:35:49 06/14/2017 17:33:08 Acute sinusitis 96880158 J01.90 [id number] Camilla Rosado MD [facility] [address] [address] 7 07/14/2017 09:17:30 07/14/2017 17:41:04 Acute sinusitis 87126505 J01.90 Allergic rhinitis 561415 04 J30.9 [id number] Camilla Rosado MD [facility] [address] [address] 7 08/26/2017 15:19:37 08/26/2017 17:43:27 Dysuria 75704980 R30.0 Acute sinusitis 81449525 J01.90 [id number] Camilla Rosado MD [facility] [place] [address] 7 09/19/2017 14:37:29 09/19/2017 16:42:28 Acute sinusitis 20560246 J01.90 Seasonal a llergic rhinitis 164701692 J30.2 [id number] Camilla Rosado MD [facility] [place] [address] 7 10/10/2017 13:59:24 10/10/2017 16:35:19 Allergic rhinitis 03702143 J30.9 Impairment of balance 38 9553560 R42 [id number] Camilla Rosado MD [address] [address] 7 12/01/2017 15:18:28 12/01/2017 16:55:00 Chronic sinusitis 06405126 J32.9 Allergic rhinitis 930657 04 J30.9 [id number] Camilla Rosado MD [address] [address] 7 01/30/2018 14:40:03 02/01/2018 08:57:00 Contusion of right knee 5192196058 5022673 S80.01XA she will take a couple of advil daily for this. Low back pain 990691238 M54.5 Allergic rhinitis 620063 04 J30.9 [id number] Camilla Rosado MD [facility] [address] [address] 7 02/06/2018 14:20:30 02/06/2018 15:48:08 Cellulitis of lower limb 646974251 L03.119 she had an initial scrape over right knee and we suspect that has led to the cellulitis Contusion, knee and lower leg 234373578 S80.01XD [id number] Camilla Rosado MD [facility] [address] [place] [address] 7 02/16/2018 14:36:35 02/17/2018 17:06:55 Cellulitis of lower limb 788410604 L03.119 she had an initial scrape over right knee and we suspect that has led to the cellulitis Paronychia of toe 651206 002 L03.039 Active or passive immunization 084298815 Z23 [id number] Camilla Rosado MD [facility] [address] [address] 7 03/13/2018 08:51:39 03/14/2018 08:25:11 Pre-surgery evaluation 842738053 Z01.818 Essential hypertension 51206996 I10 Hyperlipidemia 04889793 E78.5 Hypothyroidism 39790597 E03.9 Allergic rhinitis 448640 04 J30.9 Fuchs' cor luz dystrophy 067436216 H18.51 [id number] Camilla Rosado MD [facility] [address] [address] 7 05/12/2018 16:02:12 05/12/2018 17:03:30 Acute sinusitis 33692396 J01.90 [id number] Camilla Rosado MD [address] [address] 7 05/23/2018 13:29:15 05/25/2018 08:37:56 Adult health examination 940348921 Z00.01 Essential hypertension 25573806 I10 Allergic rhinitis 816350 04 J30.9 Body mass index 25-29 - overweight 717628023 Z68.27 Impacted c erumen in left ear 1368111575 680042 H61.22 cleared with irrigation Hypothyroidism 83536175 E03.9 At low risk for fall 439 132444 Z91.81 Simple renal cyst 158098 09 N28.1 Hyperlipidemia 62869083 E78.5 Gastroesop hageal reflux disease 813208477 K21.9 History of gout 19016519 4 Z87.39 Taking mul tiple medications for chronic disease 4095913044 11690 Z79.899 [id number] Camilla Rosado MD [facility] [address] [place] [address] 06/01/2018 09:02:59 06/08/2018 09:10:07 Chronic sinusitis 63200901 J32.9 Cough 17652593 R05 [id number] Camilla Rosado MD [address] [address] 7 06/19/2018 10:53:12 06/19/2018 16:39:32 Acute sinusitis 89881854 J01.90 Allergic rhinitis 722332 04 J30.9 [id number] Camilla Rosado MD [facility] [address] [address] 7 08/10/2018 15:01:41 08/10/2018 16:13:48 Acute sinusitis 24997559 J01.90 [id number] Camilla Rosado MD [address] [address] 7 09/11/2018 16:02:07 09/14/2018 13:33:00 Low back pain 153869266 M54.5 [id number] Camilla Rosado MD [address] [address] 7 12/07/2018 14:14:41 12/08/2018 09:02:46 Mechanical low back pain 225150974 M54.5 Essential hypertension 35692169 I10 [id number] Camilla Rosado MD [address] [address] 7 01/29/2019 15:23:24 01/29/2019 16:55:24 Acute sinusitis 23485621 J01.90 Allergic rhinitis 274205 04 J30.9 [id number] Camilla Rosado MD [facility] [address] [address] 7 02/05/2019 14:25:21 02/05/2019 16:53:28 Acute sinusitis 44245053 J01.90 [id number] Camilla Rosado MD [address] [address] 7 03/09/2019 13:32:24 03/12/2019 08:01:17 Active or passive immunization 133610444 Z23 Upper resp iratory infection 41029783 J06.9 Perennial allergic rhinitis with seasonal variation 349894410 J30.89 Allergic r eaction to wasp sting 892888246 T63.461A [id number] Camilla Rosado MD [facility] [place] [address] 7 03/27/2019 15:25:38 03/28/2019 09:26:57 Cutaneous hypersensitivity reaction caused by Hymenoptera venom 528571951 T63.441A [id number] Camilla Rosado MD [facility] [place] [address] 7 04/06/2019 09:55:21 04/06/2019 13:27:34 Acute sinusitis 61776531 J01.90 [id number] Camilla Rosado MD [place] [address] 7 05/28/2019 13:28:18 05/30/2019 09:21:20 Adult health examination 189961154 Z00.01 Essential hypertension 87648678 I10 Allergic rhinitis 024832 04 J30.9 Body mass index 25-29 - overweight 757523790 Z68.27 Hypothyroidism 76700876 E03.9 Simple renal cyst 975092 09 N28.1 Hyperlipidemia 99888751 E78.5 Gastroesop hageal reflux disease 710093397 K21.9 History of gout 02070931 4 Z87.39 Taking mul tiple medications for chronic disease 9009224804 98717 Z79.899 Compulsive hoarding 2479 96648 R46.81 Mitral amber ve regurgitation 43910436 I34.0 Obstructiv e sleep apnea syndrome 33936931 G47.33 Coronary arteriosclerosis 67052980 I25.10 History of multiple allergies 779289911 Z88.9 Prophylact ic immunotherapy 091695455 Z29.11 [id number] Camilla Rosado MD [place] [address] 7 06/26/2019 15:13:18 06/26/2019 16:40:34 Acute maxillary sinusitis 91426575 J01.00 Allergic rhinitis 763096 04 J30.9 [id number] Camilla Rosado MD [facility] [place] [address] 7 07/24/2019 14:53:27 07/24/2019 16:29:40 Allergic rhinitis 69216552 J30.9 Vertigo 682915331 R42 [id number] Camilla Rosado MD [facility] [address] [address] 7 08/17/2019 10:44:08 08/20/2019 08:41:37 Acute sinusitis 22543842 J01.90 Allergic rhinitis 186059 04 J30.9 [id number] Camilla Rosado MD [facility] [place] [id number] 7 09/24/2019 14:17:22 09/24/2019 17:04:23 Acute sinusitis 72082326 J01.90 [id number] Camilla Rosado MD [place] [id number] 7 10/18/2019 13:51:18 10/18/2019 15:45:16 Recurrent acute sinusitis 405717686 J01.91 Impacted c erumen of bilateral ears 0307552011 243362 H61.23 Seasonal allergy 5086857 04 J30.2 [id number] Camilla Rosado MD [address] [address] 7 10/22/2019 16:17:18 10/22/2019 16:49:00 Positional vertigo 128854456 H81.12 [id number] Camilla Rosado MD [facility] [address] [address] 7 11/20/2019 15:26:06 11/20/2019 16:59:24 Serous otitis media of left ear [id number] 331347 H65.92 [id number] Camilla Rosado MD [facility] [address] [address] 7 11/29/2019 10:37:55 11/30/2019 07:56:40 Exocardial pulsation associated with heart beat 176981209 R09.89 [id number] Camilla Rosado MD [facility] [address] [address] 7 02/01/2020 16:14:07 02/01/2020 16:47:17 Acute sinusitis 80938397 J01.90 [id number] Camilla Rosado MD [address] [address] 7 04/22/2020 14:18:48 04/23/2020 18:24:24 Acute sinusitis 35408645 J01.90 Sinusitis 36049282 J32.9 [id number] Camilla Rosado MD [address] [address] 7 05/30/2020 14:37:44 06/02/2020 08:32:46 Hypothyroidism 49500280 E03.9 Adult heal th examination 091773764 Z00.01 Essential hypertension 94691088 I10 Allergic rhinitis 883297 04 J30.9 Body mass index 25-29 - overweight 077154043 Z68.27 Simple renal cyst 747398 09 N28.1 Hyperlipidemia 38901526 E78.5 Gastroesop hageal reflux disease 374554706 K21.9 History of gout 97766554 4 Z87.39 Taking mul tiple medications for chronic disease 7473221107 24085 Z79.899 Compulsive hoarding 2479 84794 R46.81 Mitral amber ve regurgitation 94889137 I34.0 Obstructiv e sleep apnea syndrome 45878364 G47.33 Coronary arteriosclerosis 96793526 I25.10 History of multiple allergies 889149291 Z88.9 Prophylact ic immunotherapy 746262080 Z29.11 Thrombosis of internal jugular vein 9878824955 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.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 [id number] Camilla Rosado MD [address] [address] 06/26/2020 14:15:12 06/26/2020 15:00:23 Acute sinusitis 58863254 J01.90 Allergic rhinitis 994877 04 J30.9 Acute low back pain 2788 05820 M54.5 [id number] Camilla Rosado MD [address] [address] 7 10/28/2020 14:31:33 10/28/2020 15:36:11 Allergic rhinitis 11062152 J30.9 Sprain of medial collateral ligament of knee 96523741 S83.411A [id number] Camilla Rosado MD [facility] [address] [place] [address] 11/27/2020 14:59:09 11/27/2020 16:22:13 Sprain of medial collateral ligament of knee 66486605 S83.411A [id number] Camilla Rosado MD [facility] [address] [address] 02/03/2021 10:30:10 02/06/2021 09:03:07 Vertigo 350557742 R42 Impacted c erumen in left ear 6180914608 382559 H61.22 cleared with irrigation [id number] Camilla Rosado MD [facility] [address] [address] 02/06/2021 15:15:39 02/06/2021 16:37:04 Acute maxillary sinusitis 96252584 J01.00 [id number] Camilla Rosado MD [address] [address] 7 03/05/2021 14:11:38 03/05/2021 15:32:52 Administration of influenza vaccine 99235955 Z23 Urinary tr act infectious disease 80445656 N39.0 [id number] Camilla Rosado MD [address] [address] 7 03/10/2021 10:49:29 03/12/2021 08:27:59 Acute lower respiratory tract infection 994289009 J22 Cough 38419157 R05 [id number] Camilla Rosado MD [address] [address] 7 04/13/2021 11:18:26 04/14/2021 08:17:48 Injury of left ankle 7674923389 9371884 S99.912D she fell down 3 steps and injured left ankle and had plain xrays 2 weeks ago that were OK but the pain and swelling are persisting . It is discolored and swollen and tender over the lateral malleolus Eczema 11436883 L30.9 inside right wrist area [id number] Camilla Rosado MD [facility] [address] [address] 06/01/2021 14:22:54 06/07/2021 19:44:55 Adult health examination 454991451 Z00.01 Hypothyroidism 47955454 E03.9 Essential hypertension 18972676 I10 Allergic rhinitis 944110 04 J30.9 Body mass index 25-29 - overweight 576364206 Z68.27 Simple renal cyst 016271 09 N28.1 Hyperlipidemia 85546895 E78.5 Gastroesop hageal reflux disease 615162801 K21.9 History of gout 61977359 4 Z87.39 Taking mul tiple medications for chronic disease 0735989038 33373 Z79.899 Compulsive hoarding 2479 34638 R46.81 Mitral amber ve regurgitation 35211847 I34.0 Obstructiv e sleep apnea syndrome 79408009 G47.33 Coronary arteriosclerosis 89650026 I25.10 History of multiple allergies 692073664 Z88.9 Prophylact ic immunotherapy 893572030 Z29.11 Thrombosis of internal jugular vein 4723336287 101 I82.C19 [id number] Camilla Rosado MD [facility] [place] [address]2661[address] 7 10/01/2021 15:49:43 10/05/2021 08:17:02 Strain of long head of biceps 948825231 S46.112A [id number] Camilla Rosado MD [place] 0833861-[address] 7 11/26/2021 14:36:49 11/27/2021 08:21:01 Post-acute COVID-19 0294373332 U09.9 Essential hypertension 20848986 I10 Hyperlipidemia 43308558 E78.5 Fatigue 80733306 R53.83 Body mass index 25-29 - overweight 324064559 Z68.26 [id number] Camilla Rosado MD [address] [address] 03/29/2022 11:16:26 03/30/2022 08:14:55 Acute sinusitis 72277121 J01.90 Allergic rhinitis 377851 04 J30.9 Administra tion of influenza vaccine 89310640 Z23 Allergic conjunctivitis 083659568 H10.13 [id number] Camilla Rosado MD [facility] [address] [address] 04/23/2022 10:21:38 04/26/2022 08:38:40 History of paroxysmal supraventricular tachycardia 3201302496 70254 Z86.79 Essential hypertension 50591216 I10 [id number] Camilla Rosado MD [facility] [address] [place] [address] 7 05/21/2022 11:08:48 05/21/2022 13:23:42 Acute sinusitis 56334979 J01.90 Pain in le ft sacroiliac joint 9901856830 6178645 M53.3 Generalize d osteoarthritis 296382414 M15.9 [id number] Camilla Rosado MD [facility] [address] [place] [address] 7 06/10/2022 13:23:24 06/11/2022 16:07:35 Gastroesophageal reflux disease 075709311 K21.9 Adult heal th examination 869690543 Z00.01 Hypothyroidism 72134436 E03.9 Essential hypertension 63142063 I10 Allergic rhinitis 162070 04 J30.9 Body mass index 25-29 - overweight 114419825 Z68.26 Simple renal cyst 555553 09 N28.1 Hyperlipidemia 31757142 E78.5 History of gout 99530247 4 Z87.39 Taking mul tiple medications for chronic disease 6897452044 79939 Z79.899 Compulsive hoarding 2479 16598 R46.81 Mitral amber ve regurgitation 77278894 I34.0 Obstructiv e sleep apnea syndrome 31965702 G47.33 Coronary arteriosclerosis 00242821 I25.10 History of multiple allergies 578954755 Z88.9 Prophylact ic immunotherapy 512226391 Z29.11 Thrombosis of internal jugular vein 9306196310 101 I82.C19 At [facility] ed risk of cardiovascular disease 8699500779 5647048 Z91.89 [id number] Camilla Rosado MD [facility] [address] [address] 06/22/2022 10:17:41 06/22/2022 12:08:54 Acute lower respiratory tract infection 102193877 J22 [id number] Camilla Rosado MD [facility] [address] [address] 7 07/26/2022 10:22:00 07/26/2022 13:22:22 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 G93.31 Myalgia/my ositis - multiple 784484663 M79.10 [id number] Camilla Rosado MD [facility] [address] [place] [address] 7 09/13/2022 13:57:49 09/13/2022 16:10:27 Pain of left shoulder joint 7976682742 6040494 M25.512 Myalgia/my ositis - multiple 706581374 M79.10 Chronic low back pain 27 9915294 M54.50 Chronic ne ck pain for greater than 3 months 9567581706 07650 M54.2 [id number] Camilla Rosado MD [facility] [address] [address] 10/04/2022 15:34:31 10/04/2022 16:27:04 Lightheadedness 812953726 R42 Urine: dark/concentrated 936562012 R82.998 Impairment of balance 38 8255010 R42 [id number] Camilla Rosado MD [facility] [address] [address] 7 10/22/2022 08:53:54 10/25/2022 08:42:44 Vertigo 371605954 R42 Renal mass 493803891 N28 .89 Essential hypertension 66985255 I10 Allergic rhinitis 157351 04 J30.9 [id number] Camilla Rosado MD [facility] [address] [address] 7 12/24/2022 13:43:03 12/27/2022 08:01:47 Hypothyroidism 34384429 E03.9 Essential hypertension 07470571 I10 Allergic rhinitis 333416 04 J30.9 Simple renal cyst 351570 09 N28.1 Hyperlipidemia 84696492 E78.5 History of gout 65805579 4 Z87.39 Taking mul tiple medications for chronic disease 4959680171 66144 Z79.899 Compulsive hoarding 2479 42325 R46.81 Mitral amber ve regurgitation 25648806 I34.0 Obstructiv e sleep apnea syndrome 66859929 G47.33 Coronary arteriosclerosis 50132875 I25.10 History of multiple allergies 856919276 Z88.9 Prophylact ic immunotherapy 234693023 Z29.11 Thrombosis of internal jugular vein 5862493131 101 I82.C19 Body mass index 20-24 - normal 572727225 Z68.24 Tendinitis of left foot 9100607358 5561589 M77.9 [id number] Camilla Rosado MD [facility] [place] [address] 7 02/15/2023 16:31:38 02/16/2023 15:44:19 Seasonal allergy 777851798 J30.2 660303 Camilla Rosado MD [place] [address] 7 04/22/2023 13:26:26 04/22/2023 14:21:49 Acute sinusitis 95842124 J01.90 Lumbago with sciatica 20 1033728 M54.42 [id number] Camilla Rosado MD [place] [address] 7 06/02/2023 14:20:25 06/02/2023 15:41:58 Chronic sinusitis 28811800 J32.9 Acute uppe r respiratory infection 75419543 J06.9 [id number] Camilla Rosado MD [place] [address] 7 06/21/2023 15:05:29 06/21/2023 17:09:30 Increased frequency of urination 383693747 R35.0 Urinary tr act infectious disease 21000703 N39.0 [id number] Camilla Rosado MD [place] 0833861[address] 7 08/18/2023 09:40:14 08/18/2023 10:51:33 Disorder of respiratory system 66246741 J98.9 538387 Camilla Rosado MD [place] [address] 7 08/26/2023 14:06:29 08/27/2023 14:16:51 Strain of finger tendon 194057552 S66.912A [id number] Camilla Rosado MD [facility] [address] [place] [address] 7 09/05/2023 13:29:01 09/06/2023 08:10:08 Adult health examination 213193703 Z00.01 Gastroesop hageal reflux disease 635779321 K21.9 Hypothyroidism 39309789 E03.9 Essential hypertension 01082566 I10 Allergic rhinitis 913760 04 J30.9 Simple renal cyst 887758 09 N28.1 Hyperlipidemia 26406632 E78.5 History of gout 12320593 4 Z87.39 Taking mul tiple medications for chronic disease 0656153835 50167 Z79.899 Compulsive hoarding 2479 59966 R46.81 Mitral amber ve regurgitation 86571189 I34.0 Obstructiv e sleep apnea syndrome 49483207 G47.33 Coronary arteriosclerosis 71428519 I25.10 History of multiple allergies 890857054 Z88.9 Prophylact ic immunotherapy 719122037 Z29.11 Thrombosis of internal jugular vein 4419066391 101 I82.C19 At [facility] ed risk of cardiovascular disease 1248582001 1479206 Z91.89 Body mass index 20-24 - normal 390554382 Z68.23 Advance di rective discussed with patient 354477028 Z71.89 [id number] Camilla Rosado MD [facility] [address] [place] [address] 10/27/2023 13:45:47 10/28/2023 08:39:44 Lower abdominal pain 56201610 R10.30 Pain of sa croiliac joint 552511617 M53.3 [id number] Camilla Rosado MD [facility] [address] [place] [address] 7 11/03/2023 15:22:12 11/03/2023 16:07:24 Urinary tract infectious disease 15476191 N39.0 Low back pain 009180710 M54.50 [id number] Camilla Rosado MD [facility] [address] [place] [address] 7 11/15/2023 14:55:48 11/17/2023 10:22:58 Fatigue 50168258 R53.83 Functional bloating 7228 25220 R14.0 [id number] Camilla Rosado MD [facility] [place] 7[address]2661[address] 7 01/05/2024 10:24:02 01/09/2024 07:55:46 Tear of skin 400743815 T14.8XXS Fall W19.XXXS Immunization advised 310 277616 Z71.9 Seasonal a llergic rhinitis 770807345 J30.2 Contusion of face 171361 004 S00.83XD Essential hypertension 16970404 I10 112434 aCmilla Rosado MD [facility] [place] [address] 7 02/06/2024 15:43:03 02/06/2024 21:41:09 Acute maxillary sinusitis 65132476 J01.00 Disorder o f respiratory system 95345061 J98.9 115567 Camilla Rosado MD [facility] [place] [address] 7 02/17/2024 14:33:30 02/20/2024 09:25:38 Disorder of respiratory system 28545862 J98.9 Acute bron chitis caused by rhinovirus 849299790 J20.6 428015 Camilla Rosado MD [facility] [address] [place] [address] 7 03/23/2024 13:23:31 03/23/2024 15:42:23 Acute maxillary sinusitis 98773866 J01.00 Administra tion of influenza vaccine 91406371 Z23 [id number] Camilla Rosado MD [facility] [address] [place] 68833[address] 7 06/01/2024 10:13:23 06/01/2024 11:08:45 Disorder of respiratory system 09862721 J98.9 Acute maxi llary sinusitis 89863330 J01.00 395171 Camilla Rosado MD [facility] [place] 7992661[address] 7 06/28/2024 14:23:07 06/28/2024 15:13:20 Chronic sinusitis 29279803 J32.9 Bilateral shoulder joint pain 6902203331 4504527 M25.511 M25.512 [id number] Camilla Rosado MD [facility] [address] [place] [address] 7 08/07/2024 15:15:10 08/07/2024 16:32:24 Reduced visual acuity 78918576 H54.7 History of cornea recipient 154998876 Z94.7 Subjective visual disturbance 96921342 H53.10 [id number] Camilla Rosado MD [facility] [address] [place] [address] 7 08/27/2024 15:53:45 08/28/2024 10:55:30 Essential hypertension 75096320 I10 Edema of l ower extremity 327009641 R60.0 [id number] Camilla Rosado MD [facility] [place] [address] 7 09/11/2024 13:32:01 09/13/2024 08:46:14 Adult health examination 687982894 Z00.01 Gastroesop hageal reflux disease 915874251 K21.9 Hypothyroidism 95261895 E03.9 Essential hypertension 68157649 I10 Allergic rhinitis 831636 04 J30.9 Simple renal cyst 139125 09 N28.1 Hyperlipidemia 56298370 E78.5 History of gout 92271081 4 Z87.39 Taking mul tiple medications for chronic disease 3382549699 67621 Z79.899 Compulsive hoarding 2479 28559 R46.81 Mitral amber ve regurgitation 80549070 I34.0 Obstructiv e sleep apnea syndrome 54775629 G47.33 Coronary arteriosclerosis 02270657 I25.10 History of multiple allergies 191184289 Z88.9 Prophylact ic immunotherapy 979389564 Z29.11 Thrombosis of internal jugular vein 7724243817 101 I82.C19 At [facility] ed risk of cardiovascular disease 5174118521 5662566 Z91.89 Advance di rective discussed with patient 889073435 Z71.89 Body mass index 25-29 - overweight 330108050 Z68.25 Medication review done by doctor 687329505 Z76.89 [id number] Camilla Rosado MD [facility] [address] [address] 09/27/2024 15:50:17 09/27/2024 16:59:30 Acute bacterial sinusitis 56553246 J01.90 B96.89 62906 [id number] Camilla Rosado MD [facility] [address] [place] [address] 7 10/12/2024 16:31:04 10/15/2024 09:19:13 Acute bacterial sinusitis 14244570 J01.90 B96.89 95456 256141 Cmailla Rosado MD [facility] [address] [place] [address] 7 10/26/2024 10:49:27 10/26/2024 14:24:16 Excessive cerumen in ear canal 688601275 H61.22 09285663 Open wound of left upper limb 9081412252 7106 S41.112A 70854140 Immunization due 4417576 08 Z23 3819796 [id number] Camilla Rosado MD [facility] [place] [address] 7 12/17/2024 14:55:27 12/18/2024 08:17:49 Fatigue 02706713 R53.82 809957 Allergic rhinitis 363219 04 J30.9 7975117 Essential hypertension 91155802 I10 72602 Review of medication 182 167753 Z79.899 28483162 590906 Camilla Rosado MD [facility] [place] 7992661[address] 7 03/29/2025 09:58:09 04/01/2025 09:18:02 Influenza vaccination given 6495758148 9109 Z23 42034470 Gastroesop hageal reflux disease 270974327 K21.9 Hypothyroidism 47737432 E03.9 Essential hypertension 92274882 I10 Allergic rhinitis 344420 04 J30.9 Simple renal cyst 279196 09 N28.1 Hyperlipidemia 88299822 E78.5 History of gout 52637334 4 Z87.39 Mitral amber ve regurgitation 69850542 I34.0 Obstructiv e sleep apnea syndrome 42909204 G47.33 Coronary arteriosclerosis 50773800 I25.10 History of multiple allergies 618822572 Z88.9 Prophylact ic immunotherapy 009060051 Z29.11 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 Body mass index 25-29 - overweight 210712642 Z68.25 Medication review done by doctor 739867690 Z76.89 Health Concerns Section Related Observation LastModified by Organization Detai ls LastModified Time None Recorded Concern Status LastModified by Organization Details LastModified Time None Recorded Advance Directives Directive N: Payers Insurance Date Sequence Insurance Name Policy Number Policy Jade Covered Member ID Jade Member ID Guarantor Name 03/24/2011 2 UNSPECIFIED REMIT PAYOR Kristen A [facility] 03/29/2025 1 [place] Kristen Escalante [facility] [id number] Kristen Escalante [facility] 03/29/2025 2 [place] Medical [place]velope [place]) [id number] Kristen Escalante [facility] [id number] 2 Kristen A [facility] 03/29/2025 2 [employer] - PLAN F (MEDICARE SUPPLEMENT) Kristen A [facility] [id number] Kristen A [facility] 03/29/2025 3 [employer] (MEDICARE SUPPLEMENT) Kristne Escalante [facility] [id number] Kristen A [facility] 03/29/2025 2 [employer] SUPPLEMENTAL - [employer] HE[employer] AND LIFE INSURANCE (MEDICARE SUPPLEMENT) Kristen Escalante [facility] [id number] Kristen A [facility] 04/01/2025 1 [facility] (MEDICARE REPLACEMENT/AD VANTAGE - PPO) [id number] Kristen A [facility] [id number] Kristen A [facility] Notes Date Note Type Note Provider Name and Address Organization Details Recorded Time 09/27/2024 text/html she started getting sinus congestion increasing last Tuesday with hoarseness and nasal drainage and a headache with facial pain. No fevers Camilla Rosado MD [address] [facility], [address], [place], [address], [facility] 09/27/2024 16:45:44 10/12/2024 text/html she started feeling bad on Tuesday not long after finishing the antibiotic and her ear is popping. Camilla Rosado MD [address] [facility], [address], [place], [address], [facility] 10/14/2024 11:22:57 10/26/2024 text/html She hit the left forearm on a car door yesterday and suffered a skin tear that her relative bandaged. The left ear feels funny like something is fluttering inside Camilla Rosado MD [address] [facility], [facility] [address], [place], [address], [facility] 10/26/2024 13:22:33 12/17/2024 text/html had eye surgery 2 weeks ago after she went to the ER the day before for just feeling poorly with a UTI and borderline low Mg.She is getting some fast foods and has just been feeling light headed off and on. BP is a little elevated. She is having a lot of allergies and is still getting regular allergy injections.She is getting back injections in [place] for the sciatica and the last one was in October. She thinks she is drinking enough water but does not sleep well. She uses her CPAP but states she cannot get her brain to quiet down. So she just lays there.She is using Azelastine nasal spray twice a day. She cannot use flonase so we will consider having her add Ipratropium nasal spray Camilla Rosado MD [address] [facility], [facility] [address], [place], [address], [facility] 12/18/2024 06:58:01 03/29/2025 text/html she was hospitalized 01/10 after a fall with nasal fracture and a prolonged hospitalization until 01/18 She then moved to an assisted living facility in [place] at [facility]. She is happy there and they have good food. She has met some interesting people and really enjoys that. Camilla Rosado MD [address] [facility], [facility] [address], [place], [address], [facility] 03/31/2025 15:42:22 OBGyn Episode No OBEpisode recorded.
--- OUTSIDE RECORDS SUMMARY | 2025-04-13 10:52 | XMS_ITS | Continuity of Care Document ---
Author Organization [facility] Shira Jeffrey [facility] Address [address] [place] [address] Assessment Encounter Date Assessment Date Assessment LastModified by Organization Details LastModified Time 03/12/2025 03/12/2025 Evaluation and examination. Discussed podiatric pathology including treatment options with the patient. Not available 03/12/2025 10:20:29 Plan of Treatment Reminders Order Date Submit Date Provider Last Modified By Organization Details Last Modified Time Details Appointments OV PROC 30 2025 02:45P Real Marino DPM Not available Not available Not available Lab None recorded. Referral None recorded. Procedures None recorded. Surgeries None recorded. Imaging None recorded. Medication Orders mupirocin 2 % topical ointment 2024 025 cconlee Not available 03/12/2025 16:22:16 Patient TargetsNo targets recorded. Patient Instructions Encounter Date Encounter Id Patient Instructions Last Modified By Organization Details Last Modified Time 03/12/2025 [id number] Follow up as scheduled for nail care Not available 03/12/2025 10:40:44 Some of the information in this note was entered by the [facility] under the direction and training of the attending physician. I have reviewed the documentation of the encounter entered by the [facility] and attest that it is accurate. M*[employer] warehouse guard software was utilized to enter some information in this note and therefore may contain voice recognition errors. Intake and other documentation entered by Lilliana Griggs CMA. Not available 03/12/2025 10:40:25 Reason for Referral None Reported. Procedures Surgical History Date Name Laterality Status Provider Name and Address Organization Details Recorded Time 11/13/19 25 Nail debridement (6-10) completed Tray Villareal [place] - [facility] - [place] & [place] 11/12/2024 11:02:31 08/30/19 25 Nail debridement (6-10) completed Deborah Drake [place] [facility] [place] 08/29/2024 10:55:40 04/11/20 24 Nail debridement (6-10) [place] [facility] [facility] [place] 04/11/2024 10:48:03 01/30/20 24 Nail debridement (6-10) completed Mila Anthony [place] [facility] [place] 01/30/2024 10:13:50 11/21/19 24 Nail debridement (6-10) [place] Deborah [place] [facility] [place] 11/21/2023 10:52:40 08/31/19 24 Fiberoptic Laryngoscopy completed Wayne Lou [place] [facility] [place] 08/31/2023 15:11:11 08/29/19 24 Nail debridement (6-10) completed Ada Griggs [place] - [facility] - [place] & [place] 08/29/2023 11:07:05 06/20/19 24 Nail debridement (6-10) completed Deborah Drake [place] [facility] [place] 06/20/2023 11:01:47 04/04/20 23 Nail debridement (6-10) completed Ada Griggs [place] [facility] [place] 04/04/2023 09:29:59 01/27/20 23 Nail debridement (6-10) completed Deborah Drake [place] [facility] [place] 01/26/2023 10:37:49 10/19/19 23 Nail debridement (6-10) completed Mila Anthony [place] - [facility] - [place] 10/18/2022 10:12:11 07/19/19 23 Nail debridement (6-10) completed Deborah Drake [place] [facility] [place] 07/19/2022 08:49:59 04/14/20 22 Nail debridement (6-10) completed Denise Marino DPM [address] [place] [address], [address], [place], [address], [facility] & [place] 04/15/2022 07:48:24 Imaging Results None recorded. Procedure Notes None recorded. Medical Equipment None Reported. Allergies Allergen ID Allergen Name Allergen Category Reaction Reaction Severity Criticality Documentation Date Start Date Code Code System Note Provider Name and Address Organization Details Recorded Time 06453 Substance with sulfonami de structure and antibacte rial mechanism of action (substanc e) medicatio n Not available Not available low 04/14/2022 30551 8003 SNOMED SILVIA Thomson - [facility] & [place] 2 09:44:53 35395 Product containin g penicilli n (product) medicatio n Not available Not available low 04/14/2022 34702 8001 SNOMED SILVIA Thomson - [facility] & [place] 2 09:45:04 27460 Biaxin medicatio n Not available Not available low 04/14/2022 80714 9 RxNorm Ysabel cuevas, [facility] - [facility] & [place] 2 09:45:13 66773 Lipitor medicatio n Not available Not available low 04/14/2022 50688 5 RxNorm SIL[facility]IA Thomson - [facility] & [place] 2 09:45:20 14923 Macrobid medicatio n Not available Not available low 04/14/2022 63829 1 RxNorm Ysabel cuevas, S[facility] - [facility] & [place] 2 09:45:29 55093 methylpre dnisolone medicatio n Not available Not available low 04/14/2022 6902 RxNorm Ysabel cuevas, S[facility]IA - [facility] & [place] 2 09:45:42 60373 Seldane medicatio n Not available Not available low 04/14/2022 09650 0 RxNorm Ysabel cuevas, [facility] - [facility] & [place] 2 09:45:50 22938 Suprax medicatio n Not available Not available low 04/14/2022 51731 9 RxNorm Ysabel cuevas, [facility] - [facility] - [place] & [place] 09:46:00 Medications Name Sig Start Date Stop [...] azelastine 137 mcg (0.1 %) nasal spray [place] 2 sprays twice a day by intranasa [...] Not Available Not Available Not Available Vitals None Recorded Social History None recorded. 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 Monitor for recurrence . Abnormal gait 03381481 R 26.89 using a walker Health Concerns Section Related Observation LastModified by Organization Detai ls LastModified Time None Recorded Concern Status LastModified by Organization Details LastModified Time None Recorded Payers Encounter Date Sequence Insurance Name Policy Number Policy Jade Covered Member ID Jade Member ID Guarantor Name 03/12/2025 1 [facility] (MEDICARE REPLACEMENT/A DVANTAGE - PPO) [id number] [facility] [id number] Kristen Vela Notes Date Note Type Note Provider Name and Address Organization Details Recorded Time 03/12/2025 text/html ROS as noted in the HPI Patient presents as a work in for a painful ingrowing left great toenail. She states she missed her last appointment due to a fall resulting in a broken nose and concussion. She is now at an assisted living facility in [place].PCP: Camilla Hernandez PCP visit: 12/17/24 Denise Marino DPM [address] [place] [address] Drive, [address], [place], [address], [facility] & [place] 03/12/2025 10:45:54 OBGyn Episode No OBEpisode recorded.
--- OUTSIDE RECORDS SUMMARY | 2025-04-13 10:53 | XMS_ITS | Encounter Summary ---
Author Organization Healthcare Address [address] [place] [address] Care Team Providers Care Activities Leader Name Role Phone Camilla Rosado MD Primary Care Provider [phone] Encounter Details Date Type Department Care Team (Late Contact Info) Description 02/13/2025 Telephone [facility] [address] [place] [address] Ramón Powell MD [address] [address] Social History Tobacco Use Types [...] Description 05/07/2025 9:15 AM EST Office Visit [facility] [address] [place] [address] Nelda Butcher MD [address] [address] 08/12/2025 1:45 PM EST Office Visit [facility] [address] [place] [address], [address] [place] [address] Ramón Powell MD 110 [facility] [address] [place] [address] 01/21/2026 1:30 PM EDT Ovarian Cancer Screening [facility] Gynecology [address] [facility] [place] [address] documented as of this encounter Visit Diagnoses Not on filedocumented in this encounter Additional Health Concerns Assessment Noted Time A fall risk assessment has been complete d for the patient 10/17/2024 10:18 AM EDT A Body Mass Index follow-up plan has been documented for the patient 02/06/2025 4:27 PM EDT documented as of this encounter Care Teams Activities Leader Relationship Specialty Start Date End Date Camilla Rosado MD [address] [place] [address] [address] [place] [address] PCP - General 10/24/20 documented as of this encounter
--- OUTSIDE RECORDS SUMMARY | 2025-04-13 10:53 | XMS_ITS | Continuity of Care Document ---
Author Organization [facility] Address [address] [facility], [address] [place] [address] Care Team Providers Care Grease Man Name Role Phone MICKEY POOL Referring Provider RENE ARCHIBALD Referring Provider [phone] MEIR CARPENTER Referring Provider [phone] CAYLA BERNAL Referring Provider [phone] ALONDRA GUILLAUME Referring Provider ROSALINDA SANTOS Referring Provider MARCELLUS BUI II Referring Provider CHRISTA SWARTZ Referring Provider Assessment Encounter Date Assessment Date Assessment LastModified by Organization Details LastModified Time 03/29/2025 03/29/2025 Mel presents for a check-up. She has moved from her smaller duplex apartment to an assisted living situation at the [facility]. She has had multiple falls and simply could not continue to take care of herself at home. Her last fall caused significant facial contusions the end of December and she required hospitalization followed by rehabilitation. She subsequently had a course of covid while in the custodial and was miserably quarantined for about ten [...] in 5 years but has seen her assembler latches and springs for upper endoscopy in 2016 and he [...] of her vaccines to take to the custodial. Medications are reconciled. She follows regularly with her size changer for her cornea problems and she is [...] Details Last Modified Time Details Appointments None record ed. Lab None record ed. Referral None record ed. Procedures None record ed. Surgeries None record ed. Imaging None record ed. Medication Orders None record ed. Patient TargetsNo targets recorded. Patient Instructions Encounter Date Encounter Id Patient Instructions Last Modified By Organization Details Last Modified Time 03/29/[id number] dash diet: care instructions Not available 03/31/2025 15:42:18 Reason for Referral None Reported. Problems Name Problem SNOMED Code Status Onset Date Resolution Date Notes Provider Name and Address Organization Details Recorded Time Abrasion and/or friction burn 011982075 Active Not Available [facility] 23:35:47 Upper respirator y infection 61758999 Active Not Available [facility] 23:35:46 Cough 30785274 Active Not Available [facility] 23:35:47 Backache 234732618 Active Not Available [facility] 23:35:46 Chronic recurrent sinusitis 303151432 Active Not Available [facility] 23:35:46 Wheezing 01686121 Active Not Available [facility] 23:35:47 Bronchitis 16880685 Active Not Available [facility] 23:35:46 Urinary tract infectious disease 07164835 Active Not Available [facility] 23:35:46 Contusion of foot 21272437 Active Not Available [facility] 23:35:46 Disorder of cornea 39241965 Active Not Available [facility] 23:35:47 Paronychia of toe 201413527 Active Not Available [facility] 23:35:47 Vertigo 027684584 Active Not Available [facility] 23:35:46 Acute sciatica 217344619 Active Not Available [facility] 23:35:47 Strain of back muscle 592791573 Active Not Available [facility] 23:35:46 Nausea present 624298926 Active Not Available [facility] 23:35:47 Fatigue 12868294 Active Not Available [facility] 23:35:47 Muscle pain 42877991 Active Not Available [facility] 23:35:46 Mechanical low back pain 504479030 Active Not Available [facility] 23:35:47 Impairment of balance 075832147 Active Not Available [facility] 23:35:46 Heat exhaustion 74888389 Active Not Available [facility] 23:35:46 Near syncope 859173977 Active Not Available [facility] 23:35:47 Mitral valve regurgitat ion 94308705 Active Not Available [facility] 23:35:46 History of lipoma 295088123727 95644 Active atrial septum Not Available [facility] 23:35:46 Obstructiv e sleep apnea syndrome 36697719 Active Not Available [facility] 23:35:47 Coronary arterioscl erosis 92921298 Active 20- 30 %LAD; 20-30% RCA; EF 60% cath 08/2014 Not Available [facility] 23:35:46 Headache 32969215 Active Not Available [facility] 23:35:46 Gastroesop hageal reflux disease 080746048 Active Not Available [facility] 23:35:47 Closed fracture of carpal bone 4761561 Active Not Available [facility] 23:35:47 Benign essential hypertensi on 9653522 Active Not Available [facility] 23:35:46 Fibromyosi tis 28870885 Active Not Available [facility] 23:35:46 Sprain of wrist and/or hand 523291396 Active Not Available [facility] 23:35:46 Allergic rhinitis 37129553 Active Not Available [facility] 23:35:47 Disorder of urinary tract 36832124 Active Not Available [facility] 23:35:46 Acute sinusitis 82976701 Active Not Available [facility] 23:35:47 Superficia l injury of elbow and/or forearm and/or wrist Active Not Available [facility] 23:35:47 Uric acid urolithias is 580182710 Active Not Available [facility] 23:35:46 Disorder of cardiovasc ular system 96039108 Active Not Available [facility] 23:35:46 Tinea manus 68743798 Active Not Available [facility] 23:35:47 Gouty arthropath y 278320741 Active Not Available [facility] 23:35:47 Psoriasis 3943423 Active Not Available [facility] 23:35:46 Hyperlipid emia 17138313 Active Not Available [facility] 23:35:47 Hypothyroi dism 04021241 Active Not Available [facility] 23:35:47 Malaise and fatigue 654941695 Active Not Available [facility] 23:35:46 Cellulitis and abscess of finger 291585316 Active Not Available [facility] 23:35:46 Notes:Some problems listed i n Document: #[id number] could not be added to this patient's chart. Please review this document and add these problems to the patient's chart manually as needed. Problem Notes None recorded. Procedures Surgical History Date Name Laterality Status Provider Name and Address Organization Details Recorded Time 11/18/19 16 Corneal transplant completed [facility] 01/19/2016 15:15:38 09/16/19 16 Eye Surgery completed [facility] 01/19/2016 15:15:10 04/23/20 15 Nsl/sins ndsc frnt tiss rmvl completed [facility] 01/19/2016 15:14:17 02/29/20 15 Other completed Camilla Rosado MD [address], [address] [place] [address] [facility] 04/08/2015 14:29:07 09/03/19 15 Cardiac Surgery completed Camilla Rosado MD [address], [address] [place] [address] [facility] 09/24/2014 10:08:57 09/19/19 14 Nebulizer tx completed Camilla Rosado MD [address], [address] [place] [address] [facility] 09/18/2013 10:29:15 06/13/19 14 Eye Surgery completed Camilla Rosado MD [address], [address] [place] [address] [facility] 04/08/2015 14:16:06 03/09/20 13 Colonoscopy completed Camilla Rosado MD [address] [facility] 04/21/2015 12:11:53 06/13/19 10 Cataract Surgery completed Camilla Rosado MD [address] [address], [place] [facility] 04/08/2015 14:16:06 04/02/20 04 Colonoscopy completed Barbi Collazo [facility] 07/19/2013 09:48:00 06/13/19 04 Eye Surgery completed Camilla Rosado MD 2016 [facility], [facility] [address], [place], [address], [facility] 04/08/2015 14:16:06 06/13/18 91 Appendectomy completed Not Available [facility] 011 04:58:32 06/13/18 79 Orthopaedic Surgery completed Camilla Rosado MD 2016 [facility] [address], [place], [address], [facility] 04/08/2015 14:22:19 06/13/18 78 Orthopaedic Surgery completed Not Available [facility] 04/27/2011 04:58:32 06/13/18 68 Other completed Not Available [facility] 04:58:32 Other completed Camilla Rosado MD [address] [facility], [facility] [address], [place], [address], [facility] 04/08/2015 14:16:06 Other completed Not Available [facility] 04:58:32 Lumpectomy completed Not Available [facility] 04/27/2011 04:58:32 Imaging Results None recorded. Procedure Notes None recorded. Medical Equipment None Reported. Allergies Allergen ID Allergen Name Allergen Category Reaction Reaction Severity Criticality Documentation Date Start Date Code Code System Note Provider Name and Address Organization Details Recorded Time 721 Suprax medicatio n Not available Not available Not available 03/04/2011 9 RxNorm Not Available [facility] 04:58:31 722 Seldane-D medicatio n Not available Not available Not available 03/04/201176866 2 RxNorm Not Available [facility] 04:58:31 723 Biaxin medicatio n Not available Not available Not available 03/04/2011 9 RxNorm Not Available [facility] 11/15/201 1 04:58:31 724 Product containin g penicilli n (product) medicatio n Not available Not available Not available 03/04/2011 86637 8001 SNOMED Not Available [facility] 1 04:58:31 725 Macrobid medicatio n Not available Not available Not available 03/04/2011 87423 1 RxNorm Not Available [facility] 1 04:58:31 726 Substance with sulfonami de structure and antibacte rial mechanism of action (substanc e) medicatio n Not available Not available Not available 03/04/2011 87366 8003 SNOMED Not Available [facility] 1 04:58:31 727 methylpre dnisolone medicatio n Not available Not available Not available 03/04/2011 6902 RxNorm Not Available [facility] 1 04:58:31 7902 Lipitor medicatio n Not available Not available Not available 07/08/2011 14791 5 RxNorm [facility] 2 15:44:46 Medications Name Sig Start Date [...] Not Available Not Available Not Available zostavax 25011 unt/0.65m l solr active Not Available Not [...] Available Not Available bacitraci n/polymyx in b 500-48890 unit/gm oint 12/10 completed Not Available Not [...] Available Not Available Nasonex 50 mcg/actua tion [place] active Not Available Not Available Not Available [...] bromide 42 mcg (0.06 %) nasal spray [place] 2 sprays 3 times a day by [...] e 50 mcg/actua tion nasal spray,christiane pension [place] 1 spray every day by intranas al route as needed. 06/10 completed Not Available Not Available Not Available doxycycli ne hyclate 100 mg tablet TAKE 1 TABLET TWICE A DAY FOR 10 DAYS 12/08 completed Not Available Not Available Not Available atenolol 50 mg tablet TAKE 1 TABLET EVERY DAY (IN THE EVENING) 10/19 completed dosage reduced Not Available Not Available Not Available Gunavid in-DM 10 mg-100 mg/5 mL oral liquid [...] e 205.5 mcg (0.15 %) nasal spray [place] 1 spray twice a day by intranas [...] Updated DateTime 5 172.72 cm 25.9 kg/m2 62131.5 g 83 /min 96 % 96 % 98.2 [degF] 139/85 mm[Hg] [facility] 5 10:27:34 Social History Question Answer Notes LastModified by Organizat ion Details LastModified Time Tobacco Smoking Status Never Smoker Not Available [facility] 04/08/2020 03:11:18 Do You Have An Advance Directive? No [email or web address] Information not available 09/06/2023 Animal Exposure? Yes [email or web address] [id number] Information not available 04/27/2011 Auto Related Injury? No 5 Information not available 04/27/2011 Is Blood Transfusion Acceptable In An Emergency? Yes [id number] Information not available 04/08/2020 What Is Your Level Of Caffeine Consumption? Heavy [id number] Information not available 04/08/2020 How Much Tobacco Do You Chew? None [id number] Information not available 04/08/2020 Diabetes No DBA_PATCH_ 11 5 Information not available 04/27/2011 What Type Of Diet Are You Following? REGULAR [id number] Information not available 04/08/2020 Which Illicit Or Recreational Drugs Have You Used? None [id number] Information not available 04/08/2020 Education 12 DBA_PATCH_ 11 5 Information not available 04/27/2011 What Is The Highest Grade Or Level Of School You Have Completed Or The Highest Degree You Have Received? [id number] Information not available 03/05/2021 Family History Of Heart Disease? No 5 Information not available 04/27/2011 Which Of Your Hands Is Dominant? Right [id number] Information not available 04/08/2020 High Blood Pressure Yes 5 Information not available 04/27/2011 High Cholesterol Yes DBA_PATCH_2 [id number] 5 Information not available 04/27/2011 Live Alone Or With Others? Alone 5 Information not available 04/27/2011 Marital Status Single [...] 04/27/2011 Do You Use Sunscreen Routinely? Yes [id number] Information not available 04/08/2020 Sex: Unknown Functional Status Question Answer Note LastModified by Organizat ion Details LastModified Time What is your level of alcohol consumption? None [id number] Information not available 04/08/2020 Are you currently employed? No [id number] Information not available 04/08/2020 Are you able to care for yourself independently? 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 Moderate [id number] Information not available 04/08/2020 Mental Status Question Answer Note LastModified by Organization D etails LastModified Time Do you feel stressed (tense, restless, nervous, or anxious, or unable to sleep at night)? [id number] Information not available 03/05/2021 Family History Relationship [...] Blood Diseases N Hyperthyroidism N Hypothyroidism Y Depression N COPD N Developmental or Behavioral Disorders N Eczema, [...] Disease N Pulmonary Embolism N Hypertension Y Osteoporosis N Chicken Pox N Gynecological History Statement/Question Response Menses Monthly N If Post Menopausal, Age at Menopause 54 Age at Menarche 17 Obstetrics History GPAL:G 0 P 0 0 0 0 Immunizations Vaccine Type Date Status Note Provider Nam e and Address Organization Details Recorded Time Td (adult), 5 Lf tetanus toxoid, preservative free, adsorbed 3 completed Not Available [facility] 06/30/2019 02:12:07 Influenza, high-dose, trivalent, PF 7 completed Not Available [facility] 06/30/2019 02:12:14 Influenza, high-dose, trivalent, PF 8 completed Not Available [facility] 06/30/2019 02:12:13 Influenza, high-dose, trivalent, PF 9 completed Not Available [facility] 06/30/2019 02:12:11 Influenza, high-dose, trivalent, PF 4 completed Not Available [facility] 02/05/2021 23:35:47 Influenza, high-dose, quadrivalent, PF 0 completed Not Available [facility] 03/25/2020 14:52:50 Influenza, high-dose, quadrivalent, PF 1 completed Not Available [facility] 03/05/2021 14:15:39 Pneumococcal conjugate PCV 13 5 completed Not Available [facility] 02/05/2021 23:35:48 Influenza, high-dose, quadrivalent, PF 2 completed Camilla Rosado MD [address] [facility], [facility] [address], [place], [address], [facility] 03/29/2022 22:17:19 Influenza, high-dose, trivalent, PF 5 completed Not Available [facility] 02/05/2021 23:35:47 Influenza, high-dose, quadrivalent, PF 3 completed Not Available [facility] 03/24/2023 16:04:59 COVID-19, mRNA, LNP-S, bivalent, PF, 30 mcg/0.3 mL dose 3 completed [facility] 04/01/2023 15:53:08 zoster live 6 completed Not Available [facility] 02/05/2021 23:35:47 Influenza, high-dose, trivalent, PF 6 completed Not Available [facility] 02/05/2021 23:35:48 Influenza, high-dose, trivalent, PF 4 completed Camilla Rosado MD [address] [facility], [facility] [address], [place], [address], [facility] 03/23/2024 14:11:30 COVID-19, mRNA, LNP-S, PF, trista-sucrose, 30 mcg/0.3 mL 4 completed Not Available [facility] 03/30/2024 14:23:51 pneumococcal polysaccharide PPV23 6 completed Not Available [facility] 02/05/2021 23:35:48 Pneumococcal conjugate PCV20, polysaccharide XXP209 conjugate, adjuvant, PF 5 completed [facility] 10/26/2024 11:48:53 Influenza, high-dose, trivalent, PF 5 completed Not Available [facility] 03/29/2025 10:29:24 Hep A, adult 9 completed Not Available [facility] 02/05/2021 23:35:47 Hep A, adult 9 completed Not Available [facility] 02/05/2021 23:35:47 COVID-19, mRNA, LNP-S, PF, 100 mcg/0.5mL dose or 50 mcg/0.25mL dose 1 completed Not Available [facility] 02/05/2021 23:35:47 COVID-19, mRNA, LNP-S, PF, 100 mcg/0.5mL dose or 50 mcg/0.25mL dose 1 completed Not Available [facility] 02/05/2021 23:35:47 COVID-19, mRNA, LNP-S, PF, 100 mcg/0.5mL dose or 50 mcg/0.25mL dose 1 completed Camilla Rosado MD [address] [facility], [address] [place] [address], [place], [address], [facility] 06/01/2021 15:40:35 Influenza, high-dose, quadrivalent, PF 2 completed [facility] 06/10/2022 16:30:49 Tdap 4 completed Camilla Rosado MD [address] [facility], [address], [place], [address], [facility] 02/06/2024 16:12:29 RSV, recombinant, protein subunit RSVpreF, adjuvant reconstituted, 0.5 mL, PF 5 completed Camilla Rosado MD [address] [facility], [facility] [address], [place], [address], [facility] 06/28/2024 14:43:02 Influenza, split virus, trivalent, preservative 2 completed Not Available [facility] 06/30/2019 02:12:11 Pneumococcal Conjugate, unspecified formulation 6 completed Not Available [facility] 02/05/2021 23:35:47 Pneumococcal Conjugate, unspecified formulation 7 completed Not Available [facility] 02/05/2021 23:35:47 Pneumococcal Conjugate, unspecified formulation 1 completed Not Available [facility] 02/05/2021 23:35:47 Influenza, high-dose, trivalent, PF 3 completed Not Available [facility] 02/05/2021 23:35:47 Past Encounters Encounter ID Performer Location Encounter Start Date Encounter Closed Date Diagnosis/Indication Diagnosis SNOMED-CT Code Diagnosis ICD10 Code Diagnosis IMO Codes Diagnosis Note [id number] Camilla Rosado MD [facility] [address] [facility] [address] [place] [address] 03/29/2025 09:58:09 04/01/2025 09:18:02 Influenza vaccination given 4820505176 9109 Z23 63660411 Gastroesop hageal reflux disease 386102930 K21.9 Hypothyroidism 18084734 E03.9 Essential hypertension 63286476 I10 Allergic rhinitis 765727 04 J30.9 Simple renal cyst 791080 09 N28.1 Hyperlipidemia 21680782 E78.5 History of gout 50984523 4 Z87.39 Mitral amber ve regurgitation 44890856 I34.0 Obstructiv e sleep apnea syndrome 61791115 G47.33 Coronary arteriosclerosis 42573574 I25.10 History of multiple allergies 189111122 Z88.9 Prophylact ic immunotherapy 527860888 Z29.11 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 Body mass index 25-29 - overweight 945486958 Z68.25 Medication review done by doctor 378093121 Z76.89 Health Concerns Section Related Observation LastModified by Organization Detai ls LastModified Time None Recorded Concern Status LastModified by Organization Details LastModified Time None Recorded Payers Encounter Date Sequence Insurance Name Policy Number Policy Jade Covered Member ID Jade Member ID Guarantor Name 03/29/2025 1 [facility] (MEDICARE REPLACEMENT/A DVANTAGE - PPO) [id number] Kristen Escalante Dane [id number] Kristen A Dane Notes Date Note Type Note Provider Name and Address Organization Details Recorded Time 03/29/2025 text/html she was hospitalized 01/10 after a fall with nasal fracture and a prolonged hospitalization until 01/18 She then moved to an assisted living facility in [facility]. She is happy there and they have good food. She has met some interesting people and really enjoys that. Camilla Rosado MD [address] [facility], [address], [place], [address], [facility] 03/31/2025 15:42:22 OBGyn Episode No OBEpisode recorded.
--- OUTSIDE RECORDS SUMMARY | 2025-04-13 10:53 | XMS_ITS | Encounter Summary ---
Author Organization [facility] Address [address] [place] [address] Care Team Providers Care Entry Clerk Name Role Phone Camilla Rosado MD Primary Care Provider [phone] Reason for Visit * Reason Comments Med Refill Encounter Details Date Type Department Care Team (Late st Contact Info) Description 10/24/2024 Refill [facility] [address] [place] [address] Nelda Butcher MD [address] [address] Social History Tobacco Use Types [...] 05/07/2025 9:15 AM EST Office Visit [facility] [address] [place] [address] Nelda Butcher MD [address] [place] [address] 08/12/2025 1:45 PM EST Office Visit [facility] [address], [address] [place] [address] Ramón Powell MD [address] [place] [address] 01/21/2026 1:30 PM EDT Ovarian Cancer Screening [facility] [address] , [address] [place] [address] documented as of this encounter Visit Diagnoses Not on filedocumented in this encounter Additional Health Concerns Assessment Noted Time A fall risk assessment has been complete d for the patient 10/17/2024 10:18 AM EDT A Body Mass Index follow-up plan has been documented for the patient 10/17/2024 11:18 AM EDT documented as of this encounter Care Teams Entry Clerk Relationship Specialty Start Date End Date Camilla Rosado MD [address] [place] [address] [address] [place] [address] PCP - General 10/24/20 documented as of this encounter
--- OUTSIDE RECORDS SUMMARY | 2025-04-13 10:53 | XMS_ITS | Encounter Summary ---
Author Organization Healthcare Address [address] [place] [address] Care Team Providers Care Smoke Jumper Name Role Phone Camilla Rosado MD Primary Care Provider [phone] Encounter Details Date Type Department Care Team (Late st Contact Info) Description 02/26/2025 Telephone [facility] [address] [place] [address] Ramón Powell MD [address] [address] Social History Tobacco Use Types [...] encounter Miscellaneous Notes * Telephone Encounter - Rafael Miguel - 02/28/2025 8:02 AM EDT Triage Note 02/28/2025 8:[address] Araujo if patient calls back she can discotiuned her Doxy.Provided clarification upon recent concerns. * Telephone Encounter - Elizabeth Fuentes - 02/26/2025 2:19 PM EDT Clinical Concern/Question Reason for Call: Pt said Dr Powell prescribed Doxycycline 50 mg capsules and pt wants to know why it was prescribed. Pt said she is now living at [facility] in [facility] they had asked her why she is taking the med, but she didn't know. Best contact number: [phone] (mobile) Optimal time of day to reach caller: ANYTIME Additional comments/information from caller: None Note: Please do not reply to this message. Follow-up communication and further actions as a result of this message need to be communicated with the patient directly, if the patient is not active onMyChart. If the patient is active on MyChart, they will receive notification of the communication/outcome via [employer]. documented in this encounter Plan of Treatment Upcoming Encounters Date Type Department Care Team (Late st Contact Info) Description 05/07/2025 9:15 AM EST Office Visit [facility] [address] [place] [address] Nelda Butcher MD [address] [address] 08/12/2025 1:45 PM EST Office Visit [facility] [address] [facility], [address] [place] [address] Ramón Powell MD [address] [address] 01/21/2026 1:30 PM EDT Ovarian Cancer Screening [facility] Gynecology [address] [place] [address] documented as of this encounter Visit Diagnoses Not on filedocumented in this encounter Additional Health Concerns Assessment Noted Time A fall risk assessment has been complete d for the patient 10/17/2024 10:18 AM EDT A Body Mass Index follow-up plan has been documented for the patient 02/06/2025 4:27 PM EDT documented as of this encounter Care Teams Smoke Jumper Relationship Specialty Start Date End Date Camilla Rosado MD [address] [place] [address] [address] [place] [address] PCP - General 10/24/20 documented as of this encounter
--- OUTSIDE RECORDS SUMMARY | 2025-04-13 10:53 | XMS_ITS | Encounter Summary ---
Author Organization Healthcare Address [address] [place] [address] Care Team Providers Care Printed Circuit Boards Contact Printer Name Role Phone Camilla Rosado MD Primary Care Provider [phone] Reason for Visit * Reason Onset Date Comments [facility] Clinical Concern/Question 02/12/2025 Encounter Details Date Type Department Care Team (Late st Contact Info) Description 02/12/2025 Telephone [facility] [address] [place] [address] Ramón Powell MD [address] [address] [facility] Clinical Concern/Question Social History [...] of the initial request. Best contact number: [phone] Optimal time of day to reach caller: [...] patient's medication orders. Best contact number: Other: [phone] Optimal time of day to reach caller: [...] Description 05/07/2025 9:15 AM EST Office Visit [facility] [address] [place] [address] Nelda Butcher MD [address] [address] 08/12/2025 1:45 PM EST Office Visit [facility] [address], [address] [place] [address] Ramón Powell MD 110 [facility] [address] [place] [address] 01/21/2026 1:30 PM EDT Ovarian Cancer Screening [facility] Gynecology [address] [place] [address] documented as of this encounter Visit Diagnoses [...] documented as of this encounter Care Teams Printed Circuit Boards Contact Printer Relationship Specialty Start Date End Date Camilla Rosado MD [address] [place] [address] [address] [place] [address] PCP - General 10/24/20 documented as of this encounter
--- OUTSIDE RECORDS SUMMARY | 2025-04-13 10:53 | XMS_ITS | Encounter Summary ---
Author Organization Healthcare Address [address] [place] [address] Care Team Providers Care Explosives Mixer Operator Name Role Phone Camilla Rosado MD Primary Care Provider [phone] Encounter Details Date Type Department Care Team (Late Contact Info) Description 02/26/2025 Telephone [facility] [address] [place] [address] Ramón Powell MD [address] [address] Social History Tobacco Use Types [...] Description 05/07/2025 9:15 AM EST Office Visit [facility] [address] [place] [address] Nelda Butcher MD [address] [address] 08/12/2025 1:45 PM EST Office Visit [facility] [address] [place] [address], [address] [place] [address] Ramón Powell MD 110 [facility] [address] [place] [address] 01/21/2026 1:30 PM EDT Ovarian Cancer Screening [facility] Gynecology [address] [facility], [address] [place] [address] documented as of this encounter Visit Diagnoses Not on filedocumented in this encounter Additional Health Concerns Assessment Noted Time A fall risk assessment has been complete d for the patient 10/17/2024 10:18 AM EDT A Body Mass Index follow-up plan has been documented for the patient 02/06/2025 4:27 PM EDT documented as of this encounter Care Teams Explosives Mixer Operator Relationship Specialty Start Date End Date Camilla Rosado MD [address] [place] [address] [address] [place] [address] PCP - General 10/24/20 documented as of this encounter
--- OUTSIDE RECORDS SUMMARY | 2025-04-13 10:53 | XMS_ITS | Clinical Summary ---
Author Organization [facility] Address [address] [place] [address] Care Team Providers Care Custom Motorcycle Painter Name Role Phone Camilla Rosado MD Primary Care Provider [phone] Allergies Active Allergy Reactions Criticality Noted Date [...] dissatisfied with the replacement DreamStation #2 from [employer]. She is not using her CPAP and [...] Type Department Care Team Description 02/26/2025 Telephone [facility] [address] [place] [address] Ramón Powell MD 02/26/2025 Telephone [facility] [address] [place] [address] Ramón Powell MD 02/13/2025 Telephone [facility] [address] [place] [address] Ramón Powell MD 02/12/2025 Telephone [facility] [address] [place] [address] Ramón Powell MD [facility] Clinical Concern/Question 02/06/2025 3:00 PM EDT Office Visit [facility] [place] [address], [address] [place] [address] Ramón Powell MD Chronic open [...] Subjective visual disturbance 02/06/2025 Travel 01/22/2025 Telephone [facility] [place] [address] [place] [address] Ramón Powell MD from Last 3 Months Family History Medical [...] Description 05/07/2025 9:15 AM EST Office Visit [facility] [address] [place] [address] Nelda Butcher MD 110 [facility] [address] [place] [address] 08/12/2025 1:45 PM EST Office Visit [facility] [address] [place] [address] Ramón Powell MD 110 [facility] [address] [place] [address] 01/21/2026 1:30 PM EDT Ovarian Cancer Screening [facility] Gynecology [address] [facility], [address]rd [place] [address] Health Maintenance Due Date Last Done Comments [facility]-Depression Screening 1940 [facility]-Medicare Annual Wellness (AWV) 1940 [facility]-/Child/Adol SDOH Screenings 1940 [facility]- SDOH Screenings 01/09/1958 [facility]-Adult SDOH Screenings 01/09/1958 [facility]-Zoster Vaccines (2 of 3) 10/06/2015 08/11/2015 [facility]-Bone Density Scan 12/27/2024 12/27/2022 , 06/01/2019, 04/03/2017 [id number] Vaccine (6 - Moderna risk season) 2025 [...] PM EDT Trichiasis of right lower eyelid from Last 3 Months Results * Epilation [...] above Surgeon: Ramón Powell MD Complications: None us Ramón Powell MD OPHTH CLINIC PROCEDURES Final Result from Last 3 Months Insurance [facility] [place] [address] Care Teams Custom Motorcycle Painter Relationship Specialty Start Date End Date Camilla Rosado MD [address] [place] [address] [address] [place] [address] PCP - General 10/24/20
[2025-04-13 11:17] LABS: Coronavirus 19, PCR Not Detected (NotDetected); Influenza A, PCR Not Detected (NotDetected); Influenza B, PCR Not Detected (NotDetected)
[2025-04-13 11:29] LABS: Alanine Aminotransferase 22 U/L (12-78); Albumin Level 3.2 g/dl (3.5-5.0); Albumin/Globulin Ratio 0.8 (1.1-1.8); Alkaline Phosphatase 104 U/L (38-126); Anion Gap 9.0 mEq/L (5-15); Aspartate Amino Transferase 26 U/L (14-36); Bilirubin,Total 1.1 mg/dl (0.2-1.3); Blood Urea Nitrogen 35 mg/dl (7-17); Calcium 8.8 mg/dl (8.4-10.2); Carbon Dioxide 26 mmol/L (22.0-30.0); Chloride 104 mmol/L (98-107); Creatinine Clearance Estimated 40 mL/min (50-200); Creatinine,Serum 1.10 mg/dl (0.52-1.04); Estimated Glomerular Filt Rate 47 ml/min (>60); GFR (African American) 57 ML/MIN (>60); Globulin 4.0 g/dL (1.3-3.2); Glucose 83 mg/dl (74-100); Magnesium 2.2 mg/dl (1.6-2.3); Potassium 4.0 mmoL/L (3.5-5.1); Sodium 135 mmol/L (136-145); Total Protein,Serum 7.2 g/dl (6.3-8.2)
[2025-04-13 11:31] LABS: Hematocrit 42.2 % (37.0-47.0); Hemoglobin 14.3 g/dL (12.2-16.2); Immature Granulocytes % 0.6 %; Mean Corpuscular HGB Conc 33.9 g/dL (31.8-35.4); Mean Corpuscular Hemoglobin 29.9 pg (27.0-31.2); Mean Corpuscular Volume 88.3 fl (81-99); Nucleated Red Blood Cells % 0 %; Platelet Count 173 K/mm3 (142-424); Red Blood Count 4.78 M/mm3 (4.20-5.40); Red Cell Distribution Width-SD 41.6 fL; White Blood Count 10.3 K/mm3 (4.8-10.8)
--- NOTE | 2025-04-13 11:40 | XR_ITS ---
PROCEDURE INFORMATION: Exam: XR Chest Exam date and time: 04/13/2025 11:47 AM Age: 85 years old Clinical indication: Dyspnea TECHNIQUE: Imaging protocol: Radiologic exam of the chest. Views: 1 view. COMPARISON: CT ANGIO CHEST PE PROTOCOL 02/18/2025 12:31 PM FINDINGS: Lungs: Mild atelectasis are seen in the left mid lung. Reticular opacities in both lungs with can be seen with emphysema. Pleural spaces: Unremarkable. No pleural effusion. No pneumothorax. Heart/Mediastinum: Unremarkable. No cardiomegaly. Bones/joints: Unremarkable. IMPRESSION: Mild atelectasis are seen in the left mid lung. Reticular opacities in both lungs with can be seen with emphysema.
--- NOTE | 2025-04-13 11:40 | HMH.EDGENADL ---
Discharge Plan Disposition Patient Disposition: Admitted Prescriptions Prescriptions: No Action famotidine 20 mg tablet 20 mg PO BID Patient Comments: Take 1 tablet(s) twice a day. amlodipine 5 mg tablet 5 mg PO DAILY Patient Comments: Take 1 tablet by mouth Daily. metoprolol succinate 25 mg tablet extended release 24 hr 25 mg PO DAILY Patient Comments: Take 1 tablet by mouth Daily. meclizine 12.5 mg tablet 12.5 mg PO .prn Patient Comments: Take 1 tablet by mouth twice a day as needed. pravastatin 80 mg tablet 80 mg PO HS Patient Comments: TAKE 1 TABLET EVERY EVENING. losartan 100 mg tablet 100 mg PO DAILY Patient Comments: TAKE 1 TABLET ONCE A DAY. allopurinol 100 mg tablet 100 mg PO DAILY Patient Comments: TAKE 1 TABLET ONCE A DAY. montelukast 10 mg tablet 10 mg PO DAILY Patient Comments: take 1 tablet once a day prednisolone acetate 1 % drops,suspension 1 drp Eye-Both BID Patient Comments: Administer 1 drop into both eyes 4 (four) times a day. pilocarpine HCl 1 % drops 1 drp Eye-Both BID Patient Comments: Administer 1 drop into both eyes 2 (two) times a day. brimonidine-timolol 0.2-0.5 % drops 1 drp Eye-Both BID Patient Comments: Administer 1 drop into both eyes 2 (two) times a day. azelastine 137 mcg (0.1 %) spray,non-aerosol 1 spray intranasal BID Patient Comments: Marine 1 spray twice a day by intranasal route. Lumigan 0.01 % drops 1 drp Eye-Both HS Patient Comments: Administer 1 drop into both eyes every night. albuterol sulfate 90 mcg/actuation HFA aerosol inhaler 2 inh inhalation Q4HP PRN (Reason: Breathing Problems) Patient Comments: INHALE 2 PUFFS BY MOUTH EVERY 4 HOURS NEEDED levothyroxine 100 MCG tablet 100 mg PO DAILY levocetirizine [24HR Allergy Relief] 5 MG tablet 5 mg PO DAILY oxycodone-acetaminophen [Percocet] 5-325 mg tablet 1 tab PO Q6 PRN (Reason: Pain (Scale Score 4-6)) Patient Comments: Take 1 tablet by mouth every six hours as needed for pain hydrochlorothiazide 25 mg Tablet 25 mg PO DAILY Referrals Follow up/Referrals: Camilla Rosado [Primary Care Provider, Medical] - See instructions Clinical Impressions Clinical Impression: Bilateral pulmonary embolism, Heart palpitations, Systolic murmur, Dyspnea Print Language Print Language: Cameroonian Discharge ED Provider: Jessica Villareal General Adult HPI General Chief complaint: Arrhythmia/Palpitations Stated complaint: shortness of breath Time Seen by Provider: 04/13/25 11:35 Mode of Arrival: EMS Source of Information: Patient, EMS and Medical Record Description of Symptoms (Recalled from ER Triage Doc. by RN): pt felt soa and palpitations and pcp wanted pt sent out for afib, pt is alox4 upon triage and denies any pain and vitals are wnl History of Present Illness HPI narrative: Patient is an 85-year-old female who presents today with 2 complaints primarily shortness of breath and then states her heart has been flip-flopping. Patient denies any fevers chills cough etc. States he has a history of atrial fibrillation but is only on a daily aspirin. Denies any chest pain. Denies any other symptoms at the moment and states that she feels good right now without symptoms. Related Data Home Medications ?Medication ?Instructions ?Recorded ?Confirmed levocetirizine 5 mg tablet (24HR 5 mg PO DAILY . 09/13/18 04/13/25 Allergy Relief) levothyroxine 100 mcg tablet 100 mg PO DAILY thyroid 09/13/18 04/13/25 albuterol sulfate 90 mcg/actuation 2 inh inhalation Q4HP PRN 02/29/24 04/13/25 aerosol inhaler Breathing Problems allopurinol 100 mg tablet 100 mg PO DAILY 02/29/24 04/13/25 amlodipine 5 mg tablet 5 mg PO DAILY 02/29/24 04/13/25 azelastine 137 mcg (0.1 %) nasal 1 spray intranasal BID 02/29/24 04/13/25 spray bimatoprost 0.01 % eye drops 1 drp Eye-Both HS 02/29/24 04/13/25 (Tiago) brimonidine 0.2 %-timolol 0.5 % 1 drp Eye-Both BID 02/29/24 04/13/25 eye drops famotidine 20 mg tablet 20 mg PO BID 02/29/24 04/13/25 losartan 100 mg tablet 100 mg PO DAILY 02/29/24 04/13/25 meclizine 12.5 mg tablet 12.5 mg PO .prn 02/29/24 04/13/25 metoprolol succinate 25 mg 25 mg PO DAILY 02/29/24 04/13/25 tablet,extended release 24 hr montelukast 10 mg tablet 10 mg PO DAILY 02/29/24 04/13/25 pilocarpine HCl 1 % eye drops 1 drp Eye-Both BID 02/29/24 04/13/25 pravastatin 80 mg tablet 80 mg PO HS 02/29/24 04/13/25 prednisolone acetate 1 % eye 1 drp Eye-Both BID 02/29/24 04/13/25 drops,suspension hydrochlorothiazide 25 mg tablet 25 mg PO DAILY 04/13/25 04/13/25 oxycodone-acetaminophen 5 mg-325 1 tab PO Q6 PRN Pain (Scale Score 04/13/25 04/13/25 mg tablet (Percocet) 4-6) Allergies Allergy/AdvReac Type Severity Reaction Status Date / Time atorvastatin (From Lipitor) Allergy Joint Pain Verified 04/13/25 11:00 cefixime (From Suprax) Allergy Hives Verified 04/13/25 11:00 clarithromycin (From Biaxin) Allergy Nausea Verified 04/13/25 11:00 nitrofurantoin (From Allergy Nausea Verified 04/13/25 11:00 Macrobid) Penicillins Allergy Hives Verified 04/13/25 11:00 Sulfa (Sulfonamide Allergy Hives Verified 04/13/25 11:00 Antibiotics) terfenadine (From Seldane) Allergy Rash Verified 04/13/25 11:00 steriods Allergy Mild Palpitation Uncoded 04/13/25 11:00 [facility] Disclaimer: The information contained in this section may have been updated after the patient was seen, as this information can be updated by other users. Medical History (Updated 04/13/25 @ 14:19 by Jessica Villareal MD) Acute sinusitis Glaucoma (increased eye pressure) Sinusitis Surgical History History of appendectomy H/O carpal tunnel repair H/O breast surgery H/O sinus surgery History of cornea transplant Social History Smoking Status: Never smoker alcohol intake: never current occupational status: retired Travel in the last 8 weeks?: None Have you lived/traveled outside US in past 30 days?: No Contact w/someone who lives/traveled outside US past 30 days?: No Exposure to someone with infectious disease in past 14 days?: No Do you have a fever (greater than 100.4 F or 38 C)?: No Have you tested positive for COVID-19?: No Exposed to someone with COVID-19 in past 14 days?: No Do you have a sore throat?: No Do you have a cough?: No Do you have any weakness?: No Do you have any diarrhea?: No Are you experiencing any unusual bleeding?: No Do you have any muscle aches/pain?: No Do you have any abdominal pain?: No Are you experiencing loss of taste or smell?: No Other Medical History Have you received the Pneumonia Vaccine: Yes ROS Obtained: Yes All systems reviewed & no additional complaints except as documented Physical Exam General General appearance: alert Respiratory Respiratory exam: Present normal lung sounds bilaterally Cardiovascular Cardiovascular exam: Present regular rate, normal rhythm and systolic murmur Neurological Exam Neurological exam: Present alert and oriented X3 Medical Decision Making Medical Records Screening: Per USPSTF and CDC recommendations, given the prevalence of disease in our region, it is our hospital?s policy to screen for HIV and viral Hepatitis for all patients aged 18 and over and those with ongoing risk factors. Sudheer Inquiry Pt receiving controlled substance: No Vital Signs: 04/13/25 10:35 04/13/25 10:46 04/13/25 11:00 Temperature 98.0 F Temperature Source Oral Pulse Rate 75 71 Pulse Rate [Left Radial] 77 Respiratory Rate 17 17 Blood Pressure 179/88 H 188/85 H Blood Pressure [Right Arm] 179/88 H Blood Pressure Mean [Right Arm] 118 02 Sat by Pulse Oximetry 95 95 95 Oxygen Delivery Method Room Air Room Air Room Air 04/13/25 11:30 04/13/25 12:00 04/13/25 12:30 Temperature Temperature Source Pulse Rate 68 68 65 Pulse Rate [Left Radial] Respiratory Rate 17 17 14 Blood Pressure 179/80 H 182/80 H 174/83 H Blood Pressure [Right Arm] Blood Pressure Mean [Right Arm] 02 Sat by Pulse Oximetry 95 95 94 L Oxygen Delivery Method Room Air Room Air Room Air 04/13/25 13:00 04/13/25 14:00 Temperature Temperature Source Pulse Rate 72 Pulse Rate [Left Radial] Respiratory Rate 18 21 Blood Pressure 179/88 H 164/65 H Blood Pressure [Right Arm] Blood Pressure Mean [Right Arm] 02 Sat by Pulse Oximetry 95 97 Oxygen Delivery Method Room Air Room Air Lab Data Lab results reviewed: Yes I reviewed the patient's lab results. Lab Results 04/13/25 10:30: WBC 10.3, RBC 4.78, Hgb 14.3, Hct 42.2, MCV 88.3, MCH 29.9, MCHC 33.9, RDW 12.9, Plt Count 173, MPV 11.3 H, Neut % (Auto) 77.8, Lymph % (Auto) 8.4 L, [place] % (Auto) 11.3 H, Eos % (Auto) 1.7, Baso % (Auto) 0.2, Neut # (Auto) 8.0 H, Lymph # (Auto) 0.9, [place] # (Auto) 1.2 H, Eos # (Auto) 0.2, Baso # (Auto) 0.0, D-Dimer > 8.10 H, Sodium 135 L, Potassium 4.0, Chloride 104, Carbon Dioxide 26, Anion Gap 9.0, BUN 35 H, Creatinine 1.10 H, Estimated Creat Clear 40, Estimated GFR 47 L, Est GFR ( Amer) 57 L, Glucose 83, Calcium 8.8, Magnesium 2.2, Total Bilirubin 1.1, AST 26, ALT 22, Alkaline Phosphatase 104, Troponin I < 0.01, NT-Pro-B Natriuret Pep 232, Total Protein 7.2, Albumin 3.2 L, Globulin 4.0 H, Albumin/Globulin Ratio 0.8 L, TSH 2.01, Thyroxine (T4) 10.3 04/13/25 10:39: SARS-CoV-2 (PCR) Not detected, Influenza A Untype (PCR) Not detected, Influenza Type B (PCR) Not detected 04/13/25 10:30 04/13/25 10:30 Orders (Tests/Meds): ED MEDICATIONS Generic Name Dose Route Start Last Admin Trade Name Freq PRN Reason Stop Dose Admin Enoxaparin Sodium 70 mg 04/13/25 14:15 04/13/25 14:07 Enoxaparin 100mg/Ml Syringe 1 mg/kg (70 mg) 05/13/25 14:14 70 mg SUBCUT Administration Q12H MARK Discontinued Medications Generic Name Dose Route Start Last Admin Trade Name Scott REESE Reason Stop Dose Admin Sodium Chloride 500 mls @ 999 mls/hr 04/13/25 13:33 04/13/25 13:42 Sod Chlor 0.9% 1000ml Bag IV 04/13/25 14:03 999 mls/hr .Q31M ONE Administration Iopamidol 70 ml 04/13/25 13:50 04/13/25 13:51 Iopamidol-370 (76%);100ml Bottle IV 04/13/25 13:51 70 ml ONCE ONE Administration Sodium Chloride 10 ml 04/13/25 13:50 04/13/25 13:51 Sodium Chloride 0.9% 10ml Syr (Rad Only) IV 04/13/25 13:51 10 ml ONCE ONE Administration Sodium Chloride 50 ml 04/13/25 13:50 04/13/25 13:50 0.9 % Sodium Chloride 50 Ml Vial IV 04/13/25 13:51 50 ml ONCE ONE Administration ORDERS Category Date Time Status CT angio chest PE protocol Stat Cat Scan 04/13/25 13:32 Taken CXR --portable [XR chest portable] Stat Exams 04/13/25 11:40 Completed BNP [NT Pro Brain Natriuretic Pep.] Stat Lab 04/13/25 10:30 Completed Complete Blood Count Auto Diff Stat Lab 04/13/25 10:30 Completed Comprehensive Metabolic Panel Stat Lab 04/13/25 10:30 Completed D-Dimer Stat Lab 04/13/25 10:30 Completed Magnesium Stat Lab 04/13/25 10:30 Completed Rapid PCR Covid and Flu A/B Stat Lab 04/13/25 10:39 Completed T4 (Thyroxine) Stat Lab 04/13/25 10:30 Completed Thyroid Stimulating Hormone Stat Lab 04/13/25 10:30 Completed Troponin I Stat Lab 04/13/25 10:30 Completed Medical Decision Narrative: Well-appearing 85-year-old in normal sinus rhythm on the monitor right now presenting today with shortness of breath and palpitations. EKG was performed I personally turbid shows a ventricular rate of 69 normal sinus rhythm no acute ischemic changes noted no significant arrhythmia or conduction abnormalities. Will keep her on the monitor and see if she has any significant ventricular ectopy. She does have a systolic murmur I do not have any old records to confirm whether or not this is a new or different problem but valvular dysfunction certainly could be on the differential with regards to the cause of the symptoms we will have her follow-up closely with cardiology for both of these pathologies. Regarding her dyspnea she seems to be very stable right now but differential includes pneumonia heart failure NSTEMI pulmonary embolism etc. workup is pending. Reassessment 2:16 PM patient's D-dimer was above the upper limits of normal. CT scan was performed I personally interpreted which shows a very large clot burden bilateral PEs at the bifurcation of both pulmonary vein arteries. There is a RV LV ratio on my measurement of 1-1 or near 1-1. Biomarkers are otherwise negative patient remains hemodynamically stable not tachycardic no oxygen requirement. However given her significant clot burden we will admit her for Lovenox and possibility of mechanical intervention with Dr. Montoya after I discussed the case with him. Patient is aware of this I spoke with Dr. Jimenez who is agreeable to this plan Lovenox given in the emergency department. Critical Care Critical Care Time Critical Care Time: Yes Attestation: On 04/13/25, the high probability of a clinically significant, sudden or life threatening deterioration of the following system(s) required my full and direct attention, intervention and personal management. The time I documented below is in addition to time spent performing reported procedures but includes the following listed in this critical care notation. Total Time Total Critical Care Time: 35
--- NOTE | 2025-04-13 11:42 | PC.NURSE ---
this RN got report from Arnoldo TREVINO, this RN taking over care for this patient
[2025-04-13 11:45] LABS: T4 (Thyroxine) 10.3 ug/dl (5.53-11.0)
[2025-04-13 11:59] LABS: Thyroid Stimulating Hormone 2.01 uIU/mL (0.465-4.68)
--- NOTE | 2025-04-13 11:59 | PC.NURSE ---
patient provided with warm blanket
[2025-04-13 12:07] LABS: Troponin I < 0.01 ng/ml (0.00-0.034)
[2025-04-13 12:34] LABS: NT Pro Brain Natriuretic Pep. 232 pg/mL (0-450)
[2025-04-13 13:31] LABS: D-Dimer > 8.10 ug/mL (0.0-0.5)
--- NOTE | 2025-04-13 13:32 | CT_ITS ---
PROCEDURE INFORMATION: Exam: CTA Chest With Contrast Exam date and time: 04/13/2025 1:52 PM Age: 85 years old Clinical indication: Dyspnea and other: Elevated dimer; Additional info: Dyspnea, elevated dimer TECHNIQUE: Imaging protocol: Computed tomographic angiography of the chest with contrast. Exam focused on the arteries. 3D rendering (Not supervised by radiologist): MIP and/or 3D reconstructed images were created by the technologist. Radiation optimization: All CT scans at this facility use at least one of these dose optimization techniques: automated exposure control; mA and/or kV adjustment per patient size (includes targeted exams where dose is matched to clinical indication); or iterative reconstruction. Contrast material: ISOVUE; Contrast volume: 70 ml; Contrast route: INTRAVENOUS (IV); COMPARISON: CT ANGIO CHEST PE PROTOCOL 02/18/2025 12:31 PM FINDINGS: Pulmonary arteries: The main pulmonary artery at the level of the right pulmonary artery measures 2.8 cm. Filling defects in the segmental and subsegmental branches of pulmonary arteries supplying the upper and lower lobes of the right lung and upper and lower lobes of the left lung. These findings likely represent acute pulmonary embolism. No evidence of right heart strain. The RV to LV ratio 0.7. Aorta: The ascending aorta at the level of the right pulmonary artery measures 3.5 cm. Mild atherosclerotic calcifications affect the aorta and its branches. Lungs: Nodule measuring 4 mm in the left lung base is stable. Peripheral nodule measuring 2 mm on the left upper lobe series 7, image 29 is stable. Pleural spaces: Unremarkable. No pneumothorax. No pleural effusion. Heart: Mild pericardial effusion. Coronary arteries: Coronary artery calcifications are noted. Lymph nodes: Unremarkable. No enlarged lymph nodes. Bones/joints: Unremarkable. No acute fracture. Soft tissues: Unremarkable. IMPRESSION: 1. Filling defects in the segmental and subsegmental branches of pulmonary arteries supplying the upper and lower lobes of the right lung and upper and lower lobes of the left lung. These findings likely represent acute pulmonary embolism. No evidence of right heart strain. The RV to LV ratio 0.7. 2. Nodule measuring 4 mm in the left lung base is stable. Peripheral nodule measuring 2 mm on the left upper lobe series 7, image 29 is stable. 3. For patients at low risk (minimal or absent history of smoking and of other known risk factors), no routine follow-up is indicated. For patients at high risk (history of smoking or of other known risk factors), consider optional CT Chest at 12 months. (Reference: Kamran) 4. THIS REPORT CONTAINS FINDINGS THAT MAY BE CRITICAL TO PATIENT CARE. The findings were verbally communicated via telephone conference with JULIETH LOMELI at 2:27 PM EDT on 04/13/2025. The findings were acknowledged and understood. REFERENCES: Kamran De La Vega, et al. Guidelines for Management of Incidental Pulmonary Nodules Detected on CT Images: From the Fleischner Society 2017. Radiology. 2017;284(1):228-243.
[2025-04-13] MEDS: 0.9 % SODIUM CHLORIDE 1000ML 500 ML 999 ML IV (13:42)
--- NOTE | 2025-04-13 13:46 | PC.NURSE ---
patient to CT scan with radiology staff at this time.
--- NOTE | 2025-04-13 13:46 | PC.NURSE ---
134- patient assist x1 to bedside commode.
[2025-04-13] MEDS: 0.9 % SODIUM CHLORIDE 50 ML VIAL IV (13:50)
[2025-04-13] MEDS: IOPAMIDOL-370 (76%);100ML BOTTLE 70 ML IV (13:51)
[2025-04-13] MEDS: SODIUM CHLORIDE 0.9% 10ML SYR (RAD ONLY) 10 ML IV (13:51)
--- NOTE | 2025-04-13 14:27 | EXP.HP ---
History of Present Illness *Admission Date: 04/13/25 *Reason for visit:: dyspnea with exertion *History of present illness: Ms. Vela is an 85-year-old female who lives in [facility] [place] due to inability to be at home by herself and concern for falls. Has been doing well. She has been there for about 2-1/2 months. States that about a week ago she developed some shortness of breath. Was feeling more dyspneic with exertion. Concern that she was feeling some palpitations so she was sent to the ER for evaluation. On arrival, found to have no cough, fever, chills, nausea or vomiting. He is only on aspirin at this time. Reportedly has history of A-fib. On evaluation, vitals normal. Given her dyspnea however, D-dimer was obtained that was severely elevated. D-dimer greater than 8. CTA of the chest was obtained that showed multiple bilateral subsegmental and segmental filling defects in the pulmonary arteries and upper and lower lobes of right lung and left lung. RV LV ratio on CT is 0.7. Started on Lovenox. Medicine consulted for admission and further management. Evaluation, family bedside helps supplement history. Reports that she has multiple family members that are on anticoagulation for blood clots. Her brother at bedside was diagnosed with PEs at the same time he was diagnosed with non-Hodgkin's lymphoma. She has a niece with factor V Leiden. Another brother that is on anticoagulation for PEs. Patient denies any previous history of PEs. Does state about 2 weeks ago she went on a long trip in the van with her correction to [place]. Has been getting leg wraps for edema. Denies any acute extremity pain or swelling that she is aware of. [facility] Disclaimer: The information contained in this section may have been updated after the patient was seen, as this information can be updated by other users. Medical History (Updated 04/13/25 @ 17:12 by Bull Jimenez MD) Seasonal allergies HLD (hyperlipidemia) HTN (hypertension) GERD (gastroesophageal reflux disease) Hypothyroid Acute sinusitis Glaucoma (increased eye pressure) Sinusitis Surgical History History of appendectomy H/O carpal tunnel repair H/O breast surgery H/O sinus surgery History of cornea transplant Social History Smoking Status: Never smoker alcohol intake: never current occupational status: retired Travel in the last 8 weeks?: None Other Medical History Have you received the Pneumonia Vaccine: Yes Review of Systems Review of Systems Review of systems (narrative): 14 point review of systems performed, pertinent positives and negatives as per HPI Meds Home Medications and Allergies Home Medications ?Medication ?Instructions ?Recorded ?Confirmed ?Type levocetirizine 5 mg tablet (24HR 5 mg PO DAILY 09/13/18 04/13/25 History Allergy Relief) levothyroxine 100 mcg tablet 100 mg PO DAILY thyroid 09/13/18 04/13/25 History allopurinol 100 mg tablet 100 mg PO DAILY 02/29/24 04/13/25 History amlodipine 5 mg tablet 5 mg PO DAILY 02/29/24 04/13/25 History azelastine 137 mcg (0.1 %) nasal 1 spray intranasal BID 02/29/24 04/13/25 History spray bimatoprost 0.01 % eye drops 1 drp Eye-Both HS 02/29/24 04/13/25 History (Lumigan) famotidine 20 mg tablet 20 mg PO BID 02/29/24 04/13/25 History losartan 100 mg tablet 100 mg PO DAILY 02/29/24 04/13/25 History metoprolol succinate 25 mg 25 mg PO DAILY 02/29/24 04/13/25 History tablet,extended release 24 hr montelukast 10 mg tablet 10 mg PO DAILY 02/29/24 04/13/25 History pilocarpine HCl 1 % eye drops 1 drp Eye-Both BID 02/29/24 04/13/25 History pravastatin 80 mg tablet 80 mg PO HS 02/29/24 04/13/25 History prednisolone acetate 1 % eye 1 drp Eye-Both BID 02/29/24 04/13/25 History drops,suspension aspirin 81 mg chewable tablet 81 mg PO DAILY 04/13/25 04/13/25 History dextromethorphan-guaifenesin 5 10 ml PO Q4HP PRN Cough 04/13/25 04/13/25 History mg-100 mg/5 mL oral liquid (Robitussin Honey Max DM) hydrochlorothiazide 25 mg tablet 25 mg PO DAILY 04/13/25 04/13/25 History ibuprofen 400 mg tablet 400 mg PO Q6H PRN Pain 04/13/25 04/13/25 History ondansetron 4 mg disintegrating 4 mg PO Q6H PRN Nausea 04/13/25 04/13/25 History tablet oxycodone-acetaminophen 5 mg-325 1 tab PO Q6 PRN Pain (Scale Score 04/13/25 04/13/25 History mg tablet (Percocet) 4-6) sodium chloride-aloe vera nasal 2 spray intranasal Q4H PRN 04/13/25 04/13/25 History spray (Rex Saline Gel nasal spray) allergies New Prescriptions to Start Prescriptions: Allergies Allergy/AdvReac Type Severity Reaction Status Date / Time atorvastatin (From Lipitor) Allergy Joint Pain Verified 04/13/25 16:39 cefixime (From Suprax) Allergy Hives Verified 04/13/25 16:39 clarithromycin (From Biaxin) Allergy Nausea Verified 04/13/25 16:39 nitrofurantoin (From Allergy Nausea Verified 04/13/25 16:39 Macrobid) Penicillins Allergy Hives Verified 04/13/25 16:39 Sulfa (Sulfonamide Allergy Hives Verified 04/13/25 16:39 Antibiotics) terfenadine (From Seldane) Allergy Rash Verified 04/13/25 16:39 steriods Allergy Mild Palpitation Uncoded 04/13/25 11:00 s Exam Data for Last 24 hours Vital signs and Labs for Last 24 Hours: Temp Pulse Resp BP Pulse Ox O2 Del Method 98.0 F 72 21 164/65 H 97 Room Air 04/13/25 10:46 04/13/25 13:00 04/13/25 14:00 04/13/25 14:00 04/13/25 14:00 04/13/25 14:00 Laboratory Results - last 24 hr 04/13/25 10:30: WBC 10.3, RBC 4.78, Hgb 14.3, Hct 42.2, MCV 88.3, MCH 29.9, MCHC 33.9, RDW 12.9, Plt Count 173, MPV 11.3 H, Neut % (Auto) 77.8, Lymph % (Auto) 8.4 L, [place] % (Auto) 11.3 H, Eos % (Auto) 1.7, Baso % (Auto) 0.2, Neut # (Auto) 8.0 H, Lymph # (Auto) 0.9, [place] # (Auto) 1.2 H, Eos # (Auto) 0.2, Baso # (Auto) 0.0, D-Dimer > 8.10 H, Sodium 135 L, Potassium 4.0, Chloride 104, Carbon Dioxide 26, Anion Gap 9.0, BUN 35 H, Creatinine 1.10 H, Estimated Creat Clear 40, Estimated GFR 47 L, Est GFR ( Amer) 57 L, Glucose 83, Calcium 8.8, Magnesium 2.2, Total Bilirubin 1.1, AST 26, ALT 22, Alkaline Phosphatase 104, Troponin I < 0.01, NT-Pro-B Natriuret Pep 232, Total Protein 7.2, Albumin 3.2 L, Globulin 4.0 H, Albumin/Globulin Ratio 0.8 L, TSH 2.01, Thyroxine (T4) 10.3 04/13/25 10:39: SARS-CoV-2 (PCR) Not detected, Influenza A Untype (PCR) Not detected, Influenza Type B (PCR) Not detected I & O for Last 24 hours: Intake & Output 04/10/25 04/11/25 04/12/25 04/13/25 23:59 23:59 23:59 23:59 Weight 68.039 kg Constitutional Constitutional: mild distress, chronically ill appearing and cooperative *Routine HEENT Exam Head: Present normocephalic Eye: Present EOMI and PERRL ENT: Present mucous membranes moist *Routine Neck Exam Neck: Present supple; Absent lymphadenopathy *Routine Respiratory Exam Respiratory: Present CTA bilaterally; Absent rhonchi, wheezes or crackles *Routine Cardiovascular Exam Cardiovascular: Present RRR and murmur *Routine Abdominal Exam Abdominal: Present soft and normoactive bowel sounds; Absent tenderness *Routine Rectal Exam Rectal:: deferred *Routine Genitalia Exam Genitalia:: deferred *Routine Extremities Exam Extremities: Absent cyanosis, clubbing or edema *Routine Skin Exam Skin: Present intact and warm; Absent rash *Routine Neurological Exam Neurological: Present alert, oriented X3 and moving all extremities; Absent altered mental status Assessment and Plan *Assessment and plan (1) Bilateral pulmonary embolism: Status: Acute Category: Medical Code(s): I26.99 - Other pulmonary embolism without acute cor pulmonale (2) Systolic murmur: Status: Acute Category: Medical Code(s): R01.1 - Cardiac murmur, unspecified (3) History of cornea transplant: Problem Comment: x6 Status: Acute Category: Surgical Code(s): Z94.7 - Corneal transplant status (4) Hypothyroid: Status: Acute Category: Medical Code(s): E03.9 - Hypothyroidism, unspecified (5) GERD (gastroesophageal reflux disease): Status: Acute Category: Medical Code(s): K21.9 - Gastro-esophageal reflux disease without esophagitis (6) HLD (hyperlipidemia): Status: Acute Category: Medical Code(s): E78.5 - Hyperlipidemia, unspecified (7) HTN (hypertension): Status: Acute Category: Medical Code(s): I10 - Essential (primary) hypertension (8) Glaucoma (increased eye pressure): Status: Acute Category: Medical Code(s): H40.9 - Unspecified glaucoma Plan 85-year-old female who presented with shortness of breath. Found to have elevated D-dimer. CTA of chest showed multiple bilateral PEs. Significant clot burden. Concern on bedside echo for 1-1 RV ratio. Discussed case with ER physician, request admission for anticoagulation and evaluation by cardiology for possible thrombectomy. I decided to admit for further treatment. Continuing Lovenox 1 mg/kg twice daily. Will obtain echo on Tuesday and have cardiology evaluate. If continues to have heart strain, will consider thrombectomy. Problems addressed as follows: Submassive PE - Unclear etiology. Does appear to have some family history of factor V and significant siblings with clots. - Continue Lovenox 1 mg/kg twice daily. Will transition to oral DOAC prior to discharge - Echo and bilateral lower extremity duplex ordered for Tuesday; consider thrombectomy if patient continues to have right heart strain - Troponin negative - Stable on room air. Low threshold to initiate oxygen, goal sats greater 90% - Per my review of chest CT a, has multiple flow-voids in upper and lower pulmonary vasculature bilaterally. - D-dimer greater than 8.1. White count normal at 10. Hemoglobin normal at 14. Platelets 173. Kidney function normal with BUN 35, creatinine 1.1. Repeat CBC, CMP, magnesium ordered for the morning. Resume home blood pressure regimen for hypertension including amlodipine 5 mg daily, irbesartan 150 mg daily (formulary conversion for losartan), metoprolol succinate 25 mg daily Continue pravastatin 80 mg nightly for hyperlipidemia Continue levothyroxine 100 mcg daily for hypothyroid Continue allopurinol 100 mg daily for gout Continue bimatoprost, brimonidine, pilocarpine, and prednisolone eyedrops for glaucoma Full code Regular diet Lovenox 1 mg/kg twice daily
--- NOTE | 2025-04-13 15:18 | PC.NURSE ---
night warehouse manager contacted for bed.
--- NOTE | 2025-04-13 15:20 | PC.NURSE ---
Dr. Jimenez at bedside.
--- NOTE | 2025-04-13 15:32 | PC.NURSE ---
report called to Chalino Ho on [facility]
--- NOTE | 2025-04-13 15:40 | PC.NURSE ---
arrived by stretcher from ED
--- NOTE | 2025-04-13 15:59 | CA_ITS ---
FINAL REPORT CLINICAL HISTORY: Bilateral PE's, HTN, HLD, AFIB. Only on ASA daily for anticoagulants. COMPARISON: None FINDINGS: DUPLEX VENOUS SONOGRAPHY OF THE BILATERAL LOWER EXTREMITIES Multiple transverse and longitudinal scans were performed of the femoropopliteal deep venous systems, with augmentation and compression maneuvers. HISTORY: Pain FINDINGS: Normal phasic flow was noted in the visualized right deep venous systems. No intraluminal increased echogenicity is noted to suggest thrombus. There is normal compression and augmentation of the venous structures. No abnormal venous collaterals are seen. On the left, there is visible thrombus and lack of compressibility of the left popliteal and superficial femoral arteries. Flow is noted in the left common femoral artery. The calf veins appear patent. IMPRESSION: No evidence of deep venous thrombosis of the right lower extremity. Visible thrombus and lack of compressibility of the left popliteal and superficial femoral veins consistent with deep venous thrombosis. Reviewed, Interpreted and Dictated by Krista Gonzalez MD Transcribed by Ingrid Stone Authenticated and [facility]
[2025-04-13] MEDS: AMLODIPINE 5MG TABLET 5 MG PO (17:12)
[2025-04-13] MEDS: BIMATOPROST 0.01% OP (20:54)
[2025-04-13] MEDS: PILOCARPINE HCL 1% 1 EACH EYE-BOTH (20:56)
[2025-04-13] MEDS: prednisoLONE 1% OPTH SOL 5ML OP (20:56)
[2025-04-13] MEDS: BRIMONIDINE 0.2% OPHTH SOLN 5ML BOTTLE OP (20:56)
[2025-04-13] MEDS: FAMOTIDINE 20MG TABLET 20 MG PO (20:57)
[2025-04-13] MEDS: PRAVASTATIN 40MG TAB 80 MG PO (21:01)
[2025-04-14] VITALS: BP 156/73; PULSE 70; PULSE 74; RESP 24; TEMP 36.6; O2SAT 96
[2025-04-14 04:00] VITALS: BP 173/83; PULSE 70; RESP 20; TEMP 36.6; O2SAT 96; BMI 25.7
[2025-04-14 06:48] LABS: Alanine Aminotransferase 19 U/L (12-78); Albumin Level 2.6 g/dl (3.5-5.0); Albumin/Globulin Ratio 0.7 (1.1-1.8); Alkaline Phosphatase 92 U/L (38-126); Anion Gap 6.5 mEq/L (5-15); Aspartate Amino Transferase 20 U/L (14-36); Bilirubin,Total 0.9 mg/dl (0.2-1.3); Blood Urea Nitrogen 26 mg/dl (7-17); Calcium 8.3 mg/dl (8.4-10.2); Carbon Dioxide 24 mmol/L (22.0-30.0); Chloride 107 mmol/L (98-107); Creatinine Clearance Estimated 50 mL/min (50-200); Creatinine,Serum 0.70 mg/dl (0.52-1.04); Estimated Glomerular Filt Rate 80 ml/min (>60); GFR (African American) 96 ML/MIN (>60); Globulin 3.7 g/dL (1.3-3.2); Glucose 103 mg/dl (74-100); Magnesium 2.1 mg/dl (1.6-2.3); Potassium 4.5 mmoL/L (3.5-5.1); Sodium 133 mmol/L (136-145); Total Protein,Serum 6.3 g/dl (6.3-8.2)
[2025-04-14 06:51] LABS: Hematocrit 36.7 % (37.0-47.0); Immature Granulocytes % 0.6 %; Mean Corpuscular HGB Conc 34.3 g/dL (31.8-35.4); Mean Corpuscular Hemoglobin 30.1 pg (27.0-31.2); Mean Corpuscular Volume 87.8 fl (81-99); Nucleated Red Blood Cells % 0 %; Platelet Count 177 K/mm3 (142-424); Red Blood Count 4.18 M/mm3 (4.20-5.40); Red Cell Distribution Width-SD 41.7 fL; White Blood Count 8.8 K/mm3 (4.8-10.8)
[2025-04-14 07:06] LABS: Hemoglobin 12.5 g/dL (12.2-16.2)
[2025-04-14 08:00] VITALS: BP 169/78; PULSE 70; PULSE 85; RESP 17; TEMP 36.7; O2SAT 99
--- NOTE | 2025-04-14 08:06 | P.CONPHA_ITS ---
Pharmacy Intervention Comments: MEDICATION RECONCILIATION COMPLETE USING MAR FROM [facility].
--- NOTE | 2025-04-14 08:06 | HMH.PHAINT1 ---
Pharmacy Intervention Comments: MEDICATION RECONCILIATION COMPLETE USING MAR FROM [facility].
[2025-04-14] MEDS: ALLOPURINOL 100MG TABLET 100 MG PO (08:43)
[2025-04-14] MEDS: AMLODIPINE 5MG TABLET 5 MG PO (08:43)
[2025-04-14] MEDS: METOPROLOL SUCCINATE XL 25MG TABLET 25 MG PO (08:44)
[2025-04-14] MEDS: ASPIRIN 81MG CHEWABLE TABLET 81 MG PO (08:44)
[2025-04-14] MEDS: LEVOTHYROXINE 100MCG (0.1MG) TAB 100 MCG PO (08:44)
[2025-04-14] MEDS: IRBESARTAN 150MG TAB 150 MG PO (08:44)
--- NOTE | 2025-04-14 10:12 | P.PN_ITS ---
<Statement entered by Bull Jimenez MD - 04/14/25 12:32> Rounded on patient after nurse practitioner. Personally examined and interviewed patient. Agree with exam findings and care plan as documented. Subjective *Date: 04/14/25 *Time: 10:12 Interval history: Patient looks well this morning. Has no complaints of chest pain, shortness of breath, abdominal pain. Remains on room air. Plans for echo and possible thrombectomy tomorrow. Currently receiving therapeutic Lovenox 1 danyell/cake twice daily. Medical Exam Vital signs and Labs for Last 24 Hours: Vital Signs Temp Pulse Pulse Resp BP BP Pulse Ox 04/14/25 08:00 04/14/25 08:00 70 04/14/25 08:00 98.0 F 85 17 169/78 H 99 04/14/25 06:46 04/14/25 05:00 04/14/25 04:00 97.9 F 70 20 173/83 H 96 04/14/25 04:00 70 04/14/25 03:00 04/14/25 01:00 EST 04/14/25 00:00 97.8 F 74 24 156/73 H 96 04/14/25 00:00 70 04/13/25 23:00 04/13/25 21:00 04/13/25 20:00 80 04/13/25 20:00 04/13/25 20:00 97.7 F 82 24 161/76 H 96 04/13/25 18:14 04/13/25 17:00 04/13/25 16:53 04/13/25 16:00 97.9 F 77 20 143/66 H 95 04/13/25 16:00 80 04/13/25 15:41 98 F 85 18 179/81 H 04/13/25 15:00 87 26 H 178/75 H 96 04/13/25 14:30 77 19 152/71 H 96 04/13/25 14:00 21 164/65 H 97 04/13/25 13:00 72 18 179/88 H 95 04/13/25 12:30 65 14 174/83 H 94 L 04/13/25 12:00 68 17 182/80 H 95 04/13/25 11:30 68 17 179/80 H 95 O2 Del Method 04/14/25 08:00 Room Air 04/14/25 08:00 04/14/25 08:00 Room Air 04/14/25 06:46 Room Air 04/14/25 05:00 Room Air 04/14/25 04:00 Room Air 04/14/25 04:00 04/14/25 03:00 Room Air 04/14/25 01:00 EST Room Air 04/14/25 00:00 Room Air 04/14/25 00:00 04/13/25 23:00 Room Air 04/13/25 21:00 Room Air 04/13/25 20:00 04/13/25 20:00 Room Air 04/13/25 20:00 Room Air 04/13/25 18:14 Room Air 04/13/25 17:00 Room Air 04/13/25 16:53 Room Air 04/13/25 16:00 Room Air 04/13/25 16:00 04/13/25 15:41 Room Air 04/13/25 15:00 Room Air 04/13/25 14:30 Room Air 04/13/25 14:00 Room Air 04/13/25 13:00 Room Air 04/13/25 12:30 Room Air 04/13/25 12:00 Room Air 04/13/25 11:30 Room Air Intake and Output 04/13/25 04/14/25 04/14/25 23:59 06:59 15:59 Intake Total 270 / 1010 240 / 510 270 / 510 Output Total 0 / 200 500 / 700 200 / 700 Balance 270 / 810 -260 / -190 70 / -190 Intake: Intake, Oral Amount 270 / 510 240 / 510 270 / 510 Output: Output, Urine Amount 0 / 200 500 / 700 200 / 700 Other: Number of Unmeasured Voids 1 0 Number of Bowel Movements 1 1 Weight 77.06 kg Patient Weight 04/14/25 22:59 Weight 77.06 kg Laboratory Results - last 24 hr 04/13/25 10:30: WBC 10.3, RBC 4.78, Hgb 14.3, Hct 42.2, MCV 88.3, MCH 29.9, MCHC 33.9, RDW 12.9, Plt Count 173, MPV 11.3 H, Neut % (Auto) 77.8, Lymph % (Auto) 8.4 L, [place] % (Auto) 11.3 H, Eos % (Auto) 1.7, Baso % (Auto) 0.2, Neut # (Auto) 8.0 H, Lymph # (Auto) 0.9, [place] # (Auto) 1.2 H, Eos # (Auto) 0.2, Baso # (Auto) 0.0, D-Dimer > 8.10 H, Sodium 135 L, Potassium 4.0, Chloride 104, Carbon Dioxide 26, Anion Gap 9.0, BUN 35 H, Creatinine 1.10 H, Estimated Creat Clear 40, Estimated GFR 47 L, Est GFR ( Amer) 57 L, Glucose 83, Calcium 8.8, Magnesium 2.2, Total Bilirubin 1.1, AST 26, ALT 22, Alkaline Phosphatase 104, Troponin I < 0.01, NT-Pro-B Natriuret Pep 232, Total Protein 7.2, Albumin 3.2 L, Globulin 4.0 H, Albumin/Globulin Ratio 0.8 L, TSH 2.01, Thyroxine (T4) 10.3 04/13/25 10:39: SARS-CoV-2 (PCR) Not detected, Influenza A Untype (PCR) Not detected, Influenza Type B (PCR) Not detected 04/14/25 05:45: WBC 8.8, RBC 4.18 L, Hgb 12.5 D, Hct 36.7 L, MCV 87.8, MCH 30.1, MCHC 34.3, RDW 13.0, Plt Count 177, MPV 11.1 H, Neut % (Auto) 77.2, Lymph % (Auto) 10.3, [place] % (Auto) 9.8 H, Eos % (Auto) 1.9, Baso % (Auto) 0.2, Neut # (Auto) 6.8, Lymph # (Auto) 0.9, [place] # (Auto) 0.9, Eos # (Auto) 0.2, Baso # (Auto) 0.0, Sodium 133 L, Potassium 4.5, Chloride 107, Carbon Dioxide 24, Anion Gap 6.5, BUN 26 H D, Creatinine 0.70 D, Estimated Creat Clear 50, Estimated GFR 80, Est GFR ( Amer) 96 D, Glucose 103 H D, Calcium 8.3 L, Magnesium 2.1, Total Bilirubin 0.9, AST 20, ALT 19, Alkaline Phosphatase 92, Total Protein 6.3, Albumin 2.6 L D, Globulin 3.7 H, Albumin/Globulin Ratio 0.7 L I & O for Labs for Last 24 Hours: Intake & Output 04/11/25 04/12/25 04/13/25 04/14/25 23:59 23:59 23:59 22:59 Intake Total 770 / 1010 510 / 510 Output Total 0 / 200 700 / 700 Balance 770 / 810 -190 / -190 Weight 77.065 kg 77.06 kg Constitutional: Present no acute distress, average body habitus, chronically ill appearing and cooperative Head: Present atraumatic Eyes: Present as per HPI ENT: Present normal exam Neck: Present normal inspection Respiratory: Present CTA bilaterally and normal respiratory effort; Absent wheezes or crackles Cardiac: Present Reg Rate and Rhythm, Regular Rate, Regular Rhythm and Audible Murmur GI: Present soft and normal bowel sounds; Absent distention or tenderness Rectal (female): Present deferred (female): Present deferred Extremities: Present normal inspection and full ROM; Absent edema Skin: Present intact and rash; Absent erythema Neuro: Present Grossly Intact and moves all extremities Assessment and Plan *Assessment and plan (1) Bilateral pulmonary embolism: Status: Acute Category: Medical Code(s): I26.99 - Other pulmonary embolism without acute cor pulmonale (2) Systolic murmur: Status: Acute Category: Medical Code(s): R01.1 - Cardiac murmur, unspecified (3) History of cornea transplant: Problem Comment: x6 Status: Acute Category: Surgical Code(s): Z94.7 - Corneal transplant status (4) Hypothyroid: Status: Acute Category: Medical Code(s): E03.9 - Hypothyroidism, unspecified (5) GERD (gastroesophageal reflux disease): Status: Acute Category: Medical Code(s): K21.9 - Gastro-esophageal reflux disease without esophagitis (6) HLD (hyperlipidemia): Status: Acute Category: Medical Code(s): E78.5 - Hyperlipidemia, unspecified (7) HTN (hypertension): Status: Acute Category: Medical Code(s): I10 - Essential (primary) hypertension (8) Glaucoma (increased eye pressure): Status: Acute Category: Medical Code(s): H40.9 - Unspecified glaucoma Plan Ms. Vela is an 85-year-old female who presented with shortness of breath. Found to have elevated D-dimer. CTA of chest showed multiple bilateral PEs. Significant clot burden. Concern on bedside echo for 1-1 RV ratio. Discussed case with ER physician, request admission for anticoagulation and evaluation by cardiology for possible thrombectomy. Hospital medicine admitted the patient. Continuing Lovenox 1 mg/kg twice daily. Will obtain echo on Tuesday and have cardiology evaluate. If continues to have heart strain, will consider thrombectomy. Problems addressed as follows: #Submassive PE - Unclear etiology. Does appear to have some family history of factor V and significant siblings with clots. - Continue Lovenox 1 mg/kg twice daily. Will transition to oral DOAC prior to discharge. - Echo and bilateral lower extremity duplex ordered for Tuesday; consider thrombectomy if patient continues to have right heart strain. - Troponin negative, kidney function within normal limits, creatinine 0.7. Potassium 4.5, hemoglobin stable at 12.5. - Per CT read filling defects in the segmental and subsegmental branches of pulmonary arteries, bilaterally. Patient is noted to have a nodule measuring 4 mm in the left lung base. Stable at this time. - CBC, BMP, magnesium ordered for the a.m. - Patient complains of cough this morning, Tessalon Perles every 4 hours as needed for cough ordered. Lungs CTA. Patient remains on room air. - Patient placed on continuous cardiac telemetry and continuous pulse oximetry. Stable on room air. Low threshold to initiate oxygen, goal sats greater 90% #Hypertension: Resume home blood pressure regimen including amlodipine 5 mg daily, irbesartan 150 mg daily (formulary conversion for losartan), metoprolol succinate 25 mg daily #Hyperlipidemia: Continue pravastatin 80 mg nightly. #Hypothyroid: Continue levothyroxine 100 mcg daily. #Gout: Continue allopurinol 100 mg daily. #Glaucoma: Continue bimatoprost, brimonidine, pilocarpine, and prednisolone eyedrops. Full code Regular diet Lovenox 1 mg/kg twice daily Ambulate as tolerated
[2025-04-14 12:00] VITALS: BP 147/76; PULSE 70; PULSE 72; RESP 19; TEMP 36.8; O2SAT 94
[2025-04-14 16:00] VITALS: BP 145/69; PULSE 70; PULSE 77; RESP 18; TEMP 36.4; O2SAT 99
[2025-04-14 20:00] VITALS: BP 155/79; PULSE 70; PULSE 78; RESP 16; TEMP 36.5; O2SAT 96
[2025-04-14] MEDS: FAMOTIDINE 20MG TABLET 20 MG PO (20:23)
[2025-04-14] MEDS: PRAVASTATIN 40MG TAB 80 MG PO (20:23)
[2025-04-14] MEDS: MONTELUKAST SODIUM 10MG TAB 10 MG PO (20:23)
[2025-04-14] MEDS: PILOCARPINE HCL 1% 1 EACH OP (20:24)
[2025-04-14] MEDS: PREDNISOLONE 1% OP (20:24)
[2025-04-14] MEDS: TIMOLOL MAL 1 EACH OP (20:24)
[2025-04-14] MEDS: OPTH OP (20:24)
[2025-04-14] MEDS: BIMATOPROST 0.01% 1 EACH OP (20:24)
[2025-04-15] VITALS (7 sets, daily range): BP systolic 132–157; BP diastolic 71–80; PULSE 60–89; RESP 16–22; TEMP 36.2–37; O2SAT 94–97; BMI 25.9
[2025-04-15] MEDS: LEVOTHYROXINE 100MCG (0.1MG) TAB 100 MCG PO (06:08)
--- NOTE | 2025-04-15 07:00 | CA_ITS ---
APPROVED REPORT EXAM: Comprehensive 2D, Doppler, and color-flow Echocardiogram Knurling Machine Operator: Jeanette De Souza CRT Ht: 5 ft 8 in Wt: 150lbs BSA: 1.81 BP: 104/58 mmHg Indications: Shortness of Breath, Hyperlipidemia, Hypertension/HDD, Bilateral 2D Dimensions LA Volume 25.00 mL LA Volume Index 13.50 mL/m2 (M/F) 16-34 M-Mode Dimensions RVDd 3.28 cm (0.9-2.6) LA Diam 3.22 cm (1.9-4.0) LVDd 4.17 cm (3.5-5.7) LVDs 2.64 cm (3.5-5.7) IVSd 1.50 cm (0.6-1.1) PWd 0.50 cm (0.6-1.1) EF (Teich) 66.90% FS 36.70% EDV (Teich) 77.30 mL TAPSE 1.88 (<1.7) ESV (Teich) 25.60 mL LV Diastology E Decel Time 430 (160-240 msec) E/A Ratio 0.65 MED A' 10.20 cm/s LAT A' 12.20 cm/s Aortic Valve AO Peak GR. 8.40 mmHg Mitral Valve MV A Velocity 99.0 (40-130 cm/s) E/A Ratio 0.65 Pulmonary Valve PV Peak Velocity 148.0 (50-150 cm/s) Tricuspid Valve TR P. Velocity 286.00 cm/s RAP Estimate 10.00 mmHg RVSP 42.70 mmHg Left Ventricle The left ventricle is normal size. Left ventricular systolic function is normal. The left ventricular ejection fraction is within the normal range. There is normal left ventricular wall thickness. There is normal LV segmental wall motion. The left ventricular diastolic function is indeterminate. LVEF is 55% Right Ventricle The right ventricle is mildly dilated. The right ventricular systolic function is normal. Atria Left atrium is mildly dilated. Right atrium is mildly dilated. There is no color Doppler evidence of interatrial shunt. Aortic Valve The aortic valve is mildly thickened. There is no hemodynamically significant aortic valvular stenosis. Trace aortic regurgitation is present. Mitral Valve The mitral valve is normal in structure. No evidence of mitral valve stenosis. Mild mitral regurgitation is present. Tricuspid Valve The tricuspid valve leaflets are thin and pliable. Mild tricuspid regurgitation. RVSP is 30-35 mmHg. Pulmonic Valve The pulmonary valve is grossly normal in structure. Mild pulmonic valve regurgitation is present. Great Vessels The aortic root is normal in size. IVC is normal in size and collapses >50% with inspiration. Pericardium There is no pericardial effusion. Other Information Study Quality: Fair Conclusion Normal biventricular systolic function. Mild RV dilation. Mild biatrial dilation. Mild MR, mild TR, mild PI. Electronically signed by : Erica Fisher MD 04/15/2025 12:55:15
--- NOTE | 2025-04-15 08:10 | SW/DCPLANNER ---
Addendum entered by [facility] 04/16/25 10:46: Patient has been approved SNF level of care and will discharge to [facility] today. Addendum entered by [facility] 04/16/25 08:25: Per [facility] auth is still pending at this time. CM will contiue to follow up. Addendum entered by [facility] 04/16/25 07:54: Updated patient information faxed to [facility]. Addendum entered by [facility] 04/15/25 10:41: Per PT/OT patient will need SNF at [facility] at time of discharge. [facility]/ [facility] stated that auth will be started today w/ a bed opening tomorrow. I will update patient/family and MD. Per MD pending no setbacks patient will be medically stable for discharge tomorrow. Original Note: Patient currently resides at [facility]. Updated patient information has been faxed to [facility]. Discharge date is unknown at this time. CM will continue to follow up.
[2025-04-15 08:30] LABS: Hematocrit 37.7 % (37.0-47.0); Hemoglobin 13.0 g/dL (12.2-16.2); Immature Granulocytes % 0.5 %; Mean Corpuscular HGB Conc 34.5 g/dL (31.8-35.4); Mean Corpuscular Hemoglobin 30.1 pg (27.0-31.2); Mean Corpuscular Volume 87.3 fl (81-99); Nucleated Red Blood Cells % 0 %; Platelet Count 175 K/mm3 (142-424); Red Blood Count 4.32 M/mm3 (4.20-5.40); Red Cell Distribution Width-SD 40.6 fL; White Blood Count 7.5 K/mm3 (4.8-10.8)
[2025-04-15 08:43] LABS: Alanine Aminotransferase 19 U/L (12-78); Albumin Level 3.2 g/dl (3.5-5.0); Albumin/Globulin Ratio 1.0 (1.1-1.8); Alkaline Phosphatase 90 U/L (38-126); Anion Gap 5.3 mEq/L (5-15); Aspartate Amino Transferase 22 U/L (14-36); Bilirubin,Total 1.0 mg/dl (0.2-1.3); Blood Urea Nitrogen 26 mg/dl (7-17); Calcium 8.7 mg/dl (8.4-10.2); Carbon Dioxide 26 mmol/L (22.0-30.0); Chloride 105 mmol/L (98-107); Creatinine Clearance Estimated 50 mL/min (50-200); Creatinine,Serum 0.90 mg/dl (0.52-1.04); Estimated Glomerular Filt Rate 60 ml/min (>60); GFR (African American) 72 ML/MIN (>60); Globulin 3.3 g/dL (1.3-3.2); Glucose 103 mg/dl (74-100); Potassium 4.3 mmoL/L (3.5-5.1); Sodium 132 mmol/L (136-145); Total Protein,Serum 6.5 g/dl (6.3-8.2)
[2025-04-15 08:44] LABS: INR 1.07 (0.9-1.1); Prothrombin Time 11.8 seconds (10.1-12.5)
[2025-04-15] MEDS: METOPROLOL SUCCINATE XL 25MG TABLET 25 MG PO (08:46)
[2025-04-15] MEDS: PREDNISOLONE 1% OP ×2 (08:46→20:28)
[2025-04-15] MEDS: AMLODIPINE 5MG TABLET 5 MG PO (08:46)
[2025-04-15] MEDS: ALLOPURINOL 100MG TABLET 100 MG PO (08:46)
[2025-04-15] MEDS: OPTH OP ×2 (08:46→20:28)
[2025-04-15] MEDS: TIMOLOL MAL 1 EACH OP ×2 (08:46→20:28)
[2025-04-15] MEDS: IRBESARTAN 150MG TAB 150 MG PO (08:46)
[2025-04-15] MEDS: ASPIRIN 81MG CHEWABLE TABLET 81 MG PO (08:46)
[2025-04-15] MEDS: PILOCARPINE HCL 1% 1 EACH OP ×2 (08:46→20:28)
[2025-04-15 09:22] LABS: Cholesterol 166 mg/dl (140-200); HDL Cholesterol 58 mg/dl (40-60); Magnesium 1.9 mg/dl (1.6-2.3); Triglycerides 78 mg/dl (30-150)
--- NOTE | 2025-04-15 09:52 | HMH.PTEV ---
Physical Therapy Evaluation Rehab PT IP Evaluation Start: 04/15/25 09:18 Freq: ONCE Status: Active Protocol: Document 04/15/25 09:46 DOT (Rec: 04/15/25 09:52 DOT [id number]) Subjective/History History History Per H&P: Ms. Vela is an 85-year-old female who lives in the [facility] side formerly [facility] due to inability to be at home by herself and concern for falls. Has been doing well. She has been there for about 2-1/2 months. States that about a week ago she developed some shortness of breath. Was feeling more dyspneic with exertion. Concern that she was feeling some palpitations so she was sent to the ER for evaluation. On arrival, found to have no cough, fever, chills, nausea or vomiting. He is only on aspirin at this time. Reportedly has history of A-fib. On evaluation, vitals normal. Given her dyspnea however, D-dimer was obtained that was severely elevated. D- dimer greater than 8. CTA of the chest was obtained that showed multiple bilateral subsegmental and segmental filling defects in the pulmonary arteries and upper and lower lobes of right lung and left lung. RV LV ratio on CT is 0.7. Started on Lovenox. Medicine consulted for admission and further management. Evaluation, family bedside helps supplement history. Reports that she has multiple family members that are on anticoagulation for blood clots. Her brother at bedside was diagnosed with PEs at the same time he was diagnosed with non-Hodgkin's lymphoma. She has a niece with factor V Leiden. Another brother that is on anticoagulation for PEs. Patient denies any previous history of PEs. Does state about 2 weeks ago she went on a long trip in the van with her custodial to [place]. Has been getting leg wraps for edema. Denies any acute extremity pain or swelling that she is aware of. Subjective Subjective Pt reports she lives in an assisted living facility. Pt normally ambulatory using RW with independence. [facility] How much help from another person do you currently need... Turning from your None back to your side while in a flat bed without using bedrails? Moving from lying on None back to sitting on the side of a flat bed without using bedrails? Moving to and from a None bed to a chair ( including a wheelchair)? Standing up from a A little chair using your arms? (e.g., wheelchair, bedside chair) Walking in hospital A little room? Climbing 3-5 steps A little with a railing? Mobility Score 21 Mobility Level [facility] Mobility 6 Walk 10 steps or more Mobility Calculator Rehab PT IP Eval Objective Appearance Patient Behavior Appropriate,Cooperative Patient Orientation Person,Situation Difficulty following none instructions Speech Pattern Clear Ambulation Patient Able to Yes Ambulate Ambulation Observation IP General Gait Decrease Stride Lngth (R),Decrease Stride Lngth (L) Pattern Observation Ambulation Distance 15 (feet) Ambulation Assistive Rolling Walker Device Ambulation Ability Contact Guard/Hand Hold,Minimal x 1 (25% assist) Balance Ability to Arise Able, uses arms to help Sitting Balance Steady, safe Standing Balance Steady, wide stance Dynamic Sitting Good Balance Ability Dynamic Standing Fair Balance Ability Transfers Bed Transfer Ability Minimal x 1 (25% assist) Sit to Stand Bed Minimal x 1 (25% assist) Transfer Ability Rehab PT IP prob,goals,plan Problems Date of Evaluation: 04/15/25 PT IP Problems Bed Mobility,Transfers,Gait,Balance,Self care,Safety Rehab Potential Rehab Potential Good Plan PT Intervention Plan Bed Mobility,Transfers,Gait,Balance,Self care,Safety, Therapeutic Exercise Other Intervention 1-2 times Plan PT Plan Frequency Daily Duration LOS Discharge Goals Bed Transfer Ability Independent Sit to Stand Chair Independent Transfer Ability Ambulation Assistive Rolling Walker Device Ambulation Distance 40 (feet) Discharge Plan PT Discharge Plan Pt most appropriate for skilled inpatient rehabilitation upon d/c from [facility] to maximize safety with mobility and address deficits. Pt would benefit from skilled acute care PT while at [facility] to prevent further functional decline. Eval Complexity Eval Charge Codes 24834 - Moderate Complexity PHYSICIAN CERTIFICATION: I certify the specified therapy services for Kristen Vela are required, authorized, and reviewed every 30 days.
--- NOTE | 2025-04-15 10:23 | HMH.OTEV ---
OT Evaluation Rehab OT IP Evaluation Start: 04/15/25 09:18 Freq: ONCE Status: Active Protocol: Document 04/15/25 10:18 [facility] (Rec: 04/15/25 10:23 [facility] [id number]) Rehab OT IP Assessment Subjective History Per H&P: Ms. Vela is an 85-year-old female who lives in the personal-care side of [facility] due to inability to be at home by herself and concern for falls. Has been doing well. She has been there for about 2-1/2 months. States that about a week ago she developed some shortness of breath. Was feeling more dyspneic with exertion. Concern that she was feeling some palpitations so she was sent to the ER for evaluation. On arrival, found to have no cough, fever, chills, nausea or vomiting. He is only on aspirin at this time. Reportedly has history of A-fib. On evaluation, vitals normal. Given her dyspnea however, D-dimer was obtained that was severely elevated. D- dimer greater than 8. CTA of the chest was obtained that showed multiple bilateral subsegmental and segmental filling defects in the pulmonary arteries and upper and lower lobes of right lung and left lung. RV LV ratio on CT is 0.7. Started on Lovenox. Medicine consulted for admission and further management. Evaluation, family bedside helps supplement history. Reports that she has multiple family members that are on anticoagulation for blood clots. Her brother at bedside was diagnosed with PEs at the same time he was diagnosed with non-Hodgkin's lymphoma. She has a niece with factor V Leiden. Another brother that is on anticoagulation for PEs. Patient denies any previous history of PEs. Does state about 2 weeks ago she went on a long trip in the van with her long-term to [place]. Has been getting leg wraps for edema. Denies any acute extremity pain or swelling that she is aware of. Subjective Prior to being in the hospital, pt lived at [facility] in the assisted living side. Pt claims normally she is independent with dressing, feeding, and bathing. Pt is dependent upon staff for completion of all IADLs. Pt uses a rolling walker for functional transfers. He most recent fall was January 09. Objective Patient Orientation Person,Place,Birthday Right Upper WFL Extremity Gross ROM Left Upper Extremity WFL Gross ROM Bed Mobility bed mobility-scooting,bed mobility - supine/sit Assist Level Minimal x 1 (25% assist) Transfer Training Sit/Stand Transfer Assist Level Minimal x 1 (25% assist) Rehab OT IP prob,goals,plan Problems Date of Evaluation: 04/15/25 OT IP Problems Bed Mobility,Transfers,Balance,Self care,Safety Rehab Potential Rehab Potential Good Equipment Needs Assistive Devices Rolling / Wheeled Walker Plan OT intervention Plan Bed Mobility,Transfers,Balance,Self care,Safety, Therapeutic Exercise OT Plan Frequency Daily Duration LOS Discharge Goals Bed Mobility Ability Standby Assistance Sit to Stand Chair Contact Guard/Hand Hold Transfer Ability Chair Transfer Contact Guard/Hand Hold Ability Chair Transfer Sit to/from Ambulatory Technique Chair Transfer Rolling Walker Assistive Devices Lower Body Dressing Contact Guard Ability Upper Body Dressing Contact Guard Ability Bathing Ability Contact Guard Performing Toilet Contact Guard Hygiene Ability Overall Commode/ Contact Guard Toilet Transfer Ability Commode/Toilet Sit to/from Ambulatory Transfer Technique Discharge Plan OT Discharge Plan Pt will continue to be seen for OT services while at [facility]. Pt would benefit from skilled therapy when she returns to [place]. Continued skilled therapy is important in order for patient to improve strength, safety, endurance, ADL independence, and functional transfers to reach OF. Eval Complexity Eval Charge Codes 13029 - Moderate Complexity PHYSICIAN CERTIFICATION: I certify the specified therapy services for Kristen Vela are required, authorized, and reviewed every 30 days.
--- NOTE | 2025-04-15 10:44 | P.PN_ITS ---
<Statement entered by Bull Jimenez MD - 04/15/25 15:42> Rounded on patient after nurse practitioner. Personally examined and interviewed patient. Agree with exam findings and care plan as documented. Subjective *Date: 04/15/25 *Time: 13:09 Interval history: Ms. Vela is feeling well this morning. States she slept well. Worked with PT/OT this morning who are recommending patient go to SNF facility at discharge. Patient currently resides in private residence at [facility], would like to transition to [facility] at [place] if possible. Care management and social work assisting with placement at this time. Patient's echo shows normal LVEF, no right heart strain, normal BiV function. Patient will be transition from therapeutic Lovenox to Eliquis 10 mg twice daily. Patient remained stable on room air. Medical Exam Vital signs and Labs for Last 24 Hours: Vital Signs Temp Pulse Pulse Resp BP Pulse Ox O2 Del Method 04/15/25 09:00 Room Air 04/15/25 08:00 60 04/15/25 08:00 Room Air 04/15/25 07:40 97.9 F 68 20 151/77 H 95 Room Air 04/15/25 06:48 Room Air 04/15/25 05:00 Room Air 04/15/25 04:00 98.4 F 69 20 157/75 H 94 L Room Air 04/15/25 04:00 70 04/15/25 03:00 Room Air 04/15/25 01:00 Room Air 04/15/25 00:00 60 04/15/25 00:00 98.1 F 67 22 156/80 H 95 Room Air 04/14/25 23:00 Room Air 04/14/25 21:00 Room Air 04/14/25 20:00 70 04/14/25 20:00 97.7 F 78 16 155/79 H 96 Room Air 04/14/25 20:00 Room Air 04/14/25 18:56 Room Air 04/14/25 17:00 Room Air 04/14/25 16:00 70 04/14/25 16:00 97.5 F L 77 18 145/69 H 99 Room Air 04/14/25 15:00 Room Air 04/14/25 13:00 Room Air 04/14/25 12:00 98.2 F 72 19 147/76 H 94 L Room Air 04/14/25 12:00 70 04/14/25 11:00 Room Air Intake and Output 04/14/25 04/15/25 04/15/25 23:59 07:59 15:59 Intake Total 640 / 1780 240 / 240 Output Total 600 / 1600 1100 / 1100 Balance 40 / 180 -860 / -860 Intake: Intake, Oral Amount 640 / 1780 240 / 240 Output: Output, Urine Amount 600 / 1600 1100 / 1100 Other: Number of Unmeasured Voids 0 Number of Bowel Movements 1 Weight 77.746 kg Patient Weight 04/15/25 23:59 Weight 77.746 kg Laboratory Results - last 24 hr 04/15/25 08:22: WBC 7.5, RBC 4.32, Hgb 13.0, Hct 37.7, MCV 87.3, MCH 30.1, MCHC 34.5, RDW 12.7, Plt Count 175, MPV 10.1, Neut % (Auto) 76.1, Lymph % (Auto) 11.8, [place] % (Auto) 9.2, Eos % (Auto) 2.3, Baso % (Auto) 0.1, Neut # (Auto) 5.7, Lymph # (Auto) 0.9, [place] # (Auto) 0.7, Eos # (Auto) 0.2, Baso # (Auto) 0.0, PT 11.8, INR 1.07, Sodium 132 L, Potassium 4.3, Chloride 105, Carbon Dioxide 26, Anion Gap 5.3, BUN 26 H, Creatinine 0.90 D, Estimated Creat Clear 50, Estimated GFR 60, Est GFR ( Amer) 72 D, Glucose 103 H, Calcium 8.7, Magnesium 1.9, Total Bilirubin 1.0, AST 22, ALT 19, Alkaline Phosphatase 90, Total Protein 6.5, Albumin 3.2 L D, Globulin 3.3 H, Albumin/Globulin Ratio 1.0 L, Triglycerides 78, Cholesterol 166, LDL Cholesterol Direct 85.41 L, VLDL Cholesterol 16, HDL Cholesterol 58, Cholesterol/HDL Ratio 2.9 I & O for Labs for Last 24 Hours: Intake & Output 04/12/25 04/13/25 04/14/25 04/15/25 23:59 23:59 22:59 23:59 Intake Total 770 / 1010 1540 / 1780 240 / 240 Output Total 0 / 200 1600 / 1600 1100 / 1100 Balance 770 / 810 -60 / 180 -860 / -860 Weight 77.065 kg 77.06 kg 77.746 kg Constitutional: Present no acute distress, average body habitus, chronically ill appearing and cooperative Head: Present atraumatic Eyes: Present as per HPI ENT: Present normal exam Neck: Present normal inspection Respiratory: Present CTA bilaterally and normal respiratory effort; Absent wheezes or crackles Cardiac: Present Reg Rate and Rhythm, Regular Rate, Regular Rhythm and Audible Murmur GI: Present soft and normal bowel sounds; Absent distention or tenderness Rectal (female): Present deferred (female): Present deferred Extremities: Present normal inspection and full ROM; Absent edema Skin: Present intact and rash; Absent erythema Neuro: Present Grossly Intact and moves all extremities Assessment and Plan *Assessment and plan (1) Bilateral pulmonary embolism: Status: Acute Category: Medical Code(s): I26.99 - Other pulmonary embolism without acute cor pulmonale (2) Systolic murmur: Status: Acute Category: Medical Code(s): R01.1 - Cardiac murmur, unspecified (3) History of cornea transplant: Problem Comment: x6 Status: Acute Category: Surgical Code(s): Z94.7 - Corneal transplant status (4) Hypothyroid: Status: Acute Category: Medical Code(s): E03.9 - Hypothyroidism, unspecified (5) GERD (gastroesophageal reflux disease): Status: Acute Category: Medical Code(s): K21.9 - Gastro-esophageal reflux disease without esophagitis (6) HLD (hyperlipidemia): Status: Acute Category: Medical Code(s): E78.5 - Hyperlipidemia, unspecified (7) HTN (hypertension): Status: Acute Category: Medical Code(s): I10 - Essential (primary) hypertension (8) Glaucoma (increased eye pressure): Status: Acute Category: Medical Code(s): H40.9 - Unspecified glaucoma Plan Ms. Vela is an 85-year-old female who presented with shortness of breath. Found to have elevated D-dimer. CTA of chest showed multiple bilateral PEs. Significant clot burden. Concern on bedside echo for 1-1 RV ratio. Discussed case with ER physician, request admission for anticoagulation and evaluation by cardiology for possible thrombectomy. Hospital medicine admitted the patient. Continuing Lovenox 1 mg/kg twice daily. Will obtain echo on Tuesday and have cardiology evaluate. If continues to have heart strain, will consider thrombectomy. Problems addressed as follows: #Submassive PE #Left popliteal and superficial femoral DVT - Unclear etiology. Does appear to have some family history of factor V and significant siblings with clots. - Continue Lovenox 1 mg/kg twice daily. Will transition today to Eliquis 10 mg twice daily for 7 days, followed by Eliquis 5 mg twice daily. - Echo shows normal LVEF of 55%, normal BiV function.no notable right heart strain on echo. No thrombectomy at this time. - Troponin negative, kidney function within normal limits, creatinine 0. 9 0. Potassium 4.3, hemoglobin stable at 13.0. - Per CT read filling defects in the segmental and subsegmental branches of pulmonary arteries, bilaterally. Patient is noted to have a nodule measuring 4 mm in the left lung base. Stable at this time. - CBC and CMP nonactionable this morning. CBC, BMP, magnesium ordered for the a.m. - Patient states she had cough yesterday morning but feels that it is better today. Tessalon Perles every 4 hours as needed for cough ordered. Lungs CTA. Patient remains on room air. - Patient placed on continuous cardiac telemetry and continuous pulse oximetry. Stable on room air. Low threshold to initiate oxygen, goal sats greater 90% #Generalized weakness ? PT/OT consulted for further recommendation, at this time patient is most appropriate for skilled inpatient rehabilitation to maximize safety with mobility and address deficits. Patient is agreeable and would like to go to [facility] for rehab services. #Hypertension: Resume home blood pressure regimen including amlodipine 5 mg daily, irbesartan 150 mg daily (formulary conversion for losartan), metoprolol succinate 25 mg daily #Hyperlipidemia: Continue pravastatin 80 mg nightly. #Hypothyroid: Continue levothyroxine 100 mcg daily. #Gout: Continue allopurinol 100 mg daily. #Glaucoma: Continue bimatoprost, brimonidine, pilocarpine, and prednisolone eyedrops. Full code Regular diet Eliquis 10 mg twice daily Ambulate as tolerated
[2025-04-15 11:03] LABS: Hemoglobin A1C 5.4 % (4.0-6.0)
--- NOTE | 2025-04-15 12:39 | EXP.CARD.CON ---
History of Present Illness History of Present Illness Consult date: 04/15/25 Requesting physician: Bull Jimenez Consult reason: chest pain Chief complaint: Bilateral PE Additional Medical History:: 1. Bilateral Pulm Emboli, 04/13/2025 A. FH of Factor V 2. Possible history of A. fib 3. Hypertension 4. Hyperlipidemia 5. GERD History of present illness: Ms. Vela is an 85-year-old female who lives in the [facility] side of [place] due to inability to be at home by herself and concern for falls. Has been doing well. She has been there for about 2-1/2 months. States that about a week ago she developed some shortness of breath. Was feeling more dyspneic with exertion. Concern that she was feeling some palpitations so she was sent to the ER for evaluation. On arrival, found to have no cough, fever, chills, nausea or vomiting. He is only on aspirin at this time. Reportedly has history of A-fib. On evaluation, vitals normal. Given her dyspnea however, D-dimer was obtained that was severely elevated. D-dimer greater than 8. CTA of the chest was obtained that showed multiple bilateral subsegmental and segmental filling defects in the pulmonary arteries and upper and lower lobes of right lung and left lung. RV LV ratio on CT is 0.7. Started on Lovenox. Medicine consulted for admission and further management. Evaluation, family bedside helps supplement history. Reports that she has multiple family members that are on anticoagulation for blood clots. Her brother at bedside was diagnosed with PEs at the same time he was diagnosed with non-Hodgkin's lymphoma. She has a niece with factor V Leiden. Another brother that is on anticoagulation for PEs. Patient denies any previous history of PEs. Does state about 2 weeks ago she went on a long trip in the van with her usp to [place]. Has been getting leg wraps for edema. Denies any acute extremity pain or swelling that she is aware of. The above per Dr. Jimenez Events as noted above reviewed with the patient and family member. Patient is feeling better since admission. Her O2 sat remains in the high 90's on room air. She remains on Lovenox at this time pending results of echocardiogram today. [facility] Disclaimer: The information contained in this section may have been updated after the patient was seen, as this information can be updated by other users. Medical History (Updated 04/15/25 @ 13:51 by KAYLI Mcknight) Seasonal allergies HLD (hyperlipidemia) HTN (hypertension) GERD (gastroesophageal reflux disease) Hypothyroid Acute sinusitis Glaucoma (increased eye pressure) Sinusitis Surgical History History of appendectomy H/O carpal tunnel repair H/O breast surgery H/O sinus surgery History of cornea transplant Social History Smoking Status: Never smoker alcohol intake: never current occupational status: retired Travel in the last 8 weeks?: None Have you lived/traveled outside [place] in past 30 days?: No Contact w/someone who lives/traveled outside US past 30 days?: No Exposure to someone with infectious disease in past 14 days?: No Do you have a fever (greater than 100.4 F or 38 C)?: No Have you tested positive for COVID-19?: No Exposed to someone with COVID-19 in past 14 days?: No Do you have a sore throat?: No Do you have a cough?: No Do you have any weakness?: No Do you have any diarrhea?: No Are you experiencing any unusual bleeding?: No Do you have any muscle aches/pain?: No Do you have any abdominal pain?: No Are you experiencing loss of taste or smell?: No Review of Systems Review of Systems Review of systems:: pertinent systems reviewed and negative unless documented below *Cardiovascular Cardiovascular: Reports chest pain and Reports dyspnea *Respiratory Respiratory: Reports dyspnea and Denies wheezing Allergic/Immunologic Allergic/Immunologic: Denies wheezing Exam Data for Last 24 hours Vital signs and Labs for Last 24 Hours: Temp Pulse Resp BP Pulse Ox O2 Del Method 97.9 F 60 20 151/77 H 95 Room Air 04/15/25 07:40 04/15/25 08:00 04/15/25 07:40 04/15/25 07:40 04/15/25 07:40 04/15/25 11:00 Laboratory Results - last 24 hr 04/15/25 08:22: WBC 7.5, RBC 4.32, Hgb 13.0, Hct 37.7, MCV 87.3, MCH 30.1, MCHC 34.5, RDW 12.7, Plt Count 175, MPV 10.1, Neut % (Auto) 76.1, Lymph % (Auto) 11.8, Robertson % (Auto) 9.2, Eos % (Auto) 2.3, Baso % (Auto) 0.1, Neut # (Auto) 5.7, Lymph # (Auto) 0.9, Robertson # (Auto) 0.7, Eos # (Auto) 0.2, Baso # (Auto) 0.0, PT 11.8, INR 1.07, Sodium 132 L, Potassium 4.3, Chloride 105, Carbon Dioxide 26, Anion Gap 5.3, BUN 26 H, Creatinine 0.90 D, Estimated Creat Clear 50, Estimated GFR 60, Est GFR ( Amer) 72 D, Glucose 103 H, Hemoglobin A1c 5.4, Calcium 8.7, Magnesium 1.9, Total Bilirubin 1.0, AST 22, ALT 19, Alkaline Phosphatase 90, Total Protein 6.5, Albumin 3.2 L D, Globulin 3.3 H, Albumin/Globulin Ratio 1.0 L, Triglycerides 78, Cholesterol 166, LDL Cholesterol Direct 85.41 L, VLDL Cholesterol 16, HDL Cholesterol 58, Cholesterol/HDL Ratio 2.9 I & O for Last 24 hours: Intake & Output 04/13/25 04/14/25 04/15/25 04/16/25 11:59 10:59 11:59 11:59 Intake Total 1400 / 1400 1150 / 1150 Output Total 700 / 1000 2450 / 2450 Balance 700 / 400 -1300 / -1300 Weight 150 lb 169 lb 14.211 oz 171 lb 6.4 oz Constitutional Constitutional: no acute distress *Routine Respiratory Exam Respiratory: Present decreased breath sounds; Absent rhonchi or wheezes *Routine Cardiovascular Exam Cardiovascular: Present RRR; Absent murmur, gallop or rubs *Routine Extremities Exam Extremities: Absent edema *Routine Neurological Exam Neurological: Present alert, oriented X3 and CN II-XII intact Meds Home Medications and Allergies Home Medications ?Medication ?Instructions ?Recorded ?Confirmed ?Type levocetirizine 5 mg tablet (24HR 5 mg PO DAILY 09/13/18 04/13/25 History Allergy Relief) levothyroxine 100 mcg tablet 100 mg PO DAILYDM 09/13/18 04/14/25 History allopurinol 100 mg tablet 100 mg PO HS 02/29/24 04/14/25 History amlodipine 5 mg tablet 5 mg PO DAILY 02/29/24 04/13/25 History azelastine 137 mcg (0.1 %) nasal 1 spray intranasal BID 02/29/24 04/13/25 History spray bimatoprost 0.01 % eye drops 1 drp Eye-Both HS 02/29/24 04/13/25 History ([place]) famotidine 20 mg tablet 20 mg PO BID 02/29/24 04/13/25 History losartan 100 mg tablet 100 mg PO DAILY 02/29/24 04/13/25 History metoprolol succinate 25 mg 25 mg PO DAILY 02/29/24 04/13/25 History tablet,extended release 24 hr montelukast 10 mg tablet 10 mg PO HS 02/29/24 04/14/25 History pilocarpine HCl 1 % eye drops 1 drp Eye-Both BID 02/29/24 04/13/25 History pravastatin 80 mg tablet 80 mg PO HS 02/29/24 04/13/25 History prednisolone acetate 1 % eye 1 drp Eye-Both BID 02/29/24 04/13/25 History drops,suspension aspirin 81 mg chewable tablet 81 mg PO DAILY 04/13/25 04/13/25 History dextromethorphan-guaifenesin 5 10 ml PO Q4HP PRN Cough 04/13/25 04/13/25 History mg-100 mg/5 mL oral liquid (Robitussin Honey Max DM) hydrochlorothiazide 25 mg tablet 25 mg PO DAILY 04/13/25 04/13/25 History ibuprofen 400 mg tablet 400 mg PO Q6HP PRN Mild Pain 04/13/25 04/14/25 History (Scale Score 1-4) ondansetron 4 mg disintegrating 4 mg PO Q6HP PRN Nausea 04/13/25 04/14/25 History tablet oxycodone-acetaminophen 5 mg-325 1 tab PO Q6HP PRN Severe Pain 04/13/25 04/14/25 History mg tablet (Percocet) (Scale Score 7-10) sodium chloride-aloe vera nasal 2 spray intranasal Q4HP PRN 04/13/25 04/14/25 History spray ([place] Saline Gel nasal spray) Allergy Symptoms diclofenac sodium 1 % topical gel 2 g topical BIDP PRN Mild Pain 04/14/25 04/14/25 History (Voltaren Arthritis Pain) (Scale Score 1-4) timolol maleate 0.5 % eye drops 1 drp Eye-Both BID 04/14/25 04/14/25 History New Prescriptions to Start Prescriptions: Allergies Allergy/AdvReac Type Severity Reaction Status Date / Time atorvastatin (From Lipitor) Allergy Joint Pain Verified 04/13/25 16:39 cefixime (From Suprax) Allergy Hives Verified 04/13/25 16:39 clarithromycin (From Biaxin) Allergy Nausea Verified 04/13/25 16:39 nitrofurantoin (From Allergy Nausea Verified 04/13/25 16:39 Macrobid) Penicillins Allergy Hives Verified 04/13/25 16:39 Sulfa (Sulfonamide Allergy Hives Verified 04/13/25 16:39 Antibiotics) terfenadine (From Seldane) Allergy Rash Verified 04/13/25 16:39 steriods Allergy Mild Palpitation Uncoded 04/13/25 11:00 s Assessment and Plan *Assessment and plan (1) Bilateral pulmonary embolism: Status: Acute Category: Medical Code(s): I26.99 - Other pulmonary embolism without acute cor pulmonale (2) HTN (hypertension): Status: Acute Qualifiers: Hypertension type: primary hypertension Qualified Code(s): I10 - Essential (primary) hypertension Category: Medical Code(s): I10 - Essential (primary) hypertension (3) HLD (hyperlipidemia): Status: Acute Qualifiers: Hyperlipidemia type: mixed hyperlipidemia Qualified Code(s): E78.2 - Mixed hyperlipidemia Category: Medical Code(s): E78.5 - Hyperlipidemia, unspecified (4) GERD (gastroesophageal reflux disease): Status: Acute Qualifiers: Esophagitis presence: esophagitis presence not specified Qualified Code(s): K21.9 - Gastro-esophageal reflux disease without esophagitis Category: Medical Code(s): K21.9 - Gastro-esophageal reflux disease without esophagitis (5) Hypothyroid: Status: Acute Qualifiers: Hypothyroidism type: acquired Qualified Code(s): E03.9 - Hypothyroidism, unspecified Category: Medical Code(s): E03.9 - Hypothyroidism, unspecified Plan 1. Bilateral pulmonary emboli with D-dimer greater than 8 -On Lovenox with plans to switch to oral anticoagulation at discharge -Positive family history of coagulopathy/factor V -Echo shows no evidence of RV strain -CTA shows RV LV ratio of 0.7, ascending aorta at the level of the right pulmonary artery measures 3.5 cm. -Troponins negative -Lower extremity venous Dopplers, RLE negative for DVT. (+)LLE DVT of popliteal and SFA. -check Factor V, protein C, protein S levels 2. Hypertension -Home medication of amlodipine, HCTZ, losartan, metoprolol 3. Hyperlipidemia -On pravastatin at home 4. History of GERD -On famotidine 5. Hypothyroidism, on replacement therapy 6. Coronary artery calcifications on chest CTA -Troponins normal. Echocardiogram shows no evidence of RV strain. Normal biventricular systolic function with mild RV dilation noted and biatrial dilation. Mild MR/TR/PI. No plans for pulmonary thrombectomy. OK to convert to oral anticoagulation and possible discharge per Hospitalist. Home medication recommendations: Apixaban 10 mg twice daily for 7 days then reduce to 5 mg twice daily thereafter HCTZ 25 mg daily Amlodipine 5 mg daily Metoprolol succinate 25 mg daily losartan 100 mg daily Pravastatin 80 mg daily Stop Aspirin due to eliquis therapy and risk of GI bleed Follow up in office in 1-2 wks.
--- NOTE | 2025-04-15 18:05 | PC.NURSE ---
pt resting supine in bed. tolerating ra with sats >90%. worked with PT/OT. ambulates with standby and rolling walker. to return to [facility] tomorrow. lovenox for vte. no complaints of pain. call light within reach.
[2025-04-15] MEDS: MONTELUKAST SODIUM 10MG TAB 10 MG PO (20:26)
[2025-04-15] MEDS: FAMOTIDINE 20MG TABLET 20 MG PO (20:26)
[2025-04-15] MEDS: APIXABAN 5MG TABLET 10 MG PO (20:26)
[2025-04-15] MEDS: PRAVASTATIN 40MG TAB 80 MG PO (20:27)
[2025-04-15] MEDS: BIMATOPROST 0.01% 1 EACH OP (20:28)
[2025-04-16] VITALS: BP 135/60; PULSE 60; PULSE 62; RESP 16; TEMP 36.9; O2SAT 96
[2025-04-16 04:00] VITALS: BP 160/73; PULSE 60; PULSE 68; RESP 16; TEMP 36.9; O2SAT 96; BMI 25.8
[2025-04-16] MEDS: LEVOTHYROXINE 100MCG (0.1MG) TAB 100 MCG PO (06:54)
[2025-04-16 08:00] VITALS: BP 152/88; PULSE 69; PULSE 80; RESP 20; TEMP 36.8; O2SAT 93
[2025-04-16] MEDS: OPTH OP (08:20)
[2025-04-16] MEDS: PREDNISOLONE 1% OP (08:20)
[2025-04-16] MEDS: PILOCARPINE HCL 1% 1 EACH OP (08:20)
[2025-04-16] MEDS: ALLOPURINOL 100MG TABLET 100 MG PO (08:21)
[2025-04-16] MEDS: APIXABAN 5MG TABLET 10 MG PO (08:21)
[2025-04-16] MEDS: TIMOLOL MAL 1 EACH OP (08:21)
[2025-04-16] MEDS: IRBESARTAN 150MG TAB 150 MG PO (08:21)
[2025-04-16] MEDS: AMLODIPINE 5MG TABLET 5 MG PO (08:21)
[2025-04-16] MEDS: METOPROLOL SUCCINATE XL 25MG TABLET 25 MG PO (08:21)
--- NOTE | 2025-04-16 08:34 | P.DS_ITS ---
<Statement entered by Chalino Clemons MD - 04/20/25 14:19> Agree with the plan of care as outlined by the INSTRUMENT AND CONTROL TECHNICIAN. General Admission date:: 04/13/25 HPI HPI HPI: Ms. Vela is an 85-year-old female who lives in the [facility] due to inability to be at home by herself and concern for falls. Has been doing well. She has been there for about 2-1/2 months. States that about a week ago she developed some shortness of breath. Was feeling more dyspneic with exertion. Concern that she was feeling some palpitations so she was sent to the ER for evaluation. On arrival, found to have no cough, fever, chills, nausea or vomiting. He is only on aspirin at this time. Reportedly has history of A-fib. On evaluation, vitals normal. Given her dyspnea however, D- dimer was obtained that was severely elevated. D-dimer greater than 8. CTA of the chest was obtained that showed multiple bilateral subsegmental and segmental filling defects in the pulmonary arteries and upper and lower lobes of right lung and left lung. RV LV ratio on CT is 0.7. Started on Lovenox. Medicine consulted for admission and further management. Evaluation, family bedside helps supplement history. Reports that she has multiple family members that are on anticoagulation for blood clots. Her brother at bedside was diagnosed with PEs at the same time he was diagnosed with non-Hodgkin's lymphoma. She has a niece with factor V Leiden. Another brother that is on anticoagulation for PEs. Patient denies any previous history of PEs. Does state about 2 weeks ago she went on a long trip in the van with her residential to [place]. Has been getting leg wraps for edema. Denies any acute extremity pain or swelling that she is aware of. Hospital Course Hospital Course Hospital Course: Ms. Vela is an 85-year-old female who presented with shortness of breath. Found to have elevated D-dimer. CTA of chest showed multiple bilateral PEs. Significant clot burden. Concern on bedside echo for 1-1 RV ratio. Discussed case with ER physician, request admission for anticoagulation and evaluation by cardiology for possible thrombectomy. Hospital medicine admitted the patient. Problems were addressed as follows: #Submassive PE #Left popliteal and superficial femoral DVT - Unclear etiology. Does appear to have some family history of factor V and significant siblings with clots. - Received Lovenox 1 danyell/keg twice daily during admission, transition to Eliquis 10 mg twice daily for 7 days, followed by Eliquis 5 mg twice daily. - Echo shows normal LVEF of 55%, normal BiV function.no notable right heart strain on echo. These findings do not necessitate thrombectomy per cardiology. Will follow-up with cardiology in 1 week. - Troponin negative, kidney function within normal limits, creatinine 0.90. Potassium 4.3, hemoglobin stable at 13.0. - Per CT read filling defects in the segmental and subsegmental branches of pulmonary arteries, bilaterally. Patient is noted to have a nodule measuring 4 mm in the left lung base. Stable at this time. - Patient has remained hemodynamically stable on room air during admission. Lungs CTA. #Generalized weakness ? PT/OT consulted for further recommendation, at this time patient is most appropriate for skilled inpatient rehabilitation to maximize safety with mobility and address deficits. Patient is agreeable and would like to go to [facility] for rehab services. Patient has been accepted to [facility] for rehab services. #Hypertension: Resume home blood pressure regimen including amlodipine 5 mg daily, HCTZ 25 mg daily, metoprolol succinate 25 mg daily, losartan 100 mg daily. Stop aspirin at discharge due to Eliquis therapy and increased risk of GI bleed. #Hyperlipidemia: Continue pravastatin 80 mg nightly. #Hypothyroid: Continue levothyroxine 100 mcg daily. #Gout: Continue allopurinol 100 mg daily. #Glaucoma: Continue bimatoprost, brimonidine, pilocarpine, and prednisolone eyedrops. #GERD: Continue famotidine 20 mg twice daily. Total time spent on discharge 32 minutes in counseling, documentation, chart review, and direct care with patient. Exam Data for Last 24 hours Vital signs and Labs for Last 24 Hours: Temp Pulse Resp BP Pulse Ox O2 Del Method 98.2 F 69 20 152/88 H 93 L Room Air 04/16/25 08:00 04/16/25 08:00 04/16/25 08:00 04/16/25 08:00 04/16/25 08:00 04/16/25 08:00 Laboratory Results - last 24 hr 04/15/25 08:22: PT 11.8, INR 1.07, Sodium 132 L, Potassium 4.3, Chloride 105, Carbon Dioxide 26, Anion Gap 5.3, BUN 26 H, Creatinine 0.90 D, Estimated Creat Clear 50, Estimated GFR 60, Est GFR ( Amer) 72 D, Glucose 103 H, Hemoglobin A1c 5.4, Calcium 8.7, Magnesium 1.9, Total Bilirubin 1.0, AST 22, ALT 19, Alkaline Phosphatase 90, Total Protein 6.5, Albumin 3.2 L D, Globulin 3.3 H, Albumin/Globulin Ratio 1.0 L, Triglycerides 78, Cholesterol 166, LDL Cholesterol Direct 85.41 L, VLDL Cholesterol 16, HDL Cholesterol 58, Cholesterol/HDL Ratio 2.9 I & O for Last 24 hours: Intake & Output 04/13/25 04/14/25 04/15/25 04/16/25 23:59 22:59 23:59 23:59 Intake Total 770 / 1010 1540 / 1780 960 / 1200 240 / 240 Output Total 0 / 200 1600 / 1600 1750 / 1750 400 / 400 Balance 770 / 810 -60 / 180 -790 / -550 -160 / -160 Weight 77.065 kg 77.06 kg 77.746 kg 77.337 kg Constitutional Constitutional: no acute distress, average body habitus, chronically ill appearing and cooperative *Routine HEENT Exam Head: Present normocephalic Eye: Present EOMI and other (Glaucoma) ENT: Present mucous membranes moist *Routine Neck Exam Neck: Present supple and full ROM; Absent JVD *Routine Respiratory Exam Respiratory: Present CTA bilaterally and normal respiratory effort; Absent wheezes or crackles *Routine Cardiovascular Exam Cardiovascular: Present RRR, Normal S1 and Normal S2; Absent murmur *Routine Abdominal Exam Abdominal: Present soft and normoactive bowel sounds; Absent tenderness or distended *Routine Rectal Exam Patient deferred: visual exam *Routine Exam Patient deferred: external exam *Routine Extremities Exam Extremities: Present full ROM; Absent cyanosis, clubbing or edema *Routine Skin Exam Skin: Present intact and dry; Absent rash *Routine Neurological Exam Neurological: Present alert, oriented X3, hearing grossly intact and normal speech Routine Psychiatric Exam Psychiatric: Present normal affect Results Data Completed and Pending Labs on day of discharge: Labs from last 24 hours 04/15/25 08:22 PT 11.8 INR 1.07 Sodium 132 L Potassium 4.3 Chloride 105 Carbon Dioxide 26 Anion Gap 5.3 BUN 26 H Creatinine 0.90 D Estimated Creat Clear 50 Estimated GFR 60 Est GFR ( Amer) 72 D Glucose 103 H Hemoglobin A1c 5.4 Calcium 8.7 Magnesium 1.9 Total Bilirubin 1.0 AST 22 ALT 19 Alkaline Phosphatase 90 Total Protein 6.5 Albumin 3.2 L D Globulin 3.3 H Albumin/Globulin Ratio 1.0 L Triglycerides 78 Cholesterol 166 LDL Cholesterol Direct 85.41 L VLDL Cholesterol 16 HDL Cholesterol 58 Cholesterol/HDL Ratio 2.9 DS: Diagnosis Discharge Diagnosis (1) Bilateral pulmonary embolism: Status: Acute Code(s): I26.99 - Other pulmonary embolism without acute cor pulmonale (2) HTN (hypertension): Status: Acute Code(s): I10 - Essential (primary) hypertension Qualifiers: Hypertension type: primary hypertension Qualified Code(s): I10 - Essential (primary) hypertension (3) HLD (hyperlipidemia): Status: Acute Code(s): E78.5 - Hyperlipidemia, unspecified Qualifiers: Hyperlipidemia type: mixed hyperlipidemia Qualified Code(s): E78.2 - Mixed hyperlipidemia (4) GERD (gastroesophageal reflux disease): Status: Acute Code(s): K21.9 - Gastro-esophageal reflux disease without esophagitis Qualifiers: Esophagitis presence: esophagitis presence not specified Qualified Code(s): K21.9 - Gastro-esophageal reflux disease without esophagitis (5) Hypothyroid: Status: Acute Code(s): E03.9 - Hypothyroidism, unspecified Qualifiers: Hypothyroidism type: acquired Qualified Code(s): E03.9 - Hypothyroidism, unspecified (6) Systolic murmur: Status: Acute Code(s): R01.1 - Cardiac murmur, unspecified Meds Home Medications and Allergies Home Medications ?Medication ?Instructions ?Recorded ?Confirmed ?Type levocetirizine 5 mg tablet (24HR 5 mg PO DAILY 9 04/13/25 History Allergy Relief) levothyroxine 100 mcg tablet 100 mg PO DAILYDM 9 04/14/25 History allopurinol 100 mg tablet 100 mg PO HS 02/29/24 History amlodipine 5 mg tablet 5 mg PO DAILY 02/29/2404/13 History azelastine 137 mcg (0.1 %) nasal 1 spray intranasal BI D 02/29/24 04/13/25 History spray bimatoprost 0.01 % eye drops 1 drp Eye-Both HS 4 04/13/25 History ([place]) famotidine 20 mg tablet 20 mg PO BID 02/29/24 History losartan 100 mg tablet 100 mg PO DAILY 02/29/2407/07 History metoprolol succinate 25 mg 25 mg PO DAILY 02/29/2407/07 History tablet,extended release 24 hr montelukast 10 mg tablet 10 mg PO HS 02/29/24 5 History pilocarpine HCl 1 % eye drops 1 drp Eye-Both BID 02/2804/13/25 History pravastatin 80 mg tablet 80 mg PO HS 02/29/24 5 History prednisolone acetate 1 % eye 1 drp Eye-Both BID 04/13/25 History drops,suspension dextromethorphan-guaifenesin 5 10 ml PO Q4HP PRN Cough 04/13/25 04/13/25 History mg-100 mg/5 mL oral liquid (Robitussin Honey Max DM) hydrochlorothiazide 25 mg tablet 25 mg PO DAILY 04/13/25 History ibuprofen 400 mg tablet 400 mg PO Q6HP PRN Mild Pain 04/13/25 04/14/25 History (Scale Score 1-4) ondansetron 4 mg disintegrating 4 mg PO Q6HP PRN Nause a 04/13/25 04/14/25 History tablet oxycodone-acetaminophen 5 mg-325 1 tab PO Q6HP PRN Sev ere Pain 04/13/25 04/14/25 History mg tablet (Percocet) (Scale Score 7-10) sodium chloride-aloe vera nasal 2 spray intranasal Q4H P PRN 04/13/25 04/14/25 History spray ([place] Saline Gel nasal spray) Allergy Symptoms diclofenac sodium 1 % topical gel 2 g topical BIDP PRN Mild Pain 04/14/25 04/14/25 History (Voltaren Arthritis Pain) (Scale Score 1-4) timolol maleate 0.5 % eye drops 1 drp Eye-Both BID 08/0704/14/25 History apixaban 5 mg (74 tabs) tablets in 5 mg PO BID #74 tab s 04/16/25 Rx a dose pack (Eliquis DVT-PE Treat 30D Start) New Prescriptions to Start Prescriptions: apixaban [Eliquis DVT-PE Treat 30D Start] Henny More Allergies Allergy/AdvReac Type Severity Reaction Status Date / Time atorvastatin (From Lipitor) Allergy Joint Pain Verified 04/13/25 16:39 cefixime (From Suprax) Allergy Hives Verified 04/13/25 16:39 clarithromycin (From Biaxin) Allergy Nausea Verified 04/13/25 16:39 nitrofurantoin (From Allergy Nausea Verified 04/13/25 16:39 Macrobid) Penicillins Allergy Hives Verified 04/13/25 16:39 Sulfa (Sulfonamide Allergy Hives Verified 04/13/25 16:39 Antibiotics) terfenadine (From Seldane) Allergy Rash Verified 04/13/25 16:39 steriods Allergy Mild Palpitation Uncoded 04/13/25 11:00 s Discharge Plan Disposition Patient Disposition: [facility] Condition: Good Discharge Order Discharge Orders: Discharge Order (Routine); Ordered 04/16/25 Ordered By: Henny More Follow up Plan Follow up with: Jake More PA [Physician [employer], Cardiology] - Enter time for follow up Camilla Rosado [Primary Care Provider, Medical] - Enter time for follow up Prescriptions/Medication Reconciliation: New Eliquis DVT-PE Treat 30D Start 5 mg (74 tabs) tablets,dose pack 5 mg PO BID Qty: 74 0RF Continued famotidine 20 mg tablet 20 mg PO BID Patient Comments: Take 1 tablet(s) twice a day. amlodipine 5 mg tablet 5 mg PO DAILY Patient Comments: Take 1 tablet by mouth Daily. metoprolol succinate 25 mg tablet extended release 24 hr 25 mg PO DAILY Rx Instructions: HOLD FOR SBP <100, DBP <60, OR HR<60 pravastatin 80 mg tablet 80 mg PO HS Patient Comments: TAKE 1 TABLET EVERY EVENING. losartan 100 mg tablet 100 mg PO DAILY Patient Comments: TAKE 1 TABLET ONCE A DAY. allopurinol 100 mg tablet 100 mg PO HS Patient Comments: TAKE 1 TABLET ONCE A DAY. montelukast 10 mg tablet 10 mg PO HS Patient Comments: take 1 tablet once a day prednisolone acetate 1 % drops,suspension 1 drp Eye-Both BID Patient Comments: Administer 1 drop into both eyes 4 (four) times a day. pilocarpine HCl 1 % drops 1 drp Eye-Both BID Patient Comments: Administer 1 drop into both eyes 2 (two) times a day. azelastine 137 mcg (0.1 %) spray,non-aerosol 1 spray intranasal BID Patient Comments: [place] 1 spray twice a day by intranasal route. Lumigan 0.01 % drops 1 drp Eye-Both HS Patient Comments: Administer 1 drop into both eyes every night. levothyroxine 100 MCG tablet 100 mg PO DAILYDM levocetirizine [24HR Allergy Relief] 5 MG tablet 5 mg PO DAILY oxycodone-acetaminophen [Percocet] 5-325 mg tablet 1 tab PO Q6HP PRN (Reason: Severe Pain (Scale Score 7-10)) Patient Comments: Take 1 tablet by mouth every six hours as needed for pain hydrochlorothiazide 25 mg Tablet 25 mg PO DAILY ibuprofen 400 mg Tablet 400 mg PO Q6HP PRN (Reason: Mild Pain (Scale Score 1-4)) [place] Saline Gel [place],Non-Aerosol 2 spray INTRANASAL Q4HP PRN (Reason: Allergy Symptoms) dextromethorphan-guaifenesin [Robitussin Honey Max DM] 5-100 mg/5 mL Liquid 10 ml PO Q4HP PRN (Reason: Cough) ondansetron 4 mg Tablet,Disintegrating 4 mg PO Q6HP PRN (Reason: Nausea) timolol maleate 0.5 % Drops 1 drp Eye-Both BID diclofenac sodium [Voltaren Arthritis Pain] 1 % Gel 2 g TOPICAL BIDP PRN (Reason: Mild Pain (Scale Score 1-4)) Rx Instructions: apply to single elbow, wrist or hand; for hand includes palm/fingers/back of hand Discontinued aspirin 81 mg Tablet,Chewable 81 mg PO DAILY Problem Reconciliation Problems Reviewed?: Yes Patient Discharge Instructions ACTIVITY: Continue current activity DIET: continue same diet Patient Instructions: Pulmonary Embolism, Anticoagulation Care Print Language: Indonesian Providers Primary Care Provider: Camilla Rosado Admit Provider: Bull Jimenez Attending Provider: Bull Jimenez
[2025-04-16 12:00] VITALS: PULSE 60
== END 2025-04-16 14:51 ==
LOC: ER 14:19 → 2ND 15:27
PROVIDERS: Physician Assistant; Admitting Provider Internal Medicine Adolescent Medicine; Emergency Provider Student in an Organized Health Care Education/Training Program; PCP Family Medicine; Visit Provider Internal Medicine Adolescent Medicine
DX: I26.99 Other pulmonary embolism without acute cor pulmonale (principal); E03.9 Hypothyroidism, unspecified; K21.9 Gastro-esophageal reflux disease without esophagitis; I10 Essential (primary) hypertension; H40.9 Unspecified glaucoma; E78.2 Mixed hyperlipidemia; M10.9 Gout, unspecified; C85.90 Non-Hodgkin lymphoma, unspecified, unspecified site; I25.10 Atherosclerotic heart disease of native coronary artery without angina pectoris; I48.91 Unspecified atrial fibrillation; I82.432 Acute embolism and thrombosis of left popliteal vein; I82.412 Acute embolism and thrombosis of left femoral vein; R01.1 Cardiac murmur, unspecified; Z94.7 Corneal transplant status; Z88.8 Allergy status to other drugs, medicaments and biological substances; Z88.1 Allergy status to other antibiotic agents; Z88.0 Allergy status to penicillin; Z88.2 Allergy status to sulfonamides; Z79.1 Long term (current) use of non-steroidal anti-inflammatories (NSAID); Z79.890 Hormone replacement therapy; Z79.899 Other long term (current) drug therapy
CPT/HCPCS: 36415; 71045; 71275; 80053; 80061; 81241; 83036; 83735; 83880; 84436; 84443; 84484; 85025; 85300; 85301; 85302; 85305; 85306; 85378; 85610; 87636; 93005; 93306; 93970; 96360; 96361; 96372; 97116; 97162; 97166; 97530; 99285; G0378; J1650; J7030; Q9967